=== PATIENT | male | born 1940 | race Caucasian/White ===

== ENCOUNTER → 2018-08-09 | Outpatient (CLI) | payer MEDICARE ==
[2018-08-09 10:36] LABS: Basophils % (A) 1 %; Eosinophils # (A) 0.3 k/uL (0-0.7); Eosinophils % (A) 5 %; HCT 43.1 % (39.0-53.0); HGB 13.7 gm/dL (13.0-17.5); Hypochromasia Slight; Lymphocytes # (A) 2.2 k/uL (1.0-4.8); Lymphocytes % (A) 36 %; MCH 32.2 pg (25.0-35.0); MCHC 31.8 g/dL (31.0-37.0); MCV 101.3 fL (80.0-100.0); Macrocytosis Slight; Mean Platelet Volume 8.5; Monocytes # (A) 0.2 k/uL (0-1.0); Monocytes % (A) 4 %; Neutrophils # (A) 3.2 k/uL (1.3-7.7); Neutrophils % (A) 53 %; Platelet Count 175 k/uL (150-450); RBC 4.26 m/uL (4.30-5.90); RDW 15.5 % (11.5-15.5); WBC 6.1 k/uL (3.8-10.6)
[2018-08-09 10:49] LABS: Potassium 4.4 mmol/L (3.5-5.1)
== END | disposition home or self-care (01) ==
LOC: LABWHC1 09:48
PROVIDERS: ATTEND Orthopaedic Surgery
DX: Z01.818 Encounter for other preprocedural examination (principal); Z01.812 Encounter for preprocedural laboratory examination; G56.01 Carpal tunnel syndrome, right upper limb; M65.311 Trigger thumb, right thumb
CPT/HCPCS: 36415; 80051; 85025; 93005

== ENCOUNTER 2018-08-29 13:24 | Day surgery (SDC) | payer MEDICARE ==
[2018-08-27 13:38] VITALS: BMI 29.1
--- NOTE | 2018-08-28 16:13 | HP ---
HISTORY AND PHYSICAL REASON FOR ADMISSION: Surgery scheduled for 08/29/2018. Alexander Marcelino is a 78-year-old patient seen with symptomatic right carpal tunnel syndrome along with symptomatic right trigger thumb. We discussed treatment options. He elected to proceed with surgical intervention. Consent was obtained. PAST MEDICAL HISTORY: Hypertension, hyperlipidemia. PAST SURGICAL HISTORY: Elbow surgery and toe surgery. MEDICATIONS: Albuterol. Hydrochlorothiazide and methotrexate. Simvastatin. ALLERGIES: None reported. SOCIAL HISTORY: Denies tobacco use. PHYSICAL EVALUATION: Evaluation of the right hand: He has a positive carpal compression, carpal Tinel's causing numbness and tingling in the median nerve distribution. There is thenar muscle atrophy. There is decreased sensation within the median nerve distribution, which is significant marked. There is tenderness along the A1 brannon area of the right thumb as well. He has a good radial pulse present. X-RAYS: Of the right hand reveals some osteoarthritic changes. IMPRESSION: 1. Right carpal tunnel syndrome. 2. Right trigger thumb. PLAN: Decompression right median nerve and Release A1 brannon, right thumb. Surgery scheduled for 08/29/2018. MMODL / IJN: [id number] /
[~2018-08-29 13:24] MED LIST: HYDROmorphone 0.5 MG/0.5 ML SYRINGE IVP PRN; LACTATED RINGERS 1,000 ML IV SCH; LIDOCAINE 1% 20 ML VIAL (10MG/ML) FOR IV START INTRADERMA PRN; ONDANSETRON 4 MG/2 ML VIAL IVP ONE
[2018-08-29 13:48] VITALS: RESP 16; TEMP 97.8
[2018-08-29] MEDS ORDERED: fentaNYL (PF) 50 MCG/ML 2 ML AMP ONE (14:56)
[2018-08-29] MEDS ORDERED: PROPOFOL 10 MG/ML 20 ML VIAL IV ONE (14:56)
[2018-08-29] MEDS ORDERED: BUPIVACAINE (PF) 0.25% 30 ML VIAL SQ ONE (14:56)
[2018-08-29] MEDS ORDERED: MIDAZOLAM 2 MG/2 ML VIAL ONE (14:56)
--- NOTE | 2018-08-29 15:31 | P.OP ---
Date of Procedure: 08/29/18 Preoperative Diagnosis: 1. Right carpal tunnel syndrome 2. Right trigger thumb Postoperative Diagnosis: same Procedure(s) Performed: 1. Decompression right median nerve 2. Release A1 brannon right thumb Anesthesia: MAC, local Surgeon: Stephane Emanuel Estimated Blood Loss (ml): 1 Pathology: none sent Condition: stable Disposition: PACU Indications for Procedure: 78-year-old patient seen was symptomatically carpal tunnel syndrome as well as a symptom medical right trigger thumb. After we had treatment options discussed he elected to proceed with surgical intervention to include decompression right median nerve and release A1 brannon right thumb. Operative Findings: See description of procedure Description of Procedure: The patient was taken to the operative suite. The patient underwent IV sedation by the department of anesthesia. The patient received preoperative IV antibiotics. A well-padded tourniquet was placed proximal right upper extremity. The right upper extremity was prepped and draped in the normal sterile orthopedic fashion. The extremity was elevated and tourniquet insufflated to 250. Both the carpal tunnel release site and a completely set of the thumb were infiltrated with local analgesic. Once good local analgesia was noted an incision was made beginning at the distal volar wrist crease extending distally approximately 3 cm in line with the fourth metacarpal sharply through skin. Dissection was taken down through the subcutaneous soft tissues then through the palmar fascia to the transverse carpal ligament. I now incised the transverse carpal ligament. I now completed the release of the transverse carpal ligament proximally and distally with blunt Metzenbaums. There was complete release of the ligament noted with good decompression of the nerve. I now turned my attention to the thumb. I made an incision along the A1 brannon air the right thumb measuring approximately 1 cm. I dissected down to the A1 brannon. I now identified the A1 brannon. I now released the A1 brannon with a blunt tenotomy. The tendon appeared freely mobile with no impingement and there was good complete release of the A1 brannon. We had good hemostasis at both incision sites. Both incisions were now approximated with nylon suture. Sterile dressings were applied followed by loose web roll and Rg bandage. The tourniquet was released with good immediate capillary refill of the digits noted. The patient was awakened, transferred to recovery stable condition.
[2018-08-29 15:38] VITALS: BP 121/55; PULSE 78
== END 2018-08-29 16:10 | disposition home or self-care (01) ==
LOC: OR 13:24
PROVIDERS: ATTEND Orthopaedic Surgery
DX: G56.01 Carpal tunnel syndrome, right upper limb (principal); M65.311 Trigger thumb, right thumb; I10 Essential (primary) hypertension; E78.5 Hyperlipidemia, unspecified; J44.9 Chronic obstructive pulmonary disease, unspecified; M06.9 Rheumatoid arthritis, unspecified; Z79.899 Other long term (current) drug therapy; Z79.890 Hormone replacement therapy; Z79.51 Long term (current) use of inhaled steroids; Z87.891 Personal history of nicotine dependence
CPT/HCPCS: 64721; 26055; J2250; J2405; J3010; J2704

== ENCOUNTER 2019-02-02 21:42 | Emergency (ER) | payer MEDICARE ==
[2019-02-02 22:12] LABS: Glucose,Whole Blood 102 mg/dL (75-99)
--- NOTE | 2019-02-02 22:40 | ED ---
General Adult HPI - General Chief complaint: Dizziness Stated complaint: Confusion Time Seen by Provider: 02/02/19 21:59 Source: patient Mode of arrival: ambulatory Limitations: no limitations - History of Present Illness Initial comments: Alexander is a pleasant 78-year-old woman who is brought to the emergency department today by his family for evaluation of altered mental status. Family reports over the past week Alexander seems to be acting differently, they state that he is just been somewhat confused. He's done odd things like put on his pants inside out or backwards had trouble getting dressed or doing his usual activities. Alexander is usually independent and able to drive so this is very atypical for him. In addition he noticed he occasionally has some spastic movements of the cervix extremities. Patient reports he's had a headache all week, he rates it a 7-8 out of 10 in intensity it does not improve with Motrin or Tylenol. He denies any history of significant headaches or migraines. He denies any recent head trauma injuries or falls. Bedside expressed concern that the patient has been noncompliant with his home oxygen, he does have COPD, he is oxygen dependent 2-3 L at all times however they report that he only wears his oxygen when he sitting in his chair. He refuses to carry his portable oxygen her wears auction when he is doing anything else around the house. They discussed his symptoms with a family friend who is a medical provider and expressed concern that he may have hypercapnia and advised to come to the ER for evaluation. - Related Data Home Medications Medication Instructions Recorded Confirmed Albuterol Nebulized [Ventolin 2.5 mg INHALATION RT-HS 08/27/18 02/02/19 Nebulized] Budesonide [Pulmicort] 0.5 mg INHALATION RT-DAILY 08/27/18 02/02/19 Folic Acid 1 mg PO DAILY 08/27/18 02/02/19 Hydrochlorothiazide 25 mg PO DAILY 08/27/18 02/02/19 Levothyroxine Sodium [Synthroid] 100 mcg PO DAILY 08/27/18 02/02/19 Methotrexate Sodium [Methotrexate] 20 mg PO CHOW 08/27/18 02/02/19 Simvastatin 40 mg PO DAILY 08/27/18 02/02/19 Ascorbic Acid [Vitamin C] 500 mg PO DAILY 02/02/19 02/02/19 Cholecalciferol [Vitamin D3 (25 1,000 unit PO DAILY 02/02/19 02/02/19 Mcg = 1000 Iu)] Ibuprofen [Advil] 400 mg PO QID 02/02/19 02/02/19 Allergies Allergy/AdvReac Type Severity Reaction Status Date / Time No Known Allergies Allergy Verified 02/02/19 22:36 Review of Systems ROS Statement: Those systems with pertinent positive or pertinent negative responses have been documented in the HPI. ROS Other: All systems not noted in ROS Statement are negative. Past Medical History Past Medical History: COPD, Hyperlipidemia, Rheumatoid Arthritis (RA), Thyroid Disorder Additional Past Medical History / Comment(s): peripheral edema, wears O2 prn at 2l History of Any Multi-Drug Resistant Organisms: None Reported Past Surgical History: Orthopedic Surgery Additional Past Surgical History / Comment(s): left carpal tunnel, elbow sx Past Anesthesia/Blood Transfusion Reactions: No Reported Reaction Past Psychological History: No Psychological Hx Reported Smoking Status: Former smoker General Exam - General Exam Comments Initial Comments: GENERAL: Patient is well-developed and well-nourished. Patient is nontoxic and well-hydrated and is in no distress. HENT: Normocephalic, Atraumatic. Neck is soft and supple. Oropharynx is clear. Moist mucous membranes. Neck has full range of motion without eliciting any pain. EYES: The sclera were anicteric and conjunctiva were pink and moist. Extraocular movements were intact and pupils were equal round and reactive to light. PULMONARY: Unlabored respirations. Good breath sounds bilaterally. No audible rales rhonchi or wheezing was noted. CARDIOVASCULAR: There is a regular rate and rhythm without any murmurs gallops or rubs. ABDOMEN: Soft and nontender with normal bowel sounds. SKIN: Skin is clear with no lesions or rashes and otherwise unremarkable. NEUROLOGIC: Patient is alert and oriented x3 but seems pleasantly confused and doesnt understand why he needs to be in the ER Cranial nerves II through XII are grossly intact. Motor and sensory are also intact. Normal speech, volume and content. Symmetrical smile. MUSCULOSKELETAL: Normal extremities with adequate strength and full range of motion. No lower extremity swelling or edema. No calf tenderness. PSYCHIATRIC: Normal psychiatric evaluation Limitations: no limitations Course Vital Signs 02/02/19 02/02/19 02/02/19 21:44 22:18 22:30 Temperature 98.5 F Pulse Rate 92 80 78 Respiratory 20 20 22 Rate Blood Pressure 137/85 115/72 109/66 O2 Sat by Pulse 92 L 95 94 L Oximetry 02/02/19 23:22 Temperature 98.1 F Pulse Rate 79 Respiratory 20 Rate Blood Pressure 114/62 O2 Sat by Pulse 95 Oximetry EKG Findings - EKG Comments: EKG Findings:: EKG was obtained at 2215, rate is 83 rhythm is sinus there is normal axis there are normal intervals, OK 144, QRS 106, QTC is 460 there are no acute ST elevations or depressions there is no evidence of acute ischemia infarction or arrhythmia. Medical Decision Making - Medical Decision Making The patient was seen and evaluated upon arrival to the emergency department. This is a pleasant 78-year-old gentleman with history of oxygen dependent COPD presenting with his family for evaluation of odd behavior and altered mental status for 1 week duration. In addition the patient is experiencing a headache but no fevers or infectious symptoms. Patient denies any trauma or head injuries. History is concerning due to his noncompliance with treatment regimen he could be hypercapnic therefore we will obtain a VBG with a basic labs, however given his advanced age and altered mental status we will also obtain a head CT Labs with chronic anemia, VBG is within normal limits as a CMP Head CT concerning for acute on chronic subdural hematoma with a 5 mm shift Results were discussed with the patient and family, they're agreeable to plan for transfer to [facility] for evaluation by neurosurgery. Again the patient denies any possibility of trauma injury or fall. Patient having some difficulty comprehending what is going on and requests to be discharged home so that he watched TV, family encouraging him to cooperate with plan for transfer for evaluation by neurosurgery. care was discussed with Dr. Pitts at [facility] who accepts the transfer to the ER for evaluation by neurosurgery. - Lab Data Result diagrams: 02/02/19 22:15 02/02/19 22:15 Lab Results 02/02/19 02/02/19 02/02/19 Range/Units 22:10 22:15 22:15 WBC 6.2 (3.8-10.6) k/uL RBC 3.83 L (4.30-5.90) m/uL Hgb 12.2 L (13.0-17.5) gm/dL Hct 38.0 L (39.0-53.0) % MCV 99.3 (80.0-100.0) fL MCH 31.9 (25.0-35.0) pg MCHC 32.1 (31.0-37.0) g/dL RDW 15.1 (11.5-15.5) % Plt Count 166 (150-450) k/uL Neutrophils % 42 % Lymphocytes % 48 % Monocytes % 4 % Eosinophils % 4 % Basophils % 0 % Neutrophils # 2.6 (1.3-7.7) k/uL Lymphocytes # 3.0 (1.0-4.8) k/uL Monocytes # 0.3 (0-1.0) k/uL Eosinophils # 0.2 (0-0.7) k/uL Basophils # 0.0 (0-0.2) k/uL Macrocytosis Slight VBG pH (7.31-7.41) VBG pCO2 (37-51) mmHg VBG HCO3 (24-28) mmol/L Sodium 135 L (137-145) mmol/L Potassium 4.1 (3.5-5.1) mmol/L Chloride 99 (98-107) mmol/L Carbon Dioxide 29 (22-30) mmol/L Anion Gap 7 mmol/L BUN 21 H (9-20) mg/dL Creatinine 0.90 (0.66-1.25) mg/dL Est GFR (CKD-EPI)AfAm >90 (>60 ml/min/1.73 sqM) Est GFR (CKD-EPI)NonAf 82 (>60 ml/min/1.73 sqM) Glucose 97 (74-99) mg/dL POC Glucose (mg/dL) 102 H (75-99) mg/dL POC Glu Assistant Art Director ID Leisa Waters Calcium 8.9 (8.4-10.2) mg/dL Total Bilirubin 0.4 (0.2-1.3) mg/dL AST 25 (17-59) U/L ALT 7 L (21-72) U/L Alkaline Phosphatase 76 (38-126) U/L Total Protein 8.3 H (6.3-8.2) g/dL Albumin 3.3 L (3.5-5.0) g/dL 02/02/19 Range/Units 22:15 WBC (3.8-10.6) k/uL RBC (4.30-5.90) m/uL Hgb (13.0-17.5) gm/dL Hct (39.0-53.0) % MCV (80.0-100.0) fL MCH (25.0-35.0) pg MCHC (31.0-37.0) g/dL RDW (11.5-15.5) % Plt Count (150-450) k/uL Neutrophils % % Lymphocytes % % Monocytes % % Eosinophils % % Basophils % % Neutrophils # (1.3-7.7) k/uL Lymphocytes # (1.0-4.8) k/uL Monocytes # (0-1.0) k/uL Eosinophils # (0-0.7) k/uL Basophils # (0-0.2) k/uL Macrocytosis VBG pH 7.48 H (7.31-7.41) VBG pCO2 38 (37-51) mmHg VBG HCO3 28 (24-28) mmol/L Sodium (137-145) mmol/L Potassium (3.5-5.1) mmol/L Chloride (98-107) mmol/L Carbon Dioxide (22-30) mmol/L Anion Gap mmol/L BUN (9-20) mg/dL Creatinine (0.66-1.25) mg/dL Est GFR (CKD-EPI)AfAm (>60 ml/min/1.73 sqM) Est GFR (CKD-EPI)NonAf (>60 ml/min/1.73 sqM) Glucose (74-99) mg/dL POC Glucose (mg/dL) (75-99) mg/dL POC Glu Assistant Art Director ID Calcium (8.4-10.2) mg/dL Total Bilirubin (0.2-1.3) mg/dL AST (17-59) U/L ALT (21-72) U/L Alkaline Phosphatase (38-126) U/L Total Protein (6.3-8.2) g/dL Albumin (3.5-5.0) g/dL Disposition Clinical Impression: Acute on chronic intracranial subdural hematoma Disposition: OTHER INSTITUTION NOT DEFINED Condition: Serious Referrals: Lexa Mccormack MD [Primary Care Provider] - 1-2 days - Out of Hospital Transfer - Req. Specs Out of Hospital Transfer - Requested Specifics: Other Emergency Center ([facility])
[2019-02-02 22:45] LABS: VBG PH 7.48 (7.31-7.41)
[2019-02-02 22:48] LABS: Basophils % (A) 0 %; Eosinophils # (A) 0.2 k/uL (0-0.7); Eosinophils % (A) 4 %; HGB 12.2 gm/dL (13.0-17.5); Lymphocytes % (A) 48 %; MCH 31.9 pg (25.0-35.0); MCHC 32.1 g/dL (31.0-37.0); MCV 99.3 fL (80.0-100.0); Macrocytosis Slight; Monocytes # (A) 0.3 k/uL (0-1.0); Monocytes % (A) 4 %; Neutrophils # (A) 2.6 k/uL (1.3-7.7); Neutrophils % (A) 42 %; Platelet Count 166 k/uL (150-450); RBC 3.83 m/uL (4.30-5.90); RDW 15.1 % (11.5-15.5); WBC 6.2 k/uL (3.8-10.6)
[2019-02-02 22:57] LABS: ALT 7 U/L (21-72); AST 25 U/L (17-59); African American GFR (CKD) >90 (>60 ml/min/1.73 sqM); Albumin 3.3 g/dL (3.5-5.0); Alkaline Phosphatase 76 U/L (38-126); Anion Gap 7 mmol/L; Blood Urea Nitrogen 21 mg/dL (9-20); Calcium 8.9 mg/dL (8.4-10.2); Carbon Dioxide 29 mmol/L (22-30); Chloride 99 mmol/L (98-107); Glucose 97 mg/dL (74-99); Potassium 4.1 mmol/L (3.5-5.1); Sodium 135 mmol/L (137-145); Total Bilirubin 0.4 mg/dL (0.2-1.3); Total Protein 8.3 g/dL (6.3-8.2)
--- NOTE | 2019-02-02 23:02 | XR ---
EXAM: XR Chest, 2 Views CLINICAL HISTORY: COPD TECHNIQUE: Frontal and lateral views of the chest. COMPARISON: No relevant prior studies available. FINDINGS: Lungs: Diffuse airspace opacities which may be inflammatory or infectious versus pulmonary vascular congestion. Pleural space: Unremarkable. No pneumothorax. Heart: Unremarkable. No cardiomegaly. Mediastinum: Unremarkable. Bones/joints: Unremarkable. IMPRESSION: Diffuse airspace opacities which may be inflammatory or infectious versus pulmonary vascular congestion.
--- NOTE | 2019-02-02 23:07 | CT ---
ADDENDUM - Added by Mor Caban MD on 02/02/2019 11:07 PM (-07:00) EXAM: CT Head Without Intravenous Contrast CLINICAL HISTORY: None. TECHNIQUE: Axial computed tomography images of the head/brain without intravenous contrast. CTDI is 0.085, 0.085, 49.1 mGy and DLP is 1082.4 mGy-cm. This CT exam was performed using one or more of the following dose reduction techniques: automated exposure control, adjustment of the mA and/or kV according to patient size, and/or use of iterative reconstruction technique. COMPARISON: No relevant prior studies available. FINDINGS: Brain: Moderate-sized acute on chronic subdural hematoma along the right cerebral convexity measuring up to 2 cm. This causes marked mass effect on the adjacent parenchyma with approximately 5 mm of leftward midline shift. Chronic small vessel ischemic disease and senescent changes. Calcifications within the basal ganglia and the cerebellum, which is nonspecific. Ventricles: Unremarkable. No ventriculomegaly. Bones/joints: Unremarkable. No acute fracture. Soft tissues: Unremarkable. Sinuses: Mild mucosal thickening in the paranasal sinuses. Mastoid air cells: Partial opacification left mastoid air cells. Post surgical changes within the right mastoid. IMPRESSION: Moderate-sized acute on chronic subdural hematoma along the right cerebral convexity measuring up to 2 cm. This causes marked mass effect on the adjacent parenchyma with approximately 5 mm of leftward midline shift. <MYCVCSECTION> Critical Value Communications 02/02/19 23:09 Call Doctor Regarding Above results, called Dr. Daniel on 02/02 23:09 (-04:00)
[2019-02-02 23:24] VITALS: BP 114/62; PULSE 79; TEMP 98.1
[2019-02-02 23:38] VITALS: RESP 20
== END 2019-02-02 23:39 | disposition other institution (70) ==
LOC: EC 21:42
DX: I62.03 Nontraumatic chronic subdural hemorrhage (principal); I62.01 Nontraumatic acute subdural hemorrhage; D64.9 Anemia, unspecified; J44.9 Chronic obstructive pulmonary disease, unspecified; E78.5 Hyperlipidemia, unspecified; M06.9 Rheumatoid arthritis, unspecified; E07.9 Disorder of thyroid, unspecified; Z87.891 Personal history of nicotine dependence; Z79.51 Long term (current) use of inhaled steroids; Z79.890 Hormone replacement therapy; Z79.1 Long term (current) use of non-steroidal anti-inflammatories (NSAID); Z79.899 Other long term (current) drug therapy; Z99.81 Dependence on supplemental oxygen
CPT/HCPCS: 36415; 70450; 71046; 80053; 82803; 85025; 93005; 99285

== ENCOUNTER → 2019-03-11 | Outpatient (CLI) | payer MEDICARE ==
--- NOTE | 2019-03-11 13:07 | CT ---
EXAMINATION TYPE: CT brain wo con DATE OF EXAM: 03/11/2019 COMPARISON: 02/02/2019 HISTORY: follow up to nontraumatic subdural hemorrhage CT DLP: 945.5 mGycm Automated exposure control for dose reduction was used. 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 The previously seen acute on chronic subdural hematoma has decreased in thickness in comparison to th e prior with a maximum thickness previously measuring approximately 2.2 cm near the skull vertex and currently measuring 1.5 cm, additionally the previously seen 5 mm of right to left midline shift has resolved in the interim with no current midline shift seen. There are similar appearing hyperattenuat ed densities with no new hyperattenuated densities indicating subacute on chronic right hemispheric h ematoma at this time. There is some effacement of the peripheral sulci of the right cerebral hemisphe re. No new compartments of intracranial hemorrhage are seen. Patchy areas of hypoattenuation are pres ent within the subcortical and periventricular white matter. Overall peripheral sulcal prominence is compatible with age-related volume loss. Calvarium appears intact. Paranasal sinuses and mastoid air cells are well aerated other than some debris within the postsurgical change of the right mastoid air cells and small amount of fluid in the left posterior inferior mastoid air cells. IMPRESSION: 1. IMPROVING SUBACUTE ON CHRONIC RIGHT HEMISPHERIC SUBDURAL HEMATOMA WITH RESOLVED MIDLINE SHIFT/SUBF ALCINE HERNIATION. 2. FINDINGS COMPATIBLE WITH FAHR'S DISEASE. 3. PARTIAL OPACIFICATION OF THE BILATERAL MASTOID AIR CELLS WITH POSTSURGICAL CHANGES ON THE RIGHT. 4. 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
== END | disposition home or self-care (01) ==
LOC: RADCTMAIN 12:32
DX: S06.5X9A Traumatic subdural hemorrhage with loss of consciousness of unspecified duration, initial encounter (principal)
CPT/HCPCS: 70450

== ENCOUNTER → 2019-05-02 | Outpatient (CLI) | payer MEDICARE ==
--- NOTE | 2019-05-02 10:41 | CT ---
EXAMINATION TYPE: CT chest w con DATE OF EXAM: 05/02/2019 COMPARISON: NONE HISTORY: COPD CT DLP: 418.9 mGycm. Automated Exposure Control for Dose Reduction was Utilized. TECHNIQUE: CT scan of the thorax is performed following with IV Contrast, patient injected with 100 mL of Isovue 300. FINDINGS: LUNGS: Fairly moderate to advanced emphysematous change in the bilateral upper lobes is present with [id number] right greater than left biapical pleural/parenchymal scarring. There is mild to bord rosas moderate peripheral reticulation and fibrosis throughout the lungs bilaterally with some invol vement of the middle and lower lungs. Some scattered small nodules are present. For reference 6 mm yang bpleural nodule left lower lobectomy 40. For reference 3 mm posterior superior right lower lobe nodul e likely from image 37. No suspicious masses. No suspicious consolidation. No pleural effusion or pne umothorax. MEDIASTINUM: There are no greater than 1 cm hilar or mediastinal lymph nodes. No pericardial effus ion is seen. Right pulmonary artery dilated at 3.0 cm image 29, CT findings suggesting underlying pul monary artery hypertension. Heart size upper limits of normal. No pericardial effusion. Moderate mixe d plaque in the aorta. Bovine type arch is seen which is normal variant. OTHER: Significant subareolar bilateral gynecomastia axial image 32. Stomach is poorly distended and thus suboptimally evaluated. Cannot exclude significant stenosis in the celiac artery at origin coron al image 55 and sagittal image 65. Correlate clinically. IMPRESSION: 1. Moderate to severe emphysematous change in the upper lobes. Mild to moderate borderline fibrotic c hanges bilaterally. No suspicious acute pulmonary process. Few scattered small nodules up to 6 mm in size. Appropriate CT follow up as per Fleischner Society recommendations. Underlying pulmonary hypert ension. 2. 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
== END ==
LOC: RADCTMAIN 08:02
PROVIDERS: ATTEND Internal Medicine Critical Care Medicine
DX: R91.8 Other nonspecific abnormal finding of lung field (principal); J44.9 Chronic obstructive pulmonary disease, unspecified
CPT/HCPCS: 82565; 84520; 71260; 36415; Q9967

== ENCOUNTER → 2019-05-13 | Outpatient (CLI) | payer MEDICARE ==
--- NOTE | 2019-05-14 05:08 | CT ---
EXAMINATION TYPE: CT brain wo con DATE OF EXAM: 05/13/2019 COMPARISON: 03/11/2019 HISTORY: 79-year-old male f/u subdural hemorrhage TECHNIQUE: Examination was done in axial plane without intravenous contrast. Coronal and sagittal r econstructions performed. CT DLP: 1219 mGycm Automated exposure control for dose reduction was used. FINDINGS: There is no evidence of acute intracranial hemorrhage, acute ischemic changes, mass, or mass effect. There is no effacement of cerebral sulci or basal subarachnoid cisterns. There is no hydrocephalus. There is no midline shift. Quintero-white matter distinction is preserved. Redemonstrated subdural hematoma along the right lateral convexity. This is smaller now measuring 7 m m thick versus 1.3 cm, previously. It is an isodense to hypodense collection compatible with subacute to chronic hemorrhage. Benign basal ganglionic calcifications. Additional calcifications within the bilateral cerebellar hem ispheres. Mild mucosal thickening floors of the maxillary sinuses. Suspect some resection changes into the righ t mastoid process. Small amount of trapped fluid in inferior left mastoid air cells is unchanged. Orb its and globes appear intact. IMPRESSION: 1. Residual small subdural hematoma along the right lateral convexity with density suggesting subacut e to chronic blood products. The hematoma measures 7 mm thick versus 1.3 cm on 03/11/2019. 2. No acute intracranial abnormality seen. 3. Basal ganglionic and bilateral cerebellar calcifications can be seen with Fahr's disease.
== END | disposition home or self-care (01) ==
LOC: RADCTMAIN 14:33
PROVIDERS: ATTEND Nurse Practitioner Critical Care Medicine
DX: I62.00 Nontraumatic subdural hemorrhage, unspecified (principal); G93.89 Other specified disorders of brain
CPT/HCPCS: 70450

== ENCOUNTER → 2019-05-16 | Outpatient (CLI) | payer MEDICARE ==
--- NOTE | 2019-05-17 16:01 | ECHOF ---
Referral Reason:copd J44.9 MEASUREMENTS -------- HEIGHT: 177.8 cm WEIGHT: 90.7 kg BP: RVIDd: 3.7 cm (< 3.3) IVSd: 1.1 cm (0.6 - 1.1) LVIDd: 5.0 cm (3.9 - 5.3) LVPWd: 1.1 cm (0.6 - 1.1) IVSs: 1.9 cm LVIDs: 3.4 cm LVPWs: 1.3 cm LAESV Index (A-L): 23.32 ml/m Ao Diam: 3.4 cm (2.0 - 3.7) AV Cusp: 2.3 cm (1.5 - 2.6) LA Diam: 3.8 cm (2.7 - 3.8) MV EXCURSION: 17.007 mm (> 18.000) MV EF SLOPE: 72 mm/s (70 - 150) EPSS: 1.1 cm MV E Kendrick: 0.42 m/s MV DecT: 319 ms MV A Kendrick: 0.87 m/s MV E/A Ratio: 0.48 AR PHT: 509 ms RAP: 5.00 mmHg RVSP: 39.61 mmHg FINDINGS -------- Sinus rhythm. This was a technically adequate study. The left ventricular size is normal. There is mild concentric left ventricular hypertrophy. Overa ll left ventricular systolic function is normal with, an EF between 55 - 60 %. The diastolic fillin g pattern is normal for the age of the patient 6.25. The right ventricle is mild to moderately enlarged. Normal LA size by volume 22+/-6 ml/m2. The right atrium is mildly enlarged. Interatrial and interventricular septum intact. Trace to mild aortic regurgitation. There is no evidence of aortic stenosis. The mitral valve is normal. There is trace to mild mitral regurgitation. Mild tricuspid regurgitation present. There is mild pulmonary hypertension. The right ventricular systolic pressure, as measured by Doppler, is 39.61mmHg. There is no pulmonic regurgitation present. The aortic root size is normal. Normal inferior vena cava with normal inspiratory collapse consistent with estimated right atrial pre ssure of 5 mmHg. There is no pericardial effusion. CONCLUSIONS -------- 1. Sinus rhythm. 2. This was a technically adequate study. 3. The left ventricular size is normal. 4. There is mild concentric left ventricular hypertrophy. 5. Overall left ventricular systolic function is normal with, an EF between 55 - 60 %. 6. The diastolic filling pattern is normal for the age of the patient 6.25 7. The right ventricle is mild to moderately enlarged. 8. Normal LA size by volume 22+/-6 ml/m2. 9. The right atrium is mildly enlarged. 10. Trace to mild aortic regurgitation. 11. There is no evidence of aortic stenosis. 12. There is trace to mild mitral regurgitation. 13. Mild tricuspid regurgitation present. 14. There is mild pulmonary hypertension. 15. There is no pulmonic regurgitation present. 16. The aortic root size is normal. 17. Normal inferior vena cava with normal inspiratory collapse consistent with estimated right atrial pressure of 5 mmHg. 18. There is no pericardial effusion. JTAC: Virginie Lott RDCS
== END | disposition home or self-care (01) ==
LOC: RADECHMAIN 11:16
PROVIDERS: ATTEND Internal Medicine Critical Care Medicine
DX: I08.3 Combined rheumatic disorders of mitral, aortic and tricuspid valves (principal); J44.9 Chronic obstructive pulmonary disease, unspecified; I27.20 Pulmonary hypertension, unspecified
CPT/HCPCS: 93306

== ENCOUNTER → 2019-06-30 | Outpatient (CLI) | payer MEDICARE | END | disposition home or self-care (01) | LOC: CPPFTMAIN 10:40 | PROVIDERS: ATTEND Internal Medicine Critical Care Medicine | DX: J44.9 Chronic obstructive pulmonary disease, unspecified (principal); J98.4 Other disorders of lung | CPT/HCPCS: 94060; 94726; 94729 ==

== ENCOUNTER 2020-01-15 13:33 | Inpatient (IN) | payer MEDICARE ==
[2020-01-15] MEDS ORDERED: ACETAMINOPHEN TAB 500 MG TAB PO STA (13:53)
--- NOTE | 2020-01-15 14:15 | ED ---
General Adult HPI - General Chief complaint: Weakness Stated complaint: confusion Time Seen by Provider: 01/15/20 13:40 Source: patient, RN notes reviewed, old records reviewed Mode of arrival: ambulatory Limitations: no limitations - History of Present Illness Initial comments: 79-year-old male who presents to the emergency department with altered mental status 2 days according to his daughter. Patient has had a hemorrhagic regularly with past unknown cause per the family. Patient had a low-grade fever the last 2 days and one time he had a fever of 101. Patient has a chronic cough it's no different today according to the patient. Patient denies any difficulty breathing or chest pain. Patient denies any abdominal pain patient patient was nauseated this morning vomited times one. Patient denies any diarrhea. Patient denies any dysuria hematuria urinary frequency. Patient denies any rashes lesions or areas of erythema. - Related Data Home Medications Medication Instructions Recorded Confirmed Albuterol Nebulized [Ventolin 2.5 mg INHALATION RT-HS 08/27/18 02/02/19 Nebulized] Budesonide [Pulmicort] 0.5 mg INHALATION RT-DAILY 08/27/18 02/02/19 Folic Acid 1 mg PO DAILY 08/27/18 02/02/19 Hydrochlorothiazide 25 mg PO DAILY 08/27/18 02/02/19 Levothyroxine Sodium [Synthroid] 100 mcg PO DAILY 08/27/18 02/02/19 Methotrexate Sodium [Methotrexate] 20 mg PO CHOW 08/27/18 02/02/19 Simvastatin 40 mg PO DAILY 08/27/18 02/02/19 Ascorbic Acid [Vitamin C] 500 mg PO DAILY 02/02/19 02/02/19 Cholecalciferol [Vitamin D3 (25 1,000 unit PO DAILY 02/02/19 02/02/19 Mcg = 1000 Iu)] Ibuprofen [Advil] 400 mg PO QID 02/02/19 02/02/19 Allergies Allergy/AdvReac Type Severity Reaction Status Date / Time No Known Allergies Allergy Verified 01/15/20 13:42 Review of Systems ROS Statement: Those systems with pertinent positive or pertinent negative responses have been documented in the HPI. ROS Other: All systems not noted in ROS Statement are negative. Past Medical History Past Medical History: COPD, Hyperlipidemia, Rheumatoid Arthritis (RA), Thyroid Disorder Additional Past Medical History / Comment(s): peripheral edema, wears O2 prn at 2l, brain bleed History of Any Multi-Drug Resistant Organisms: None Reported Past Surgical History: Orthopedic Surgery Additional Past Surgical History / Comment(s): left carpal tunnel, elbow sx, cataracts Past Anesthesia/Blood Transfusion Reactions: No Reported Reaction Past Psychological History: No Psychological Hx Reported Smoking Status: Former smoker Past Alcohol Use History: None Reported Past Drug Use History: None Reported General Exam - General Exam Comments Initial Comments: GENERAL: Patient is well-developed and well-nourished. Patient is nontoxic and well- hydrated and is in mild distress. I think the patient's temperature was 101.1 ENT: Neck is soft and supple. No significant lymphadenopathy is noted. Oropharynx is clear. Moist mucous membranes. Neck has full range of motion without eliciting any pain. EYES: The sclera were anicteric and conjunctiva were pink and moist. Extraocular movements were intact and pupils were equal round and reactive to light. Eyelids were unremarkable. PULMONARY: Unlabored respirations. Good breath sounds bilaterally. Crackles bilateral b ases CARDIOVASCULAR: There is a regular rate and rhythm without any murmurs gallops or rubs. ABDOMEN: Soft and nontender with normal bowel sounds. SKIN: Skin is clear with no lesions or rashes and otherwise unremarkable. NEUROLOGIC: Patient is alert and oriented x3. Cranial nerves II through XII are grossly intact. Motor and sensory are also intact. Normal speech, volume and content. Symmetrical smile. MUSCULOSKELETAL: Normal extremities with adequate strength and full range of motion. LYMPHATICS: No significant lymphadenopathy is noted PSYCHIATRIC: Normal psychiatric evaluation. Limitations: no limitations Course Vital Signs 01/15/20 01/15/20 01/15/20 13:38 13:54 14:17 Temperature 101.4 F H 101.1 F H Pulse Rate 109 H Respiratory 20 Rate Blood Pressure 90/48 101/58 O2 Sat by Pulse 93 L Oximetry 01/15/20 01/15/20 01/15/20 14:20 16:00 16:56 Temperature 97.9 F Pulse Rate 96 82 Respiratory 21 24 Rate Blood Pressure 101/58 100/58 O2 Sat by Pulse 98 97 Oximetry 01/15/20 17:00 Temperature Pulse Rate 74 Respiratory 20 Rate Blood Pressure 95/57 O2 Sat by Pulse 98 Oximetry Medical Decision Making - Medical Decision Making EKG shows sinus tachycardia with occasional PVC at 102 bpm CA interval 134 QRS 104 QT interval 350 QTC is 456. Degenerative ST segment elevation or depression. CT of the chest shows no PE but does show multifocal pneumonia. I started the patient on antibiotics. I spoke with Dr. Mccormack he agreed to admit the patient I admitted the patient wrote admitting orders. - Lab Data Result diagrams: 01/15/20 14:15 01/15/20 14:15 Lab Results 01/15/20 01/15/20 01/15/20 Range/Units 14:15 14:15 14:15 WBC 7.3 (3.8-10.6) k/uL RBC 3.27 L (4.30-5.90) m/uL Hgb 10.3 L (13.0-17.5) gm/dL Hct 32.7 L (39.0-53.0) % MCV 100.1 H (80.0-100.0) fL MCH 31.5 (25.0-35.0) pg MCHC 31.5 (31.0-37.0) g/dL RDW 15.9 H (11.5-15.5) % Plt Count 198 (150-450) k/uL Neutrophils % 89 % Lymphocytes % 7 % Monocytes % 3 % Eosinophils % 1 % Basophils % 0 % Neutrophils # 6.5 (1.3-7.7) k/uL Lymphocytes # 0.5 L (1.0-4.8) k/uL Monocytes # 0.2 (0-1.0) k/uL Eosinophils # 0.1 (0-0.7) k/uL Basophils # 0.0 (0-0.2) k/uL Hypochromasia Slight Macrocytosis Slight PT 11.5 (9.0-12.0) sec INR 1.1 (<1.2) APTT 32.9 H (22.0-30.0) sec D-Dimer 1.46 H (<0.60) mg/L FEU Sodium 131 L (137-145) mmol/L Potassium 3.7 (3.5-5.1) mmol/L Chloride 97 L (98-107) mmol/L Carbon Dioxide 27 (22-30) mmol/L Anion Gap 7 mmol/L BUN 36 H (9-20) mg/dL Creatinine 1.57 H (0.66-1.25) mg/dL Est GFR (CKD-EPI)AfAm 48 (>60 ml/min/1.73 sqM) Est GFR (CKD-EPI)NonAf 42 (>60 ml/min/1.73 sqM) Glucose 124 H (74-99) mg/dL Plasma Lactic Acid Clement (0.7-2.0) mmol/L Calcium 8.4 (8.4-10.2) mg/dL Magnesium 2.3 (1.6-2.3) mg/dL Total Bilirubin 0.6 (0.2-1.3) mg/dL AST 40 (17-59) U/L ALT 22 (4-49) U/L Alkaline Phosphatase 94 (38-126) U/L Lactate Dehydrogenase 577 (313-618) U/L C-Reactive Protein 163.2 H (<10.0) mg/L Total Protein 9.0 H (6.3-8.2) g/dL Albumin 3.0 L (3.5-5.0) g/dL Influenza Type A RNA (Not Detectd) Influenza Type B (PCR) (Not Detectd) 01/15/20 01/15/20 Range/Units 14:15 15:15 WBC (3.8-10.6) k/uL RBC (4.30-5.90) m/uL Hgb (13.0-17.5) gm/dL Hct (39.0-53.0) % MCV (80.0-100.0) fL MCH (25.0-35.0) pg MCHC (31.0-37.0) g/dL RDW (11.5-15.5) % Plt Count (150-450) k/uL Neutrophils % % Lymphocytes % % Monocytes % % Eosinophils % % Basophils % % Neutrophils # (1.3-7.7) k/uL Lymphocytes # (1.0-4.8) k/uL Monocytes # (0-1.0) k/uL Eosinophils # (0-0.7) k/uL Basophils # (0-0.2) k/uL Hypochromasia Macrocytosis PT (9.0-12.0) sec INR (<1.2) APTT (22.0-30.0) sec D-Dimer (<0.60) mg/L FEU Sodium (137-145) mmol/L Potassium (3.5-5.1) mmol/L Chloride (98-107) mmol/L Carbon Dioxide (22-30) mmol/L Anion Gap mmol/L BUN (9-20) mg/dL Creatinine (0.66-1.25) mg/dL Est GFR (CKD-EPI)AfAm (>60 ml/min/1.73 sqM) Est GFR (CKD-EPI)NonAf (>60 ml/min/1.73 sqM) Glucose (74-99) mg/dL Plasma Lactic Acid Clement 1.4 (0.7-2.0) mmol/L Calcium (8.4-10.2) mg/dL Magnesium (1.6-2.3) mg/dL Total Bilirubin (0.2-1.3) mg/dL AST (17-59) U/L ALT (4-49) U/L Alkaline Phosphatase (38-126) U/L Lactate Dehydrogenase (313-618) U/L C-Reactive Protein (<10.0) mg/L Total Protein (6.3-8.2) g/dL Albumin (3.5-5.0) g/dL Influenza Type A RNA Not Detected (Not Detectd) Influenza Type B (PCR) Not Detected (Not Detectd) Disposition Clinical Impression: Multifocal pneumonia, Altered mental status Disposition: ADMITTED IP TO THIS HOSP Referrals: Lexa Mccormack MD [Primary Care Provider] - 1-2 days Time of Disposition: 17:36
[2020-01-15 14:31] LABS: Basophils % (A) 0 %; Eosinophils # (A) 0.1 k/uL (0-0.7); Eosinophils % (A) 1 %; HCT 32.7 % (39.0-53.0); HGB 10.3 gm/dL (13.0-17.5); Hypochromasia Slight; Lymphocytes # (A) 0.5 k/uL (1.0-4.8); Lymphocytes % (A) 7 %; MCH 31.5 pg (25.0-35.0); MCHC 31.5 g/dL (31.0-37.0); MCV 100.1 fL (80.0-100.0); Macrocytosis Slight; Mean Platelet Volume 8.9; Monocytes # (A) 0.2 k/uL (0-1.0); Monocytes % (A) 3 %; Neutrophils # (A) 6.5 k/uL (1.3-7.7); Neutrophils % (A) 89 %; Platelet Count 198 k/uL (150-450); RBC 3.27 m/uL (4.30-5.90); RDW 15.9 % (11.5-15.5); WBC 7.3 k/uL (3.8-10.6)
[2020-01-15 14:44] LABS: INR 1.1 (<1.2); Partial Thromboplastin Time 32.9 sec (22.0-30.0); Prothrombin Time 11.5 sec (9.0-12.0)
[2020-01-15 14:50] LABS: Calcium 8.4 mg/dL (8.4-10.2); Magnesium 2.3 mg/dL (1.6-2.3); Potassium 3.7 mmol/L (3.5-5.1); Total Bilirubin 0.6 mg/dL (0.2-1.3)
--- NOTE | 2020-01-15 14:54 | XR ---
EXAMINATION TYPE: XR chest 1V portable DATE OF EXAM: 01/15/2020 COMPARISON: 04/17/2019 HISTORY: Suspected COVID-19 pneumonia TECHNIQUE: Single frontal view of the chest is obtained. FINDINGS: New multifocal right basilar opacities are seen. Left lung remains well aerated at this ti me. Cardia mediastinal silhouette is stable. No sizable pleural effusion or pneumothorax. Diffuse oss eous demineralization. IMPRESSION: Multifocal patchy right basilar opacities are most radiographically compatible with pneu monia at this time. Follow-up to resolution recommended.
[2020-01-15 15:01] LABS: C Reactive Protein 163.2 mg/L (<10.0)
[2020-01-15 15:28] LABS: D-Dimer 1.46 mg/L FEU (<0.60)
--- NOTE | 2020-01-15 15:59 | CT ---
EXAMINATION TYPE: CT brain wo con DATE OF EXAM: 01/15/2020 COMPARISON: 05/13/2019 HISTORY: Confusion, elevated d-dimer CT DLP: 1194 mGycm Automated exposure control for dose reduction was used. TECHNIQUE: CT scan of the head is performed without contrast. 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 There is no acute intracranial hemorrhage or midline shift identified. There is diffuse ventricular a nd sulcal prominence consistent with diffuse age-related cerebral atrophy. There is low-attenuation in the periventricular white matter consistent with chronic small vessel ischemic change. The globes are intact and the visualized sinuses are clear. IMPRESSION: No acute intracranial hemorrhage or midline shift. The previously seen right subdural h ematoma has resolved. There is diffuse age-related cerebral atrophy and chronic small vessel ischemic change noted.
--- NOTE | 2020-01-15 16:00 | CT ---
EXAMINATION TYPE: CT chest angio for PE DATE OF EXAM: 01/15/2020 COMPARISON: Radiograph same date HISTORY: 79-year-old male Confusion, elevated d-dimer TECHNIQUE: Contiguous axial scanning of the chest performed with IV Contrast, patient injected with 8 0 mL of Isovue 370. Coronal/sagittal MIP reconstructions performed. CT DLP: 537.2 mGycm Automated exposure control for dose reduction was used. FINDINGS: Heart normal size without pericardial effusion. No flattening of the interventricular septum reflux o f contrast into the hepatic veins. Ectatic aortic root at 3.7 cm. Mild to moderate metastatic arch calcifications with bovine configurat ion to the aortic arch. Moderate bilateral gynecomastia. Borderline sized right tracheobronchial angle lymph node at 9 mm. Enlarged right hilar lymph nodes me asuring up to 1.6 cm. Large caliber to the main right and left pulmonary arteries at 2.7 and 2.8 cm, respectively, suggesti ng underlying pulmonary arterial hypertension. No evidence for pulmonary embolus.. Moderate to advanced upper lung centrilobular emphysema. Patchy opacity peripheral right upper lobe, some tree-in-bud nodularity posterior right midlung, and patchy and confluent groundglass in the righ t lower lobe. Lesser degree of subpleural opacity posterior left lower lobe. No pleural effusion. Small hiatal hernia. Partially visualized small gallstone. Bones: No osseous destructive process. IMPRESSION: 1. NO EVIDENCE FOR PULMONARY EMBOLUS. 2. COPD WITH MODERATE EMPHYSEMA AND PULMONARY ARTERIAL HYPERTENSION. 3. PATCHY AND CONFLUENT GROUNDGLASS INVOLVING THE RIGHT LOWER LOBE AND SOME ADDITIONAL MILD INFILTRAT E RIGHT UPPER LOBE AND POSTERIOR LEFT LOWER LOBE. CORRELATE FOR MULTIFOCAL PNEUMONIA. 4. RIGHT HILAR LYMPHADENOPATHY MEASURING UP TO 1.6 CM MAY BE REACTIVE/POST INFLAMMATORY. 6-8 WEEK FOL LOW-UP RECOMMENDED AFTER TREATMENT TO ENSURE RESOLUTION. 5. SMALL HIATAL HERNIA. CHOLELITHIASIS.
[2020-01-15] MEDS ORDERED: PNEUMONIA PROTOCOL UTILIZED 1 EACH MISC PO PRN (17:36)
[2020-01-15] MEDS ORDERED: LEVOFLOXACIN 750MG-D5W PMX 750 MG in DEXTROSE/WATER 1 150ML.BAG IVPB SCH (21:00)
[2020-01-16] MEDS ORDERED: ALBUTEROL NEBULIZED 1.25 MG/3 ML INHALATION PRN (00:09)
--- NOTE | 2020-01-16 00:28 | P.HPIM ---
History of Present Illness H&P Date: 01/16/20 Chief Complaint: Altered mental status, COPD exacerbation, bilateral pneumonia, rheumatoid a 79-year-old male one of my office patient was known to have advanced history of COPD, rheumatic long, rheumatoid arthritis, atherosclerotic heart disease, nonsustained A. fib, hypertension and hyperlipidemia with recent history of hemorrhagic stroke was admitted to [facility] and done well. He presented to the emergency department at [facility] today after densest of his family because of altered mental status patient found to have fever of 101 chronic cough with worsening symptoms in the last 48 hours with productive phlegm severe dyspnea and severe hypoxia. At the time was seen no exposure to any patient or family member who had Covid 19. Patient has been compliant with his medication regularly has not seen any physician or care provider last few weeks. Patient was seen and evaluated a demurs department his d-dimer was elevated CTA of the chest was performed and showed no evidence of PE had moderate emphysema with pulmonary artery hypertension patch she and consult for 1 to groundglass involvement of the right lower lobe and some mild infiltrate in the right upper lobe as well. Had right hilar lymphadenopathy measure 1.6 cm. Slight hiatal hernia and cholelithiasis as well. Patient has been seen and evaluated by Dr. Bipin pretty and has been watching this nodule in the lung. Also CAT scan of the brain was performed and showed no acute intracranial hemorrhage or midline shift the previously seen as a right subdural hematoma has resolved with mild diffuse age atrophy mostly from small vessel disease. Laboratory value showed slightly worsening kidney function, significant elevated C-reactive protein his Covid 19 is still pending but influenza A and B were negative. Patient was started on Solu-Medrol, updraft, Pulmicort, started Rocephin and azithromycin and consult pulmonary. Review of Systems CONSTITUTIONAL: Well-developed no acute respiratory distress. Mild confusion EYES: No icterus sclerae, no conjunctivitis. EARS, NOSE, MOUTH, THROAT, and FACE: No sore throat, lymphadenopathy, carotid bruits or deformity. RESPIRATORY: Positive shortness of breath cough or wheezes. CARDIOVASCULAR: Positive PND orthopnea palpitation. GASTROINTESTINAL: No Abd pain, Nausea or vomiting, no Diarrhea or constipation, No GI Bleed, no distention or masses. GENITOURINARY: Negative for Hematuria or UTI, no kidney stones. INTEGUMENT/BREAST: Negative for any muscular injury with mild osteoarthritis.. HEMATOLOGIC/LYMPHATIC: Negative for bleed or purpura. MUSCULOSKELTAL: Negative for Myalgia or arthralgia. NEURLOGICAL: No LOC, Sz or syncope, blurred vision dizziness or abnormality.. Mild altered mental status. BEHAVIORAL/PSYCH: Negative. ENDOCRINE: Negative. Past Medical History Past Medical History: COPD, Hyperlipidemia, Rheumatoid Arthritis (RA), Thyroid Disorder Additional Past Medical History / Comment(s): peripheral edema, wears O2 prn at 2l, brain bleed History of Any Multi-Drug Resistant Organisms: None Reported Past Surgical History: Orthopedic Surgery Additional Past Surgical History / Comment(s): left carpal tunnel, elbow sx, cataracts Past Anesthesia/Blood Transfusion Reactions: No Reported Reaction Past Psychological History: No Psychological Hx Reported Smoking Status: Former smoker Past Alcohol Use History: None Reported Past Drug Use History: None Reported Medications and Allergies Home Medications Medication Instructions Recorded Confirmed Type Folic Acid 1 mg PO DAILY 08/27/18 01/15/20 History Hydrochlorothiazide 25 mg PO DAILY 08/27/18 01/15/20 History Levothyroxine Sodium [Synthroid] 100 mcg PO DAILY 08/27/18 01/15/20 History Methotrexate Sodium [Methotrexate] 20 mg PO CHOW 08/27/18 01/15/20 History Simvastatin 40 mg PO DAILY 08/27/18 01/15/20 History Ascorbic Acid [Vitamin C] 500 mg PO DAILY 02/02/19 01/15/20 History Cholecalciferol [Vitamin D3 (25 1,000 unit PO DAILY 02/02/19 01/15/20 History Mcg = 1000 Iu)] Ibuprofen [Advil] 400 mg PO QID 02/02/19 01/15/20 History Albuterol Nebulized [Ventolin 2.5 mg INHALATION RT-QID PRN 01/15/20 01/15/20 History Nebulized] Ketorolac 0.5% Ophth Soln [Acular 1 drop LEFT EYE BID 01/15/20 01/15/20 History 0.5%] Loteprednol Etabonate [Inveltys] 1 drop LEFT EYE BID 01/15/20 01/15/20 History Allergies Allergy/AdvReac Type Severity Reaction Status Date / Time No Known Allergies Allergy Verified 01/15/20 22:55 Physical Exam Vitals: Vital Signs Temp Pulse Resp BP Pulse Ox 01/15/20 22:03 97.3 F L 80 18 109/59 98 01/15/20 20:07 97.9 F 77 18 103/57 100 01/15/20 19:26 73 106/57 98 01/15/20 17:00 74 20 95/57 98 01/15/20 16:56 97.9 F 01/15/20 16:00 82 24 100/58 97 01/15/20 14:20 96 21 101/58 98 01/15/20 14:17 101/58 01/15/20 13:54 101.1 F H 01/15/20 13:38 101.4 F H 109 H 20 90/48 93 L Intake and Output 01/15/20 01/15/20 01/16/20 14:59 22:59 06:59 Other: Weight 90.718 kg General Appearance: Alert, slightly confused cooperative, no distress, appears stated age. Neck HEENT: Supple, no lymphadenopathy, no thyroid enlargement, no carotid bruits. Lungs: Decreased breath sound bilaterally without rhonchi positive crackles in the bases and right middle lobe positive expiratory wheezes with rhonchi. Chest Wall: Decrease expansion with deep inspiration no tenderness and no deformity was found on exam, no costochondral pain or discomfort. Heart: Regular rate and rhythm, S1, S2 normal, no murmur, rub or gallop. Back: Symmetric, no curvature, ROM normal, no CVA tenderness. Abdomen: Soft, non-tender, bowel sounds active all four quadrants, no masses, no organomegaly. Extremities: Trace edema multiple involvement with arthritis in the small and large joint with slight bruises in the lower extremity as well. Pulses: 2+ and symmetric. Skin: Skin color, texture, tugor normal, no rashes or lesions. Neurologic: Alert oriented with slight confusion, cranial nerves II through XII intact, no motor deficit, no abnormal balance or gait. Results CBC & Chem 7: 01/15/20 14:15 01/15/20 14:15 Labs: Abnormal Lab Results - Last 24 Hours (Table) 01/15/20 01/15/20 01/15/20 Range/Units 14:15 14:15 14:15 RBC 3.27 L (4.30-5.90) m/uL Hgb 10.3 L (13.0-17.5) gm/dL Hct 32.7 L (39.0-53.0) % MCV 100.1 H (80.0-100.0) fL RDW 15.9 H (11.5-15.5) % Lymphocytes # 0.5 L (1.0-4.8) k/uL APTT 32.9 H (22.0-30.0) sec D-Dimer 1.46 H (<0.60) mg/L FEU Sodium 131 L (137-145) mmol/L Chloride 97 L (98-107) mmol/L BUN 36 H (9-20) mg/dL Creatinine 1.57 H (0.66-1.25) mg/dL Glucose 124 H (74-99) mg/dL C-Reactive Protein 163.2 H (<10.0) mg/L Total Protein 9.0 H (6.3-8.2) g/dL Albumin 3.0 L (3.5-5.0) g/dL Thrombosis Risk Factor Assmnt - DVT/VTE Prophylaxis DVT/VTE Prophylaxis: Pharmacologic Prophylaxis ordered, Mechanical Prophylaxis ordered Assessment and Plan Assessment: 1 severe dyspnea and shortness of breath: Combination of bilateral pneumonia, rheumatic lung and worsening COPD. 2 bilateral pneumonia: Patient was started on Levaquin and Zosyn will consult pulmonary if worsening symptom might require bronchoscopy. 3 COPD excessive patient: With chronic COPD and dramatic lung with a groundglass it showed on x-ray patient will be started on Solu-Medrol, continue DuoNeb, continue Pulmicort. 4 pulmonary nodular: Patient has been seen pulmonary and eventually might require biopsy. 5 altered mental status: Most likely metabolic encephalopathy specially with infection temperature and the hypoxia from COPD continue to treat underlying disease and watch for any worsening symptoms CAT scan of the brain showed no bleed or brain insult. 6 recent history of hemorrhagic stroke and right subdural hematoma has been result so far. 7 rheumatoid arthritis: Patient has been on smaller dose of prednisone along with methotrexate methotrexate will be held for now. 8 hypothyroidism: Continue levothyroxine at 100 g daily. 9 nonsustained A. fib: With pulse rates under control patient is off anticoagulation due to the pulse been slightly bit slow no beta saul at this point unless he become tachycardic. 10 acute kidney injury with chronic kidney disease: Stage II GFR was down to 42 continue gentle hydration repeat CMP in 24 hours. 11 hyponatremia: Mild at this point most likely mild SIADH from COPD and lung nodular repeat CMP and sodium in the next 24 hours. 12 mild anemia: Continue iron supplement and multivitamins for now. 13 DVT prophylaxis: Patient will be on heparin 5000 units subcutaneous twice a day. 14 GI prophylaxis: Patient will be on pantoprazole. CODE STATUS: Full code. Admit patient to inpatient status for more than 2 night stay.
[2020-01-16] MEDS: PIPERACILLIN-TAZOBACTAM 3.375 GM in SODIUM CHLORIDE 0.9% 100 ML IVPB SCH ×3 (00:40→16:38)
[2020-01-16] MEDS: methylPREDNISolone SOD SUCCI 125 MG/2 ML VIAL IV SCH ×4 (02:27→16:55)
[2020-01-16] MEDS: LEVOTHYROXINE 100 MCG TAB PO SCH (06:27)
[2020-01-16 06:35] LABS: Anisocytosis Slight; Basophils % (A) 0 %; Eosinophils % (A) 0 %; HCT 31.2 % (39.0-53.0); HGB 9.8 gm/dL (13.0-17.5); Hypochromasia Moderate; Lymphocytes # (A) 1.2 k/uL (1.0-4.8); Lymphocytes % (A) 12 %; MCHC 31.4 g/dL (31.0-37.0); MCV 101.9 fL (80.0-100.0); Macrocytosis Slight; Mean Platelet Volume 8.1; Monocytes # (A) 0.2 k/uL (0-1.0); Monocytes % (A) 2 %; Neutrophils % (A) 86 %; Platelet Count 179 k/uL (150-450); RBC 3.06 m/uL (4.30-5.90); RDW 16.1 % (11.5-15.5); WBC 10.5 k/uL (3.8-10.6)
[2020-01-16 06:59] LABS: Albumin 2.7 g/dL (3.5-5.0); Calcium 7.9 mg/dL (8.4-10.2); Total Bilirubin 0.4 mg/dL (0.2-1.3); Total Protein 8.6 g/dL (6.3-8.2)
--- NOTE | 2020-01-16 08:00 | XR ---
EXAMINATION TYPE: XR chest 1V DATE OF EXAM: 01/16/2020 COMPARISON: 01/15/2020 HISTORY: Shortness of breath TECHNIQUE: Single frontal view of the chest is obtained. FINDINGS: Heart size is stable. Underlying COPD chronic interstitial lung disease suspected with right-sided in filtrate unchanged in appearance. Asymmetric right apical pleural thickening noted. Prominence of the right hilum likely related to the adenopathy noted by recent CT scan. Left lower lobe subsegmental c onsolidation noted. IMPRESSION: 1. COPD with stable bilateral infiltrates. 2. Somewhat nodular right apical pleural thickening stable.
[2020-01-16] MEDS: PANTOPRAZOLE 40 MG TABLET PO SCH (08:08)
[2020-01-16] MEDS: ATORVASTATIN 20 MG TAB PO SCH (09:02)
[2020-01-16] MEDS: CHOLECALCIFEROL 1,000 UNIT TAB PO SCH (09:02)
[2020-01-16] MEDS: ASCORBIC ACID 500 MG TAB PO SCH (09:02)
[2020-01-16] MEDS: FOLIC ACID 1 MG TAB PO SCH (09:02)
[2020-01-16] MEDS: HYDROCHLOROTHIAZIDE 25 MG TAB PO SCH (09:02)
[2020-01-16] MEDS: HEPARIN SODIUM,PORCINE 5,000 UNIT/ML 1 ML VIAL SQ SCH ×2 (09:03→21:03)
[2020-01-16] MEDS: KETOROLAC 0.5% OPHTH DROPS 5 ML BTL LEFT EYE SCH ×2 (09:05→21:04)
[2020-01-16] MEDS: prednisoLONE ACETATE 1% OPHTH DROPS 5 ML BTL LEFT EYE SCH ×2 (09:05→21:03)
[2020-01-16 11:56] LABS: Ferritin 500.1 ng/mL (22.0-322.0)
[2020-01-16] MEDS ORDERED: IPRATROPIUM-ALBUTEROL 3 ML NEB INHALATION PRN (14:30)
[2020-01-16] MEDS: IPRATROPIUM-ALBUTEROL 3 ML NEB INHALATION SCH ×2 (15:21→19:10)
--- NOTE | 2020-01-16 15:27 | P.PN ---
Subjective Progress Note Date: 01/16/20 79-year-old male one of my office patient was known to have advanced history of COPD, rheumatic long, rheumatoid arthritis, atherosclerotic heart disease, nonsustained A. fib, hypertension and hyperlipidemia with recent history of hemorrhagic stroke was admitted to [facility] and done well. He presented to the emergency department at [facility] today after densest of his family because of altered mental status patient found to have fever of 101 chronic cough with worsening symptoms in the last 48 hours with productive phlegm severe dyspnea and severe hypoxia. At the time was seen no exposure to any patient or family member who had Covid 19. Patient has been compliant with his medication regularly has not seen any physician or care provider last few weeks. Patient was seen and evaluated a demurs department his d-dimer was elevated CTA of the chest was performed and showed no evidence of PE had moderate emphysema with pulmonary artery hypertension patch she and consult for 1 to groundglass involvement of the right lower lobe and some mild infiltrate in the right upper lobe as well. Had right hilar lymphadenopathy measure 1.6 cm. Slight hiatal hernia and cholelithiasis as well. Patient has been seen and evaluated by Dr. Bipin pretty and has been watching this nodule in the lung. Also CAT scan of the brain was performed and showed no acute intracranial hemorrhage or midline shift the previously seen as a right subdural hematoma has resolved with mild diffuse age atrophy mostly from small vessel disease. Laboratory value showed slightly worsening kidney function, significant elevated C-reactive protein his Covid 19 is still pending but influenza A and B were n egative. Patient was started on Solu-Medrol, updraft, Pulmicort, started Rocephin and azithromycin and consult pulmonary. 01/15: Patient is seen today in the emergency center still waiting for bed on the MedSur floor. He is continued on IV Rocephin and azithromycin. Pulmonary consult is in place. Patient is currently in isolation andCOVID-19 testing is pending. Influenza testing has been negative. Patient has been afebrile, heart rate 72, blood pressure 104/65, pulse ox 93% on 3 L nasal cannula. Repeat CBC reveals hemoglobin of 9.8, Shannon BC 10.5. Sodium is 133, potassium 4.0, chloride 96, CO2 30, BUN 38 and creatinine 1.78. PT and OT in place. Objective - Vital Signs Vital signs: Vital Signs Temp 98.1 F 01/16/20 07:15 Pulse 72 01/16/20 07:15 Resp 18 01/16/20 07:15 BP 104/65 01/16/20 07:15 Pulse Ox 93 L 01/16/20 07:15 Intake & Output 01/15/20 01/16/20 01/16/20 18:59 06:59 18:59 Weight 90.718 kg - Exam Review of Systems CONSTITUTIONAL: Well-developed no acute respiratory distress. Mild confusion. No fevers. No chills. EYES: No icterus sclerae, no conjunctivitis. EARS, NOSE, MOUTH, THROAT, and FACE: No sore throat, lymphadenopathy, carotid bruits or deformity. RESPIRATORY: Positive shortness of breath cough or wheezes. CARDIOVASCULAR: Positive PND orthopnea palpitation. GASTROINTESTINAL: No Abd pain, Nausea or vomiting, no Diarrhea or constipation, No GI Bleed, no distention or masses. GENITOURINARY: Negative for Hematuria or UTI, no kidney stones. INTEGUMENT/BREAST: Negative for any muscular injury with mild osteoarthritis.. HEMATOLOGIC/LYMPHATIC: Negative for bleed or purpura. MUSCULOSKELTAL: Negative for Myalgia or arthralgia. NEURLOGICAL: No LOC, Sz or syncope, blurred vision dizziness or abnormality.. Mild altered mental status. BEHAVIORAL/PSYCH: Negative. ENDOCRINE: Negative. Physical Examination General Appearance: Alert, cooperative, no distress, appears stated age. Neck HEENT: Supple, no lymphadenopathy, no thyroid enlargement, no carotid bruit s. Lungs: Decreased breath sound bilaterally without rhonchi positive crackles in the bases and right middle lobe positive expiratory wheezes with rhonchi. Chest Wall: Decrease expansion with deep inspiration no tenderness and no deformity was found on exam, no costochondral pain or discomfort. Heart: Regular rate and rhythm, S1, S2 normal, no murmur, rub or gallop. Back: Symmetric, no curvature, ROM normal, no CVA tenderness. Abdomen: Soft, non-tender, bowel sounds active all four quadrants, no masses, no organomegaly. Extremities: Trace edema multiple involvement with arthritis in the small and large joint with slight bruises in the lower extremity as well. Pulses: 2+ and symmetric. Skin: Skin color, texture, tugor normal, no rashes or lesions. Neurologic: Alert oriented with slight confusion, cranial nerves II through XII intact, no motor deficit, no abnormal balance or gait. - Labs CBC & Chem 7: 01/16/20 06:08 01/16/20 06:08 Labs: Abnormal Lab Results - Last 24 Hours (Table) 01/15/20 01/15/20 01/15/20 Range/Units 14:15 14:15 14:15 RBC 3.27 L (4.30-5.90) m/uL Hgb 10.3 L (13.0-17.5) gm/dL Hct 32.7 L (39.0-53.0) % MCV 100.1 H (80.0-100.0) fL RDW 15.9 H (11.5-15.5) % Neutrophils # (1.3-7.7) k/uL Lymphocytes # 0.5 L (1.0-4.8) k/uL APTT 32.9 H (22.0-30.0) sec D-Dimer 1.46 H (<0.60) mg/L FEU Sodium 131 L (137-145) mmol/L Chloride 97 L (98-107) mmol/L BUN 36 H (9-20) mg/dL Creatinine 1.57 H (0.66-1.25) mg/dL Glucose 124 H (74-99) mg/dL Calcium (8.4-10.2) mg/dL C-Reactive Protein 163.2 H (<10.0) mg/L Total Protein 9.0 H (6.3-8.2) g/dL Albumin 3.0 L (3.5-5.0) g/dL 01/16/20 01/16/20 Range/Units 06:08 06:08 RBC 3.06 L (4.30-5.90) m/uL Hgb 9.8 L (13.0-17.5) gm/dL Hct 31.2 L (39.0-53.0) % MCV 101.9 H (80.0-100.0) fL RDW 16.1 H (11.5-15.5) % Neutrophils # 9.0 H (1.3-7.7) k/uL Lymphocytes # (1.0-4.8) k/uL APTT (22.0-30.0) sec D-Dimer (<0.60) mg/L FEU Sodium 133 L (137-145) mmol/L Chloride 96 L (98-107) mmol/L BUN 38 H (9-20) mg/dL Creatinine 1.78 H (0.66-1.25) mg/dL Glucose 111 H (74-99) mg/dL Calcium 7.9 L (8.4-10.2) mg/dL C-Reactive Protein (<10.0) mg/L Total Protein 8.6 H (6.3-8.2) g/dL Albumin 2.7 L (3.5-5.0) g/dL Assessment and Plan Plan: 1 severe dyspnea and shortness of breath: Combination of bilateral pneumonia, rheumatic lung and worsening COPD. 2 bilateral pneumonia: Patient was started on Levaquin and Zosyn will consult pulmonary if worsening symptom might require bronchoscopy. 3 COPD exacerbation: With chronic COPD and dramatic lung with a groundglass it showed on x-ray patient will be started on Solu-Medrol, continue DuoNeb, continue Pulmicort. 4 pulmonary nodular: Patient has been seen pulmonary and eventually might require biopsy. 5 altered mental status: Most likely metabolic encephalopathy specially with infection temperature and the hypoxia from COPD continue to treat underlying disease and watch for any worsening symptoms CAT scan of the brain showed no bl eed or brain insult. 6 recent history of hemorrhagic stroke and right subdural hematoma has been re sult so far. 7 rheumatoid arthritis: Patient has been on smaller dose of prednisone along with methotrexate methotrexate will be held for now. 8 hypothyroidism: Continue levothyroxine at 100 g daily. 9 nonsustained A. fib, paroxysmal atrial fibrillation: With pulse rates under control patient is off anticoagulation due to the pulse been slightly bit slow no beta saul at this point unless he become tachycardic. 10 acute kidney injury with chronic kidney disease: Stage II GFR was down to 42 continue gentle hydration repeat CMP in 24 hours. 11 hyponatremia: Mild at this point most likely mild SIADH from COPD and lung nodular repeat CMP and sodium in the next 24 hours. 12 mild anemia: Continue iron supplement and multivitamins for now. 13 DVT prophylaxis: Patient will be on heparin 5000 units subcutaneous twice a day. 14 GI prophylaxis: Patient will be on pantoprazole. CODE STATUS: Full code. Discharge plan: To be determined. PT and OT on consult. Impression and plan of care have been directed as dictated by the signing physician. Delia Tejada nurse practitioner acting as scribe for signing physician.
--- NOTE | 2020-01-16 17:22 | CONS ---
CONSULTATION PULMONARY/CRITICAL CARE CONSULTATION: DATE OF SERVICE: 01/16/2020 This is a 79-year-old gentleman who presents to the emergency department on 13:33 on January 14. He apparently comes in there with changes of mental status x2 days according to his daughter. The patient apparently also had a low-grade temperature, was having shortness of breath and was coughing and wheezing. He was also coughing up phlegm. He apparently was evaluated in the emergency department. Diagnosis with possible pneumonia. He did test negative for both influenza A and B. COVID-19 testing is pending. He denies any chest pain or pressure. Denies any nausea, vomiting, diarrhea, or abdominal pain. Denies any genitourinary complaints. When he was coughing, he would bring up some slightly yellow phlegm. Currently, he is doing much better. He is admitted to Dr. Mccormack's service. He was hoping to be able to be discharged home. He thinks that Dr. Mccormack will keep him at least one more day. CURRENT HOME MEDICATIONS: Include albuterol updrafts, Pulmicort updrafts, folic acid, hydrochlorothiazide, Synthroid, methotrexate, simvastatin, ascorbic acid, vitamin D3, and ibuprofen. ALLERGIES: Denied. MEDICAL HISTORY: Reviewed. He has a history of COPD, hyperlipidemia, rheumatoid arthritis, and hypothyroidism. He also complains of chronic shortness of breath and does wear oxygen particularly at nighttime at 2 L. In addition, he has had a cerebral hemorrhage in the past and also has a history of lower extremity edema. SURGICAL HISTORY: Includes previous cataract surgery, elbow surgery, left carpal tunnel surgery. SOCIAL HISTORY: Positive for previous heavy tobacco use. Does not smoke currently. Denies any alcohol use or illicit drug use. REVIEW OF SYSTEMS: CONSTITUTIONAL: Negative. NEUROLOGIC: Mental status changes. HEENT: Negative. CARDIOVASCULAR: Negative. PULMONARY: Shortness of breath, chest congestion, cough, wheezing, phlegm production. GI: Negative. : Negative. RHEUMATOLOGIC: Negative. IMMUNOLOGIC: Negative. ENDOCRINOLOGIC: Negative. DERMATOLOGIC: Negative. Current vital signs are reviewed. His temperature is 98.1, heart rate 82, respiratory rate 18, blood pressure 109/54 mean 72 and 3 L saturations 98%. He appears in no acute distress. HEENT: Examination is grossly unremarkable. Mucous membranes are moist. Nasal O2 is noted. He is wearing nasal O2 at 3 L. NECK: Supple, full range of motion. No adenopathy or thyromegaly. Neck veins are flat. CARDIOVASCULAR: Examination reveals regular rhythm and rate. Heart sounds are distant. Heart rate is 82 beats per minute. S1, S2 normal. There is no murmur. LUNGS: Reveal diffuse coarse rhonchi bilaterally. There are some high-pitched expiratory wheezes. No crackles. There is prolongation on forced maneuver. Adventitious lung sounds are more prominent on forced maneuver. ABDOMEN: Soft, bowel sounds are heard. EXTREMITIES: Intact. Minimal edema. No cyanosis or clubbing. SKIN: Without rash. NEUROLOGIC: Examination is brief but nonfocal. White count 10.5, hemoglobin 9.8, hematocrit 31.2, platelet count 179,000. PT, INR were 11.5 and 1.11, PTT is 32.9, D-dimer 1.46. Sodium is 133, potassium 4, chloride 96, CO2 is 30, anion gap is 7. BUN and creatinine were 38 and 1.78. The rest of the labs are reviewed. Ferritin 500.1. C-reactive protein 163.2. Albumin is 2.7. Influenza studies were negative. Microbiologic studies are pending or negative. His COVID-19 testing is currently pending. The patient had a chest x-ray initially on January 14. It showed some patchy right-sided basilar infiltrates consistent with pneumonia. A brain CT was done also on the same day, which showed no acute intracranial abnormalities. The patient previously had a right subdural hematoma, which is resolved. The patient also had a CT angiogram. It shows no evidence of pulmonary embolism. There were changes of COPD with emphysema and pulmonary arterial hypertension. There was a patchy ground-glass infiltrate in the right lower lobe. In addition, some minimal infiltrate in the right upper lobe and posterior left lower lobe. There is some right hilar adenopathy, likely reactive. A repeat chest x-ray today continues to show patchy infiltrate right lower lobe. Patient's medications are reviewed. He is on albuterol updrafts, ascorbic acid, Lipitor, vitamin D3, folic acid, heparin, hydrochlorothiazide, eye drops, Levaquin, levothyroxine, Solu-Medrol, Protonix, Zosyn, and additional prednisone eyedrops. ASSESSMENT: 1. Chronic obstructive pulmonary disease exacerbation complicated by right lower lobe pneumonia. 2. No evidence of pulmonary embolism on CT angiogram. 3. Previous history of heavy tobacco use with resultant chronic obstructive pulmonary disease. 4. Hypothyroidism. 5. Hypertension. 6. Hyperlipidemia. 7. History of rheumatoid arthritis. 8. History of chronic hypoxemic respiratory failure. 9. Pulmonary hypertension with cor pulmonale. 10.Previous history of cerebral hemorrhage. PLAN: Currently, the patient's medications are reviewed. For antibiotics he remains on Zosyn and Levaquin. He is going to get Solu-Medrol 60 mg every six hours. Will also add some Symbicort and some albuterol and Atrovent updrafts. Additional recommendations and suggestions are forthcoming. Prognosis is guarded. Will continue to follow. He will follow up with my partner in the office. MMLAURAL / MARC: [id number] /
[2020-01-16] MEDS: SYMBICORT 160-4.5 MCG INHALER INHALATION SCH (19:11)
[2020-01-17] MEDS: methylPREDNISolone SOD SUCCI 125 MG/2 ML VIAL IV SCH ×3 (00:16→11:43)
[2020-01-17] MEDS: PIPERACILLIN-TAZOBACTAM 3.375 GM in SODIUM CHLORIDE 0.9% 100 ML IVPB SCH ×2 (00:17→08:26)
[2020-01-17 03:40] VITALS: TEMP 97.5
[2020-01-17] MEDS: LEVOTHYROXINE 100 MCG TAB PO SCH (05:35)
[2020-01-17 07:14] VITALS: BP 106/58; RESP 17
[2020-01-17] MEDS: IPRATROPIUM-ALBUTEROL 3 ML NEB INHALATION SCH ×3 (07:27→15:30)
[2020-01-17] MEDS: SYMBICORT 160-4.5 MCG INHALER INHALATION SCH (07:28)
[2020-01-17] MEDS: HYDROCHLOROTHIAZIDE 25 MG TAB PO SCH (08:26)
[2020-01-17] MEDS: ATORVASTATIN 20 MG TAB PO SCH (08:26)
[2020-01-17] MEDS: ASCORBIC ACID 500 MG TAB PO SCH (08:26)
[2020-01-17] MEDS: FOLIC ACID 1 MG TAB PO SCH (08:26)
[2020-01-17] MEDS: HEPARIN SODIUM,PORCINE 5,000 UNIT/ML 1 ML VIAL SQ SCH (08:26)
[2020-01-17] MEDS: PANTOPRAZOLE 40 MG TABLET PO SCH (08:26)
[2020-01-17] MEDS: CHOLECALCIFEROL 1,000 UNIT TAB PO SCH (08:26)
[2020-01-17] MEDS: prednisoLONE ACETATE 1% OPHTH DROPS 5 ML BTL LEFT EYE SCH (08:27)
[2020-01-17] MEDS: KETOROLAC 0.5% OPHTH DROPS 5 ML BTL LEFT EYE SCH (08:27)
[2020-01-17 09:07] LABS: HCT 31.3 % (39.0-53.0); HGB 9.5 gm/dL (13.0-17.5); Hypochromasia Moderate; MCHC 30.2 g/dL (31.0-37.0); MCV 102.6 fL (80.0-100.0); Macrocytosis Slight; Mean Platelet Volume 8.6; Platelet Count 237 k/uL (150-450); RBC 3.05 m/uL (4.30-5.90); WBC 12.9 k/uL (3.8-10.6)
[2020-01-17 09:14] LABS: Calcium 8.4 mg/dL (8.4-10.2); Potassium 3.8 mmol/L (3.5-5.1)
[2020-01-17 11:31] VITALS: PULSE 84
--- NOTE | 2020-01-17 14:10 | P.DS ---
Providers Date of admission: 01/15/20 17:36 Attending physician: Lexa Mccormack Consults: 01/15/20 18:11 Consult Physician Urgent Consulting Provider: Earlene Voss Consult Reason/Comments: PNEUMONIA Do you want consulting provider notified?: Yes Primary care physician: Lexa Mccormack [facility] Course: 79-year-old male one of my office patient was known to have advanced history of COPD, rheumatic long, rheumatoid arthritis, atherosclerotic heart disease, nonsustained A. fib, hypertension and hyperlipidemia with recent history of hemorrhagic stroke was admitted to [facility] and done well. He presented to the emergency department at [facility] today after densest of his family because of altered mental status patient found to have fever of 101 chronic cough with worsening symptoms in the last 48 hours with productive phlegm severe dyspnea and severe hypoxia. At the time was seen no exposure to any patient or family member who had Covid 19. Patient has been compliant with his medication regularly has not seen any physician or care provider last few weeks. [facility] his d-dimer was elevated CTA of the chest was performed and showed no evidence of PE had moderate emphysema with pulmonary artery hypertension patch she and consult for 1 to groundglass involvement of the right lower lobe and some mild infiltrate in the right upper lobe as well. Had right hilar lymphadenopathy measure 1.6 cm. Slight hiatal hernia and cholelithiasis as well. Patient has been seen and evaluated by Dr. Bipin pretty and has been watching this nodule in the lung. Also CAT scan of the brain was performed and showed no acute intracranial hemorrhage or midline shift the previously seen as a right subdural hematoma has resolved with mild diffuse age atrophy mostly from small vessel disease. Laboratory value showed slightly worsening kidney function, significant elevated C-reactive protein his Covid 19 is still pending but influenza A and B were negative. Patient was started on Solu-Medrol, updraft, Pulmicort, started Rocephin and azithromycin and consult pulmonary. 01/15: Patient is seen today in the emergency center still waiting for bed on the MedSur floor. He is continued on IV Rocephin and azithromycin. Pulmonary consult is in place. Patient is currently in isolation andCOVID-19 testing is pending. Influenza testing has been negative. Patient has been afebrile, heart rate 72, blood pressure 104/65, pulse ox 93% on 3 L nasal cannula. Repeat CBC reveals hemoglobin of 9.8, Shannon BC 10.5. Sodium is 133, potassium 4.0, chlor yasmeen 96, CO2 30, BUN 38 and creatinine 1.78. PT and OT in place. 01/16, shortness of breath and breathing is much better, patient's oriented and wants to decide for his discharge today, has been cleared by pulmonary, patient denies any hemoptysis or dysphagia or aspiration, fever has resolved, patient denies any edema nausea vomiting and diarrhea. Patient will be transitioned to oral prednisone, nebulizer units for home, patient has home nebulizer nebulizer and home O2 at 2-3 L nasal cannula, oral antibiotic for discharge Levaquin, follow up with PCP, and pulmonary in 1 week, patient was insistent on discharge to home today. Assessment and Plan Plan: 1 severe dyspnea and shortness of breath hypoxemic respiratory failure chronic: Combination of bilateral pneumonia, rheumatic lung and worsening COPD. 2 bilateral pneumonia: Patient was started on Levaquin and Zosyn will consult pulmonary if worsening symptom might require bronchoscopy. d/c on oral levaquin 750 3 COPD exacerbation: With chronic COPD and dramatic lung with a groundglass it showed on x-ray patient will be started on Solu-Medrol, continue DuoNeb, continue Pulmicort. d/c home with oral prednisone, nebulized treatments, has O2 at 2 L at home 4 pulmonary nodular: Patient has been seen pulmonary and eventually might require biopsy. 5 altered mental status: Most likely metabolic encephalopathy specially with infection temperature and the hypoxia from COPD continue to treat underlying disease and watch for any worsening symptoms CAT scan of the brain showed no bleed or brain insult. 6 recent history of hemorrhagic stroke and right subdural hematoma has been result so far. 7 rheumatoid arthritis: Patient has been on smaller dose of prednisone along with methotrexate methotrexate will be held for now. 8 hypothyroidism: Continue levothyroxine at 100 g daily. 9 nonsustained A. fib, paroxysmal atrial fibrillation: With pulse rates under control patient is off anticoagulation due to the pulse been slightly bit slow no beta saul at this point unless he become tachycardic. 10 acute kidney injury with chronic kidney disease: Stage II GFR was down to 42 continue gentle hydration 11 hyponatremia: Mild at this point most likely mild SIADH from COPD and lung nodular r 12 mild anemia: Continue iron supplement and multivitamins for now. 13 DVT prophylaxis: Patient will be on heparin 5000 units subcutaneous twice a day. 14 GI prophylaxis: Patient will be on pantoprazole. CODE STATUS: Full code. Discharge plan: Home Patient Condition at Discharge: Good Plan - Discharge Summary New Discharge Prescriptions: New predniSONE [Deltasone] 40 mg PO DAILY #15 tab Ipratropium-Albuterol Nebulize [Duoneb 0.5 mg-3 mg/3 ml Soln] 3 ml INHALATION RT-QID #120 ml Levofloxacin [Levaquin] 750 mg PO DAILY 3 Days #3 tab Pantoprazole [Protonix] 40 mg PO AC-BRKFST #30 tablet. Budesonide-Formot 160-4.5 Mcg [Symbicort 160-4.5 Mcg Inhaler] 2 puff INHALATION RT-BID puff Continue Folic Acid 1 mg PO DAILY Methotrexate Sodium [Methotrexate] 20 mg PO CHOW Levothyroxine Sodium [Synthroid] 100 mcg PO DAILY Simvastatin 40 mg PO DAILY Hydrochlorothiazide 25 mg PO DAILY Cholecalciferol [Vitamin D3 (25 Mcg = 1000 Iu)] 1,000 unit PO DAILY Ascorbic Acid [Vitamin C] 500 mg PO DAILY Ketorolac 0.5% Ophth Soln [Acular 0.5%] 1 drop LEFT EYE BID Loteprednol Etabonate [Inveltys] 1 drop LEFT EYE BID Albuterol Nebulized [Ventolin Nebulized] 2.5 mg INHALATION RT-QID PRN PRN Reason: Shortness Of Breath Discontinued Ibuprofen [Advil] 400 mg PO QID Discharge Medication List Folic Acid 1 mg PO DAILY 08/27/18 [History] Hydrochlorothiazide 25 mg PO DAILY 08/27/18 [History] Levothyroxine Sodium [Synthroid] 100 mcg PO DAILY 08/27/18 [History] Methotrexate Sodium [Methotrexate] 20 mg PO CHOW 08/27/18 [History] Simvastatin 40 mg PO DAILY 08/27/18 [History] Ascorbic Acid [Vitamin C] 500 mg PO DAILY 02/02/19 [History] Cholecalciferol [Vitamin D3 (25 Mcg = 1000 Iu)] 1,000 unit PO DAILY 02/02/19 [History] Albuterol Nebulized [Ventolin Nebulized] 2.5 mg INHALATION RT-QID PRN 01/15/20 [History] Ketorolac 0.5% Ophth Soln [Acular 0.5%] 1 drop LEFT EYE BID 01/15/20 [History] Loteprednol Etabonate [Inveltys] 1 drop LEFT EYE BID 01/15/20 [History] Budesonide-Formot 160-4.5 Mcg [Symbicort 160-4.5 Mcg Inhaler] 2 puff INHALATION RT-BID puff 01/17/20 [Rx] Ipratropium-Albuterol Nebulize [Duoneb 0.5 mg-3 mg/3 ml Soln] 3 ml INHALATION RT-QID #120 ml 01/17/20 [Rx] Levofloxacin [Levaquin] 750 mg PO DAILY 3 Days #3 tab 01/17/20 [Rx] Pantoprazole [Protonix] 40 mg PO AC-BRKFST #30 tablet.dr 01/17/20 [Rx] predniSONE [Deltasone] 40 mg PO DAILY #15 tab 01/17/20 [Rx] Follow up Appointment(s)/Referral(s): Lexa Mccormack MD [Primary Care Provider] - 1-2 days Bubba Erazo DO [Doctor of Osteopathic Medicine] - 1 Week Discharge Disposition: HOME SELF-CARE
--- NOTE | 2020-01-17 14:51 | P.PN ---
Subjective Progress Note Date: 01/17/20 Principal diagnosis: Acute exacerbation of chronic obstructive pulmonary disease, complicated by right lower lobe pneumonia The patient is seen today 01/17/2020 in follow-up on the regular medical floor. He is currently sitting up in a chair at the bedside. Awake and alert in no acute distress. He denies any worsening shortness of breath, cough or congestion. No fever or chills. He is maintaining O2 saturations up to 100% on 2 L/m per nasal cannula. His been afebrile. Hemodynamically stable. Blood culture reveals no growth to date. White count 12.9. Hemoglobin 9.5. MCV 102.6. Sodium 135. Potassium 3.8. Creatinine 1.53. He's been maintained on Symbicort, DuoNeb inhalations, IV Solu-Medrol, antibiotics in the form of Zosyn and Levaquin. Objective - Vital Signs Vital signs: Vital Signs Temp 97.5 F L 01/17/20 06:43 Pulse 84 01/17/20 11:31 Resp 17 01/17/20 06:43 BP 106/58 01/17/20 06:43 Pulse Ox 100 01/17/20 06:43 Intake & Output 01/16/20 01/17/20 01/17/20 18:59 06:59 18:59 Intake Total 540 Balance 540 Intake: Oral 540 Other: Voiding Method Toilet # Voids 1 1 # Bowel Movements 0 - Exam GENERAL EXAM: Alert, pleasant 79-year-old gentleman, on 2 L nasal cannula comfortable in no apparent distress. HEAD: Normocephalic. EYES: Normal reaction of pupils, equal size. NOSE: Clear with pink turbinates. THROAT: No erythema or exudates. NECK: No masses, no JVD. CHEST: No chest wall deformity. LUNGS: Equal air entry with crackles in the right base, end expiratory wheeze, diminished CVS: S1 and S2 normal with no audible murmur, regular rhythm. ABDOMEN: No hepatosplenomegaly, normal bowel sounds, no guarding or rigidity. SPINE: No scoliosis or deformity SKIN: No rashes CENTRAL NERVOUS SYSTEM: No focal deficits, tone is normal in all 4 extremities. EXTREMITIES: There is no peripheral edema. No clubbing, no cyanosis. Peripheral pulses are intact. - Labs CBC & Chem 7: 01/17/20 07:55 01/17/20 07:55 Labs: Abnormal Lab Results - Last 24 Hours (Table) 01/17/20 01/17/20 Range/Units 07:55 07:55 WBC 12.9 H (3.8-10.6) k/uL RBC 3.05 L (4.30-5.90) m/uL Hgb 9.5 L (13.0-17.5) gm/dL Hct 31.3 L (39.0-53.0) % MCV 102.6 H (80.0-100.0) fL MCHC 30.2 L (31.0-37.0) g/dL RDW 16.0 H (11.5-15.5) % Sodium 135 L (137-145) mmol/L Chloride 97 L (98-107) mmol/L BUN 57 H (9-20) mg/dL Creatinine 1.53 H (0.66-1.25) mg/dL Glucose 156 H (74-99) mg/dL Microbiology - Last 24 Hours (Table) 01/15/20 14:15 Blood Culture - Preliminary Blood No Growth after 24 hours Assessment and Plan Assessment: 1 acute exacerbation of chronic obstructive pulmonary disease complicated by acute community acquired right lower lobe pneumonia 2 Previous history of heavy chronic tobacco dependence with subsequent COPD 3 Hypothyroidism 4 Hypertension 5 Hyperlipidemia 6 Rheumatoid arthritis 7 Pulmonary hypertension with cor pulmonale 8 Previous history of cerebral hemorrhage Plan: The patient was seen and evaluated by Dr. Erazo He is improved from the pulmonary standpoint He is quite anxious to go home Complete a course of antibiotics Complete a prednisone burst and taper Follow-up in the office in 1-2 weeks' time He is encouraged to call sooner with any recurrence of symptoms or other questions or concerns I, the cosigning physician, performed a history & physical examination of the patient. Lungs sounds with crackles in the right lung base, end expiratory wheeze, diminished. Maintaining good O2 saturations in the 90s on 2 L/m per nasal. I discussed the assessment and plan of care with my nurse practitioner, Josi Valdez. I attest to the above note as dictated by her.
[2020-01-17] MEDS ORDERED: LEVOFLOXACIN 750MG-D5W PMX 750 MG in DEXTROSE/WATER 1 150ML.BAG IVPB SCH (21:00)
== END 2020-01-17 15:30 | disposition home or self-care (01) | DRG 193 ==
LOC: EC 13:33 → 4SSUR 17:36
PROVIDERS: ADMIT Internal Medicine Geriatric Medicine; ATTEND Internal Medicine Geriatric Medicine
DX: J18.9 Pneumonia, unspecified organism (principal); G93.41 Metabolic encephalopathy; J44.1 Chronic obstructive pulmonary disease with (acute) exacerbation; E22.2 Syndrome of inappropriate secretion of antidiuretic hormone; J96.11 Chronic respiratory failure with hypoxia; N17.9 Acute kidney failure, unspecified; J44.0 Chronic obstructive pulmonary disease with (acute) lower respiratory infection; I27.29 Other secondary pulmonary hypertension; M05.10 Rheumatoid lung disease with rheumatoid arthritis of unspecified site; D64.9 Anemia, unspecified; E03.9 Hypothyroidism, unspecified; E78.5 Hyperlipidemia, unspecified; F32.9 Major depressive disorder, single episode, unspecified; I12.9 Hypertensive chronic kidney disease with stage 1 through stage 4 chronic kidney disease, or unspecified chronic kidney disease; I25.10 Atherosclerotic heart disease of native coronary artery without angina pectoris; I48.0 Paroxysmal atrial fibrillation; I49.3 Ventricular premature depolarization; I73.9 Peripheral vascular disease, unspecified; N18.2 Chronic kidney disease, stage 2 (mild); Z20.828 Contact with and (suspected) exposure to other viral communicable diseases; R59.0 Localized enlarged lymph nodes; R91.1 Solitary pulmonary nodule; K44.9 Diaphragmatic hernia without obstruction or gangrene; K80.20 Calculus of gallbladder without cholecystitis without obstruction; Z79.51 Long term (current) use of inhaled steroids; Z79.890 Hormone replacement therapy; Z79.899 Other long term (current) drug therapy; Z86.73 Personal history of transient ischemic attack (TIA), and cerebral infarction without residual deficits; Z87.891 Personal history of nicotine dependence; Z98.42 Cataract extraction status, left eye; Z98.41 Cataract extraction status, right eye; Z99.81 Dependence on supplemental oxygen
CPT/HCPCS: 36415; 70450; 71045; 71275; 80048; 80053; 82728; 83605; 83615; 83735; 84145; 85025; 85027; 85379; 85610; 85730; 86140; 87040; 87502; 93005; 94640; 96365; 96366; 96367; 96372; 96374; 96376; 99285

== ENCOUNTER → 2020-01-29 | Outpatient (CLI) | payer MEDICARE ==
[2020-01-29 17:06] LABS: African American GFR (CKD) 83.2 (60.0-200.0); Anion Gap 1.1 mmol/L (4.00-12.00); Calcium 8.8 mg/dL (8.7-10.3); Carbon Dioxide 36.9 mmol/L (21.6-31.8); Non-African American GFR(CKD) 71.8 (60.0-200.0); Potassium 4.1 mmol/L (3.5-5.5)
== END | disposition home or self-care (01) ==
LOC: LABWHC1 10:10
PROVIDERS: ATTEND Internal Medicine Critical Care Medicine
DX: N17.9 Acute kidney failure, unspecified (principal)
CPT/HCPCS: 36415; 80048

== ENCOUNTER → 2021-02-03 | Outpatient (CLI) | payer MEDICARE ==
--- NOTE | 2021-02-03 11:06 | US ---
EXAMINATION TYPE: US venous doppler duplex LE RT DATE OF EXAM: 02/03/2021 10:25 AM COMPARISON: NONE CLINICAL HISTORY: R60.9 Edema R leg. SIDE PERFORMED: Right TECHNIQUE: The lower extremity deep venous system is examined utilizing real time linear array sonog gilberto with graded compression, doppler sonography and color-flow sonography. VESSELS IMAGED: Common Femoral Vein Deep Femoral Vein Greater Saphenous Vein * Femoral Vein Popliteal Vein Proximal Calf Veins (* superficial vessels) Right Leg: Negative for DVT IMPRESSION: No sonographic evidence for right lower extremity DVT
== END | disposition home or self-care (01) ==
LOC: RADUSWWP 10:23
PROVIDERS: ATTEND Internal Medicine Geriatric Medicine
DX: R60.9 Edema, unspecified (principal)

== ENCOUNTER 2021-02-07 16:45 | Inpatient (IN) | payer MEDICARE ==
[2021-02-07 18:23] LABS: Anisocytosis Slight; Basophils % (A) 1 %; Eosinophils % (A) 1 %; HCT 35.5 % (39.0-53.0); Lymphocytes # (A) 1.5 k/uL (1.0-4.8); Lymphocytes % (A) 35 %; MCH 34.8 pg (25.0-35.0); MCHC 33.8 g/dL (31.0-37.0); MCV 103.1 fL (80.0-100.0); Macrocytosis Moderate; Mean Platelet Volume 7.9; Monocytes # (A) 0.1 k/uL (0-1.0); Monocytes % (A) 2 %; Neutrophils # (A) 2.6 k/uL (1.3-7.7); Neutrophils % (A) 61 %; Platelet Count 152 k/uL (150-450); RBC 3.44 m/uL (4.30-5.90); WBC 4.2 k/uL (3.8-10.6)
[2021-02-07 18:27] LABS: Albumin 3.4 g/dL (3.5-5.0); Calcium 8.6 mg/dL (8.4-10.2); Potassium 3.9 mmol/L (3.5-5.1); Total Bilirubin 0.4 mg/dL (0.2-1.3); Total Protein 8.9 g/dL (6.3-8.2)
--- NOTE | 2021-02-07 21:38 | ED ---
Wound/Laceration HPI - General Chief Complaint: Wound/Laceration Stated Complaint: Rt Leg Rash/Open Sores Time Seen by Provider: 02/07/21 16:51 Source: patient, RN notes reviewed Mode of arrival: ambulatory Limitations: no limitations - History of Present Illness Initial Comments: This is a 79-year-old male who was sent in from the primary care doctor's office with complaints of right lower extremity pain and swelling and infection. The patient does have some wounds he states that are not getting better if aching worse. Patient has been doing outpatient therapy and no improvement is demonstrated. - Related Data Home Medications Medication Instructions Recorded Confirmed Folic Acid 1 mg PO DAILY 08/27/18 01/15/20 Levothyroxine Sodium [Synthroid] 100 mcg PO DAILY 08/27/18 01/15/20 Simvastatin 40 mg PO DAILY 08/27/18 01/15/20 hydroCHLOROthiazide 25 mg PO DAILY 08/27/18 01/15/20 metHOTREXate sodium [Methotrexate] 20 mg PO CHOW 08/27/18 01/15/20 Ascorbic Acid [Vitamin C] 500 mg PO DAILY 02/02/19 01/15/20 Cholecalciferol [Vitamin D3 (25 1,000 unit PO DAILY 02/02/19 01/15/20 Mcg = 1000 Iu)] Albuterol Nebulized [Ventolin 2.5 mg INHALATION RT-QID PRN 01/15/20 01/15/20 Nebulized] Ketorolac 0.5% Ophth Soln [Acular 1 drop LEFT EYE BID 01/15/20 01/15/20 0.5%] Loteprednol Etabonate [Inveltys] 1 drop LEFT EYE BID 01/15/20 01/15/20 Previous Rx's Medication Instructions Recorded Budesonide-Formot 160-4.5 Mcg 2 puff INHALATION RT-BID puff 01/17/20 [Symbicort 160-4.5 Mcg Inhaler] Ipratropium-Albuterol Nebulize 3 ml INHALATION RT-QID #120 ml 01/17/20 [Duoneb 0.5 mg-3 mg/3 ml Soln] Levofloxacin [Levaquin] 750 mg PO DAILY 3 Days #3 tab 01/17/20 Pantoprazole [Protonix] 40 mg PO AC-BRKFST #30 tablet. 01/17/20 predniSONE [Deltasone] 40 mg PO DAILY #15 tab 01/17/20 Allergies Allergy/AdvReac Type Severity Reaction Status Date / Time No Known Allergies Allergy Verified 02/07/21 17:43 Review of Systems ROS Statement: Those systems with pertinent positive or pertinent negative responses have been documented in the HPI. ROS Other: All systems not noted in ROS Statement are negative. Past Medical History Past Medical History: COPD, Hyperlipidemia, Rheumatoid Arthritis (RA), Thyroid D isorder Additional Past Medical History / Comment(s): peripheral edema, wears O2 prn at 2l, brain bleed History of Any Multi-Drug Resistant Organisms: None Reported Past Surgical History: Orthopedic Surgery Additional Past Surgical History / Comment(s): left carpal tunnel, elbow sx, cataracts Past Anesthesia/Blood Transfusion Reactions: No Reported Reaction Past Psychological History: No Psychological Hx Reported Smoking Status: Former smoker Past Alcohol Use History: Occasional Past Drug Use History: None Reported - Past Family History Father History Unknown: Yes General Exam - General Exam Comments Initial Comments: This is a well-developed well-nourished awake alert oriented times female Limitations: no limitations General appearance: alert, in no apparent distress Head exam: Present: atraumatic, normocephalic, normal inspection Eye exam: Present: normal appearance, PERRL, EOMI. Absent: scleral icterus, conjunctival injection, periorbital swelling ENT exam: Present: normal exam, mucous membranes moist Neck exam: Present: normal inspection. Absent: tenderness, meningismus, lymphad enopathy Respiratory exam: Present: normal lung sounds bilaterally. Absent: respiratory distress, wheezes, rales, rhonchi, stridor Cardiovascular Exam: Present: regular rate, normal rhythm, normal heart sounds. Absent: systolic murmur, diastolic murmur, rubs, gallop, clicks GI/Abdominal exam: Present: soft, normal bowel sounds. Absent: distended, tenderness, guarding, rebound, rigid Extremities exam: Present: full ROM, normal capillary refill, other ([place] right lower extremity demonstrates erythema with some edema noted evidence is stage II ulceration. Distally however no sensory motor or vascular deficits at this time). Absent: tenderness, pedal edema, joint swelling, calf tenderness Back exam: Present: normal inspection Neurological exam: Present: alert, oriented X3, CN II-XII intact Psychiatric exam: Present: normal affect, normal mood Skin exam: Present: warm, dry, intact, normal color. Absent: rash Course Vital Signs 02/07/21 17:40 Temperature 98.1 F Pulse Rate 98 Respiratory 18 Rate Blood Pressure 121/64 O2 Sat by Pulse 93 L Oximetry Medical Decision Making - Medical Decision Making Patient will be admitted for inpatient evaluation and treatment vascular surgery and infectious disease consultation - Lab Data Result diagrams: 02/07/21 18:15 02/07/21 18:15 Lab Results 02/07/21 02/07/21 02/07/21 Range/Units 18:15 18:15 18:15 WBC 4.2 (3.8-10.6) k/uL RBC 3.44 L (4.30-5.90) m/uL Hgb 12.0 L (13.0-17.5) gm/dL Hct 35.5 L (39.0-53.0) % MCV 103.1 H (80.0-100.0) fL MCH 34.8 (25.0-35.0) pg MCHC 33.8 (31.0-37.0) g/dL RDW 17.0 H (11.5-15.5) % Plt Count 152 (150-450) k/uL MPV 7.9 Neutrophils % 61 % Lymphocytes % 35 % Monocytes % 2 % Eosinophils % 1 % Basophils % 1 % Neutrophils # 2.6 (1.3-7.7) k/uL Lymphocytes # 1.5 (1.0-4.8) k/uL Monocytes # 0.1 (0-1.0) k/uL Eosinophils # 0.0 (0-0.7) k/uL Basophils # 0.0 (0-0.2) k/uL Anisocytosis Slight Macrocytosis Moderate Sodium 136 L (137-145) mmol/L Potassium 3.9 (3.5-5.1) mmol/L Chloride 96 L (98-107) mmol/L Carbon Dioxide 37 H (22-30) mmol/L Anion Gap 3 mmol/L BUN 28 H (9-20) mg/dL Creatinine 1.34 H (0.66-1.25) mg/dL Est GFR (CKD-EPI)AfAm 58 (>60 ml/min/1.73 sqM) Est GFR (CKD-EPI)NonAf 50 (>60 ml/min/1.73 sqM) Glucose 93 (74-99) mg/dL Plasma Lactic Acid Clement 1.0 (0.7-2.0) mmol/L Calcium 8.6 (8.4-10.2) mg/dL Total Bilirubin 0.4 (0.2-1.3) mg/dL AST 44 (17-59) U/L ALT 29 (4-49) U/L Alkaline Phosphatase 74 (38-126) U/L Creatine Kinase 376 H (55-170) U/L Total Protein 8.9 H (6.3-8.2) g/dL Albumin 3.4 L (3.5-5.0) g/dL Disposition Clinical Impression: Cellulitis of right lower extremity, Failure of outpatient treatment Disposition: ADMITTED IP TO THIS [facility] Condition: Fair Referrals: Lexa Mccormack MD [Primary Care Provider] - 1-2 days
[2021-02-07] MEDS ORDERED: NALOXONE 0.4 MG/ML 1 ML VIAL IV PRN (21:40)
[2021-02-07] MEDS ORDERED: VANCOMYCIN IV PER PHARMACY 1 EACH MISC MISCELLANE PRN (21:44)
[2021-02-07] MEDS ORDERED: PIPERACILLIN-TAZOBACTAM 3.375 GM in SODIUM CHLORIDE 0.9% 100 ML IVPB ONE (22:00)
[2021-02-07] MEDS ORDERED: ALBUTEROL NEBULIZED 1.25 MG/3 ML INHALATION PRN (22:00)
[2021-02-07] MEDS: SODIUM CHLORIDE 0.9% 1,000 ML IV SCH (22:05)
[2021-02-07] MEDS ORDERED: VANCOMYCIN 1,750 MG in SODIUM CHLORIDE 0.9% 500 ML 500 ML IVPB ONE (23:00)
[2021-02-08] MEDS: LEVOTHYROXINE 100 MCG TAB PO SCH (06:04)
[2021-02-08] MEDS: PIPERACILLIN-TAZOBACTAM 3.375 GM in SODIUM CHLORIDE 0.9% 100 ML IVPB SCH ×2 (06:04→15:12)
[2021-02-08] MEDS: IPRATROPIUM-ALBUTEROL 3 ML NEB INHALATION SCH ×4 (08:27→19:58)
[2021-02-08] MEDS: SYMBICORT 160-4.5 MCG INHALER INHALATION SCH ×2 (08:27→19:58)
[2021-02-08] MEDS ORDERED: predniSONE 20 MG TAB PO SCH (09:00)
[2021-02-08] MEDS ORDERED: ATORVASTATIN 20 MG TAB PO SCH (09:00)
[2021-02-08] MEDS: ACETAMINOPHEN TAB 325 MG TAB PO PRN (09:23)
[2021-02-08] MEDS: FUROSEMIDE 10 MG/ML 4 ML VIAL IV SCH ×2 (09:23→22:05)
[2021-02-08] MEDS: predniSONE 10 MG TAB PO SCH (09:23)
[2021-02-08] MEDS: ASCORBIC ACID 500 MG TAB PO SCH (09:24)
[2021-02-08] MEDS: FOLIC ACID 1 MG TAB PO SCH (09:24)
[2021-02-08] MEDS: hydroCHLOROthiazide 25 MG TAB PO SCH (09:24)
[2021-02-08] MEDS: PANTOPRAZOLE 40 MG TABLET PO SCH (09:24)
[2021-02-08] MEDS: KETOROLAC 0.5% OPHTH DROPS 5 ML BTL LEFT EYE SCH ×2 (09:24→23:27)
[2021-02-08] MEDS: prednisoLONE ACETATE 1% OPHTH DROPS 5 ML BTL LEFT EYE SCH ×2 (09:24→23:27)
[2021-02-08] MEDS: CHOLECALCIFEROL 25 MCG (1000 IU) TABLET PO SCH (09:24)
[2021-02-08] MEDS: SODIUM CHLORIDE 0.9% 1,000 ML IV SCH ×3 (09:25→22:05)
--- NOTE | 2021-02-08 13:14 | P.HPIM ---
History of Present Illness H&P Date: 02/08/21 HISTORY OF PRESENT ILLNESS This is a 80-year-old male patient of Dr. Mccormack with past medical history of COPD, hypertension, hyperlipidemia, rheumatoid arthritis, hypothyroidism, paroxysmal atrial fibrillation, hemorrhagic stroke treated at [facility], chronic kidney disease stage II, remote history of tobacco use. Patient he has been on antibiotics for cellulitis of the right lower extremity as well as left arm. He states onset was about 3 weeks ago. He has had increasing edema and pain. He has not had significant improvement with antibiotics. No fever or chills. Patient came into [facility] emergency center for evaluation. He he was found to be afebrile, heart rate 98, blood pressure 121/64, pulse ox 93% on room air. WBC 4.2, hemoglobin 12, platelet count 152. Sodium 136, potassium 3.9, chloride 96, CO2 37, BUN 28 creatinine 1.34. Blood sugar 93. Liver function tests were normal. Lactic acid 1.0. CK 376 ultrasound of the l eft lower extremity was negative for DVT on February 03. Patient admitted to the [facility] floor and consult with vascular surgery, infectious disease. Arterial studies of been ordered for the lower extremities. REVIEW OF SYSTEMS Constitutional: No fever, no chills, no night sweats. No weight change. No weakness, fatigue or lethargy. No daytime sleepiness. EENT: No headache. No blurred vision or double vision, no loss of vision. No loss of Hearing, no ringing in the ears, no dizziness. No nasal drainage or congestion. No epistaxis. No sore throat. Lungs: No shortness of breath, cough, no sputum production. No wheezing. Cardiovascular: No chest pain, no lower extremity edema. No palpitations. No paroxysmal nocturnal dyspnea. No orthopnea. No lightheadedness or dizziness. No syncopal episodes. Abdominal: No abdominal pain. No nausea, vomiting. No diarrhea. No constipation. No bloody or tarry stools.. No loss of appetite. Genitourinary: No dysuria, increased frequency, urgency. No urinary retention. Musculoskeletal: No myalgias. No muscle weakness, no gait dysfunction, no frequent falls. No back pain. No neck pain. Integumentary: Reports wounds, no lesions. No rash or pruritus. No unusual bruising. No change in hair or nails. Neurologic: No aphasia. No facial droop. No change in mentation. No head injury. No headache. No paralysis. No paresthesia. Psychiatric: No depression. No anxiety. No mood swings. Endocrine: No abnormal blood sugars. No weight change. No excessive sweating or thirst. No cold intolerance. SOCIAL HISTORY Patient was a smoker and quit 20 years ago. He drinks alcohol occasionally. He lives at home with his .. FAMILY HISTORY Mother from old age. Father from a stenosis exposure. Patient has 4 sisters and one from cancer of unknown type. 3 other sisters have no major medical problems. He does not have any brothers. Patient has 3 children with no major medical problems. PHYSICAL EXAMINATION Gen: This is a 80-year-old male. He is resting in bed and appears to be comfortable and in no acute distress. HEENT: Head is atraumatic, normocephalic. Pupils equal, round. Sclerae is anicteric. NECK: Supple. No JVD. No lymphadenopathy. No thyromegaly. LUNGS: Clear to auscultation. No wheezes or rhonchi. No intercostal retractions. HEART: Regular rate and rhythm. No murmur. ABDOMEN: Soft. Bowel sounds are present. No masses. No tenderness. EXTREMITIES: Edema to the right lower extremity with blisters to the posterior calf, NEUROLOGICAL: Patient is awake, alert and oriented x3. Cranial nerves 2 through 12 are grossly intact. ASSESSMENT AND PLAN 1. Cellulitis of the right lower extremity and left forearm, failed outpatient treatment. Consult with [facility], infectious disease, vascular surgery. Continue patient on Zosyn and vancomycin, continues Lasix 40 mg IV twice daily. Blood culture is in process. 2. Elevated CK. Hold Lipitor and recheck CK in the morning. 3. Chronic kidney disease stage III. 4. COPD without exacerbation. Continue DuoNeb treatments 4 times daily, Symbicort twice daily. 5. Hypertension. Continue Lasix 40 mg IV twice daily, hydrochlorothiazide 25 mg daily. 6. Rheumatoid arthritis. Continue prednisone 10 mg daily. Hold methotrexate. 7. Hypothyroidism. Continue levothyroxine 100 g daily. 8. History of paroxysmal atrial fibrillation not on anticoagulation. 9. History of hemorrhagic stroke, stable. 10. GI prophylaxis. Protonix 40 mg daily. 11. DVT prophylaxis. Heparin subcu. 12. COVID-19 testing negative. Patient has been hospitalized during a pandemic. Patient will be admitted to the hospital for a minimum of 2 night stay. DISCHARGE PLAN Home. Impression and plan of care have been directed as dictated by the signing physician. Delia Tejada nurse practitioner acting as scribe for signing physician. Past Medical History Past Medical History: COPD, Hyperlipidemia, Rheumatoid Arthritis (RA), Thyroid Disorder Additional Past Medical History / Comment(s): peripheral edema, wears O2 prn at 2l, brain bleed History of Any Multi-Drug Resistant Organisms: None Reported Past Surgical History: Orthopedic Surgery Additional Past Surgical History / Comment(s): left carpal tunnel, elbow sx, cataracts Past Anesthesia/Blood Transfusion Reactions: No Reported Reaction Past Psychological History: No Psychological Hx Reported Smoking Status: Former smoker Past Alcohol Use History: Occasional Additional Past Alcohol Use History / Comment(s): quit smoking approx 1998, smoked 1/2ppd from teens Past Drug Use History: None Reported - Past Family History Father History Unknown: Yes Medications and Allergies Home Medications Medication Instructions Recorded Confirmed Type Folic Acid 1 mg PO DAILY 08/27/18 02/07/21 History Levothyroxine Sodium [Synthroid] 100 mcg PO DAILY 08/27/18 02/07/21 History Simvastatin 40 mg PO HS 08/27/18 02/07/21 History hydroCHLOROthiazide 25 mg PO DAILY 08/27/18 02/07/21 History metHOTREXate sodium [Methotrexate] 20 mg PO CHOW 08/27/18 02/07/21 History Ascorbic Acid [Vitamin C] 500 mg PO DAILY 02/02/19 02/07/21 History Cholecalciferol [Vitamin D3 (25 1,000 unit PO DAILY 02/02/19 02/07/21 History Mcg = 1000 Iu)] Ipratropium-Albuterol Nebulize 3 ml INHALATION RT-QID #120 ml 01/17/20 02/07/21 Rx [Duoneb 0.5 mg-3 mg/3 ml Soln] Fluticasone/Umeclidin/Vilanter 1 puff INHALATION RT-DAILY 02/07/21 02/07/21 His tory [Trelegy Ellipta 100-62.5-25] Ibuprofen [Advil] 200 mg PO BID 02/07/21 02/07/21 History predniSONE 10 mg PO DAILY 02/07/21 02/07/21 History Allergies Allergy/AdvReac Type Severity Reaction Status Date / Time No Known Allergies Allergy Verified 02/07/21 22:14 Physical Exam Vitals: Vital Signs Temp Pulse Pulse Resp BP BP Pulse Ox 02/08/21 08:40 90 02/08/21 08:29 94 02/08/21 07:00 97.9 F 85 20 119/64 98 02/08/21 02:00 98.8 F 85 16 121/57 97 02/07/21 22:50 98.0 F 93 20 130/84 93 L 02/07/21 17:40 98.1 F 98 18 121/64 93 L Intake and Output 02/07/21 02/08/21 02/08/21 22:59 06:59 14:59 Intake Total 1500 Balance 1500 Intake: Intake, IV Titration 1500 Amount Sodium Chloride 0.9% 1, 1000 000 ml @ 130 mls/hr IV . [id number] [facility] Rx#:[id number] Vancomycin 1,750 mg In 500 Sodium Chloride 0.9% 500 ml 500 ml @ 167 mls/hr IVPB ONCE ONE Rx#: [id number] Other: Weight 100.244 kg Results CBC & Chem 7: 02/07/21 18:15 02/07/21 18:15 Labs: Abnormal Lab Results - Last 24 Hours (Table) 02/07/21 02/07/21 Range/Units 18:15 18:15 RBC 3.44 L (4.30-5.90) m/uL Hgb 12.0 L (13.0-17.5) gm/dL Hct 35.5 L (39.0-53.0) % MCV 103.1 H (80.0-100.0) fL RDW 17.0 H (11.5-15.5) % Sodium 136 L (137-145) mmol/L Chloride 96 L (98-107) mmol/L Carbon Dioxide 37 H (22-30) mmol/L BUN 28 H (9-20) mg/dL Creatinine 1.34 H (0.66-1.25) mg/dL Creatine Kinase 376 H (55-170) U/L Total Protein 8.9 H (6.3-8.2) g/dL Albumin 3.4 L (3.5-5.0) g/dL
--- NOTE | 2021-02-08 15:46 | P.GSCN ---
History of Present Illness Consult date: 02/08/21 Reason for Consult: Cellulitis Requesting physician: Huang Marroquin History of present illness: This is a 80-year-old white male patient with a past medical history of COPD, hypertension, hyperlipidemia, rheumatoid arthritis, hypothyroidism, atrial fibrillation and hemorrhagic stroke, chronic kidney disease and previous smoker. The patient states he started having redness of the right lower extremity about 3 weeks ago with blisters that then turned into wounds with increased swelling and pain. He was seen by Dr. Mccormack in the office for treatment. He is unsure how or why this had started. He also states he is starting to see some blistering on his left upper extremity. He denies any fevers or chills. He was on outpatient antibiotics without any improvement. States he has no previous history of peripheral arterial disease. He is currently on vancomycin and Zosyn. He has been afebrile, denies any shortness of breath, chest pain, abdominal pain, nausea or vomiting. He underwent a venous Doppler which was negative for DVT of the right lower extremity. Review of Systems A 14 point review systems was completed all pertinent positives and negatives as stated in the HPI. Past Medical History Past Medical History: COPD, Hyperlipidemia, Rheumatoid Arthritis (RA), Thyroid Disorder Additional Past Medical History / Comment(s): peripheral edema, wears O2 prn at 2l, brain bleed History of Any Multi-Drug Resistant Organisms: None Reported Past Surgical History: Orthopedic Surgery Additional Past Surgical History / Comment(s): left carpal tunnel, elbow sx, cataracts Past Anesthesia/Blood Transfusion Reactions: No Reported Reaction Past Psychological History: No Psychological Hx Reported Smoking Status: Former smoker Past Alcohol Use History: Occasional Additional Past Alcohol Use History / Comment(s): quit smoking approx 1998, smoked 1/2ppd from teens Past Drug Use History: None Reported - Past Family History Father History Unknown: Yes Medications and Allergies Home Medications Medication Instructions Recorded Confirmed Type Folic Acid 1 mg PO DAILY 08/27/18 02/07/21 History Levothyroxine Sodium [Synthroid] 100 mcg PO DAILY 08/27/18 02/07/21 History Simvastatin 40 mg PO HS 08/27/18 02/07/21 History hydroCHLOROthiazide 25 mg PO DAILY 08/27/18 02/07/21 History metHOTREXate sodium [Methotrexate] 20 mg PO CHOW 08/27/18 02/07/21 History Ascorbic Acid [Vitamin C] 500 mg PO DAILY 02/02/19 02/07/21 History Cholecalciferol [Vitamin D3 (25 1,000 unit PO DAILY 02/02/19 02/07/21 History Mcg = 1000 Iu)] Ipratropium-Albuterol Nebulize 3 ml INHALATION RT-QID #120 ml 01/17/20 02/07/21 Rx [Duoneb 0.5 mg-3 mg/3 ml Soln] Fluticasone/Umeclidin/Vilanter 1 puff INHALATION RT-DAILY 02/07/21 02/07/21 History [Trelegy Ellipta 100-62.5-25] Ibuprofen [Advil] 200 mg PO BID 02/07/21 02/07/21 History predniSONE 10 mg PO DAILY 02/07/21 02/07/21 History Allergies Allergy/AdvReac Type Severity Reaction Status Date / Time No Known Allergies Allergy Verified 02/07/21 22:14 Surgical - Exam Vital Signs Temp Pulse Resp BP Pulse Ox 98.1 F 98 18 121/64 93 L 02/07/21 17:40 02/07/21 17:40 02/07/21 17:40 02/07/21 17:40 02/07/21 17:40 General appearance: The patient is alert, oriented, appears in no acute distress. HET: Head is normocephalic and atraumatic. Neck: Supple without lymphadenopathy. Trachea midline. Heart: S1 S2. Regular rate and rhythm. Lungs: Clear to auscultation. Abdomen: Soft, nontender, nondistended. Extremities: Right lower extremity with +2 edema, erythema up to his knee. Multiple blister like sores on right lower extremity. 2 ulcerations on the lateral side just below his knee and along his posterior aspect of the right lower extremity. Good capillary refill. Neurological: No focal deficits. Alert and oriented 3. Results - Labs 02/07/21 18:15 02/07/21 18:15 Abnormal Lab Results - Last 24 Hours (Table) 02/07/21 02/07/21 Range/Units 18:15 18:15 RBC 3.44 L (4.30-5.90) m/uL Hgb 12.0 L (13.0-17.5) gm/dL Hct 35.5 L (39.0-53.0) % MCV 103.1 H (80.0-100.0) fL RDW 17.0 H (11.5-15.5) % Sodium 136 L (137-145) mmol/L Chloride 96 L (98-107) mmol/L Carbon Dioxide 37 H (22-30) mmol/L BUN 28 H (9-20) mg/dL Creatinine 1.34 H (0.66-1.25) mg/dL Creatine Kinase 376 H (55-170) U/L Total Protein 8.9 H (6.3-8.2) g/dL Albumin 3.4 L (3.5-5.0) g/dL Diabetes panel 02/07/21 Range/Units 18:15 Sodium 136 L (137-145) mmol/L Potassium 3.9 (3.5-5.1) mmol/L Chloride 96 L (98-107) mmol/L Carbon Dioxide 37 H (22-30) mmol/L BUN 28 H (9-20) mg/dL Creatinine 1.34 H (0.66-1.25) mg/dL Glucose 93 (74-99) mg/dL Calcium 8.6 (8.4-10.2) mg/dL AST 44 (17-59) U/L ALT 29 (4-49) U/L Alkaline Phosphatase 74 (38-126) U/L Total Protein 8.9 H (6.3-8.2) g/dL Albumin 3.4 L (3.5-5.0) g/dL Calcium panel 02/07/21 Range/Units 18:15 Calcium 8.6 (8.4-10.2) mg/dL Albumin 3.4 L (3.5-5.0) g/dL Pituitary panel 02/07/21 Range/Units 18:15 Sodium 136 L (137-145) mmol/L Potassium 3.9 (3.5-5.1) mmol/L Chloride 96 L (98-107) mmol/L Carbon Dioxide 37 H (22-30) mmol/L BUN 28 H (9-20) mg/dL Creatinine 1.34 H (0.66-1.25) mg/dL Glucose 93 (74-99) mg/dL Calcium 8.6 (8.4-10.2) mg/dL Adrenal panel 02/07/21 Range/Units 18:15 Sodium 136 L (137-145) mmol/L Potassium 3.9 (3.5-5.1) mmol/L Chloride 96 L (98-107) mmol/L Carbon Dioxide 37 H (22-30) mmol/L BUN 28 H (9-20) mg/dL Creatinine 1.34 H (0.66-1.25) mg/dL Glucose 93 (74-99) mg/dL Calcium 8.6 (8.4-10.2) mg/dL Total Bilirubin 0.4 (0.2-1.3) mg/dL AST 44 (17-59) U/L ALT 29 (4-49) U/L Alkaline Phosphatase 74 (38-126) U/L Total Protein 8.9 H (6.3-8.2) g/dL Albumin 3.4 L (3.5-5.0) g/dL - Imaging Comments: Venous Doppler of right lower extremity negative for DVT Assessment and Plan Assessment: 1. Cellulitis of the right lower extremity 2. Multiple blisters on the right lower extremity 3. Ulcers right lower extremity 4. History of hyperlipidemia 5. History of atrial fibrillation 6. History of rheumatoid arthritis on methotrexate and prednisone 10 mg 7. Chronic kidney disease Plan: 1. Arterial ultrasound of bilateral lower extremities ordered, DAVID right 1.05, left 1.00 2. Continue IV antibiotics as ordered 3. Infectious diseases on consult 4. Wound care on consult 5. Further recommendations to follow Thank you for this consultation allowing us take part in the plan of care of your patient during his hospital stay The impression and plan of care has been dictated as directed. Dr. Gomez I performed a history and examination of this patient, discussed the same with the dictator. I agree with the dictator's note ,documented as a scribe. Any additional findings or plans will be noted.
[2021-02-08] MEDS: VANCOMYCIN 1,750 MG in SODIUM CHLORIDE 0.9% 500 ML 500 ML IVPB SCH (19:53)
[2021-02-08] MEDS ORDERED: VANCOMYCIN 1,500 MG in SODIUM CHLORIDE 0.9% 250 ML IVPB SCH (22:00)
[2021-02-08] MEDS: HEPARIN SODIUM,PORCINE/PF 5,000 UNIT/0.5 ML SYRINGE SQ SCH (22:05)
[2021-02-08] MEDS: HYDROcodone/APAP 5-325MG 1 EACH TAB PO PRN (22:08)
--- NOTE | 2021-02-09 05:06 | CONS ---
CONSULTATION DATE OF SERVICE: 02/08/2021 REASON FOR CONSULTATION: Right lower extremity cellulitis and wound. HISTORY OF PRESENT ILLNESS: The patient is a 80-year-old male with multiple comorbidities including rheumatoid arthritis, COPD, and hemorrhagic stroke, presented to the ER at [facility] yesterday afternoon for evaluation of right lower extremity swelling and redness. Apparently the patient's symptoms started about 3 weeks ago. The patient started having a small pimple that has gradually increased in size and becoming necrotic at points. He did have some drainage from them initially but the drainage has subsequently stopped and is now getting more dry and necrotic area. The patient is complaining of pain to the leg to be more of a dull aching to throbbing, intensity about 5 to 6/10, no radiation with associated swelling and redness. With these symptoms, the patient was evaluated by the ER physician. On arrival to the ER, the patient was afebrile and no fever has been recorded. Subsequently the patient did have a normal white count. Creatinine was 1.34. Liver enzymes are normal. Bates PCR was negative. The patient did have a lower extremity Doppler, official report is currently pending, as well as arterial Doppler. The patient was started on vancomycin and Zosyn and has been admitted to the hospital. Infectious Disease was consulted for further management of antibiotic therapy. REVIEW OF SYSTEMS: Positive points have been mentioned in HPI. Rest of systems are negative. PAST MEDICAL HISTORY: COPD, hypertension, rheumatoid arthritis, and hypothyroidism. PAST SURGICAL HISTORY: Left surgery and cataracts. SOCIAL HISTORY: Remote history of smoking. No drinking or drug use. FAMILY HISTORY: No pertinent findings noticed. ALLERGIES: No known drug allergies. MEDICATIONS: The patient is currently on Tylenol, [place], Ventolin, DuoNeb, vitamin C, Symbicort, folic acid, Lasix, heparin, hydrochlorothiazide, Synthroid, Narcan, Protonix, prednisone, vancomycin and Zosyn. PHYSICAL EXAMINATION: VITAL SIGNS: Blood pressure 118/60 with a pulse of 90, temperature 98.1, he is 94% on room air. GENERAL DESCRIPTION: An elderly male lying in in no distress. No tachypnea or accessory muscles of respiration use. HEENT: Examination shows no pallor or scleral icterus. Oral mucous membrane is dry. NECK: Trachea central, no thyromegaly. LUNGS: Unlabored breathing, clear to auscultation anteriorly. No wheeze or crackle. HEART: S1-S2, regular rate and rhythm. ABDOMEN: Soft, no tenderness. No guarding or rigidity. EXTREMITIES: Right lower extremity did have swelling and redness with necrotic areas. No fluctuation, induration or any drainage. NEUROLOGICAL: Patient is awake, alert, oriented times three. Mood and affect normal. LABS: Hemoglobin is 12 with white count 4.2, BUN of 20, creatinine 1.34. Blood culture obtained is currently pending. Dopplers are currently pending. DIAGNOSTIC IMPRESSION: Patient with multiple necrotic areas on his right leg that apparently started as pimples and has gradually increased in size with some drainage, failing outpatient oral antibiotic therapy. However, the patient is not very sure about the name of those antibiotics. Concern for possible cellulitis likely from a gram-positive skin maye and concern for possible staphylococcal infection. PLAN: 1. Will wait for the Doppler study to be finalized. 2. We will keep the patient on vancomycin Pharmacy to dose target of 15, however discontinue Zosyn to decrease risk of nephrotoxicity. 3. If the areas start to drain, cultures will be obtained and that will guide further antibiotic therapy. Thank you for this consultation. Will follow this patient along with you. MMODL / IJN: [id number] /
[2021-02-09] MEDS: HYDROcodone/APAP 5-325MG 1 EACH TAB PO PRN ×2 (06:03→20:12)
[2021-02-09] MEDS: SODIUM CHLORIDE 0.9% 1,000 ML IV SCH ×3 (06:04→20:14)
[2021-02-09] MEDS: LEVOTHYROXINE 100 MCG TAB PO SCH (06:04)
[2021-02-09] MEDS: hydroCHLOROthiazide 25 MG TAB PO SCH (08:26)
[2021-02-09] MEDS: CHOLECALCIFEROL 25 MCG (1000 IU) TABLET PO SCH (08:27)
[2021-02-09] MEDS: ASCORBIC ACID 500 MG TAB PO SCH (08:27)
[2021-02-09] MEDS: PANTOPRAZOLE 40 MG TABLET PO SCH (08:27)
[2021-02-09] MEDS: FOLIC ACID 1 MG TAB PO SCH (08:27)
[2021-02-09] MEDS: FUROSEMIDE 10 MG/ML 4 ML VIAL IV SCH ×2 (08:27→20:12)
[2021-02-09] MEDS: predniSONE 10 MG TAB PO SCH (08:27)
[2021-02-09] MEDS: KETOROLAC 0.5% OPHTH DROPS 5 ML BTL LEFT EYE SCH ×2 (08:28→20:15)
[2021-02-09] MEDS: HEPARIN SODIUM,PORCINE/PF 5,000 UNIT/0.5 ML SYRINGE SQ SCH ×2 (08:28→20:12)
[2021-02-09] MEDS: prednisoLONE ACETATE 1% OPHTH DROPS 5 ML BTL LEFT EYE SCH ×2 (08:29→20:15)
[2021-02-09] MEDS: SYMBICORT 160-4.5 MCG INHALER INHALATION SCH ×2 (08:38→20:49)
[2021-02-09] MEDS: IPRATROPIUM-ALBUTEROL 3 ML NEB INHALATION SCH ×4 (08:38→20:49)
--- NOTE | 2021-02-09 09:52 | P.ARTDOP ---
Arterial Doppler LOWER EXTREMITY ARTERIAL DOPPLER: DATE OF SERVICE: 02/08/2021 Reason for study: Right leg ulcer. Doppler waveforms: Multiphasic bilaterally throughout. Pulse volume recording: []. Pressure gradients: Minimal at toe level. Ankle-brachial indices: 1 or greater bilaterally Toe brachial indices: 0.61 on the right, 0.59 on the left Impression: Normal study. Toe pressures probably related to vasospastic phenomenon which is mild..
--- NOTE | 2021-02-09 10:43 | P.CONS ---
History of Present Illness - Reason for Consult Consult date: 02/09/21 wound care - History of Present Illness this is a 80-year-old patient being seen on for nonhealing ulcerations to the right lower extremity. Patient started with blistering and cellulitis to the right lower extremity where he was treated outpatient. Due to the increase in erythema and blistering pator further evaluation. Patient had an arterial Doppler which showed ABIs greater than 1 bilaterally. Patient has 2 ulcerations to the right lower extremity the lateral ulceration measures approximately 2.5 x 2.5 x 0.1 cm, no granulation seen within the wound bed, eschar In place. The posterior ulceration measures approximately 3.0 x 2.5 x 0.1 cm no granulation seen within the wound bed, eschar Noted. Erythema noted to the periwound with blistering to the anterior and medial aspect of the right lower extremity. Patient has edema 1+. With a palpable pedal pulse. Patient's past medical history significant for COPD, hyperlipidemia, hyperthyroidism, peripheral edema. He is a former smoker. Review Of Systems: Constitutional: No fever, no chills, no night sweats. No weight change. No weakness, fatigue or lethargy. No daytime sleepiness. Integumentary:reports wounds, no lesions. No rash or pruritus. No unusual bruising. No change in hair or nails. Physical exam: General Appearance: Alert, cooperative, no distress, appears stated age. Skin: See HPI all other Skin color, texture, tugor normal, no rashes or lesions. Neurologic: Alert oriented x3 Assessment: 1. Nonhealing ulceration with fat layer exposure right calf 2. Nonhealing ulceration with fatty layer exposure right lower extremity lateral aspect 3. Venous insufficiency Plan: 1. Apply Santyl edge to edge a nickel in depth, saline moistened gauze, dry gauze, apply zinc barrier cream to right lower extremity 2 areas not covered with Santyl, rolled gauze secure with paper tape. Apply Rg wrapto the lower extremity to help with edema. Patient to elevate legs 30 minutes a day 3 times a day. Discussed in length with the patient the need for further wound treatment and outpatient setting. Patient was agreeable to come to the wound care center will be happy to see him. Thank you for the consultation any questions please contact the wound care center DNP note has been reviewed and discussed with Dr. Matias and the impression and plan of care has been directed as dictated. Past Medical History Past Medical History: COPD, Hyperlipidemia, Rheumatoid Arthritis (RA), Thyroid Disorder Additional Past Medical History / Comment(s): peripheral edema, wears O2 prn at 2l, brain bleed History of Any Multi-Drug Resistant Organisms: None Reported Past Surgical History: Orthopedic Surgery Additional Past Surgical History / Comment(s): left carpal tunnel, elbow sx, cataracts Past Anesthesia/Blood Transfusion Reactions: No Reported Reaction Past Psychological History: No Psychological Hx Reported Smoking Status: Former smoker Past Alcohol Use History: Occasional Additional Past Alcohol Use History / Comment(s): quit smoking approx 1998, smoked 1/2ppd from teens Past Drug Use History: None Reported - Past Family History Father History Unknown: Yes Medications and Allergies Home Medications Medication Instructions Recorded Confirmed Type Folic Acid 1 mg PO DAILY 08/27/18 02/07/21 History Levothyroxine Sodium [Synthroid] 100 mcg PO DAILY 08/27/18 02/07/21 History Simvastatin 40 mg PO HS 08/27/18 02/07/21 History hydroCHLOROthiazide 25 mg PO DAILY 08/27/18 02/07/21 History metHOTREXate sodium [Methotrexate] 20 mg PO CHOW 08/27/18 02/07/21 History Ascorbic Acid [Vitamin C] 500 mg PO DAILY 02/02/19 02/07/21 History Cholecalciferol [Vitamin D3 (25 1,000 unit PO DAILY 02/02/19 02/07/21 History Mcg = 1000 Iu)] Ipratropium-Albuterol Nebulize 3 ml INHALATION RT-QID #120 ml 01/17/20 02/07/21 Rx [Duoneb 0.5 mg-3 mg/3 ml Soln] Fluticasone/Umeclidin/Vilanter 1 puff INHALATION RT-DAILY 02/07/21 02/07/21 History [Trelegy Ellipta 100-62.5-25] Ibuprofen [Advil] 200 mg PO BID 02/07/21 02/07/21 History predniSONE 10 mg PO DAILY 02/07/21 02/07/21 History Allergies Allergy/AdvReac Type Severity Reaction Status Date / Time No Known Allergies Allergy Verified 02/07/21 22:14 Physical Exam Vitals: Vital Signs Temp Pulse Pulse Resp BP Pulse Ox 02/09/21 08:52 77 16 02/09/21 08:41 98 02/09/21 08:38 72 16 02/09/21 07:00 97.6 F 81 16 127/70 96 02/09/21 02:09 98.1 F 69 18 104/48 91 L 02/08/21 23:35 18 02/08/21 20:10 93 02/08/21 20:00 93 02/08/21 19:03 98.1 F 93 18 118/60 94 L 02/08/21 16:28 92 02/08/21 16:19 90 02/08/21 14:55 98.0 F 84 20 136/64 93 L 02/08/21 12:13 91 02/08/21 12:04 93 Intake and Output 02/08/21 02/09/21 02/09/21 22:59 06:59 14:59 Intake Total 1340 780 240 Balance 1340 780 240 Intake: Intake, IV Titration 860 780 Amount Piperacillin-Tazobactam 3 100 .375 gm In Sodium Chloride 0.9% 100 ml @ 200 mls/hr IVPB Q8H [facility] Rx#:[id number] Sodium Chloride 0.9% 1, 260 780 000 ml @ 130 mls/hr IV . Q7H42M [facility] Rx#:[id number] Vancomycin 1,750 mg In 500 Sodium Chloride 0.9% 500 ml 500 ml @ 167 mls/hr IVPB Q24H [facility] Rx#: [id number] Oral 480 240 Other: Voiding Method Toilet Toilet Results CBC & Chem 7: 02/07/21 18:15 02/09/21 04:52 Labs: Abnormal Lab Results - Last 24 Hours (Table) 02/09/21 Range/Units 04:52 Creatinine 1.48 H (0.66-1.25) mg/dL Microbiology - Last 24 Hours (Table) 02/08/21 19:20 Gram Stain - Preliminary Leg - Right Wound Culture - Preliminary 02/08/21 19:20 Anaerobic Culture - Preliminary Leg - Right 02/07/21 18:15 Blood Culture - Preliminary Blood No Growth after 24 hours Assessment and Plan (1) Nonhealing ulcer of multiple sites of right lower extremity with fat layer exposed Current Visit: Yes Status: Acute Code(s): L97.912 - NON-PRS CHR ULC UNSP PRT OF R LOW LEG W FAT LAYER EXPOSED SNOMED Code(s): 71449554 (2) Venous insufficiency of right lower extremity Current Visit: Yes Status: Acute Code(s): I87.2 - VENOUS INSUFFICIENCY (CHRONIC) (PERIPHERAL) SNOMED Code(s): 304064143
[2021-02-09] MEDS: COLLAGENASE 250 UNIT/GM OINTMENT 30 GM TUBE TOPICAL SCH (11:43)
--- NOTE | 2021-02-09 12:53 | P.PN ---
Subjective Progress Note Date: 02/09/21 Principal diagnosis: Right lower extremity cellulitis Patient was seen and examined lying in bed. His right lower extremity is wrapped with dressing and Rg wrap. He is afebrile. No acute changes through the night. Continues on IV antibiotics per infectious disease. Wound care evaluated patient and gave orders for local wound care. Arterial study of lower extremities was completed yesterday with no evidence of peripheral arterial disease, DAVID on right was 1.05 and left 1.00. Toe waveforms decreased but likely related to microvascular disease. Objective - Vital Signs Vital signs: Vital Signs Temp 97.6 F 02/09/21 07:00 Pulse 77 02/09/21 08:52 Resp 16 02/09/21 08:52 BP 127/70 02/09/21 07:00 Pulse Ox 98 02/09/21 08:41 Intake & Output 02/08/21 02/09/21 02/09/21 18:59 06:59 18:59 Intake Total 720 1880 240 Balance 720 1880 240 Intake: Intake, IV Titration 1640 Amount Piperacillin-Tazobactam 3 100 .375 gm In Sodium Chloride 0.9% 100 ml @ 200 mls/hr IVPB Q8H [facility] Rx#:[id number] Sodium Chloride 0.9% 1, 1040 000 ml @ 130 mls/hr IV . Q7H42M [facility] Rx#:[id number] Vancomycin 1,750 mg In 500 Sodium Chloride 0.9% 500 ml 500 ml @ 167 mls/hr IVPB Q24H [facility] Rx#: [id number] Oral 720 240 240 Other: Voiding Method Toilet Toilet # Voids 3 - Exam General appearance: The patient is alert, oriented, in no acute distress. HET: Head is normocephalic and atraumatic. Extremities: Right lower extremity with dressing and Rg wrap intact, toes pink with good capillary refill. Left lower extremity with edema, palpable dorsalis pedis and posterior tibialis pulse. Neurological: No focal deficits. Strength and sensation are grossly intact. - Labs CBC & Chem 7: 02/07/21 18:15 02/09/21 04:52 Labs: Abnormal Lab Results - Last 24 Hours (Table) 02/09/21 Range/Units 04:52 Creatinine 1.48 H (0.66-1.25) mg/dL Microbiology - Last 24 Hours (Table) 02/08/21 19:20 Gram Stain - Preliminary Leg - Right Wound Culture - Preliminary 02/08/21 19:20 Anaerobic Culture - Preliminary Leg - Right 02/07/21 18:15 Blood Culture - Preliminary Blood No Growth after 24 hours Assessment and Plan Assessment: 1. Cellulitis of the right lower extremity 2. Multiple blisters on the right lower extremity 3. Ulcers right lower extremity 4. History of hyperlipidemia 5. History of atrial fibrillation 6. History of rheumatoid arthritis on methotrexate and prednisone 10 mg 7. Chronic kidney disease Plan: 1. Arterial ultrasound of bilateral lower extremities ordered, DAVID right 1.05, left 1.00 2. Continue IV antibiotics as ordered 3. Infectious diseases on consult 4. Continue local wound care as ordered per wound care clinic 5. No indication at this time for any vascular surgical intervention. 6. Continue with outpatient wound care follow-up in the wound clinic Chief for this consultation, vascular surgery will sign off at this time. The impression and plan of care has been dictated as directed. Dr. Gomez I performed a history and examination of this patient, discussed the same with the dictator. I agree with the dictator's note ,documented as a scribe. Any additional findings or plans will be noted.
--- NOTE | 2021-02-09 14:39 | P.PN ---
Subjective Progress Note Date: 02/09/21 HISTORY OF PRESENT ILLNESS This is a 80-year-old male patient of Dr. Mccormack with past medical history of COPD, hypertension, hyperlipidemia, rheumatoid arthritis, hypothyroidism, par oxysmal atrial fibrillation, hemorrhagic stroke treated at [facility], chronic kidney disease stage II, remote history of tobacco use. Patient he has been on antibiotics for cellulitis of the right lower extremity as well as left arm. He states onset was about 3 weeks ago. He has had increasing edema and pain. He has not had significant improvement with antibiotics. No fever or chills. Patient came into [facility] emergency center for evaluation. He he was found to be afebrile, heart rate 98, blood pressure 121/64, pulse ox 93% on room air. WBC 4.2, hemoglobin 12, platelet count 152. Sodium 136, potassium 3.9, chloride 96, CO2 37, BUN 28 creatinine 1.34. Blood sugar 93. Liver function tests were normal. Lactic acid 1.0. CK 376 ultrasound of the left lower extremity was negative for DVT on February 03. Patient admitted to the [facility] floor and consult with vascular surgery, infectious disease. Arterial studies of been ordered for the lower extremities. 02/09: Patient has been seen by Dr. Hillman and patient continued on vancomycin and discontinue Zosyn. Patient has been afebrile, heart rate 72, blood pressure 127/70, pulse ox 98% on 2 L nasal cannula. Creatinine 1.48. CK 301. She has been seen by Wound Center and plan for Santyl, elevation of the legs 30 minutes a day 3 times a day and plan for follow-up in the wound Center. HER-2/aminah study was normal. Toe pressures probably related to vasospastic phenomenon which is mild. Wound cultures are in progress. Blood culture no growth at 24 hours. Patient has been afebrile, heart rate 70, blood pressure 127/70, pulse ox 96% on room air. Patient states the wounds to his left forearm do not appear any better. Now extremity wound slightly improved. No drainage is noted. REVIEW OF SYSTEMS Constitutional: No fever, no chills, no night sweats. No weight change. No weakness, fatigue or lethargy. No daytime sleepiness. EENT: No headache. No blurred vision or double vision, no loss of vision. No loss of Hearing, no ringing in the ears, no dizziness. No nasal drainage or congestion. No epistaxis. No sore throat. Lungs: No shortness of breath, cough, no sputum production. No wheezing. Cardiovascular: No chest pain, no lower extremity edema. No palpitations. No paroxysmal nocturnal dyspnea. No orthopnea. No lightheadedness or dizziness. No syncopal episodes. Abdominal: No abdominal pain. No nausea, vomiting. No diarrhea. No constipation. No bloody or tarry stools.. No loss of appetite. Genitourinary: No dysuria, increased frequency, urgency. No urinary retention. Musculoskeletal: No myalgias. No muscle weakness, no gait dysfunction, no frequent falls. No back pain. No neck pain. Integumentary: Reports wounds. No rash or pruritus. No unusual bruising. No change in hair or nails. Neurologic: No aphasia. No facial droop. No change in mentation. No head injury. No headache. No paralysis. No paresthesia. Psychiatric: No depression. No anxiety. No mood swings. Endocrine: No abnormal blood sugars. No weight change. No excessive sweating or thirst. No cold intolerance. PHYSICAL EXAMINATION Gen: This is a 80-year-old male. He is resting in bed and appears to be comfortable and in no acute distress. HEENT: Head is atraumatic, normocephalic. Pupils equal, round. Sclerae is anicte ilsa. NECK: Supple. No JVD. No lymphadenopathy. No thyromegaly. LUNGS: Clear to auscultation. No wheezes or rhonchi. No intercostal retractions. HEART: Regular rate and rhythm. No murmur. ABDOMEN: Soft. Bowel sounds are present. No masses. No tenderness. EXTREMITIES: Edema to the right lower extremity with blisters to the posterior calf, NEUROLOGICAL: Patient is awake, alert and oriented x3. Cranial nerves 2 through 12 are grossly intact. ASSESSMENT AND PLAN 1. Cellulitis of the right lower extremity and left forearm, failed outpatient treatment. Consult with Wound Center, infectious disease, vascular surgery appreciated. Continue vancomycin only per infectious disease, continues Lasix 40 mg IV twice daily. Blood culture is in process. 2. Elevated CK. Hold Lipitor. 3. Chronic kidney disease stage III. 4. COPD without exacerbation. Continue DuoNeb treatments 4 times daily, Symbicort twice daily. 5. Hypertension. Continue Lasix 40 mg IV twice daily, hydrochlorothiazide 25 mg daily. 6. Rheumatoid arthritis. Continue prednisone 10 mg daily. Hold methotrexate. 7. Hypothyroidism. Continue levothyroxine 100 g daily. 8. History of paroxysmal atrial fibrillation not on anticoagulation. 9. History of hemorrhagic stroke, stable. 10. GI prophylaxis. Protonix 40 mg daily. 11. DVT prophylaxis. Heparin subcu. DISCHARGE PLAN Home. Impression and plan of care have been directed as dictated by the signing physician. Delia Tejada nurse practitioner acting as scribe for signing physician. Objective - Vital Signs Vital signs: Vital Signs Temp 97.6 F 02/09/21 07:00 Pulse 77 02/09/21 08:52 Resp 16 02/09/21 08:52 BP 127/70 02/09/21 07:00 Pulse Ox 98 02/09/21 08:41 Intake & Output 02/08/21 02/09/21 02/09/21 18:59 06:59 18:59 Intake Total 720 1880 Balance 720 1880 Intake: Intake, IV Titration 1640 Amount Piperacillin-Tazobactam 3 100 .375 gm In Sodium Chloride 0.9% 100 ml @ 200 mls/hr IVPB Q8H [facility] Rx#:[id number] Sodium Chloride 0.9% 1, 1040 000 ml @ 130 mls/hr IV . Q7H42M [facility] Rx#:[id number] Vancomycin 1,750 mg In 500 Sodium Chloride 0.9% 500 ml 500 ml @ 167 mls/hr IVPB Q24H [facility] Rx#: [id number] Oral 720 240 Other: Voiding Method Toilet # Voids 3 - Labs CBC & Chem 7: 02/07/21 18:15 02/09/21 04:52 Labs: Abnormal Lab Results - Last 24 Hours (Table) 02/09/21 Range/Units 04:52 Creatinine 1.48 H (0.66-1.25) mg/dL Microbiology - Last 24 Hours (Table) 02/08/21 19:20 Gram Stain - Preliminary Leg - Right Wound Culture - Preliminary 02/08/21 19:20 Anaerobic Culture - Preliminary Leg - Right 02/07/21 18:15 Blood Culture - Preliminary Blood No Growth after 24 hours
[2021-02-09] MEDS: VANCOMYCIN 1,750 MG in SODIUM CHLORIDE 0.9% 500 ML 500 ML IVPB SCH (17:06)
[2021-02-10] MEDS: SODIUM CHLORIDE 0.9% 1,000 ML IV SCH ×3 (05:36→19:46)
[2021-02-10] MEDS: LEVOTHYROXINE 100 MCG TAB PO SCH (05:44)
[2021-02-10] MEDS: IPRATROPIUM-ALBUTEROL 3 ML NEB INHALATION SCH ×4 (07:36→20:35)
[2021-02-10] MEDS: SYMBICORT 160-4.5 MCG INHALER INHALATION SCH ×2 (07:38→20:35)
[2021-02-10] MEDS: HEPARIN SODIUM,PORCINE/PF 5,000 UNIT/0.5 ML SYRINGE SQ SCH ×2 (08:27→19:45)
[2021-02-10] MEDS: FUROSEMIDE 10 MG/ML 4 ML VIAL IV SCH ×2 (08:27→19:45)
[2021-02-10] MEDS: PANTOPRAZOLE 40 MG TABLET PO SCH (08:28)
[2021-02-10] MEDS: ASCORBIC ACID 500 MG TAB PO SCH (08:28)
[2021-02-10] MEDS: FOLIC ACID 1 MG TAB PO SCH (08:28)
[2021-02-10] MEDS: CHOLECALCIFEROL 25 MCG (1000 IU) TABLET PO SCH (08:28)
[2021-02-10] MEDS: hydroCHLOROthiazide 25 MG TAB PO SCH (08:28)
[2021-02-10] MEDS: predniSONE 10 MG TAB PO SCH (08:28)
[2021-02-10] MEDS: KETOROLAC 0.5% OPHTH DROPS 5 ML BTL LEFT EYE SCH ×2 (08:35→19:46)
[2021-02-10] MEDS: prednisoLONE ACETATE 1% OPHTH DROPS 5 ML BTL LEFT EYE SCH ×2 (08:35→19:46)
[2021-02-10 09:10] LABS: HCT 31.1 % (39.6-50.0); HGB 9.9 g/dL (13.0-17.0); MCH 34.4 pg (27.0-32.0); MCHC 31.8 g/dL (32.0-37.0); Mean Platelet Volume 10.8 fL (9.5-12.2); Platelet Count 128 X 10*3/uL (140-440); RBC 2.88 X 10*6/uL (4.40-5.60); RDW 16.6 % (11.5-14.5); WBC 3.08 X 10*3/uL (4.50-10.00)
[2021-02-10 09:41] LABS: African American GFR (CKD) 60.1 (60.0-200.0); Anion Gap 6.7 mmol/L (4.00-12.00); BUN/Creat Ratio 21.54 Ratio (12.00-20.00); Calcium 8.1 mg/dL (8.7-10.3); Carbon Dioxide 35.3 mmol/L (21.6-31.8); Non-African American GFR(CKD) 51.9 (60.0-200.0); Potassium 3.6 mmol/L (3.5-5.5)
--- NOTE | 2021-02-10 09:53 | PN ---
PROGRESS NOTE DATE OF SERVICE: 02/09/2021 REASON FOR FOLLOW UP: Right lower extremity wound and cellulitis. INTERVAL HISTORY: Patient is afebrile. The patient is breathing comfortably. Pain and discomfort of the right leg has slightly decreased. No chest pain, shortness of breath. No abdominal pain or diarrhea. PHYSICAL EXAMINATION: Blood pressure 115/57, pulse 76, ( ). He is 97% on 2 L nasal cannula. General description is an elderly male up in the chair in no distress. Respiratory system: Unlabored breathing, clear to auscultation anteriorly. Heart: S1, S2. Regular rate and rhythm. Abdomen soft, no tenderness. Right leg swelling is slightly decreased. There was minimal purulent drainage, was cultured. DIAGNOSTIC IMPRESSION AND PLAN: Patient with right lower extremity wound with secondary cellulitis. Vascular surgery is on the case to rule out underlying ( ) disease. Patient is covered with vancomycin while waiting for the culture to finalize. Local care per Wound Care. Continue supportive care. MMODL / IJN: [id number] /
--- NOTE | 2021-02-10 11:26 | P.PN ---
Subjective Progress Note Date: 02/10/21 HISTORY OF PRESENT ILLNESS This is a 80-year-old male patient of Dr. Mccormack with past medical history of COPD, hypertension, hyperlipidemia, rheumatoid arthritis, hypothyroidism, par oxysmal atrial fibrillation, hemorrhagic stroke treated at [facility], chronic kidney disease stage II, remote history of tobacco use. Patient he has been on antibiotics for cellulitis of the right lower extremity as well as left arm. He states onset was about 3 weeks ago. He has had increasing edema and pain. He has not had significant improvement with antibiotics. No fever or chills. Patient came into [facility] emergency center for evaluation. He he was found to be afebrile, heart rate 98, blood pressure 121/64, pulse ox 93% on room air. WBC 4.2, hemoglobin 12, platelet count 152. Sodium 136, potassium 3.9, chloride 96, CO2 37, BUN 28 creatinine 1.34. Blood sugar 93. Liver function tests were normal. Lactic acid 1.0. CK 376 ultrasound of the left lower extremity was negative for DVT on February 03. Patient admitted to the [facility] floor and consult with vascular surgery, infectious disease. Arterial studies of been ordered for the lower extremities. 02/09: Patient has been seen by Dr. Hillman and patient continued on vancomycin and discontinue Zosyn. Patient has been afebrile, heart rate 72, blood pressure 127/70, pulse ox 98% on 2 L nasal cannula. Creatinine 1.48. CK 301. She has been seen by Wound Center and plan for Santyl, elevation of the legs 30 minutes a day 3 times a day and plan for follow-up in the wound Center. HER-2/aminah study was normal. Toe pressures probably related to vasospastic phenomenon which is mild. Wound cultures are in progress. Blood culture no growth at 24 hours. Patient has been afebrile, heart rate 70, blood pressure 127/70, pulse ox 96% on room air. Patient states the wounds to his left forearm do not appear any better. Now extremity wound slightly improved. No drainage is noted. 02/10: Patient has been seen and followed by wound care and by infectious disease. Wound cultures are currently in process. Patient is on vancomycin. Bones appear to be improving slowly. He is anxious to be discharged home. He states he did have some nausea earlier this morning does not eat his breakfast. No vomiting. No diarrhea. Patient has been afebrile, heart rate 99, blood pressure 130/63, pulse ox 100% on 2 L nasal cannula. Repeat blood work reveals WBC 3.08, hemoglobin 9.9, platelet count 128. Sodium 136, potassium 3.6, chloride 94, CO2 35, BUN [address] Hillman would like to wait for cultures to be finalized. Anticipate possible discharge tomorrow. REVIEW OF SYSTEMS Constitutional: No fever, no chills, no night sweats. No weight change. No weakness, fatigue or lethargy. No daytime sleepiness. EENT: No headache. No blurred vision or double vision, no loss of vision. No loss of Hearing, no ringing in the ears, no dizziness. No nasal drainage or congestion. No epistaxis. No sore throat. Lungs: No shortness of breath, cough, no sputum production. No wheezing. Cardiovascular: No chest pain, no lower extremity edema. No palpitations. No paroxysmal nocturnal dyspnea. No orthopnea. No lightheadedness or dizziness. No syncopal episodes. Abdominal: No abdominal pain. No nausea, vomiting. No diarrhea. No constipation. No bloody or tarry stools.. No loss of appetite. Genitourinary: No dysuria, increased frequency, urgency. No urinary retention. Musculoskeletal: No myalgias. No muscle weakness, no gait dysfunction, no frequent falls. No back pain. No neck pain. Integumentary: Reports wounds. No rash or pruritus. No unusual bruising. No change in hair or nails. Neurologic: No aphasia. No facial droop. No change in mentation. No head injury. No headache. No paralysis. No paresthesia. Psychiatric: No depression. No anxiety. No mood swings. Endocrine: No abnormal blood sugars. No weight change. No excessive sweating or thirst. No cold intolerance. PHYSICAL EXAMINATION Gen: This is a 80-year-old male. He is resting in bed and appears to be comfortable and in no acute distress. HEENT: Head is atraumatic, normocephalic. Pupils equal, round. Sclerae is anicteric. NECK: Supple. No JVD. No lymphadenopathy. No thyromegaly. LUNGS: Clear to auscultation. No wheezes or rhonchi. No intercostal retractions. HEART: Regular rate and rhythm. No murmur. ABDOMEN: Soft. Bowel sounds are present. No masses. No tenderness. EXTREMITIES: Edema to the right lower extremity with open ulcers with necrotic tissue, no surrounding erythema to the posterior calf, NEUROLOGICAL: Patient is awake, alert and oriented x3. Cranial nerves 2 through 12 are grossly intact. ASSESSMENT AND PLAN 1. Cellulitis of the right lower extremity and left forearm, failed outpatient treatment. Consult with Wound Center, infectious disease, vascular surgery appreciated. Continue vancomycin only per infectious disease, continues Lasix 40 mg IV twice daily. Blood culture is in process. Wound culture in progress 2. Elevated CK. Hold Lipitor. 3. Chronic kidney disease stage III. 4. COPD without exacerbation. Continue DuoNeb treatments 4 times daily, Symbicort twice daily. 5. Hypertension. Continue Lasix 40 mg IV twice daily, hydrochlorothiazide 25 mg daily. 6. Rheumatoid arthritis. Continue prednisone 10 mg daily. Hold methotrexate. 7. Hypothyroidism. Continue levothyroxine 100 g daily. 8. History of paroxysmal atrial fibrillation not on anticoagulation. 9. History of hemorrhagic stroke, stable. 10. GI prophylaxis. Protonix 40 mg daily. 11. DVT prophylaxis. Heparin subcu. DISCHARGE PLAN Home. Impression and plan of care have been directed as dictated by the signing physician. Delia Tejada nurse practitioner acting as scribe for signing physician. Objective - Vital Signs Vital signs: Vital Signs Temp 98.3 F 02/10/21 07:00 Pulse 99 02/10/21 07:50 Resp 18 02/10/21 07:50 BP 130/63 02/10/21 07:00 Pulse Ox 100 02/10/21 07:36 Intake & Output 02/09/21 02/10/21 02/10/21 18:59 06:59 18:59 Intake Total 240 0 Balance 240 0 Intake: Oral 240 0 Other: Voiding Method Toilet Toilet # Voids 5 2 # Bowel Movements 1 - Labs CBC & Chem 7: 02/10/21 04:41 02/10/21 04:41 Labs: Abnormal Lab Results - Last 24 Hours (Table) 02/09/21 Range/Units 04:52 Creatine Kinase 301 H (35-257) U/L Microbiology - Last 24 Hours (Table) 02/09/21 11:05 Gram Stain - Preliminary Leg - Right Wound Culture - Preliminary 02/07/21 18:15 Blood Culture - Preliminary Blood No Growth after 48 hours 02/08/21 19:20 Gram Stain - Preliminary Leg - Right Wound Culture - Preliminary
[2021-02-10] MEDS: COLLAGENASE 250 UNIT/GM OINTMENT 30 GM TUBE TOPICAL SCH (13:48)
[2021-02-10] MEDS: VANCOMYCIN 1,750 MG in SODIUM CHLORIDE 0.9% 500 ML 500 ML IVPB SCH (17:42)
[2021-02-10] MEDS: HYDROcodone/APAP 5-325MG 1 EACH TAB PO PRN (19:45)
--- NOTE | 2021-02-11 00:11 | PN ---
PROGRESS NOTE DATE OF SERVICE: 02/10/2021 REASON FOR FOLLOWUP: Right lower extremity wound and cellulitis. INTERVAL HISTORY: Patient is currently afebrile. The patient is breathing comfortably. Denies having any chest pain, shortness of breath. No cough. No abdominal pain. Overall pain and discomfort to the right leg has been decreased. PHYSICAL EXAMINATION: Blood pressure 123/56, pulse of 91, temperature 98.5. He is 96% on 2 L nasal cannula. General description is an elderly male up in the bed in no distress. Respiratory system: Unlabored breathing, decreased breath sounds in the bases. No wheeze. Heart S1, S2. Regular rate and rhythm. Abdomen: Soft, no tenderness. Right leg with multiple necrotic wounds. Swelling and redness has decreased. LABS: Hemoglobin 9.8, white count 3.08, creatinine 1.3. Wound cultures currently pending. DIAGNOSTIC IMPRESSION AND PLAN: Patient with right lower extremity wound and cellulitis. Cultures pending. Patient is covered with vancomycin to continue. Discharge antibiotic on the basis of culture report. Continue supportive care. MMODL / IJN: [id number] /
[2021-02-11] MEDS: SODIUM CHLORIDE 0.9% 1,000 ML IV SCH (03:26)
[2021-02-11] MEDS: LEVOTHYROXINE 100 MCG TAB PO SCH (05:23)
[2021-02-11 07:16] VITALS: BP 118/65; RESP 16; TEMP 98.5
[2021-02-11] MEDS: IPRATROPIUM-ALBUTEROL 3 ML NEB INHALATION SCH ×2 (08:11→11:56)
[2021-02-11] MEDS: SYMBICORT 160-4.5 MCG INHALER INHALATION SCH (08:11)
[2021-02-11] MEDS ORDERED: predniSONE 20 MG TAB PO SCH (09:00)
[2021-02-11] MEDS: PANTOPRAZOLE 40 MG TABLET PO SCH (09:49)
[2021-02-11] MEDS: CHOLECALCIFEROL 25 MCG (1000 IU) TABLET PO SCH (09:49)
[2021-02-11] MEDS: FOLIC ACID 1 MG TAB PO SCH (09:49)
[2021-02-11] MEDS: ASCORBIC ACID 500 MG TAB PO SCH (09:49)
[2021-02-11] MEDS: HEPARIN SODIUM,PORCINE/PF 5,000 UNIT/0.5 ML SYRINGE SQ SCH (09:49)
[2021-02-11] MEDS: hydroCHLOROthiazide 25 MG TAB PO SCH (09:49)
[2021-02-11] MEDS: prednisoLONE ACETATE 1% OPHTH DROPS 5 ML BTL LEFT EYE SCH (09:50)
[2021-02-11] MEDS: KETOROLAC 0.5% OPHTH DROPS 5 ML BTL LEFT EYE SCH (09:50)
[2021-02-11] MEDS: ACETAMINOPHEN TAB 325 MG TAB PO PRN (09:55)
[2021-02-11] MEDS: FUROSEMIDE 10 MG/ML 4 ML VIAL IV SCH (11:30)
[2021-02-11 12:08] VITALS: PULSE 95
--- NOTE | 2021-02-11 12:59 | P.DS ---
Providers Date of admission: 02/08/21 13:00 Expected date of discharge: 02/10/21 Attending physician: Huang Marroquin MD Consults: 02/07/21 21:41 Consult Physician Routine Consulting Provider: Huseyin Gutierrez Consult Reason/Comments: Right lower extremity cellulitis, peripheral vascular disease, ulceration Do you want consulting provider notified?: Yes Consult Physician Routine Consulting Provider: [facility] Consult Reason/Comments: Right lower sternal he cellulitis with ulceration Do you want consulting provider notified?: Yes Primary care physician: [facility] Course: HISTORY OF PRESENT ILLNESS This is a 80-year-old male patient of Dr. Mccormack with past medical history of COPD, hypertension, hyperlipidemia, rheumatoid arthritis, hypothyroidism, paroxysmal atrial fibrillation, hemorrhagic stroke treated at [facility], chronic kidney disease stage II, remote history of tobacco use. Patient he has been on antibiotics for cellulitis of the right lower extremity as well as left arm. He states onset was about 3 weeks ago. He has had increasing edema and pain. He has not had significant improvement with antibiotics. No fever or chills. Patient came into [facility] emergency center for evaluation. He he was found to be afebrile, heart rate 98, blood pressure 121/64, pulse ox 93% on room air. WBC 4.2, hemoglobin 12, platelet count 152. Sodium 136, potassium 3.9, chloride 96, CO2 37, BUN 28 creatinine 1.34. Blood sugar 93. Liver function tests were normal. Lactic acid 1.0. CK 376 ultrasound of the left lower extremity was negative for DVT on February 03. [facility] and consult with vascular surgery, infectious disease. Arterial studies of been ordered for the lower extremities. 02/09: Patient has been seen by Dr. Hillman and patient continued on vancomycin and discontinue Zosyn. Patient has been afebrile, heart rate 72, blood pressure 127/70, pulse ox 98% on 2 L nasal cannula. Creatinine 1.48. CK 301. She has been seen by Wound Center and plan for Santyl, elevation of the legs 30 minutes a day 3 times a day and plan for follow-up in the wound Center. HER-2/aminah study was normal. Toe pressures probably related to vasospastic phenomenon which is mild. Wound cultures are in progress. Blood culture no growth at 24 hours. Patient has been afebrile, heart rate 70, blood pressure 127/70, pulse ox 96% on room air. Patient states the wounds to his left forearm do not appear any better. Now extremity wound slightly improved. No drainage is noted. 02/10: Patient has been seen and followed by wound care and by infectious disease. Wound cultures are currently in process. Patient is on vancomycin. Bones appear to be improving slowly. He is anxious to be discharged home. He states he did have some nausea earlier this morning does not eat his breakfast. No vomiting. No diarrhea. Patient has been afebrile, heart rate 99, blood pressure 130/63, pulse ox 100% on 2 L nasal cannula. Repeat blood work reveals WBC 3.08, hemoglobin 9.9, platelet count 128. Sodium 136, potassium 3.6, chlo ride 94, CO2 35, BUN [address] Hillman would like to wait for cultures to be finalized. Anticipate possible discharge tomorrow. 02/11: Patient remains afebrile, heart rate 96, blood pressure 118/65, pulse ox 99% on 2 L nasal cannula. Patient denies having any shortness of breath. He does have some expiratory wheeze. Patient's home dose of prednisone increased to 40 mg and will be provided a taper until he resumes his normal dose of 10 mg daily. Wound culture has been finalized with Felisha albicans. Local wound care will be in the form of Santyl along with saline moistened gauze, dry gauze, apply zinc barrier cream to the right lower extremity and the 2 areas not covered with Santyl, rolled gauze and secure with paper tape. Rg wraps bilateral lower extremities for edema and elevate legs 30 minutes a day [address] Hillman is recommended Keflex 500 mg every 6 hours for 10 day course. Patient will be discharged home today in stable condition. ASSESSMENT AND PLAN 1. Cellulitis with nonhealing ulcers right lower extremity and cellulitis left forearm, failed outpatient treatment. 2. Elevated CK. 3. Chronic kidney disease stage III. 4. COPD with mild exacerbation. 5. Hypertension. 6. Rheumatoid arthritis. 7. Hypothyroidism. 8. History of paroxysmal atrial fibrillation not on anticoagulation. 9. History of hemorrhagic stroke, stable. DISCHARGE PLAN Home. Impression and plan of care have been directed as dictated by the signing physician. Delia Tejada nurse practitioner acting as scribe for signing physician. Patient Condition at Discharge: Good Plan - Discharge Summary Discharge Rx Participant: No New Discharge Prescriptions: New Ketorolac 0.5% Ophth Soln [Acular 0.5%] 1 drops LEFT EYE BID ml Furosemide [Lasix] 40 mg PO DAILY #7 tablet prednisoLONE ACETATE 1% OPHTH [Pred Forte 1%] 1 drops LEFT EYE BID ml Collagenase [Santyl] 1 applic TOPICAL DAILY #30 gm Cephalexin [Keflex] 500 mg PO Q6HR 10 Days #40 cap predniSONE 0 mg PO DIRECTED #30 tab Continue Folic Acid 1 mg PO DAILY metHOTREXate sodium [Methotrexate] 20 mg PO CHOW Levothyroxine Sodium [Synthroid] 100 mcg PO DAILY hydroCHLOROthiazide 25 mg PO DAILY Cholecalciferol [Vitamin D3 (25 Mcg = 1000 Iu)] 1,000 unit PO DAILY Ascorbic Acid [Vitamin C] 500 mg PO DAILY Ipratropium-Albuterol Nebulize [Duoneb 0.5 mg-3 mg/3 ml Soln] 3 ml INHALATION RT-QID #120 ml predniSONE 10 mg PO DAILY Ibuprofen [Advil] 200 mg PO BID Fluticasone/Umeclidin/Vilanter [Trelegy Ellipta 100-62.5-25] 1 puff INHALATION RT-DAILY Discontinued Simvastatin 40 mg PO HS Discharge Medication List Folic Acid 1 mg PO DAILY 08/27/18 [History] Levothyroxine Sodium [Synthroid] 100 mcg PO DAILY 08/27/18 [History] hydroCHLOROthiazide 25 mg PO DAILY 08/27/18 [History] metHOTREXate sodium [Methotrexate] 20 mg PO CHOW 08/27/18 [History] Ascorbic Acid [Vitamin C] 500 mg PO DAILY 02/02/19 [History] Cholecalciferol [Vitamin D3 (25 Mcg = 1000 Iu)] 1,000 unit PO DAILY 02/02/19 [History] Ipratropium-Albuterol Nebulize [Duoneb 0.5 mg-3 mg/3 ml Soln] 3 ml INHALATION RT-QID #120 ml 01/17/20 [Rx] Fluticasone/Umeclidin/Vilanter [Trelegy Ellipta 100-62.5-25] 1 puff INHALATION RT-DAILY 02/07/21 [History] Ibuprofen [Advil] 200 mg PO BID 02/07/21 [History] predniSONE 10 mg PO DAILY 02/07/21 [History] Collagenase [Santyl] 1 applic TOPICAL DAILY #30 gm 02/10/21 [Rx] Furosemide [Lasix] 40 mg PO DAILY #7 tablet 02/10/21 [Rx] Ketorolac 0.5% Ophth Soln [Acular 0.5%] 1 drops LEFT EYE BID ml 02/10/21 [Rx] prednisoLONE ACETATE 1% OPHTH [Pred Forte 1%] 1 drops LEFT EYE BID ml 02/10/21 [Rx] Cephalexin [Keflex] 500 mg PO Q6HR 10 Days #40 cap 02/11/21 [Rx] predniSONE 0 mg PO DIRECTED #30 tab 02/11/21 [Rx] Follow up Appointment(s)/Referral(s): [facility], [NON-STAFF] - Lexa Mccormack MD [Primary Care Provider] - 1 Week Activity/Diet/Wound Care/Special Instructions: Hold Prednisone 10mg home dose until completing the Prednisone 40 mg taper. Wound Center in 1 week Discharge Disposition: HOME WITH HOME HEALTH SERVICES
[2021-02-11] MEDS: COLLAGENASE 250 UNIT/GM OINTMENT 30 GM TUBE TOPICAL SCH (14:33)
[2021-02-11] MEDS ORDERED: VANCOMYCIN TROUGH DUE 1 EACH MISC MISCELLANE ONE (17:00)
--- NOTE | 2021-02-11 17:08 | PN ---
PROGRESS NOTE DATE OF SERVICE: 02/11/2021 REASON FOR FOLLOWUP: Right lower extremity wound and cellulitis. INTERVAL HISTORY: Patient is afebrile. The patient is breathing comfortably. Denies having any chest pain. No abdominal pain or any worsening pain to the right wound area. PHYSICAL EXAMINATION: Blood pressure 118/65, pulse of 90, temperature 98.5. He is 96% on 2 L nasal cannula. General description is an elderly male up in the in no distress. Respiratory system: Unlabored breathing, decreased breath sounds, no wheeze. Heart S1, S2. Regular rate and rhythm. Abdomen soft, no tenderness. Right leg wound is currently dressed, no drainage on the dressing. LABS: Hemoglobin 9.8, white count 3.8, creatinine 1.38. Local culture showing Felisha albicans. DIAGNOSTIC IMPRESSION AND PLAN: Patient with right lower extremity necrotic wound and secondary cellulitis. Culture with Felisha is more likely skin maye. Will give a short course of oral Keflex. Local care to continue per wound care team and close outpatient followup. MMODL / IJN: [id number] /
== END 2021-02-11 15:00 | disposition home health service (06) | DRG 603 ==
LOC: EC 16:45 → 6NMEDSUR 21:45 → OBSVTOIN 02-08 13:00
PROVIDERS: ADMIT Internal Medicine; ATTEND Internal Medicine
DX: L03.115 Cellulitis of right lower limb (principal); L03.114 Cellulitis of left upper limb; J44.1 Chronic obstructive pulmonary disease with (acute) exacerbation; L97.918 Non-pressure chronic ulcer of unspecified part of right lower leg with other specified severity; I70.261 Atherosclerosis of native arteries of extremities with gangrene, right leg; L98.492 Non-pressure chronic ulcer of skin of other sites with fat layer exposed; S80.821A Blister (nonthermal), right lower leg, initial encounter; N18.30 Chronic kidney disease, stage 3 unspecified; B37.2 Candidiasis of skin and nail; I12.9 Hypertensive chronic kidney disease with stage 1 through stage 4 chronic kidney disease, or unspecified chronic kidney disease; E78.5 Hyperlipidemia, unspecified; E03.9 Hypothyroidism, unspecified; Z20.822 Contact with and (suspected) exposure to COVID-19; M06.9 Rheumatoid arthritis, unspecified; I87.2 Venous insufficiency (chronic) (peripheral); J44.9 Chronic obstructive pulmonary disease, unspecified; I48.0 Paroxysmal atrial fibrillation; Z79.899 Other long term (current) drug therapy; Z87.891 Personal history of nicotine dependence; Z79.890 Hormone replacement therapy; Z79.51 Long term (current) use of inhaled steroids; Z86.73 Personal history of transient ischemic attack (TIA), and cerebral infarction without residual deficits
CPT/HCPCS: 36415; 80048; 80053; 82550; 82565; 83605; 85025; 85027; 87040; 87070; 87075; 87205; 87635; 93922; 94640; 94760; 96365; 99284

== ENCOUNTER 2021-03-16 10:34 | Day surgery (SDC) | payer MEDICARE ==
--- NOTE | 2021-03-16 10:17 | P.GSHP ---
History of Present Illness H&P Date: 03/16/21 Chief Complaint: Cellulitis and ulcerations right lower leg Patient has had for months ulcerations of his right lower leg and cellulitic changes. Recent cultures showed pseudomonas. - Constitutional Constitutional: Denies chills, Denies fever - EENT Eyes: denies blurred vision, denies pain Ears, nose, mouth and throat: Denies headache, Denies sore throat - Cardiovascular Cardiovascular: Denies chest pain, Denies shortness of breath - Respiratory Respiratory: Denies cough, Denies 7 - Gastrointestinal Gastrointestinal: Denies abdominal pain, Denies diarrhea, Denies nausea, Denies vomiting - Genitourinary (Female) Genitourinary: Denies dysuria, Denies hematuria - Genitourinary (Male) Genitourinary: Denies dysuria, Denies hematuria - Musculoskeletal Musculoskeletal: Denies myalgias - Integumentary Integumentary: Denies pruritus, Denies rash - Neurological Neurological: Denies numbness, Denies weakness - Psychiatric Psychiatric: Denies anxiety, Denies depression - Endocrine Endocrine: Denies fatigue, Denies weight change Past Medical History Past Medical History: COPD, Hyperlipidemia, Rheumatoid Arthritis (RA), Thyroid Disorder Additional Past Medical History / Comment(s): IP 02/08/21 CELLULITIS OF RIGHT LOWER LEG. Peripheral edema, USE. O2 prn at 2l. Brain bleed History of Any Multi-Drug Resistant Organisms: None Reported Past Surgical History: Orthopedic Surgery Additional Past Surgical History / Comment(s): left carpal tunnel, elbow sx. Cataracts Past Anesthesia/Blood Transfusion Reactions: No Reported Reaction Past Psychological History: No Psychological Hx Reported Smoking Status: Former smoker Past Alcohol Use History: Occasional Additional Past Alcohol Use History / Comment(s): quit smoking approx 1998, smoked 1/2ppd from teens Past Drug Use History: None Reported - Past Family History Father History Unknown: Yes Medications and Allergies Home Medications Medication Instructions Recorded Confirmed Type Folic Acid 1 mg PO DAILY 08/27/18 03/14/21 History Levothyroxine Sodium [Synthroid] 100 mcg PO QAM 08/27/18 03/14/21 History hydroCHLOROthiazide 25 mg PO QAM 08/27/18 03/14/21 History metHOTREXate sodium [Methotrexate] 2 mg PO CHOW 08/27/18 03/14/21 History Ascorbic Acid [Vitamin C] 500 mg PO DAILY 02/02/19 03/14/21 History Cholecalciferol [Vitamin D3 (25 1,000 unit PO DAILY 02/02/19 03/14/21 History Mcg = 1000 Iu)] Ipratropium-Albuterol Nebulize 3 ml INHALATION RT-QID #120 ml 01/17/20 03/14/21 Rx [Duoneb 0.5 mg-3 mg/3 ml Soln] predniSONE 10 mg PO QAM 02/07/21 03/14/21 History Collagenase [Santyl] 1 applic TOPICAL DAILY #30 gm 02/10/21 03/14/21 Rx Cephalexin [Keflex] 500 mg PO Q8H 03/14/21 03/14/21 History Fluticasone/Umeclidin/Vilanter 1 puff INHALATION QAM 03/14/21 03/14/21 History [Trelegy Ellipta 100-62.5-25] Furosemide [Lasix] 20 mg PO QAM 03/14/21 03/14/21 History HYDROcodone/APAP 5-325MG [[place] 1 tab PO Q4H PRN 03/14/21 03/14/21 History 5-325] Ibuprofen [Advil] 200 - 400 mg PO Q6HR PRN 03/14/21 03/14/21 History Simvastatin 40 mg PO HS 03/14/21 03/14/21 History Allergies Allergy/AdvReac Type Severity Reaction Status Date / Time No Known Allergies Allergy Verified 03/14/21 13:38 Surgical - Exam Osteopathic Statement: *. No significant issues noted on an osteopathic structural exam other than those noted in the History and Physical/Consult. - General well developed, well nourished, no distress - Eyes normal ocular movement, no icteric - ENT no hearing loss, no congestion - Neck no masses, trachea midline - Respiratory normal respiratory effort, clear to auscultation - Abdomen Abdomen: soft, non tender, no guarding, no rigid, no rebound - Integumentary no rash, no abnormal pigmentation - Neurologic no disoriented, no combative - Psychiatric oriented to time, oriented to person, oriented to place, speech is normal, memory intact Multiple large ulcerations with thick exudate in patchy distribution through right lower leg. 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 There is too much discomfort to do it without sedation. He verbalizes an understanding of the pathology and are plan, as well as his agreement with it.
[~2021-03-16 10:34] MED LIST changes: +DEXAMETHASONE SOD PHOSPHATE 4 MG/ML 1 ML VIAL IV ONE; -HYDROmorphone 0.5 MG/0.5 ML SYRINGE IVP PRN; +LIDOCAINE 1% (10MG/ML) FOR IV START INTRADERMA PRN; -LIDOCAINE 1% 20 ML VIAL (10MG/ML) FOR IV START INTRADERMA PRN; +ONDANSETRON 4 MG/2 ML VIAL IVP PRN; +Pre Op ABX Message 1 EACH MISC MISCELLANE ONE
[2021-03-16 11:30] LABS: Glucose,Whole Blood 141 mg/dL (75-99)
[2021-03-16] MEDS ORDERED: MIDAZOLAM 2 MG/2 ML VIAL ONE (12:10)
[2021-03-16] MEDS ORDERED: KETAMINE 10 MG/ML 20 ML VIAL ONE (12:10)
[2021-03-16] MEDS ORDERED: fentaNYL (PF) 50 MCG/ML 2 ML AMP ONE (12:10)
[2021-03-16] MEDS ORDERED: PROPOFOL 10 MG/ML 20 ML VIAL IV ONE (12:10)
[2021-03-16] MEDS: HYDROmorphone 0.5 MG/0.5 ML SYRINGE IVP PRN ×4 (12:51→13:18)
[2021-03-16 12:58] VITALS: TEMP 97
--- NOTE | 2021-03-16 13:06 | P.OP ---
Date of Procedure: 03/16/21 Preoperative Diagnosis: Cellulitis right leg with ulcerations Postoperative Diagnosis: Same Procedure(s) Performed: Debridement right leg Anesthesia: MAC Surgeon: J Luis Matias Estimated Blood Loss (ml): 50 Pathology: none sent Condition: stable Disposition: PACU Indications for Procedure: The patient has extensive ulcerations of the right lower leg after a severe cellulitis of the right leg. These ulcerations are full-thickness and they were quite messy with loose tissue. He was too tender to debridement in [facility] without some sedation. Operative Findings: Had multiple very nearly adjacent ulcerations for an area of about 50 cm by abou t an area 15 cm the depths were very but largely in the rounds of 4 mm in depth. With debridement we increased the depths up to 5 mm. There was a fair amount of slough and fibrinous exudate Description of Procedure: With the patient spine position or benefit of IV sedation we prepped and draped in standard fashion. We used sharp curettes to remove all slough and fibrinous exudate down to and including some bleeding subcutaneous bed and bleeding edges. Removed all loose debris. We then placed a dressing of silver alginate gauze Kerlix and Rg wrap. The patient tolerated the procedure well and was taken recovery area in stable condition
[2021-03-16 13:48] VITALS: BP 144/70; RESP 20
[2021-03-16 14:01] VITALS: PULSE 71
== END 2021-03-16 14:43 | disposition home or self-care (01) ==
LOC: OR 10:34
PROVIDERS: ATTEND Thoracic Surgery (Cardiothoracic Vascular Surgery)
DX: L03.115 Cellulitis of right lower limb (principal); L98.499 Non-pressure chronic ulcer of skin of other sites with unspecified severity; J44.9 Chronic obstructive pulmonary disease, unspecified; M06.9 Rheumatoid arthritis, unspecified; I10 Essential (primary) hypertension; E78.5 Hyperlipidemia, unspecified; E07.9 Disorder of thyroid, unspecified; Z99.81 Dependence on supplemental oxygen; Z98.890 Other specified postprocedural states; Z98.49 Cataract extraction status, unspecified eye; Z87.891 Personal history of nicotine dependence; Z79.890 Hormone replacement therapy; Z79.51 Long term (current) use of inhaled steroids; Z79.52 Long term (current) use of systemic steroids; Z79.899 Other long term (current) drug therapy
CPT/HCPCS: 11043; J2250; J1100; J2405; J3010; J2704; J1170

== ENCOUNTER 2021-05-06 22:22 | Inpatient (IN) | payer MEDICARE ==
[2021-05-06] MEDS ORDERED: ALBUTEROL NEBULIZED 2.5 MG/3 ML INHALATION STA (23:11)
[2021-05-06] MEDS ORDERED: IPRATROPIUM 0.5 MG/2.5 ML NEBU INHALATION STA (23:11)
[2021-05-06] MEDS ORDERED: SODIUM CHLORIDE 0.9% 1,000 ML IV STA (23:11)
[2021-05-06] MEDS ORDERED: AZITHROMYCIN 500 MG in SODIUM CHLORIDE 0.9% 250 ML IVPB ONE (23:30)
[2021-05-06 23:55] LABS: Anisocytosis Slight; Basophils % (A) 0 %; Eosinophils # (A) 0.1 k/uL (0-0.7); Eosinophils % (A) 1 %; HCT 29.1 % (39.0-53.0); HGB 9.5 gm/dL (13.0-17.5); Lymphocytes # (A) 0.7 k/uL (1.0-4.8); Lymphocytes % (A) 9 %; MCHC 32.6 g/dL (31.0-37.0); Macrocytosis Moderate; Mean Platelet Volume 7.9; Monocytes # (A) 0.1 k/uL (0-1.0); Monocytes % (A) 1 %; Neutrophils # (A) 6.3 k/uL (1.3-7.7); Neutrophils % (A) 87 %; Platelet Count 193 k/uL (150-450); Poikilocytosis Slight; RDW 18.8 % (11.5-15.5); WBC 7.2 k/uL (3.8-10.6)
--- NOTE | 2021-05-07 00:01 | ED ---
SOB HPI - General Chief Complaint: Shortness of Breath Stated Complaint: SOB Time Seen by Provider: 05/06/21 23:11 Source: patient, family Mode of arrival: wheelchair - Related Data Home Medications Medication Instructions Recorded Confirmed Folic Acid 1 mg PO DAILY 08/27/18 03/16/21 Levothyroxine Sodium [Synthroid] 100 mcg PO QAM 08/27/18 03/16/21 hydroCHLOROthiazide 25 mg PO QAM 08/27/18 03/16/21 metHOTREXate sodium [Methotrexate] 2 mg PO CHOW 08/27/18 03/16/21 Ascorbic Acid [Vitamin C] 500 mg PO DAILY 02/02/19 03/16/21 Cholecalciferol [Vitamin D3 (25 1,000 unit PO DAILY 02/02/19 03/16/21 Mcg = 1000 Iu)] predniSONE 10 mg PO QAM 02/07/21 03/16/21 Cephalexin [Keflex] 500 mg PO Q8H 03/14/21 03/16/21 Fluticasone/Umeclidin/Vilanter 1 puff INHALATION QAM 03/14/21 03/16/21 [Trelegy Ellipta 100-62.5-25] Furosemide [Lasix] 20 mg PO QAM 03/14/21 03/16/21 HYDROcodone/APAP 5-325MG [[place] 1 tab PO Q4H PRN 03/14/21 03/16/21 5-325] Ibuprofen [Advil] 200 - 400 mg PO Q6HR PRN 03/14/21 03/16/21 Simvastatin 40 mg PO HS 03/14/21 03/16/21 Previous Rx's Medication Instructions Recorded Ipratropium-Albuterol Nebulize 3 ml INHALATION RT-QID #120 ml 01/17/20 [Duoneb 0.5 mg-3 mg/3 ml Soln] Collagenase [Santyl] 1 applic TOPICAL DAILY #30 gm 02/10/21 Allergies Allergy/AdvReac Type Severity Reaction Status Date / Time No Known Allergies Allergy Verified 05/06/21 22:47 Review of Systems ROS Statement: Those systems with pertinent positive or pertinent negative responses have been documented in the HPI. ROS Other: All systems not noted in ROS Statement are negative. Past Medical History Past Medical History: COPD Additional Past Medical History / Comment(s): IP 02/08/21 CELLULITIS OF RIGHT LOWER LEG. Peripheral edema, USE. O2 prn at 2l. Brain bleed History of Any Multi-Drug Resistant Organisms: None Reported Past Surgical History: Orthopedic Surgery Additional Past Surgical History / Comment(s): left carpal tunnel, elbow sx. Cataracts Past Anesthesia/Blood Transfusion Reactions: No Reported Reaction Past Psychological History: No Psychological Hx Reported Smoking Status: Former smoker Past Alcohol Use History: Occasional Past Drug Use History: None Reported - Past Family History Father History Unknown: Yes Course Vital Signs 05/06/21 05/06/21 05/06/21 22:43 23:32 23:48 Temperature 100.7 F H Pulse Rate 117 H 113 H 121 H Respiratory 24 Rate Blood Pressure 153/60 O2 Sat by Pulse 84 L Oximetry Medical Decision Making - Lab Data Result diagrams: 05/06/21 23:34 Lab Results 05/06/21 05/06/21 05/06/21 Range/Units 23:34 23:34 23:34 WBC 7.2 (3.8-10.6) k/uL RBC 2.80 L (4.30-5.90) m/uL Hgb 9.5 L (13.0-17.5) gm/dL Hct 29.1 L (39.0-53.0) % MCV 104.0 H (80.0-100.0) fL MCH 34.0 (25.0-35.0) pg MCHC 32.6 (31.0-37.0) g/dL RDW 18.8 H (11.5-15.5) % Plt Count 193 (150-450) k/uL MPV 7.9 Neutrophils % 87 % Lymphocytes % 9 % Monocytes % 1 % Eosinophils % 1 % Basophils % 0 % Neutrophils # 6.3 (1.3-7.7) k/uL Lymphocytes # 0.7 L (1.0-4.8) k/uL Monocytes # 0.1 (0-1.0) k/uL Eosinophils # 0.1 (0-0.7) k/uL Basophils # 0.0 (0-0.2) k/uL Poikilocytosis Slight Anisocytosis Slight Macrocytosis Moderate PT 11.6 (9.0-12.0) sec INR 1.1 (<1.2) APTT 29.1 (22.0-30.0) sec Plasma Lactic Acid Clement 1.1 (0.7-2.0) mmol/L Coronavirus (PCR) (Not Detectd) 05/06/21 Range/Units 23:34 WBC (3.8-10.6) k/uL RBC (4.30-5.90) m/uL Hgb (13.0-17.5) gm/dL Hct (39.0-53.0) % MCV (80.0-100.0) fL MCH (25.0-35.0) pg MCHC (31.0-37.0) g/dL RDW (11.5-15.5) % Plt Count (150-450) k/uL MPV Neutrophils % % Lymphocytes % % Monocytes % % Eosinophils % % Basophils % % Neutrophils # (1.3-7.7) k/uL Lymphocytes # (1.0-4.8) k/uL Monocytes # (0-1.0) k/uL Eosinophils # (0-0.7) k/uL Basophils # (0-0.2) k/uL Poikilocytosis Anisocytosis Macrocytosis PT (9.0-12.0) sec INR (<1.2) APTT (22.0-30.0) sec Plasma Lactic Acid Clement (0.7-2.0) mmol/L Coronavirus (PCR) Not Detected (Not Detectd) - EKG Data -: EKG Interpreted by Me (EKG is sinus tachycardia 117 IN 138 QRS 90 QTC 465) Disposition Clinical Impression: Multifocal pneumonia, Acute pulmonary edema, Community acquired pneumonia, Acute exacerbation of chronic obstructive pulmonary disease Disposition: ADMITTED IP TO THIS [facility] Condition: Fair Referrals: Lexa Mccormack MD [Primary Care Provider] - 1-2 days
[2021-05-07 00:03] LABS: INR 1.1 (<1.2); Partial Thromboplastin Time 29.1 sec (22.0-30.0); Prothrombin Time 11.6 sec (9.0-12.0)
--- NOTE | 2021-05-07 00:21 | XR ---
EXAMINATION TYPE: XR chest 2V DATE OF EXAM: 05/07/2021 COMPARISON: 01/29/2020 HISTORY: Short of breath TECHNIQUE: FINDINGS: There is pulmonary interstitial edema. Heart is top normal in size. There are chest leads. There is no definite pleural fluid. IMPRESSION: There is pulmonary edema which is new compared to old exam. This could be acute heart brittnee lure or acute pneumonia.
[2021-05-07 00:29] LABS: Albumin 3.2 g/dL (3.5-5.0); Calcium 8.5 mg/dL (8.4-10.2); Magnesium 1.9 mg/dL (1.6-2.3); Potassium 3.7 mmol/L (3.5-5.1); Total Bilirubin 0.7 mg/dL (0.2-1.3); Total Protein 8.7 g/dL (6.3-8.2)
[2021-05-07] MEDS ORDERED: NALOXONE 0.4 MG/ML 1 ML VIAL IV PRN (00:38)
[2021-05-07] MEDS ORDERED: PNEUMONIA PROTOCOL UTILIZED 1 EACH MISC PO PRN (00:38)
[2021-05-07] MEDS ORDERED: ONDANSETRON 4 MG/2 ML VIAL IVP PRN (00:38)
[2021-05-07] MEDS ORDERED: MORPHINE SULFATE 4 MG/ML SYRINGE IV PRN (00:38)
[2021-05-07 01:09] LABS: C Reactive Protein 17.7 mg/dL (<1.0)
[2021-05-07] MEDS: FUROSEMIDE 10 MG/ML 4 ML VIAL IV SCH ×3 (03:14→23:43)
[2021-05-07] MEDS ORDERED: ACETAMINOPHEN TAB 325 MG TAB PO PRN (03:34)
[2021-05-07] MEDS ORDERED: IBUPROFEN 800 MG TAB PO STA (03:34)
[2021-05-07] MEDS ORDERED: ACETAMINOPHEN TAB 500 MG TAB PO STA (03:34)
[2021-05-07] MEDS: ALBUTEROL NEBULIZED 2.5 MG/3 ML INHALATION SCH ×2 (07:42→11:34)
[2021-05-07] MEDS ORDERED: VANCOMYCIN 1,000 MG in SODIUM CHLORIDE 0.9% 250 ML IVPB STA (09:51)
[2021-05-07] MEDS ORDERED: HYDROcodone/APAP 5-325MG 1 EACH TAB PO PRN (09:53)
[2021-05-07] MEDS ORDERED: VANCOMYCIN IV PER PHARMACY 1 EACH MISC MISCELLANE PRN (10:43)
--- NOTE | 2021-05-07 10:51 | P.HPIM ---
History of Present Illness H&P Date: 05/07/21 Chief Complaint: acute respiratory failure, shortness of breath and dyspnea, fluid overload, HISTORY OF PRESENT ILLNESS This is a 80-year-old male one of my patient for the last 20 years with past medical history of COPD, hypertension, hyperlipidemia, rheumatoid arthritis, hypothyroidism, paroxysmal atrial fibrillation, hemorrhagic stroke treated at [facility], chronic kidney disease stage II, remote history of tobacco use. patient is still been treated for right leg cellulitis and ulcerated area has not healed for several weeks has been seen at the wound clinic on regular basis has not been on any IV or oral antibiotics. Patient presented to the office this past week complaining of worsening dyspnea and shortness of breath was started on higher dose of steroid along with oral antibiotics he become much worse over the last 48 hours his brought him to [facility]urs department this morning with severe dyspnea and shortness of breath with cough wheezes found to be in extreme respiratory distress with extremely low pulse oximetry despite having to be on nasal cannula oxygen at home. Patient was started on BiPAP but higher flow to his pulse ox corrected to the low 90, chest x-ray showed bilateral infiltrate with early pulmonary edema patient was having inspiratory expiratory wheezes was diagnosed with COPD exacerbation along with respiratory failure possible congestive heart failure exacerbation with mildly elevated trop onin could be non-ST MA in the last 48 hours, patient chest x-ray showed picture of infiltrate in the right lower lobe along with venous congestion similar to heart failure his BNP is mildly elevated and troponin was mildly elevated as well. REVIEW OF SYSTEMS Constitutional: No fever, no chills, no night sweats. No weight change. No weakness, fatigue or lethargy. No daytime sleepiness. EENT: No headache. No blurred vision or double vision, no loss of vision. No l oss of Hearing, no ringing in the ears, no dizziness. No nasal drainage or congestion. No epistaxis. No sore throat. Lungs: positive shortness of breath cough wheezes with worsening dyspnea with mi nimum exertion. Cardiovascular: No chest pain, positive lower extremity edema. positive palpitations. positive paroxysmal nocturnal dyspnea. positive orthopnea. No lightheadedness or dizziness. No syncopal episodes. Abdominal: No abdominal pain. No nausea, vomiting. No diarrhea. No constipat ion. No bloody or tarry stools.. No loss of appetite. Genitourinary: No dysuria, increased frequency, urgency. No urinary retention. Musculoskeletal: No myalgias. No muscle weakness, no gait dysfunction, no frequent falls. No back pain. No neck pain. Integumentary: right lower extremity had 5 ulcerated area 3 on the back of his leg and one large one on the lateral side of the leg has been treated for ulcerated cellulitis has not healed for over 6 months. Neurologic: No aphasia. No facial droop. No change in mentation. No head injury. No headache. No paralysis. No paresthesia. Psychiatric: No depression. No anxiety. No mood swings. Endocrine: No abnormal blood sugars. No weight change. No excessive sweating or thirst. No cold intolerance. SOCIAL HISTORY Patient was a smoker and quit 20 years ago. He drinks alcohol occasionally. He lives at home with his .. FAMILY HISTORY Mother from old age. Father from a stenosis exposure. Patient has 4 sisters and one from cancer of unknown type. 3 other sisters have no major medical problems. He does not have any brothers. Patient has 3 children with no major medical problems. PHYSICAL EXAMINATION Gen: This is a 81-year-old male. he is in mild respiratory distress has a BiPAP in bed not complaining of any chest pain at the time HEENT: Head is atraumatic, normocephalic. Pupils equal, round. Sclerae is anicteric. NECK: Supple. No JVD. No lymphadenopathy. No thyromegaly. LUNGS: decreased breaths on bilaterally especially the right side positive fine to coarse crackles worse in the right base positive expiratory wheezes. HEART: Irregular rate and rhythm.S1-S2, positive S3, positive JVD. ABDOMEN: Soft. Bowel sounds are present. No masses. No tenderness. EXTREMITIES:edema of both lower extremity worsening of the right than the left side, the right side still cover with dressing had small ulcerated area on the lateral side of the leg with stage II, 3 ulcerated area with infection on the back of the leg as well for more superficial. Entire leg had more swelling had more irritation discomfort around all the ulcerated site. NEUROLOGICAL: Patient is awake, alert and oriented x3. Cranial nerves 2 through 12 are grossly intact. ASSESSMENT AND PLAN 1. acute respiratory failure: Combination of venous congestion most likely from heart failure could be secondary to non-ST MA happen last few days patient will be on IV diuretics continue to watch for any more fluid overload, echocardiogram was ordered and patient to be seen cardiology as well. Continue BiPAP continue to titrate O2 to keep his pulse ox in the mid 90. Also patient been treated aggressively enough for COPD excessive patient with aspiration pneumonia. 2. COPD without exacerbation. Continue DuoNeb treatments 4 times daily, Symbicort twice daily, was start patient on Solu-Medrol 60 mg every 6 hours for now and will be seen pulmonary. 3. Elevated troponin: Patient be seen cardiology echocardiogram will be done we will treat this as non-ST MA till proven otherwise. 4. Cellulitis of the right lower extremity and left forearm, failed outpatient treatment. Consult with [facility], infectious disease, vascular surgery. Continue patient on Zosyn and vancomycin, continues Lasix 40 mg IV twice daily. Blood culture is in process. 5. aspiration pneumonia: With patient's current condition patient will remain on azithromycin and Rocephin 1 dose of vancomycin be done. 6. Rheumatoid arthritis. Continue prednisone 10 mg daily. Hold methotrexate. 7. Hypothyroidism. Continue levothyroxine 100 g daily. 8. History of paroxysmal atrial fibrillation not on anticoagulation. 9. History of hemorrhagic stroke, stable. 10. GI prophylaxis. Protonix 40 mg daily. 11. DVT prophylaxis. Heparin subcu. 12. COVID-19 testing negative. Patient has been hospitalized during a pandemic. Patient will be admitted to the hospital for a minimum of 2 night stay. Past Medical History Past Medical History: COPD Additional Past Medical History / Comment(s): IP 02/08/21 CELLULITIS OF RIGHT LOWER LEG. Peripheral edema, USE. O2 prn at 2l. Brain bleed History of Any Multi-Drug Resistant Organisms: None Reported Past Surgical History: Orthopedic Surgery Additional Past Surgical History / Comment(s): left carpal tunnel, elbow sx. Cataracts Past Anesthesia/Blood Transfusion Reactions: No Reported Reaction Past Psychological History: No Psychological Hx Reported Smoking Status: Former smoker Past Alcohol Use History: Occasional Past Drug Use History: None Reported - Past Family History Father History Unknown: Yes Medications and Allergies Home Medications Medication Instructions Recorded Confirmed Type Levothyroxine Sodium [Synthroid] 100 mcg PO DAILY 08/27/18 05/07/21 History hydroCHLOROthiazide 25 mg PO DAILY 08/27/18 05/07/21 History metHOTREXate sodium [Methotrexate] 20 mg PO CHOW 08/27/18 05/07/21 History Ascorbic Acid [Vitamin C] 500 mg PO DAILY 02/02/19 05/07/21 History Cholecalciferol [Vitamin D3 (25 1,000 unit PO DAILY 02/02/19 05/07/21 History Mcg = 1000 Iu)] Ipratropium-Albuterol Nebulize 3 ml INHALATION RT-QID #120 ml 01/17/20 05/07/21 Rx [Duoneb 0.5 mg-3 mg/3 ml Soln] predniSONE 10 mg PO DAILY 02/07/21 05/07/21 History Collagenase [Santyl] 1 applic TOPICAL DAILY #30 gm 02/10/21 05/07/21 Rx Fluticasone/Umeclidin/Vilanter 1 puff INHALATION RT-DAILY 03/14/21 05/07/21 History [Trelegy Ellipta 100-62.5-25] Furosemide [Lasix] 20 mg PO DAILY 03/14/21 05/07/21 History HYDROcodone/APAP 5-325MG [[place] 1 tab PO Q6H PRN 03/14/21 05/07/21 History 5-325] Folic Acid 0.8 mg PO DAILY 05/07/21 05/07/21 History Ibuprofen [Advil] 200 mg PO BID PRN 05/07/21 05/07/21 History Rosuvastatin [Crestor] 10 mg PO DAILY 05/07/21 05/07/21 History Allergies Allergy/AdvReac Type Severity Reaction Status Date / Time No Known Allergies Allergy Verified 05/07/21 08:53 Physical Exam Vitals: Vital Signs Temp Pulse Pulse Resp BP Pulse Ox 05/07/21 07:42 71 05/07/21 06:57 98.7 F 82 22 111/62 96 05/07/21 04:46 99.9 F H 97 22 105/56 100 05/07/21 02:26 113 H 20 127/88 95 05/07/21 01:04 113 H 25 H 130/42 94 L 05/06/21 23:48 121 H 05/06/21 23:32 113 H 05/06/21 23:20 123 H 25 H 05/06/21 22:43 100.7 F H 117 H 24 153/60 84 L Intake and Output 05/06/21 05/07/21 05/07/21 22:59 06:59 14:59 Other: Weight 92.986 kg Results CBC & Chem 7: 05/06/21 23:34 05/06/21 23:34 Labs: Abnormal Lab Results - Last 24 Hours (Table) 05/06/21 05/06/21 05/06/21 Range/Units 23:34 23:34 23:34 RBC 2.80 L (4.30-5.90) m/uL Hgb 9.5 L (13.0-17.5) gm/dL Hct 29.1 L (39.0-53.0) % MCV 104.0 H (80.0-100.0) fL RDW 18.8 H (11.5-15.5) % Lymphocytes # 0.7 L (1.0-4.8) k/uL Sodium 132 L (137-145) mmol/L Chloride 96 L (98-107) mmol/L BUN 38 H (9-20) mg/dL Glucose 138 H (74-99) mg/dL Lactate Dehydrogenase 636 H (313-618) U/L Troponin I 0.705 H* (0.000-0.034) ng/mL C-Reactive Protein 17.7 H (<1.0) mg/dL Total Protein 8.7 H (6.3-8.2) g/dL Albumin 3.2 L (3.5-5.0) g/dL 05/07/21 05/07/21 Range/Units 03:29 06:23 RBC (4.30-5.90) m/uL Hgb (13.0-17.5) gm/dL Hct (39.0-53.0) % MCV (80.0-100.0) fL RDW (11.5-15.5) % Lymphocytes # (1.0-4.8) k/uL Sodium (137-145) mmol/L Chloride (98-107) mmol/L BUN (9-20) mg/dL Glucose (74-99) mg/dL Lactate Dehydrogenase (313-618) U/L Troponin I 0.682 H* 0.637 H* (0.000-0.034) ng/mL C-Reactive Protein (<1.0) mg/dL Total Protein (6.3-8.2) g/dL Albumin (3.5-5.0) g/dL
[2021-05-07] MEDS ORDERED: VANCOMYCIN 1,750 MG in SODIUM CHLORIDE 0.9% 500 ML 500 ML IVPB ONE (11:30)
[2021-05-07] MEDS: IPRATROPIUM-ALBUTEROL 3 ML NEB INHALATION SCH ×3 (11:41→19:17)
[2021-05-07] MEDS: PANTOPRAZOLE 40 MG/10 ML VIAL IV SCH (12:20)
[2021-05-07] MEDS: methylPREDNISolone SOD SUCCI 125 MG/2 ML VIAL IV SCH ×3 (12:22→23:41)
--- NOTE | 2021-05-07 12:40 | ECHOF ---
Referral Reason:lvfunction MEASUREMENTS -------- HEIGHT: 177.8 cm WEIGHT: 93.0 kg BP: 111/62 RVIDd: 3.3 cm (< 3.3) IVSd: 1.4 cm (0.6 - 1.1) LVIDd: 4.4 cm (3.9 - 5.3) LVPWd: 1.1 cm (0.6 - 1.1) IVSs: 1.8 cm LVIDs: 3.2 cm LVPWs: 1.7 cm LA Diam: 3.3 cm (2.7 - 3.8) Ao Diam: 3.9 cm (2.0 - 3.7) AV Cusp: 2.5 cm (1.5 - 2.6) MV EXCURSION: 23.948 mm (> 18.000) MV EF SLOPE: 99 mm/s (70 - 150) EPSS: 0.6 cm MV E Kendrick: 0.83 m/s MV DecT: 296 ms MV A Kendrick: 0.80 m/s MV E/A Ratio: 1.04 RAP: 15.00 mmHg RVSP: 45.64 mmHg FINDINGS -------- Sinus rhythm. This was a technically adequate study. The left ventricular size is normal. There is moderate concentric left ventricular hypertrophy. O verall left ventricular systolic function is normal with, an EF between 60 - 65 %. The right ventricle is mildly enlarged. The left atrium was not well visualized. The right atrium is normal in size. Interatrial and interventricular septum intact. Trace to mild aortic regurgitation. There is trace mitral regurgitation. Mild tricuspid regurgitation present. There is mild to moderate pulmonary hypertension. The right ventricular systolic pressure, as measured by Doppler, is 45.64mmHg. Trace/mild (physiologic) pulmonic regurgitation. The aortic root is dilated measuring 3.9cm. Normal inferior vena cava with less than 50% inspiratory collapse consistent with estimated right atr ial pressure of 15 mmHg. There is no pericardial effusion. CONCLUSIONS -------- 1. The left ventricular size is normal. 2. There is moderate concentric left ventricular hypertrophy. 3. Overall left ventricular systolic function is normal with, an EF between 60 - 65 %. 4. The right ventricle is mildly enlarged. 5. Trace to mild aortic regurgitation. 6. There is trace mitral regurgitation. 7. Mild tricuspid regurgitation present. 8. There is mild to moderate pulmonary hypertension. 9. The right ventricular systolic pressure, as measured by Doppler, is 45.64mmHg. 10. Trace/mild (physiologic) pulmonic regurgitation. 11. The aortic root is dilated measuring 3.9cm. 12. Normal inferior vena cava with less than 50% inspiratory collapse consistent with estimated right atrial pressure of 15 mmHg. 13. There is no pericardial effusion. TAKER AWAY: Matilda Coley RDCS
--- NOTE | 2021-05-07 13:10 | P.CNPUL ---
History of Present Illness Consult date: 05/07/21 Requesting physician: Lexa Mccormack Reason for consult: dyspnea Chief complaint: Shortness of breath History of present illness: 81-year-old white male patient with past history of COPD, home oxygen, paroxysmal atrial fibrillation, hypertension, hyperlipidemia, rheumatoid arthritis, hypothyroidism, chronic kidney disease stage II, previous history of hemorrhagic stroke treated at [facility]. Patient has been getting treatments for his nonhealing ulcer on his right leg and right leg cellulitis at the wound care clinic for the past several weeks. Patient was seen at the PCPs office with complaints of worsening dyspnea and shortness of breath, he was placed on antibiotics and steroids however his breathing continued to get worse over the past 48 hours and the brought him to the emergency department with severe dyspnea, coughing, wheezing, and patient was in significant respiratory distress and hypoxic and he was placed on BiPAP support on which he currently remains with pressures of 12 and 6 and FiO2 of 50%. His chest x-ray showed pulmonary interstitial edema, with a possibility of acute CHF or acute pneumonia. EKG showed sinus tachycardia. His labs showed white blood cell, 7.2, hemoglobin was 9.5, sodium was 132, potassium is 3.7, chloride was 96, CO2 is 27, B1 is 38, creatinine is 1.1, LFTs were within normal limits, lactic acid was 1.1, patient had troponin elevation with troponins of 0.705, 0.682, 0.637, his CRP was 17.7, and LDH was 636, proBNP was 4890, COVID-19 PCR was negative. Patient was started on Lasix 40 mg every 12 hours, and placed on azithromycin and Rocephin for possibility of community acquired pneumonia. Patient is currently still on BiPAP support with pressures of 12 and 6 and FiO2 of 50%, breathing a bit more comfortably, blood cultures have been sent, pro- calcitonin level is pending, follow-up chest x-ray is pending, Review of Systems All systems: negative Constitutional: Denies chills, Denies fever Eyes: denies blurred vision, denies pain Ears, nose, mouth and throat: Denies headache, Denies sore throat Cardiovascular: Denies chest pain, Denies shortness of breath Respiratory: Reports dyspnea, Denies cough Gastrointestinal: Denies abdominal pain, Denies diarrhea, Denies nausea, Denies vomiting Musculoskeletal: Denies myalgias Integumentary: Denies pruritus, Denies rash Neurological: Denies numbness, Denies weakness Psychiatric: Denies anxiety, Denies depression Endocrine: Denies fatigue, Denies weight change Past Medical History Past Medical History: COPD Additional Past Medical History / Comment(s): IP 02/08/21 CELLULITIS OF RIGHT LOWER LEG. Peripheral edema, USE. O2 prn at 2l. Brain bleed History of Any Multi-Drug Resistant Organisms: None Reported Past Surgical History: Orthopedic Surgery Additional Past Surgical History / Comment(s): left carpal tunnel, elbow sx. Cataracts Past Anesthesia/Blood Transfusion Reactions: No Reported Reaction Past Psychological History: No Psychological Hx Reported Smoking Status: Former smoker Past Alcohol Use History: Occasional Past Drug Use History: None Reported - Past Family History Father History Unknown: Yes Medications and Allergies Home Medications Medication Instructions Recorded Confirmed Type Levothyroxine Sodium [Synthroid] 100 mcg PO DAILY 08/27/18 05/07/21 History hydroCHLOROthiazide 25 mg PO DAILY 08/27/18 05/07/21 History metHOTREXate sodium [Methotrexate] 20 mg PO CHOW 08/27/18 05/07/21 History Ascorbic Acid [Vitamin C] 500 mg PO DAILY 02/02/19 05/07/21 History Cholecalciferol [Vitamin D3 (25 1,000 unit PO DAILY 02/02/19 05/07/21 History Mcg = 1000 Iu)] Ipratropium-Albuterol Nebulize 3 ml INHALATION RT-QID #120 ml 01/17/20 05/07/21 Rx [Duoneb 0.5 mg-3 mg/3 ml Soln] predniSONE 10 mg PO DAILY 02/07/21 05/07/21 History Collagenase [Santyl] 1 applic TOPICAL DAILY #30 gm 02/10/21 05/07/21 Rx Fluticasone/Umeclidin/Vilanter 1 puff INHALATION RT-DAILY 03/14/21 05/07/21 History [Trelegy Ellipta 100-62.5-25] Furosemide [Lasix] 20 mg PO DAILY 03/14/21 05/07/21 History HYDROcodone/APAP 5-325MG [[place] 1 tab PO Q6H PRN 03/14/21 05/07/21 History 5-325] Folic Acid 0.8 mg PO DAILY 05/07/21 05/07/21 History Ibuprofen [Advil] 200 mg PO BID PRN 05/07/21 05/07/21 History Rosuvastatin [Crestor] 10 mg PO DAILY 05/07/21 05/07/21 History Allergies Allergy/AdvReac Type Severity Reaction Status Date / Time No Known Allergies Allergy Verified 05/07/21 08:53 Physical Exam Vitals: Vital Signs Temp Pulse Pulse Resp BP Pulse Ox 05/07/21 12:27 68 13 111/62 97 05/07/21 11:46 70 05/07/21 11:34 70 05/07/21 07:56 66 05/07/21 07:42 71 05/07/21 06:57 98.7 F 82 22 111/62 96 05/07/21 04:46 99.9 F H 97 22 105/56 100 05/07/21 02:26 113 H 20 127/88 95 05/07/21 01:04 113 H 25 H 130/42 94 L 05/06/21 23:48 121 H 05/06/21 23:32 113 H 05/06/21 23:20 123 H 25 H 05/06/21 22:43 100.7 F H 117 H 24 153/60 84 L Intake and Output 05/06/21 05/07/21 05/07/21 22:59 06:59 14:59 Other: Weight 92.986 kg GENERAL EXAM: Alert, pleasant, 81-year-old white male, resting on the gurney in the emergency department on the BiPAP support blood pressures of 12 and 6 and FiO2 of 50% comfortable in no apparent distress. HEAD: Normocephalic/atraumatic. EYES: Normal reaction of pupils, equal size. Conjunctiva pink, sclera white. NOSE: Clear with pink turbinates. THROAT: No erythema or exudates. NECK: No masses, no JVD, no thyroid enlargement, no adenopathy. CHEST: No chest wall deformity. Symmetrical expansion. LUNGS: Equal air entry with diffuse crackles, and diminished breath sounds at the bases CVS: Regular rate and rhythm, normal S1 and S2, no gallops, no murmurs, no rubs ABDOMEN: Soft, nontender. No hepatosplenomegaly, normal bowel sounds, no guarding or rigidity. EXTREMITIES: No clubbing, mild nonpitting edema, no cyanosis, 2+ pulses and upper and lower extremities. MUSCULOSKELETAL: Muscle strength and tone normal. SPINE: No scoliosis or deformity SKIN: No rashes. She has right lower extremity cellulitis, and right leg wound CENTRAL NERVOUS SYSTEM: Alert and oriented -3. No focal deficits, tone is normal in all 4 extremities. PSYCHIATRIC: Alert and oriented -3. Appropriate affect. Intact judgment and insight. Results - Laboratory Findings CBC and BMP: 05/06/21 23:34 05/06/21 23:34 PT/INR, D-dimer PT 11.6 sec (9.0-12.0) 05/06/21 23:34 INR 1.1 (<1.2) 05/06/21 23:34 Abnormal lab findings: Abnormal Labs 05/06/21 05/06/21 05/06/21 23:34 23:34 23:34 RBC 2.80 L Hgb 9.5 L Hct 29.1 L MCV 104.0 H RDW 18.8 H Lymphocytes # 0.7 L Sodium 132 L Chloride 96 L BUN 38 H Glucose 138 H Lactate Dehydrogenase 636 H Troponin I 0.705 H* C-Reactive Protein 17.7 H Total Protein 8.7 H Albumin 3.2 L 05/07/21 05/07/21 03:29 06:23 RBC Hgb Hct MCV RDW Lymphocytes # Sodium Chloride BUN Glucose Lactate Dehydrogenase Troponin I 0.682 H* 0.637 H* C-Reactive Protein Total Protein Albumin - Diagnostic Findings Chest x-ray: report reviewed, image reviewed Additional studies: EKG has been reviewed Assessment and Plan Plan: Assessment: #1. Acute on chronic hypoxic respiratory failure related to what appears to be acute exacerbation of CHF with diastolic dysfunction, echocardiogram showed EF of 60-65%, moderate concentric LVH, mild TR, trace MR, mild to moderate pulmonary hypertension with right-sided pressure of 45.6 mmHg. Possibility of underlying healthcare acquired pneumonia is not completely excluded, patient has been treated at the wound care center for nonhealing right extremity wounds and right extremity cellulitis. COVID-19 PCR was negative #2. Rule out non-ST elevated myocardial infarction #3. Advanced COPD on home oxygen #4. Hypertension #5. Hyperlipidemia #6. Rheumatoid arthritis #7. Hypothyroidism #8. Paroxysmal atrial fibrillation #9. Previous history of hemorrhagic stroke #10. Chronic kidney disease stage II #11. History of tobacco use #12. Nonhealing right leg ulcer and right leg cellulitis, being treated at the wound care center for the past several months Plan: Continue current antibiotics Continue diuretics Chest x-ray has been reviewed, please feel the findings are more consistent with acute exacerbation of CHF although pneumonia cannot be completely excluded Continue BiPAP support as needed Continue nebulized bronchodilators and steroids I performed a history & physical examination of the patient and discussed their management with my nurse practitioner, Destiny Christiansen. I reviewed the nurse practitioner's note and agree with the documented findings and plan of care. Lung sounds are positive for dim throughout the lung mi. The findings and the impression was discussed with the patient. I attest to the documentation by the nurse practitioner. Time with Patient: Greater than 30
[2021-05-07] MEDS: COLLAGENASE 250 UNIT/GM TOPICAL SCH ×2 (14:55→16:00)
[2021-05-07] MEDS ORDERED: HEPARIN SODIUM 1,000 UN/ML (10ML VL) IV PRN (17:33)
[2021-05-07] MEDS ORDERED: HEPARIN SODIUM 1,000 UN/ML (10ML VL) IV ONE (17:33)
--- NOTE | 2021-05-07 17:35 | P.CRDCN ---
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 Patient states he has been feeling fatigued and mildly short of breath or last 3 days. He states he was overdoing it working outside and then has felt fairly fatigued since that time. He denies any fevers, chills or cough. He denies any orthopnea or lower extremity edema however does have significant dyspnea. He initially denied any chest pain however on further questioning he had some left- sided chest pain which she says felt like rib pain worse with deep inspiration. He believes he had a stress test approximately 10 years ago, no history of heart catheterization, no history of paroxysmal A. fib however other consults documented this. He does have anemia however no hematochezia or melena. His CRP is very elevated however may be related to rheumatoid arthritis. His rheumatoid arthritis appears in control. He did have prior lower extremity ultrasound for his nonhealing ulcer however showed normal DAVID and waveforms bilaterally. He follows with Dr. Matias for the nonhealing wound which is improving. EKG shows sinus tachycardia with minimal ST depressions laterally. Echo shows normal EF 60-65%, moderate LVH, RVSP 45. Chest x-ray consistent with vascular congestion. REVIEW OF SYSTEMS At the time of my exam: CONSTITUTIONAL: Denies fever or chills. CARDIOVASCULAR: Denies chest pain, +shortness of breath, no orthopnea, PND or palpitations. RESPIRATORY: Denies cough. GASTROINTESTINAL: Denies abdominal pain, diarrhea, constipation, nausea or vomiting. MUSCULOSKELETAL: Denies myalgias. NEUROLOGIC: Denies numbness, tingling or weakness. ENDOCRINE: Denies fatigue, weight change, polydipsia or polyurina. GENITOURINARY: Denies burning, hematuria or urgency with micturation. HEMATOLOGIC: Denies history of anemia or bleeding. PHYSICAL EXAMINATION Vital signs reviewed. CONSTITUTIONAL: No apparent distress. HEENT: Head is normocephalic. Pupils are equal, round. Sclerae anicteric. Mucous membranes of the mouth are moist. No JVD. No carotid bruit. CHEST EXAMINATION: + Bilateral crackles at bases as well as expiratory wheeze HEART EXAMINATION: Regular rate and rhythm. S1, S2 heard. No murmurs, gallops or rub. ABDOMEN: Soft, nontender. Positive bowel sounds. EXTREMITIES: 2+ peripheral pulses, no lower extremity edema and no calf tenderness. NEUROLOGIC EXAMINATION: Patient is awake, alert and oriented x3. ASSESSMENT 1. Non-STEMI, rule out type I versus type II 2. Acute on chronic diastolic heart failure 3. Moderate LVH 4. Pulmonary hypertension 5. Hypertension 6. COPD on home oxygen 7. Anemia, denies any hematochezia or melena 8. Mild CKD PLAN Patient with vague symptoms and atypical chest pain. He is not describing classic heart failure with more feeling fatigued and denies orthopnea however does have crackles on exam, elevated proBNP and chest x-ray consistent with vascular congestion. We will continue with IV diuretics and check repeat blood work tomorrow morning. Heparin drip for non-STEMI. Add aspirin 81 mg daily. Discussed possible heart catheterization on Sunday if continues to improve from a heart failure standpoint. Further recommendations to follow. Past Medical History Past Medical History: COPD, Pneumonia, Rheumatoid Arthritis (RA) Additional Past Medical History / Comment(s): IP 02/08/21 CELLULITIS OF RIGHT LOWER LEG. Peripheral edema, USE. O2 prn at 2l. Brain bleed History of Any Multi-Drug Resistant Organisms: None Reported Past Surgical History: Orthopedic Surgery Additional Past Surgical History / Comment(s): left carpal tunnel, elbow sx. Cataracts Past Anesthesia/Blood Transfusion Reactions: No Reported Reaction Past Psychological History: No Psychological Hx Reported Smoking Status: Former smoker Past Alcohol Use History: Occasional Additional Past Alcohol Use History / Comment(s): quit smoking approx 1998, smoked 1/2ppd from teens Past Drug Use History: None Reported - Past Family History Father History Unknown: Yes Medications and Allergies Home Medications Medication Instructions Recorded Confirmed Type Levothyroxine Sodium [Synthroid] 100 mcg PO DAILY 08/27/18 05/07/21 History hydroCHLOROthiazide 25 mg PO DAILY 08/27/18 05/07/21 History metHOTREXate sodium [Methotrexate] 20 mg PO CHOW 08/27/18 05/07/21 History Ascorbic Acid [Vitamin C] 500 mg PO DAILY 02/02/19 05/07/21 History Cholecalciferol [Vitamin D3 (25 1,000 unit PO DAILY 02/02/19 05/07/21 History Mcg = 1000 Iu)] Ipratropium-Albuterol Nebulize 3 ml INHALATION RT-QID #120 ml 01/17/20 05/07/21 Rx [Duoneb 0.5 mg-3 mg/3 ml Soln] predniSONE 10 mg PO DAILY 02/07/21 05/07/21 History Collagenase [Santyl] 1 applic TOPICAL DAILY #30 gm 02/10/21 05/07/21 Rx Fluticasone/Umeclidin/Vilanter 1 puff INHALATION RT-DAILY 03/14/21 05/07/21 History [Trelegy Ellipta 100-62.5-25] Furosemide [Lasix] 20 mg PO DAILY 03/14/21 05/07/21 History HYDROcodone/APAP 5-325MG [[place] 1 tab PO Q6H PRN 03/14/21 05/07/21 History 5-325] Folic Acid 0.8 mg PO DAILY 05/07/21 05/07/21 History Ibuprofen [Advil] 200 mg PO BID PRN 05/07/21 05/07/21 History Rosuvastatin [Crestor] 10 mg PO DAILY 05/07/21 05/07/21 History Allergies Allergy/AdvReac Type Severity Reaction Status Date / Time No Known Allergies Allergy Verified 05/07/21 08:53 Physical Exam Vitals: Vital Signs Temp Pulse Pulse Resp BP Pulse Ox 05/07/21 16:45 80 05/07/21 16:36 80 05/07/21 12:27 68 13 111/62 97 05/07/21 11:46 70 05/07/21 11:34 70 05/07/21 07:56 66 05/07/21 07:42 71 05/07/21 06:57 98.7 F 82 22 111/62 96 05/07/21 04:46 99.9 F H 97 22 105/56 100 05/07/21 02:26 113 H 20 127/88 95 05/07/21 01:04 113 H 25 H 130/42 94 L 05/06/21 23:48 121 H 05/06/21 23:32 113 H 05/06/21 23:20 123 H 25 H 05/06/21 22:43 100.7 F H 117 H 24 153/60 84 L Intake and Output 05/07/21 05/07/21 05/07/21 06:59 14:59 22:59 Intake Total 540 Balance 540 Intake: Oral 540 Other: Voiding Method Toilet # Voids 1 Weight 92.351 kg Results 05/06/21 23:34 05/06/21 23:34 Cardiac Enzymes 05/06/21 05/06/21 05/07/21 Range/Units 23:34 23:34 03:29 AST 38 (17-59) U/L Lactate Dehydrogenase 636 H (313-618) U/L Troponin I 0.705 H* 0.682 H* (0.000-0.034) ng/mL 05/07/21 Range/Units 06:23 AST (17-59) U/L Lactate Dehydrogenase (313-618) U/L Troponin I 0.637 H* (0.000-0.034) ng/mL Coagulation 05/06/21 Range/Units 23:34 PT 11.6 (9.0-12.0) sec APTT 29.1 (22.0-30.0) sec CBC 05/06/21 Range/Units 23:34 WBC 7.2 (3.8-10.6) k/uL RBC 2.80 L (4.30-5.90) m/uL Hgb 9.5 L (13.0-17.5) gm/dL Hct 29.1 L (39.0-53.0) % Plt Count 193 (150-450) k/uL Comprehensive Metabolic Panel 05/06/21 Range/Units 23:34 Sodium 132 L (137-145) mmol/L Potassium 3.7 (3.5-5.1) mmol/L Chloride 96 L (98-107) mmol/L Carbon Dioxide 27 (22-30) mmol/L BUN 38 H (9-20) mg/dL Creatinine 1.10 (0.66-1.25) mg/dL Glucose 138 H (74-99) mg/dL Calcium 8.5 (8.4-10.2) mg/dL AST 38 (17-59) U/L ALT 21 (4-49) U/L Alkaline Phosphatase 61 (38-126) U/L Total Protein 8.7 H (6.3-8.2) g/dL Albumin 3.2 L (3.5-5.0) g/dL Current Medications Generic Name Dose Route Start Last Admin Trade Name Freq PRN Reason Stop Dose Admin Acetaminophen 650 mg 05/07/21 03:34 Acetaminophen Tab 325 Mg Tab PO Q4HR PRN Fever and/ or Pain Hydrocodone Bitart/Acetaminophen 1 each 05/07/21 09:53 Hydrocodone/Apap 5-325mg 1 Each Tab PO Q6H PRN Moderate Pain Albuterol/Ipratropium 3 ml 05/07/21 12:00 05/07/21 16:32 Ipratropium-Albuterol 3 Ml Neb INHALATION 3 ml RT-QID VAISHNAVI Administration Ascorbic Acid 500 mg 05/08/21 09:00 Ascorbic Acid 500 Mg Tab PO DAILY VAISHNAVI Budesonide/Formoterol Fumarate 2 puff 05/07/21 11:00 Symbicort 80-4.5 Mcg Inhaler INHALATION RT-BID VAISHNAVI Cholecalciferol 25 mcg 05/08/21 09:00 Cholecalciferol 25 Mcg (1000 Iu) Tablet PO DAILY VAISHNAVI Folic Acid 1 mg 05/08/21 09:00 Folic Acid 1 Mg Tab PO DAILY VAISHNAVI Furosemide 40 mg 05/07/21 00:45 05/07/21 12:22 Furosemide 10 Mg/Ml 4 Ml Vial IV 40 mg Q12H VAISHNAVI Administration Ceftriaxone Sodium 2 gm/ 50 mls @ 100 mls/hr 05/07/21 23:00 Sodium Chloride IVPB 05/10/21 23:29 Q24H VAISHNAVI Azithromycin 500 mg/ Sodium 250 mls @ 250 mls/hr 05/07/21 21:00 Chloride IVPB DAILY@2100 VAISHNAVI Vancomycin HCl 1,750 mg/ 500 mls @ 167 mls/hr 05/08/21 02:00 Sodium Chloride IVPB Q16H VAISHNAVI Levothyroxine Sodium 100 mcg 05/08/21 06:30 Levothyroxine 100 [place] [address]30 VAISHNAVI Methylprednisolone Sodium Succinate 60 mg 05/07/21 12:00 05/07/21 12:22 Methylprednisolone Sod Succi 125 Mg/2 Ml Vial IV 60 mg Q6HR VAISHNAVI Administration Miscellaneous Information 1 each 05/07/21 00:38 Pneumonia Protocol Utilized 1 Each Misc PO ONCE PRN Per Protocol Morphine Sulfate 4 mg 05/07/21 00:38 05/07/21 03:22 Morphine Sulfate 4 Mg/Ml Syringe IV 4 mg Q4HR PRN Administration Severe Pain Naloxone HCl 0.2 mg 05/07/21 00:38 Naloxone 0.4 Mg/Ml 1 Ml Vial IV Q2M PRN Opioid Reversal Collagenase 250 Unit 1 each 05/07/21 12:00 05/07/21 14:55 /Gm Ointment 30 Gm TOPICAL Not Given Tube *Pom* DAILY [facility] Protocol Ondansetron HCl 4 mg 05/07/21 00:38 05/07/21 03:19 Ondansetron 4 Mg/2 Ml Vial IVP 4 mg Q8HR PRN Administration Nausea And Vomiting Pantoprazole Sodium 40 mg 05/07/21 09:00 05/07/21 12:20 Pantoprazole 40 Mg/10 Ml Vial IV 40 mg DAILY VAISHNAVI Administration Intake and Output 05/07/21 05/07/21 05/07/21 06:59 14:59 22:59 Intake Total 540 Balance 540 Intake: Oral 540 Other: Voiding Method Toilet # Voids 1 Weight 92.351 kg Patient Weight 05/08/21 06:59 Weight 92.351 kg 05/06/21 23:34 05/06/21 23:34
[2021-05-07] MEDS: ASPIRIN 81 MG PO SCH (18:01)
[2021-05-07] MEDS: HEPARIN SOD,PORK IN 0.45% NACL 25,000 UNIT in 0.45% NACL 1 250ML.BAG IV SCH (18:02)
[2021-05-07] MEDS: SYMBICORT 80-4.5 MCG INHALER INHALATION SCH ×3 (19:02→19:18)
[2021-05-07 20:05] LABS: Glucose,Whole Blood 278 mg/dL (75-99)
[2021-05-07] MEDS: INSULIN ASPART (NovoLOG) 100 UNIT/ML VIAL SQ SCH (20:47)
[2021-05-07] MEDS: AZITHROMYCIN 500 MG in SODIUM CHLORIDE 0.9% 250 ML IVPB SCH (21:38)
[2021-05-08] MEDS ORDERED: VANCOMYCIN 1,750 MG in SODIUM CHLORIDE 0.9% 500 ML 500 ML IVPB SCH (02:00)
[2021-05-08 05:42] LABS: Glucose,Whole Blood 178 mg/dL (75-99)
[2021-05-08] MEDS: LEVOTHYROXINE 100 MCG TAB PO SCH (06:23)
[2021-05-08] MEDS: INSULIN ASPART (NovoLOG) 100 UNIT/ML VIAL SQ SCH ×4 (06:23→20:34)
[2021-05-08] MEDS: methylPREDNISolone SOD SUCCI 125 MG/2 ML VIAL IV SCH ×4 (06:23→23:21)
--- NOTE | 2021-05-08 07:37 | XR ---
EXAMINATION TYPE: XR chest 1V DATE OF EXAM: 05/08/2021 COMPARISON: 05/07/2021 HISTORY: 81-year-old male CHF TECHNIQUE: Single frontal view of the chest is obtained. FINDINGS: The heart is upper limits of normal in size. Medium reticular opacities persist throughout. No pleura l effusion. IMPRESSION: Unchanged bilateral interstitial lung disease superimposed on COPD.
[2021-05-08 07:45] LABS: INR 1.1 (<1.2); Partial Thromboplastin Time 45.3 sec (22.0-30.0); Prothrombin Time 11.4 sec (9.0-12.0)
[2021-05-08 08:02] LABS: Anisocytosis Slight; Basophils % (A) 1 %; Eosinophils % (A) 0 %; HCT 23.8 % (39.0-53.0); HGB 7.9 gm/dL (13.0-17.5); Hypochromasia Slight; Lymphocytes # (A) 0.7 k/uL (1.0-4.8); Lymphocytes % (A) 17 %; MCH 34.9 pg (25.0-35.0); MCHC 33.2 g/dL (31.0-37.0); MCV 105.2 fL (80.0-100.0); Macrocytosis Marked; Monocytes # (A) 0.1 k/uL (0-1.0); Monocytes % (A) 1 %; Neutrophils % (A) 77 %; Platelet Count 125 k/uL (150-450); Poikilocytosis Slight; RBC 2.26 m/uL (4.30-5.90); RDW 18.5 % (11.5-15.5)
[2021-05-08 08:07] LABS: Albumin 2.5 g/dL (3.5-5.0); Calcium 7.8 mg/dL (8.4-10.2); Potassium 4.1 mmol/L (3.5-5.1); Total Bilirubin 0.2 mg/dL (0.2-1.3); Total Protein 7.1 g/dL (6.3-8.2)
[2021-05-08] MEDS: SYMBICORT 80-4.5 MCG INHALER INHALATION SCH ×2 (08:39→19:55)
[2021-05-08] MEDS: IPRATROPIUM-ALBUTEROL 3 ML NEB INHALATION SCH ×4 (08:39→19:55)
[2021-05-08] MEDS: ASCORBIC ACID 500 MG TAB PO SCH (08:56)
[2021-05-08] MEDS: ASPIRIN 81 MG PO SCH (08:56)
[2021-05-08] MEDS: PANTOPRAZOLE 40 MG/10 ML VIAL IV SCH (08:56)
[2021-05-08] MEDS: FOLIC ACID 1 MG TAB PO SCH (08:57)
[2021-05-08] MEDS: CHOLECALCIFEROL 25 MCG (1000 IU) TABLET PO SCH (08:57)
[2021-05-08] MEDS: COLLAGENASE 250 UNIT/GM TOPICAL SCH (09:11)
[2021-05-08 09:51] LABS: Rouleaux Present
[2021-05-08 11:34] LABS: Glucose,Whole Blood 246 mg/dL (75-99)
--- NOTE | 2021-05-08 11:45 | P.PN ---
Subjective Progress Note Date: 05/08/21 Principal diagnosis: acute respiratory failure, shortness of breath and dyspnea, fluid overload, elevated troponin with possible non-ST OR, A. fib and anemia. HISTORY OF PRESENT ILLNESS This is a 80-year-old male one of my patient for the last 20 years with past medical history of COPD, hypertension, hyperlipidemia, rheumatoid arthritis, hypothyroidism, paroxysmal atrial fibrillation, hemorrhagic stroke treated at [facility], chronic kidney disease stage II, remote history of tobacco use. patient is still been treated for right leg cellulitis and ulcerated area has not healed for several weeks has been seen at the wound clinic on regular basis has not been on any IV or oral antibiotics. Patient presented to the office this past week complaining of worsening dyspnea and shortness of breath was started on higher dose of steroid along with oral antibiotics he become much worse over the last 48 hours his brought him to demurs department this morning with severe dyspnea and shortness of breath with cough wheezes found to be in extreme respiratory distress with extremely low pulse oximetry despite having to be on nasal cannula oxygen at home. Patient was started on BiPAP but higher flow to his pulse ox corrected to the low 90, chest x-ray showed bilateral infiltrate with early pulmonary edema patient was having inspiratory expiratory wheezes was diagnosed with COPD exacerbation along with respiratory failure possible congestive heart failure exacerbation with mildly elevated troponin could be non-ST OR in the last 48 hours, patient chest x-ray showed picture of infiltrate in the right lower lobe along with venous congestion similar to heart failure his BNP is mildly elevated and troponin was mildly elevated as well. 05/08: Patient was seen cardiology yesterday with a current presentation and elevated troponin was diagnosed with non-ST OR, patient was started on heparin drip. His shortness of breath and severe congestion has improved significantly overnight patient is doing slightly but better surprisingly had significant drop in his hemoglobin this morning compared to his baseline patient is a high risk f or bleed as well especially with his intercurrent hemorrhage should be very careful making decision on anticoagulation not. Patient be taking off heparin drip at this point after contacting cardiology and if intervention or any other testing will be done on Sunday to be determined. Review his echocardiogram still showed ejection fraction of 60-65%. REVIEW OF SYSTEMS Constitutional: No fever, no chills, no night sweats. No weight change. No weakness, fatigue or lethargy. No daytime sleepiness. EENT: No headache. No blurred vision or double vision, no loss of vision. No loss of Hearing, no ringing in the ears, no dizziness. No nasal drainage or congestion. No epistaxis. No sore throat. Lungs: positive shortness of breath cough wheezes with worsening dyspnea with minimum exertion. Cardiovascular: No chest pain, positive lower extremity edema. positive palpitations. positive paroxysmal nocturnal dyspnea. positive orthopnea. No lightheadedness or dizziness. No syncopal episodes. Abdominal: No abdominal pain. No nausea, vomiting. No diarrhea. No constipation. No bloody or tarry stools.. No loss of appetite. Genitourinary: No dysuria, increased frequency, urgency. No urinary retention. Musculoskeletal: No myalgias. No muscle weakness, no gait dysfunction, no frequent falls. No back pain. No neck pain. Integumentary: right lower extremity had 5 ulcerated area 3 on the back of his leg and one large one on the lateral side of the leg has been treated for ulcerated cellulitis has not healed for over 6 months. Neurologic: No aphasia. No facial droop. No change in mentation. No head injury. No headache. No paralysis. No paresthesia. Psychiatric: No depression. No anxiety. No mood swings. Endocrine: No abnormal blood sugars. No weight change. No excessive sweating or thirst. No cold intolerance. PHYSICAL EXAMINATION Gen: This is a 81-year-old male. he is in mild respiratory distress has a BiPAP in bed not complaining of any chest pain at the time HEENT: Head is atraumatic, normocephalic. Pupils equal, round. Sclerae is anicteric. NECK: Supple. No JVD. No lymphadenopathy. No thyromegaly. LUNGS: decreased breaths on bilaterally especially the right side positive fine to coarse crackles worse in the right base positive expiratory wheezes. HEART: Irregular rate and rhythm.S1-S2, positive S3, positive JVD. ABDOMEN: Soft. Bowel sounds are present. No masses. No tenderness. EXTREMITIES:edema of both lower extremity worsening of the right than the left side, the right side still cover with dressing had small ulcerated area on the lateral side of the leg with stage II, 3 ulcerated area with infection on the back of the leg as well for more superficial. Entire leg had more swelling had more irritation discomfort around all the ulcerated site. NEUROLOGICAL: Patient is awake, alert and oriented x3. Cranial nerves 2 through 12 are grossly intact. ASSESSMENT AND PLAN 1. acute respiratory failure: Combination of venous congestion most likely from heart failure could be secondary to non-ST OR happen last few days patient will be on IV diuretics continue to watch for any more fluid overload, patient was treated overnight and felt much better specially with improvement of COPD excessive patient. 2. COPD without exacerbation. Continue DuoNeb treatments 4 times daily, Symbicort twice daily, was start patient on Solu-Medrol 60 mg every 6 hours for now and will be seen pulmonary. 3. Elevated troponin: Was diagnosed as non-ST OR, ejection fraction is well preserved at this point patient be taking off heparin drip so far there is no intervention planned at this point. 4. Cellulitis of the right lower extremity and left forearm, failed outpatient treatment. Consult with [facility], infectious disease, vascular surgery. Continue patient on Zosyn and vancomycin, continues Lasix 40 mg IV twice daily. Blood culture is in process. 5. aspiration pneumonia: With patient's current condition patient will remain on azithromycin and Rocephin 1 dose of vancomycin be done. 6. Rheumatoid arthritis. Continue prednisone 10 mg daily. Hold methotrexate. 7. Hypothyroidism. Continue levothyroxine 100 g daily. 8. History of paroxysmal atrial fibrillation not on anticoagulation. 9. History of hemorrhagic stroke, stable. CODE STATUS: Full code. Objective - Vital Signs Vital signs: Vital Signs Temp 98.1 F 05/08/21 08:52 Pulse 74 05/08/21 08:53 Resp 16 05/08/21 08:52 BP 117/54 05/08/21 08:52 Pulse Ox 99 05/08/21 08:52 Intake & Output 05/07/21 05/08/21 05/08/21 18:59 06:59 18:59 Intake Total 720 62 240 Output Total 300 Balance 720 -238 240 Weight 92.351 kg 91.9 kg Intake: Intake, IV Titration 62 Amount Heparin Sod,Pork in 0.45% 62 NaCl 25,000 unit In 0.45 % NaCl 1 250ml.bag @ 10. 828 UNITS/KG/HR 10 mls/hr IV .Q[facility]H [facility] Rx#: [id number] Oral 720 240 Output: Urine 300 Other: Voiding Method Toilet Toilet Toilet Urinal Urinal # Voids 1 2 - Labs CBC & Chem 7: 05/08/21 06:33 05/08/21 06:27 Labs: Abnormal Lab Results - Last 24 Hours (Table) 05/07/21 05/07/21 05/07/21 Range/Units 08:23 20:04 23:33 RBC (4.30-5.90) m/uL Hgb (13.0-17.5) gm/dL Hct (39.0-53.0) % MCV (80.0-100.0) fL RDW (11.5-15.5) % Plt Count (150-450) k/uL Lymphocytes # (1.0-4.8) k/uL Macrocytosis APTT 38.7 H (22.0-30.0) sec Sodium (137-145) mmol/L BUN (9-20) mg/dL Creatinine (0.66-1.25) mg/dL Glucose (74-99) mg/dL POC Glucose (mg/dL) 278 H (75-99) mg/dL Calcium (8.4-10.2) mg/dL Albumin (3.5-5.0) g/dL Procalcitonin 1.29 H (0.02-0.09) ng/mL 05/08/21 05/08/21 05/08/21 Range/Units 05:41 06:27 06:27 RBC (4.30-5.90) m/uL Hgb (13.0-17.5) gm/dL Hct (39.0-53.0) % MCV (80.0-100.0) fL RDW (11.5-15.5) % Plt Count (150-450) k/uL Lymphocytes # (1.0-4.8) k/uL Macrocytosis APTT 45.3 H (22.0-30.0) sec Sodium 134 L (137-145) mmol/L BUN 51 H (9-20) mg/dL Creatinine 1.61 H (0.66-1.25) mg/dL Glucose 163 H (74-99) mg/dL POC Glucose (mg/dL) 178 H (75-99) mg/dL Calcium 7.8 L (8.4-10.2) mg/dL Albumin 2.5 L (3.5-5.0) g/dL Procalcitonin (0.02-0.09) ng/mL 05/08/21 05/08/21 Range/Units 06:33 11:32 RBC 2.26 L (4.30-5.90) m/uL Hgb 7.9 L D (13.0-17.5) gm/dL Hct 23.8 L (39.0-53.0) % MCV 105.2 H (80.0-100.0) fL RDW 18.5 H (11.5-15.5) % Plt Count 125 L (150-450) k/uL Lymphocytes # 0.7 L (1.0-4.8) k/uL Macrocytosis Marked A APTT (22.0-30.0) sec Sodium (137-145) mmol/L BUN (9-20) mg/dL Creatinine (0.66-1.25) mg/dL Glucose (74-99) mg/dL POC Glucose (mg/dL) 246 H (75-99) mg/dL Calcium (8.4-10.2) mg/dL Albumin (3.5-5.0) g/dL Procalcitonin (0.02-0.09) ng/mL Microbiology - Last 24 Hours (Table) 05/07/21 01:04 Blood Culture - Preliminary Blood No Growth after 24 hours 05/07/21 01:21 Blood Culture - Preliminary Blood No Growth after 24 hours
[2021-05-08] MEDS: FUROSEMIDE 10 MG/ML 4 ML VIAL IV SCH (12:18)
[2021-05-08 13:17] LABS: Anisocytosis Slight; Basophils % (A) 1 %; Eosinophils % (A) 0 %; HCT 25.5 % (39.0-53.0); Hypochromasia Moderate; Lymphocytes % (A) 17 %; MCH 34.3 pg (25.0-35.0); MCHC 31.5 g/dL (31.0-37.0); Macrocytosis Marked; Mean Platelet Volume 8.5; Monocytes # (A) 0.1 k/uL (0-1.0); Monocytes % (A) 2 %; Neutrophils # (A) 4.6 k/uL (1.3-7.7); Neutrophils % (A) 76 %; Platelet Count 122 k/uL (150-450); Poikilocytosis Slight; RBC 2.34 m/uL (4.30-5.90); RDW 17.8 % (11.5-15.5)
--- NOTE | 2021-05-08 14:05 | P.PN ---
Subjective Progress Note Date: 05/08/21 81-year-old white male patient with past history of COPD, home oxygen, paroxysmal atrial fibrillation, hypertension, hyperlipidemia, rheumatoid arthritis, hypothyroidism, chronic kidney disease stage II, previous history of hemorrhagic stroke treated at [facility]. Patient has been getting treatments for his nonhealing ulcer on his right leg and right leg cellulitis at the wound care clinic for the past several weeks. Patient was seen at the PCPs office with complaints of worsening dyspnea and shortness of breath, he was placed on antibiotics and steroids however his breathing continued to get worse over the past 48 hours and the brought him to the emergency department with severe dyspnea, coughing, wheezing, and patient was in significant respiratory distress and hypoxic and he was placed on BiPAP support on which he currently remains with pressures of 12 and 6 and FiO2 of 50%. His chest x-ray showed pulmonary interstitial edema, with a possibility of acute CHF or acute pneumonia. EKG showed sinus tachycardia. His labs showed white blood cell, 7.2, hemoglobin was 9.5, sodium was 132, potassium is 3.7, chloride was 96, CO2 is 27, B1 is 38, creatinine is 1.1, LFTs were within normal limits, lactic acid was 1.1, patient had troponin elevation with troponins of 0.705, 0.682, 0.637, his CRP was 17.7, and LDH was 636, proBNP was 4890, COVID-19 PCR was negative. Patient was started on Lasix 40 mg every 12 hours, and placed on azithromycin and Rocephin for possibility of community acquired pneumonia. Patient is currently still on BiPAP support with pressures of 12 and 6 and FiO2 of 50%, breathing a bit more comfortably, blood cultures have been sent, pro- calcitonin level is pending, follow-up chest x-ray is pending, The patient is seen today 05/08/2021 in follow-up on the selective care unit. He did require BiPAP at 12/6 and 35% FiO2 last night. He is currently maintaining O2 saturations in the 90s on 5 L/m per nasal cannula. His x-ray continues to show bilateral interstitial lung disease superimposed on COPD. Blood cultures reveal no growth. White count 6.0. Hemoglobin 8.0. Platelet count 122. Glucose 246. Sodium 134. Potassium 4.1. Creatinine 1.63. AST 58. ALT 22. He is continued on DuoNeb inhalations, Symbicort, IV Solu-Medrol. Remains on a heparin drip. Antibiotics in the form of vancomycin, ceftriaxone and azithromycin. Objective - Vital Signs Vital signs: Vital Signs Temp 98.6 F 05/08/21 12:10 Pulse 96 05/08/21 12:10 Resp 16 05/08/21 12:10 BP 120/58 05/08/21 12:10 Pulse Ox 95 05/08/21 12:10 Intake & Output 05/07/21 05/08/21 05/08/21 18:59 06:59 18:59 Intake Total 720 62 360 Output Total 300 Balance 720 -238 360 Weight 92.351 kg 91.9 kg Intake: Intake, IV Titration 62 Amount Heparin Sod,Pork in 0.45% 62 NaCl 25,000 unit In 0.45 % NaCl 1 250ml.bag @ 10. 828 UNITS/KG/HR 10 mls/hr IV .Q24H [facility] Rx#: [id number] Oral 720 360 Output: Urine 300 Other: Voiding Method Toilet Toilet Toilet Urinal Urinal # Voids 1 2 - Exam GENERAL EXAM: Alert, pleasant, 81-year-old male patient, alternating BiPAP 12/ 6 and FiO2 of 35% with O2 at 5 L nasal cannula, comfortable in no apparent distress. HEAD: Normocephalic/atraumatic. EYES: Normal reaction of pupils, equal size. Conjunctiva pink, sclera white. NOSE: Clear with pink turbinates. THROAT: No erythema or exudates. NECK: No masses, no JVD, no thyroid enlargement, no adenopathy. CHEST: No chest wall deformity. Symmetrical expansion. LUNGS: Equal air entry with diffuse crackles, and diminished breath sounds at the bases CVS: Regular rate and rhythm, normal S1 and S2, no gallops, no murmurs, no rubs ABDOMEN: Soft, nontender. No hepatosplenomegaly, normal bowel sounds, no guarding or rigidity. EXTREMITIES: No clubbing, mild nonpitting edema, no cyanosis, 2+ pulses and upper and lower extremities. MUSCULOSKELETAL: Muscle strength and tone normal. SPINE: No scoliosis or deformity SKIN: No rashes. She has right lower extremity cellulitis, and right leg wound CENTRAL NERVOUS SYSTEM: Alert and oriented -3. No focal deficits, tone is normal in all 4 extremities. PSYCHIATRIC: Alert and oriented -3. Appropriate affect. Intact judgment and insight. - Labs CBC & Chem 7: 05/08/21 12:30 05/08/21 06:27 Labs: Abnormal Lab Results - Last 24 Hours (Table) 05/07/21 05/07/21 05/07/21 Range/Units 08:23 20:04 23:33 RBC (4.30-5.90) m/uL Hgb (13.0-17.5) gm/dL Hct (39.0-53.0) % MCV (80.0-100.0) fL RDW (11.5-15.5) % Plt Count (150-450) k/uL Lymphocytes # (1.0-4.8) k/uL Macrocytosis APTT 38.7 H (22.0-30.0) sec Sodium (137-145) mmol/L BUN (9-20) mg/dL Creatinine (0.66-1.25) mg/dL Glucose (74-99) mg/dL POC Glucose (mg/dL) 278 H (75-99) mg/dL Calcium (8.4-10.2) mg/dL Albumin (3.5-5.0) g/dL Procalcitonin 1.29 H (0.02-0.09) ng/mL 05/08/21 05/08/21 05/08/21 Range/Units 05:41 06:27 06:27 RBC (4.30-5.90) m/uL Hgb (13.0-17.5) gm/dL Hct (39.0-53.0) % MCV (80.0-100.0) fL RDW (11.5-15.5) % Plt Count (150-450) k/uL Lymphocytes # (1.0-4.8) k/uL Macrocytosis APTT 45.3 H (22.0-30.0) sec Sodium 134 L (137-145) mmol/L BUN 51 H (9-20) mg/dL Creatinine 1.61 H (0.66-1.25) mg/dL Glucose 163 H (74-99) mg/dL POC Glucose (mg/dL) 178 H (75-99) mg/dL Calcium 7.8 L (8.4-10.2) mg/dL Albumin 2.5 L (3.5-5.0) g/dL Procalcitonin (0.02-0.09) ng/mL 05/08/21 05/08/21 05/08/21 Range/Units 06:33 11:32 12:30 RBC 2.26 L 2.34 L (4.30-5.90) m/uL Hgb 7.9 L D 8.0 L (13.0-17.5) gm/dL Hct 23.8 L 25.5 L (39.0-53.0) % MCV 105.2 H 109.0 H (80.0-100.0) fL RDW 18.5 H 17.8 H (11.5-15.5) % Plt Count 125 L 122 L (150-450) k/uL Lymphocytes # 0.7 L (1.0-4.8) k/uL Macrocytosis Marked A Marked A APTT (22.0-30.0) sec Sodium (137-145) mmol/L BUN (9-20) mg/dL Creatinine (0.66-1.25) mg/dL Glucose (74-99) mg/dL POC Glucose (mg/dL) 246 H (75-99) mg/dL Calcium (8.4-10.2) mg/dL Albumin (3.5-5.0) g/dL Procalcitonin (0.02-0.09) ng/mL Microbiology - Last 24 Hours (Table) 05/07/21 01:04 Blood Culture - Preliminary Blood No Growth after 24 hours 05/07/21 01:21 Blood Culture - Preliminary Blood No Growth after 24 hours Assessment and Plan Assessment: 1 Acute on chronic hypoxic respiratory failure related to what appears to be acute exacerbation of CHF with diastolic dysfunction, echocardiogram showed EF of 60-65%, moderate concentric LVH, mild TR, trace MR, mild to moderate pulmonary hypertension with right-sided pressure of 45.6 mmHg. Possibility of underlying healthcare acquired pneumonia is not completely excluded, patient has been treated at the wound care center for nonhealing right extremity wounds and right extremity cellulitis. COVID-19 PCR was negative 2 Rule out non-ST elevated myocardial infarction, currently on a heparin drip 3 Advanced COPD on home oxygen 4 Hypertension 5 Hyperlipidemia 6 Rheumatoid arthritis 7 Hypothyroidism 8 Paroxysmal atrial fibrillation 9 Previous history of hemorrhagic stroke 10 Chronic kidney disease stage II 11 History of tobacco use 12 Nonhealing right leg ulcer and right leg cellulitis, being treated at the wound care center for the past several months Plan: The patient was seen and evaluated by Dr. Gupta Chest x-ray and labs reviewed Continue the current treatment plan for now May be able to de-escalate the antibiotics Continue bronchodilators and IV Solu-Medrol Remains on a heparin drip We will continue to follow I, the cosigning physician, performed a history & physical examination of the patient. Lungs sounds with crackles in the bilateral bases Maintaining good O2 saturations in the 90s on 5 liters per minute per nasal cannula. I discussed the assessment and plan of care with my nurse practitioner, Josi Valdez. I attest to the above note as dictated by her.
[2021-05-08] MEDS: HEPARIN SOD,PORK IN 0.45% NACL 25,000 UNIT in 0.45% NACL 1 250ML.BAG IV SCH (16:35)
[2021-05-08 16:39] LABS: Glucose,Whole Blood 232 mg/dL (75-99)
--- NOTE | 2021-05-08 19:39 | P.PN ---
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 Patient states he has been feeling fatigued and mildly short of breath or last 3 days. He states he was overdoing it working outside and then has felt fairly fatigued since that time. He denies any fevers, chills or cough. He denies any orthopnea or lower extremity edema however does have significant dyspnea. He initially denied any chest pain however on further questioning he had some left- sided chest pain which she says felt like rib pain worse with deep inspiration. He believes he had a stress test approximately 10 years ago, no history of heart catheterization, no history of paroxysmal A. fib however other consults documented this. He does have anemia however no hematochezia or melena. His CRP is very elevated however may be related to rheumatoid arthritis. His rheumatoid arthritis appears in control. He did have prior lower extremity ultrasound for his nonhealing ulcer however showed normal DAVID and waveforms bilaterally. He follows with Dr. Matias for the nonhealing wound which is improving. EKG shows sinus tachycardia with minimal ST depressions laterally. Echo shows normal EF 60-65%, moderate LVH, RVSP 45. Chest x-ray consistent with vascular congestion. 05/08 Patient seen and examined. He admits he feels better in terms of his shortness breath is breathing. He denies any further chest pain. He has been on a heparin drip with initial drop of hemoglobin down to 7.9 however repeat at noon showed 8.0. He denies any hematochezia or melena. He has been receiving Lasix 40 mg IV twice a day however creatinine increasing from initially 1.1 up to 1.6. PHYSICAL EXAMINATION Vital signs reviewed. CONSTITUTIONAL: No apparent distress. HEENT: Head is normocephalic. Pupils are equal, round. Sclerae anicteric. Mucous membranes of the mouth are moist. No JVD. No carotid bruit. CHEST EXAMINATION: + Bilateral crackles at bases as well as expiratory wheeze HEART EXAMINATION: Regular rate and rhythm. S1, S2 heard. No murmurs, gallops or rub. ABDOMEN: Soft, nontender. Positive bowel sounds. EXTREMITIES: 2+ peripheral pulses, no lower extremity edema and no calf tenderness. NEUROLOGIC EXAMINATION: Patient is awake, alert and oriented x3. ASSESSMENT 1. Non-STEMI, rule out type I versus type II 2. Acute on chronic diastolic heart failure 3. Moderate LVH 4. Pulmonary hypertension 5. Hypertension 6. COPD on home oxygen 7. Anemia, denies any hematochezia or melena 8. Mild CKD PLAN Patient was somewhat atypical chest pain however additional dyspnea on exertion and attempted to diurese with worsened kidney function. We will stop diuresis and monitor creatinine. We had initially discussed possible heart catheterization however with HAYDEN we instead discussed stress testing to further evaluate. We always may consider treating medically if anemia and CKD continue to be a problem however some of his symptoms may be anginal in nature. Further recommendations to follow. Objective - Vital Signs Vital signs: Vital Signs Temp 98.1 F 05/08/21 15:44 Pulse 73 05/08/21 15:48 Resp 17 05/08/21 15:44 BP 112/56 05/08/21 15:44 Pulse Ox 95 05/08/21 15:44 Intake & Output 05/08/21 05/08/21 05/09/21 06:59 18:59 06:59 Intake Total 62 1268 Output Total 300 Balance -238 1268 Weight 91.9 kg 93.2 kg Intake: Intake, IV Titration 62 188 Amount Heparin Sod,Pork in 0.45% 62 188 NaCl 25,000 unit In 0.45 % NaCl 1 250ml.bag @ 10. 828 UNITS/KG/HR 10 mls/hr IV .Q24H [facility] Rx#: [id number] Oral 1080 Output: Urine 300 Other: Voiding Method Toilet Toilet Urinal Urinal # Voids 2 - Labs CBC & Chem 7: 05/08/21 12:30 05/08/21 06:27 Labs: Abnormal Lab Results - Last 24 Hours (Table) 05/07/21 05/07/21 05/07/21 Range/Units 08:23 20:04 23:33 RBC (4.30-5.90) m/uL Hgb (13.0-17.5) gm/dL Hct (39.0-53.0) % MCV (80.0-100.0) fL RDW (11.5-15.5) % Plt Count (150-450) k/uL Lymphocytes # (1.0-4.8) k/uL Macrocytosis APTT 38.7 H (22.0-30.0) sec Sodium (137-145) mmol/L BUN (9-20) mg/dL Creatinine (0.66-1.25) mg/dL Glucose (74-99) mg/dL POC Glucose (mg/dL) 278 H (75-99) mg/dL Calcium (8.4-10.2) mg/dL Albumin (3.5-5.0) g/dL Procalcitonin 1.29 H (0.02-0.09) ng/mL 05/08/21 05/08/21 05/08/21 Range/Units 05:41 06:27 06:27 RBC (4.30-5.90) m/uL Hgb (13.0-17.5) gm/dL Hct (39.0-53.0) % MCV (80.0-100.0) fL RDW (11.5-15.5) % Plt Count (150-450) k/uL Lymphocytes # (1.0-4.8) k/uL Macrocytosis APTT 45.3 H (22.0-30.0) sec Sodium 134 L (137-145) mmol/L BUN 51 H (9-20) mg/dL Creatinine 1.61 H (0.66-1.25) mg/dL Glucose 163 H (74-99) mg/dL POC Glucose (mg/dL) 178 H (75-99) mg/dL Calcium 7.8 L (8.4-10.2) mg/dL Albumin 2.5 L (3.5-5.0) g/dL Procalcitonin (0.02-0.09) ng/mL 05/08/21 05/08/21 05/08/21 Range/Units 06:33 11:32 12:30 RBC 2.26 L 2.34 L (4.30-5.90) m/uL Hgb 7.9 L D 8.0 L (13.0-17.5) gm/dL Hct 23.8 L 25.5 L (39.0-53.0) % MCV 105.2 H 109.0 H (80.0-100.0) fL RDW 18.5 H 17.8 H (11.5-15.5) % Plt Count 125 L 122 L (150-450) k/uL Lymphocytes # 0.7 L (1.0-4.8) k/uL Macrocytosis Marked A Marked A APTT (22.0-30.0) sec Sodium (137-145) mmol/L BUN (9-20) mg/dL Creatinine (0.66-1.25) mg/dL Glucose (74-99) mg/dL POC Glucose (mg/dL) 246 H (75-99) mg/dL Calcium (8.4-10.2) mg/dL Albumin (3.5-5.0) g/dL Procalcitonin (0.02-0.09) ng/mL 05/08/21 Range/Units 16:37 RBC (4.30-5.90) m/uL Hgb (13.0-17.5) gm/dL Hct (39.0-53.0) % MCV (80.0-100.0) fL RDW (11.5-15.5) % Plt Count (150-450) k/uL Lymphocytes # (1.0-4.8) k/uL Macrocytosis APTT (22.0-30.0) sec Sodium (137-145) mmol/L BUN (9-20) mg/dL Creatinine (0.66-1.25) mg/dL Glucose (74-99) mg/dL POC Glucose (mg/dL) 232 H (75-99) mg/dL Calcium (8.4-10.2) mg/dL Albumin (3.5-5.0) g/dL Procalcitonin (0.02-0.09) ng/mL Microbiology - Last 24 Hours (Table) 05/07/21 01:04 Blood Culture - Preliminary Blood No Growth after 24 hours 05/07/21 01:21 Blood Culture - Preliminary Blood No Growth after 24 hours
[2021-05-08] MEDS: AZITHROMYCIN 500 MG in SODIUM CHLORIDE 0.9% 250 ML IVPB SCH (20:33)
[2021-05-08 20:38] LABS: Glucose,Whole Blood 231 mg/dL (75-99)
[2021-05-09] MEDS: methylPREDNISolone SOD SUCCI 125 MG/2 ML VIAL IV SCH ×4 (05:07→23:37)
[2021-05-09] MEDS: LEVOTHYROXINE 100 MCG TAB PO SCH (05:08)
[2021-05-09] MEDS ORDERED: CAFFEINE CITRATE 60 MG/3 ML VIAL IV PRN (06:00)
[2021-05-09] MEDS ORDERED: AMINOPHYLLINE 500 MG/20 ML VIAL IV PRN (06:00)
[2021-05-09] MEDS: INSULIN ASPART (NovoLOG) 100 UNIT/ML VIAL SQ SCH ×4 (06:07→21:27)
[2021-05-09] MEDS: VANCOMYCIN 1,750 MG in SODIUM CHLORIDE 0.9% 500 ML 500 ML IVPB SCH (06:07)
[2021-05-09 06:36] LABS: Glucose,Whole Blood 184 mg/dL (75-99)
[2021-05-09] MEDS ORDERED: REGADENOSON 0.4 MG/5 ML SYRINGE IV PRN (07:00)
[2021-05-09] MEDS: IPRATROPIUM-ALBUTEROL 3 ML NEB INHALATION SCH ×4 (07:14→20:11)
[2021-05-09] MEDS: SYMBICORT 80-4.5 MCG INHALER INHALATION SCH ×2 (07:14→20:10)
[2021-05-09] MEDS: CHOLECALCIFEROL 25 MCG (1000 IU) TABLET PO SCH (08:33)
[2021-05-09] MEDS: PANTOPRAZOLE 40 MG TABLET PO SCH (08:33)
[2021-05-09] MEDS: FOLIC ACID 1 MG TAB PO SCH (08:33)
[2021-05-09] MEDS: ASCORBIC ACID 500 MG TAB PO SCH (08:33)
[2021-05-09] MEDS: ASPIRIN 81 MG PO SCH (08:33)
[2021-05-09 09:06] LABS: Albumin 2.7 g/dL (3.5-5.0); Calcium 8.4 mg/dL (8.4-10.2); Potassium 3.9 mmol/L (3.5-5.1); Total Bilirubin 0.2 mg/dL (0.2-1.3); Total Protein 7.6 g/dL (6.3-8.2)
[2021-05-09 11:17] LABS: Anisocytosis Slight; HCT 23.7 % (39.0-53.0); HGB 7.6 gm/dL (13.0-17.5); Hypochromasia Slight; MCH 34.1 pg (25.0-35.0); MCHC 32.2 g/dL (31.0-37.0); MCV 105.9 fL (80.0-100.0); Macrocytosis Marked; Mean Platelet Volume 9.1; Platelet Count 132 k/uL (150-450); Poikilocytosis Slight; RBC 2.24 m/uL (4.30-5.90); RDW 18.3 % (11.5-15.5); WBC 5.4 k/uL (3.8-10.6)
[2021-05-09 11:37] LABS: Glucose,Whole Blood 172 mg/dL (75-99)
--- NOTE | 2021-05-09 11:47 | NM ---
EXAMINATION TYPE: NM stress lexiscan cardiolite DATE OF EXAM: 05/09/2021 COMPARISON: NONE HISTORY: 81-year-old male with chest pain, NSTEMI TECHNIQUE: After the intravenous administration of 10.2 mCi Tc 99m Sestamibi - Cardiolite resting SP ECT images acquired 100 minutes post injection. The patient received 0.4mg Lexiscan, 25 mCi Tc 99m Sestamibi - Stress images obtained 45 minutes post injection FINDINGS: Review of stress and rest SPECT images demonstrates small area of fixed perfusion defect along the mi d to basal anterolateral wall. There is also a large inferior wall defect which appears larger on res t images suggesting a prominent component of diaphragmatic attenuation artifact. No definite reversibility is otherwise seen. Gated analysis shows some global hypokinesis with an estimated left ventricular ejection fraction of 43 %. TID is calculated at 0.93, within normal limits. IMPRESSION: 1. No definite suspicious reversibility though there is a large fixed inferior wall defect and a smal ler fixed defect along the mid to basal anterolateral wall. 2. Given diminished LVEF of 43%, consider areas of old infarcts, though, there is likely a superimpos ed component of prominent diaphragmatic attenuation artifact.
--- NOTE | 2021-05-09 12:23 | P.PN ---
Subjective Progress Note Date: 05/09/21 Principal diagnosis: acute respiratory failure, shortness of breath and dyspnea, fluid overload, elevated troponin with possible non-ST PR, A. fib and anemia. HISTORY OF PRESENT ILLNESS This is a 80-year-old male one of my patient for the last 20 years with past medical history of COPD, hypertension, hyperlipidemia, rheumatoid arthritis, hypothyroidism, paroxysmal atrial fibrillation, hemorrhagic stroke treated at [facility], chronic kidney disease stage II, remote history of tobacco use. patient is still been treated for right leg cellulitis and ulcerated area has not healed for several weeks has been seen at the wound clinic on regular basis has not been on any IV or oral antibiotics. Patient presented to the office this past week complaining of worsening dyspnea and shortness of breath was started on higher dose of steroid along with oral antibiotics he become much worse over the last 48 hours his brought him to demurs department this morning with severe dyspnea and shortness of breath with cough wheezes found to be in extreme respiratory distress with extremely low pulse oximetry despite having to be on nasal cannula oxygen at home. Patient was started on BiPAP but higher flow to his pulse ox corrected to the low 90, chest x-ray showed bilateral infiltrate with early pulmonary edema patient was having inspiratory expiratory wheezes was diagnosed with COPD exacerbation along with respiratory failure possible congestive heart failure exacerbation with mildly elevated troponin could be non-ST PR in the last 48 hours, patient chest x-ray showed picture of infiltrate in the right lower lobe along with venous congestion similar to heart failure his BNP is mildly elevated and troponin was mildly elevated as well. 05/08: Patient was seen cardiology yesterday with a current presentation and elevated troponin was diagnosed with non-ST PR, patient was started on heparin drip. His shortness of breath and severe congestion has improved significantly overnight patient is doing slightly but better surprisingly had significant drop in his hemoglobin this morning compared to his baseline patient is a high risk f or bleed as well especially with his intercurrent hemorrhage should be very careful making decision on anticoagulation not. Patient be taking off heparin drip at this point after contacting cardiology and if intervention or any other testing will be done on Sunday to be determined. Review his echocardiogram still showed ejection fraction of 60-65%. 05/09: Patient is doing slightly better today significant decreased shortness of breath compared to yesterday. Ended up going for stress test with Lexiscan result came back negative except his ejection fraction on it significantly decreased compared to his echo, something to be reviewed by cardiology, also his anemia had settled down hemoglobin is at 7.6. Kidney function is doing slightly better last 24 hours also patient still seen wound care for his right leg. REVIEW OF SYSTEMS Constitutional: No fever, no chills, no night sweats. No weight change. No weakness, fatigue or lethargy. No daytime sleepiness. EENT: No headache. No blurred vision or double vision, no loss of vision. No loss of Hearing, no ringing in the ears, no dizziness. No nasal drainage or congestion. No epistaxis. No sore throat. Lungs: positive shortness of breath cough wheezes with worsening dyspnea with minimum exertion. Cardiovascular: No chest pain, positive lower extremity edema. positive palpitations. positive paroxysmal nocturnal dyspnea. positive orthopnea. No lightheadedness or dizziness. No syncopal episodes. Abdominal: No abdominal pain. No nausea, vomiting. No diarrhea. No constipation. No bloody or tarry stools.. No loss of appetite. Genitourinary: No dysuria, increased frequency, urgency. No urinary retention. Musculoskeletal: No myalgias. No muscle weakness, no gait dysfunction, no frequent falls. No back pain. No neck pain. Integumentary: right lower extremity had 5 ulcerated area 3 on the back of his leg and one large one on the lateral side of the leg has been treated for ulcerated cellulitis has not healed for over 6 months. Neurologic: No aphasia. No facial droop. No change in mentation. No head injury. No headache. No paralysis. No paresthesia. Psychiatric: No depression. No anxiety. No mood swings. Endocrine: No abnormal blood sugars. No weight change. No excessive sweating or thirst. No cold intolerance. PHYSICAL EXAMINATION Gen: This is a 81-year-old male. he is in mild respiratory distress has a BiPAP in bed not complaining of any chest pain at the time HEENT: Head is atraumatic, normocephalic. Pupils equal, round. Sclerae is anicteric. NECK: Supple. No JVD. No lymphadenopathy. No thyromegaly. LUNGS: decreased breaths on bilaterally especially the right side positive fine to coarse crackles worse in the right base positive expiratory wheezes. HEART: Irregular rate and rhythm.S1-S2, positive S3, positive JVD. ABDOMEN: Soft. Bowel sounds are present. No masses. No tenderness. EXTREMITIES:edema of both lower extremity worsening of the right than the left side, the right side still cover with dressing had small ulcerated area on the lateral side of the leg with stage II, 3 ulcerated area with infection on the back of the leg as well for more superficial. Entire leg had more swelling had more irritation discomfort around all the ulcerated site. NEUROLOGICAL: Patient is awake, alert and oriented x3. Cranial nerves 2 through 12 are grossly intact. ASSESSMENT AND PLAN 1. acute respiratory failure: Secondary to congestive heart failure, COPD exacerbation and pneumonia symptom are slightly better this point. 2. COPD without exacerbation. Continue DuoNeb treatments 4 times daily, Symbicort twice daily, sodium Medrol will be decreased to 40 mg every 6 hours. 3. Elevated troponin: Was diagnosed as non-ST PR, ejection fraction is well preserved at this point patient be taking off heparin drip, stress test was done and was negative at this point. 4. Cellulitis of the right lower extremity and left forearm, failed outpatient treatment. Consult with Wound Center, infectious disease, vascular surgery. Continue patient on Zosyn and vancomycin, continues Lasix 40 mg IV twice daily. Blood culture is in process. 5. aspiration pneumonia: With patient's current condition patient will remain on azithromycin and Rocephin 1 dose of vancomycin be done. 6. Rheumatoid arthritis. Continue prednisone 10 mg daily. Hold methotrexate. 7. Hypothyroidism. Continue levothyroxine 100 g daily. 8. History of paroxysmal atrial fibrillation not on anticoagulation. 9. History of hemorrhagic stroke, stable. CODE STATUS: Full code. Objective - Vital Signs Vital signs: Vital Signs Temp 97.6 F 05/09/21 08:00 Pulse 80 05/09/21 11:58 Resp 20 05/09/21 11:43 BP 116/56 05/09/21 11:43 Pulse Ox 95 05/09/21 11:43 Intake & Output 05/08/21 05/09/21 05/09/21 18:59 06:59 18:59 Intake Total 1268 Balance 1268 Weight 93.2 kg 93 kg 92.986 kg Intake: Intake, IV Titration 188 Amount Heparin Sod,Pork in 0.45% 188 NaCl 25,000 unit In 0.45 % NaCl 1 250ml.bag @ 10. 828 UNITS/KG/HR 10 mls/hr IV .Q24H [facility] Rx#: [id number] Oral 1080 Other: Voiding Method Toilet Toilet Toilet Urinal Urinal Urinal # Voids 1 - Labs CBC & Chem 7: 05/09/21 08:04 05/09/21 08:04 Labs: Abnormal Lab Results - Last 24 Hours (Table) 05/08/21 05/08/21 05/08/21 Range/Units 12:30 16:37 20:24 RBC 2.34 L (4.30-5.90) m/uL Hgb 8.0 L (13.0-17.5) gm/dL Hct 25.5 L (39.0-53.0) % MCV 109.0 H (80.0-100.0) fL RDW 17.8 H (11.5-15.5) % Plt Count 122 L (150-450) k/uL Macrocytosis Marked A BUN (9-20) mg/dL Creatinine (0.66-1.25) mg/dL Glucose (74-99) mg/dL POC Glucose (mg/dL) 232 H 231 H (75-99) mg/dL Albumin (3.5-5.0) g/dL 05/09/21 05/09/21 05/09/21 Range/Units 06:04 08:04 08:04 RBC 2.24 L (4.30-5.90) m/uL Hgb 7.6 L (13.0-17.5) gm/dL Hct 23.7 L (39.0-53.0) % MCV 105.9 H (80.0-100.0) fL RDW 18.3 H (11.5-15.5) % Plt Count 132 L (150-450) k/uL Macrocytosis Marked A BUN 60 H (9-20) mg/dL Creatinine 1.32 H (0.66-1.25) mg/dL Glucose 144 H (74-99) mg/dL POC Glucose (mg/dL) 184 H (75-99) mg/dL Albumin 2.7 L (3.5-5.0) g/dL 05/09/21 Range/Units 11:36 RBC (4.30-5.90) m/uL Hgb (13.0-17.5) gm/dL Hct (39.0-53.0) % MCV (80.0-100.0) fL RDW (11.5-15.5) % Plt Count (150-450) k/uL Macrocytosis BUN (9-20) mg/dL Creatinine (0.66-1.25) mg/dL Glucose (74-99) mg/dL POC Glucose (mg/dL) 172 H (75-99) mg/dL Albumin (3.5-5.0) g/dL Microbiology - Last 24 Hours (Table) 05/07/21 01:04 Blood Culture - Preliminary Blood No Growth after 48 hours 05/07/21 01:21 Blood Culture - Preliminary Blood No Growth after 48 hours
[2021-05-09] MEDS: COLLAGENASE 250 UNIT/GM TOPICAL SCH (12:40)
--- NOTE | 2021-05-09 14:13 | P.PN ---
Subjective Progress Note Date: 05/09/21 Principal diagnosis: Acute exacerbation of COPD, and CHF 81-year-old white male patient with past history of COPD, home oxygen, paroxysmal atrial fibrillation, hypertension, hyperlipidemia, rheumatoid arthritis, hypothyroidism, chronic kidney disease stage II, previous history of hemorrhagic stroke treated at [facility]. Patient has been getting treatments for his nonhealing ulcer on his right leg and right leg cellulitis at the wound care clinic for the past several weeks. Patient was seen at the PCPs office with complaints of worsening dyspnea and shortness of breath, he was placed on antibiotics and steroids however his breathing continued to get worse over the past 48 hours and the brought him to the emergency department with severe dyspnea, coughing, wheezing, and patient was in significant respiratory distress and hypoxic and he was placed on BiPAP support on which he currently remains with pressures of 12 and 6 and FiO2 of 50%. His chest x-ray showed pulmonary interstitial edema, with a possibility of acute CHF or acute pneumonia. EKG showed sinus tachycardia. His labs showed white blood cell, 7.2, hemoglobin was 9.5, sodium was 132, potassium is 3.7, chloride was 96, CO2 is 27, B1 is 38, creatinine is 1.1, LFTs were within normal limits, lactic acid was 1.1, patient had troponin elevation with troponins of 0.705, 0.682, 0.637, his CRP was 17.7, and LDH was 636, proBNP was 4890, COVID-19 PCR was negative. Patient was started on Lasix 40 mg every 12 hours, and placed on azithromycin and Rocephin for possibility of community acquired pneumonia. Patient is currently still on BiPAP support with pressures of 12 and 6 and FiO2 of 50%, breathing a bit more comfortably, blood cultures have been sent, pro- calcitonin level is pending, follow-up chest x-ray is pending, The patient is seen today 05/08/2021 in follow-up on the selective care unit. He did require BiPAP at 12/6 and 35% FiO2 last night. He is currently maintaining O2 saturations in the 90s on 5 L/m per nasal cannula. His x-ray continues to show bilateral interstitial lung disease superimposed on COPD. Blood cultures reveal no growth. White count 6.0. Hemoglobin 8.0. Platelet count 122. Glucose 246. Sodium 134. Potassium 4.1. Creatinine 1.63. AST 58. ALT 22. He is continued on DuoNeb inhalations, Symbicort, IV Solu-Medrol. Remains on a heparin drip. Antibiotics in the form of vancomycin, ceftriaxone and azithromycin. On 05/09/2021 patient seen in follow-up on selective care unit. He sitting up in the chair, currently on 5 L, breathing comfortably, complaints of chest pain. Patient had a Lexiscan stress test which was negative. Patient continues on IV Solu-Medrol 60 mg every 6 hours, DuoNeb, Symbicort, and antibiotics including azithromycin, Rocephin, and vancomycin has been added today. Clinically seems to have improved since admission. Has not required BiPAP in the last 2 days. Today's labs have been reviewed, his white blood cell count is 5.4, hemoglobin is 7.6, electrolytes are within normal limits, BUN is 60, creatinine is 1.32, improved renal function. Objective - Vital Signs Vital signs: Vital Signs Temp 97.6 F 05/09/21 08:00 Pulse 80 05/09/21 11:58 Resp 20 05/09/21 11:43 BP 116/56 05/09/21 11:43 Pulse Ox 95 05/09/21 11:43 Intake & Output 05/08/21 05/09/21 05/09/21 18:59 06:59 18:59 Intake Total 1268 240 Output Total 0 Balance 1268 240 Weight 93.2 kg 93 kg 92.986 kg Intake: Intake, IV Titration 188 Amount Heparin Sod,Pork in 0.45% 188 NaCl 25,000 unit In 0.45 % NaCl 1 250ml.bag @ 10. 828 UNITS/KG/HR 10 mls/hr IV .Q24H [facility] Rx#: [id number] Oral 1080 240 Output: Urine 0 Stool 0 Other: Voiding Method Toilet Toilet Toilet Urinal Urinal Urinal # Voids 1 0 # Bowel Movements 0 - Exam GENERAL EXAM: Alert, very pleasant, 81-year-old white male, on 5 L of oxygen, sitting up in the recliner comfortable in no apparent distress. HEAD: Normocephalic/atraumatic. EYES: Normal reaction of pupils, equal size. Conjunctiva pink, sclera white. NOSE: Clear with pink turbinates. THROAT: No erythema or exudates. NECK: No masses, no JVD, no thyroid enlargement, no adenopathy. CHEST: No chest wall deformity. Symmetrical expansion. LUNGS: Equal air entry with minimal crackles at the bases CVS: Regular rate and rhythm, normal S1 and S2, no gallops, no murmurs, no rubs ABDOMEN: Soft, nontender. No hepatosplenomegaly, normal bowel sounds, no guarding or rigidity. EXTREMITIES: No clubbing, no edema, no cyanosis, 2+ pulses and upper and lower extremities. MUSCULOSKELETAL: Muscle strength and tone normal. SPINE: No scoliosis or deformity SKIN: No rashes CENTRAL NERVOUS SYSTEM: Alert and oriented -3. No focal deficits, tone is normal in all 4 extremities. PSYCHIATRIC: Alert and oriented -3. Appropriate affect. Intact judgment and insight. - Labs CBC & Chem 7: 05/09/21 08:04 05/09/21 08:04 Labs: Abnormal Lab Results - Last 24 Hours (Table) 05/08/21 05/08/21 05/09/21 Range/Units 16:37 20:24 06:04 RBC (4.30-5.90) m/uL Hgb (13.0-17.5) gm/dL Hct (39.0-53.0) % MCV (80.0-100.0) fL RDW (11.5-15.5) % Plt Count (150-450) k/uL Macrocytosis BUN (9-20) mg/dL Creatinine (0.66-1.25) mg/dL Glucose (74-99) mg/dL POC Glucose (mg/dL) 232 H 231 H 184 H (75-99) mg/dL Albumin (3.5-5.0) g/dL 05/09/21 05/09/21 05/09/21 Range/Units 08:04 08:04 11:36 RBC 2.24 L (4.30-5.90) m/uL Hgb 7.6 L (13.0-17.5) gm/dL Hct 23.7 L (39.0-53.0) % MCV 105.9 H (80.0-100.0) fL RDW 18.3 H (11.5-15.5) % Plt Count 132 L (150-450) k/uL Macrocytosis Marked A BUN 60 H (9-20) mg/dL Creatinine 1.32 H (0.66-1.25) mg/dL Glucose 144 H (74-99) mg/dL POC Glucose (mg/dL) 172 H (75-99) mg/dL Albumin 2.7 L (3.5-5.0) g/dL Microbiology - Last 24 Hours (Table) 05/07/21 01:04 Blood Culture - Preliminary Blood No Growth after 48 hours 05/07/21 01:21 Blood Culture - Preliminary Blood No Growth after 48 hours Assessment and Plan Plan: Assessment: #1. Acute on chronic hypoxic respiratory failure related to what appears to be acute exacerbation of CHF with diastolic dysfunction, echocardiogram showed EF of 60-65%, moderate concentric LVH, mild TR, trace MR, mild to moderate pulmonary hypertension with right-sided pressure of 45.6 mmHg. Possibility of underlying healthcare acquired pneumonia is not completely excluded, patient has been treated at the wound care center for nonhealing right extremity wounds and right extremity cellulitis. COVID-19 PCR was negative #2. Rule out non-ST elevated myocardial infarction, patient had a negative Lexiscan stress test today on 05/09/2021 #3. Advanced COPD on home oxygen #4. Hypertension #5. Hyperlipidemia #6. Rheumatoid arthritis #7. Hypothyroidism #8. Paroxysmal atrial fibrillation #9. Previous history of hemorrhagic stroke #10. Chronic kidney disease stage II #11. History of tobacco use #12. Nonhealing right leg ulcer and right leg cellulitis, being treated at the wound care center for the past several months Plan: Continue current medical management Today's Lexiscan stress test results have been noted, negative Breathing is improving Continue current antibiotics, steroids and breathing treatments Wean FiO2 Increase activity as tolerated Follow-up chest x-ray in the morning I performed a history & physical examination of the patient and discussed their management with my nurse practitioner, Destiny Christiansen. I reviewed the nurse practitioner's note and agree with the documented findings and plan of care. Lung sounds are positive for dim throughout the lung mi. The findings and the impression was discussed with the patient. I attest to the documentation by the nurse practitioner. Time with Patient: Less than 30
--- NOTE | 2021-05-09 14:25 | EST ---
EXERCISE STRESS DATE OF SERVICE: 05/09/21 AGE: 81 SEX: M HT: 5'10" WT: 205 lbs. PROTOCOL: Lexiscan STAGE: NA DURATION OF EXERCISE: NA HEART RATE REST: 68 BLOOD PRESSURE REST: 136/54 MAXIMUM HEART RATE ACHIEVED: 100 MAXIMUM BLOOD PRESSURE: 136/54 85% MPHR: 119 100% MPHR: 140 METS: NA CLINICAL INFORMATION: Shortness of breath RESULTS: Baseline rhythm is sinus mechanism. Rate of 68, normal axis and intervals. Occasional PACs. Baseline blood pressure 136/54 mmHg. Patient received injection of Lexiscan. Electrocardiograph monitoring revealed occasional PVCs. There was no evidence of diagnostic ischemic ST deviation. Cardiolite was injected per protocol. CONCLUSION: 1. Nondiagnostic electrocardiograph stress testing. 2. Nuclear images will be reported separately. MMODL / IJN: [id number] /
[2021-05-09 15:40] VITALS: BMI 29.4
[2021-05-09 16:36] LABS: Glucose,Whole Blood 206 mg/dL (75-99)
[2021-05-09 19:35] LABS: Glucose,Whole Blood 248 mg/dL (75-99)
[2021-05-09] MEDS: AZITHROMYCIN 500 MG in SODIUM CHLORIDE 0.9% 250 ML IVPB SCH (21:26)
[2021-05-10 03:43] VITALS: RESP 18
[2021-05-10] MEDS ORDERED: VANCOMYCIN TROUGH DUE 1 EACH MISC MISCELLANE ONE (05:00)
[2021-05-10 05:34] LABS: Glucose,Whole Blood 173 mg/dL (75-99)
[2021-05-10] MEDS: VANCOMYCIN 1,750 MG in SODIUM CHLORIDE 0.9% 500 ML 500 ML IVPB SCH (06:32)
[2021-05-10] MEDS: LEVOTHYROXINE 100 MCG TAB PO SCH (06:33)
[2021-05-10] MEDS: INSULIN ASPART (NovoLOG) 100 UNIT/ML VIAL SQ SCH ×2 (06:33→12:18)
[2021-05-10] MEDS: methylPREDNISolone SOD SUCCI 125 MG/2 ML VIAL IV SCH ×2 (06:33→12:18)
[2021-05-10] MEDS: SYMBICORT 80-4.5 MCG INHALER INHALATION SCH (07:35)
[2021-05-10] MEDS: IPRATROPIUM-ALBUTEROL 3 ML NEB INHALATION SCH ×2 (07:35→11:09)
--- NOTE | 2021-05-10 07:50 | XR ---
EXAMINATION TYPE: XR chest 1V portable DATE OF EXAM: 05/10/2021 CLINICAL HISTORY: Difficulty breathing progress study. Pneumonia and CHF. TECHNIQUE: Single AP portable upright view of the chest is obtained. COMPARISON: Chest x-ray from 2 days earlier and older studies. FINDINGS: Reticular increased markings bilaterally remain present. Lateral right apical pleural thic kening again seen. Cardiac silhouette size is stable and upper limits of normal. Osseous structures a re intact. IMPRESSION: Persistent bilateral interstitial edema and/or infiltrates on background chronic emphysem atous change. No significant change from most recent study.
[2021-05-10 08:09] VITALS: TEMP 98.1
[2021-05-10] MEDS: ASPIRIN 81 MG PO SCH (08:11)
[2021-05-10] MEDS: FOLIC ACID 1 MG TAB PO SCH (08:11)
[2021-05-10] MEDS: COLLAGENASE 250 UNIT/GM TOPICAL SCH (08:11)
[2021-05-10] MEDS: PANTOPRAZOLE 40 MG TABLET PO SCH (08:11)
[2021-05-10] MEDS: CHOLECALCIFEROL 25 MCG (1000 IU) TABLET PO SCH (08:11)
[2021-05-10] MEDS: ASCORBIC ACID 500 MG TAB PO SCH (08:11)
[2021-05-10] MEDS ORDERED: ATORVASTATIN 40 MG TAB PO SCH (10:15)
--- NOTE | 2021-05-10 11:08 | P.CONS ---
History of Present Illness - Reason for Consult Consult date: 05/10/21 wound care - History of Present Illness This is an 81-year-old gentleman known to the wound care center who follows with Dr. Matias. He has been utilizing collagen silver to his ulcerations. Original cause of wound was Blister. The wound is currently classified as a Full Thickness Without Exposed Support Structures wound with etiology of Auto-immune and is located on the Right,Lateral Lower Leg. The wound measures 9.1cm length x 3.8cm width x 0.1cm depth; 27.159cm^2 area and 2.716cm^3 volume. There is no tunneling or undermining noted. There is a medium amount of serosanguineous drainage noted. The wound margin is well defined and not attached to the wound base. There is large (67-100%) red, pink granulation within the wound bed. There is a small (1-33%) amount of necrotic tissue within the wound bed including Adherent Slough. The periwound skin appearance exhibited: Scarring, Hemosiderin Staining. The periwound skin appearance did not exhibit: Callus, Crepitus, Excoriation, Induration, Rash, Dry/Scaly, Maceration, Atrophie Chrissy, Cyanosis, Ecchymosis, Mottled, Pallor, Rubor, Erythema. Periwound temperature was noted as No Abnormality. The periwound has tenderness on palpation. Original cause of wound was Blister. The wound is currently classified as a Full Thickness Without Exposed Support Structures wound with etiology of Auto-immune and is located on the Right,Posterior Lower Leg. The wound measures 4.5cm length x 3.9cm width x 0.1cm depth; 13.784cm^2 area and 1.378cm^3 volume. There is no tunneling or undermining noted. There is a large amount of serous drainage noted. The wound margin is well defined and not attached to the wound base. There is large (67-100%) pink granulation within the wound bed. There is a small (1-33%) amount of necrotic tissue within the wound bed including Adherent Slough. The periwound skin appearance exhibited: Excoriation, Scarring, Hemosiderin Staining. The periwound skin appearance did not exhibit: Callus, Crepitus, Induration, Rash, Dry/Scaly, Maceration, Atrophie Chrissy, Cyanosis, Ecchymosis, Mottled, Pallor, Rubor, Erythema. Review Of Systems: Constitutional: No fever, no chills, no night sweats. No weight change. No weakness, fatigue or lethargy. No daytime sleepiness. Integumentary:reports wounds, no lesions. No rash or pruritus. No unusual bruising. No change in hair or nails. Physical exam: General Appearance: Alert, cooperative, no distress, appears stated age. Skin: See HPI all other Skin color, texture, tugor normal, no rashes or lesions. Neurologic: Alert oriented x3 Assessment: 1. 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 Apply collagen silver, saline moistened gauze, dry cough, rolled gauze secured paper tape. Utilize Tubigrip. Patient returned to the wound care center on 05/18 at 945. Thank you for the consultation any questions please contact the wound care center DNP note has been reviewed and discussed with Dr. Matias and the impression an d plan of care has been directed as dictated. Past Medical History Past Medical History: COPD, Pneumonia, Rheumatoid Arthritis (RA) Additional Past Medical History / Comment(s): IP 02/08/21 CELLULITIS OF RIGHT LOWER LEG. Peripheral edema, USE. O2 prn at 2l. Brain bleed History of Any Multi-Drug Resistant Organisms: None Reported Past Surgical History: Orthopedic Surgery Additional Past Surgical History / Comment(s): left carpal tunnel, elbow sx. Cataracts Past Anesthesia/Blood Transfusion Reactions: No Reported Reaction Past Psychological History: No Psychological Hx Reported Smoking Status: Former smoker Past Alcohol Use History: Occasional Additional Past Alcohol Use History / Comment(s): quit smoking approx 1998, smok ed 1/2ppd from teens Past Drug Use History: None Reported - Past Family History Father History Unknown: Yes Medications and Allergies Home Medications Medication Instructions Recorded Confirmed Type Levothyroxine Sodium [Synthroid] 100 mcg PO DAILY 08/27/18 05/07/21 History metHOTREXate sodium [Methotrexate] 20 mg PO CHOW 08/27/18 05/07/21 History Ascorbic Acid [Vitamin C] 500 mg PO DAILY 02/02/19 05/07/21 History Cholecalciferol [Vitamin D3 (25 1,000 unit PO DAILY 02/02/19 05/07/21 History Mcg = 1000 Iu)] Ipratropium-Albuterol Nebulize 3 ml INHALATION RT-QID #120 ml 01/17/20 05/07/21 Rx [Duoneb 0.5 mg-3 mg/3 ml Soln] Collagenase [Santyl] 1 applic TOPICAL DAILY #30 gm 02/10/21 05/07/21 Rx Fluticasone/Umeclidin/Vilanter 1 puff INHALATION RT-DAILY 03/14/21 05/07/21 History [Trelegy Ellipta 100-62.5-25] Furosemide [Lasix] 20 mg PO DAILY 03/14/21 05/07/21 History HYDROcodone/APAP 5-325MG [[place] 1 tab PO Q6H PRN 03/14/21 05/07/21 History 5-325] Folic Acid 0.8 mg PO DAILY 05/07/21 05/07/21 History Ibuprofen [Advil] 200 mg PO BID PRN 05/07/21 05/07/21 History Rosuvastatin [Crestor] 10 mg PO DAILY 05/07/21 05/07/21 History Aspirin 81 mg PO DAILY tab 05/10/21 Rx Doxycycline Hyclate 100 mg PO BID #20 tab 05/10/21 Rx predniSONE 0 mg PO DIRECTED #30 tab 05/10/21 Rx Allergies Allergy/AdvReac Type Severity Reaction Status Date / Time No Known Allergies Allergy Verified 05/07/21 08:53 Physical Exam Vitals: Vital Signs Temp Pulse Pulse Resp BP BP Pulse Ox 05/10/21 08:00 98.1 F 76 18 145/62 95 05/10/21 07:47 70 05/10/21 07:35 69 98 05/10/21 05:56 96 05/10/21 03:20 97.9 F 75 18 119/56 96 05/09/21 23:35 97.9 F 80 20 114/68 97 05/09/21 20:22 72 05/09/21 20:12 70 05/09/21 19:43 97.6 F 70 20 117/65 94 L 05/09/21 16:00 97.4 F L 79 20 115/62 97 05/09/21 15:20 80 05/09/21 15:11 78 05/09/21 14:00 80 20 05/09/21 11:58 80 05/09/21 11:48 76 05/09/21 11:43 80 20 116/56 95 Intake and Output 05/09/21 05/10/21 05/10/21 22:59 06:59 14:59 Intake Total 240 350 240 Balance 240 350 240 Intake: Intake, IV Titration 350 Amount Azithromycin 500 mg In 250 Sodium Chloride 0.9% 250 ml @ 250 mls/hr IVPB DAILY@2100 [facility] Rx#: [id number] cefTRIAXone 2 gm In 100 Sodium Chloride 0.9% 50 ml @ 100 mls/hr IVPB Q24H [facility] Rx#:[id number] Oral 240 240 Other: Voiding Method Toilet Urinal # Voids 2 Weight 92.986 kg 93.7 kg Results CBC & Chem 7: 05/09/21 08:04 05/09/21 08:04 Labs: Abnormal Lab Results - Last 24 Hours (Table) 05/09/21 05/09/21 05/09/21 Range/Units 08:04 11:36 16:35 RBC 2.24 L (4.30-5.90) m/uL Hgb 7.6 L (13.0-17.5) gm/dL Hct 23.7 L (39.0-53.0) % MCV 105.9 H (80.0-100.0) fL RDW 18.3 H (11.5-15.5) % Plt Count 132 L (150-450) k/uL Macrocytosis Marked A POC Glucose (mg/dL) 172 H 206 H (75-99) mg/dL 05/09/21 05/10/21 Range/Units 19:34 05:33 RBC (4.30-5.90) m/uL Hgb (13.0-17.5) gm/dL Hct (39.0-53.0) % MCV (80.0-100.0) fL RDW (11.5-15.5) % Plt Count (150-450) k/uL Macrocytosis POC Glucose (mg/dL) 248 H 173 H (75-99) mg/dL Microbiology - Last 24 Hours (Table) 05/07/21 01:04 Blood Culture - Preliminary Blood No Growth after 72 hours 05/07/21 01:21 Blood Culture - Preliminary Blood No Growth after 72 hours Assessment and Plan (1) Nonhealing ulcer of multiple sites of right lower extremity with fat layer exposed Current Visit: No Status: Acute Code(s): L97.912 - NON-PRS CHR ULC UNSP PRT OF R LOW LEG W FAT LAYER EXPOSED SNOMED Code(s): 03114547
--- NOTE | 2021-05-10 11:20 | P.PN ---
Subjective Progress Note Date: 05/10/21 81-year-old white male patient with past history of COPD, home oxygen, paroxysmal atrial fibrillation, hypertension, hyperlipidemia, rheumatoid arthritis, hypothyroidism, chronic kidney disease stage II, previous history of hemorrhagic stroke treated at [facility]. Patient has been getting treatments for his nonhealing ulcer on his right leg and right leg cellulitis at the wound care clinic for the past several weeks. Patient was seen at the PCPs office with complaints of worsening dyspnea and shortness of breath, he was placed on antibiotics and steroids however his breathing continued to get worse over the past 48 hours and the brought him to the emergency department with severe dyspnea, coughing, wheezing, and patient was in significant respiratory distress and hypoxic and he was placed on BiPAP support on which he currently remains with pressures of 12 and 6 and FiO2 of 50%. His chest x-ray showed pulmonary interstitial edema, with a possibility of acute CHF or acute pneumonia. EKG showed sinus tachycardia. His labs showed white blood cell, 7.2, hemoglobin was 9.5, sodium was 132, potassium is 3.7, chloride was 96, CO2 is 27, B1 is 38, creatinine is 1.1, LFTs were within normal limits, lactic acid was 1.1, patient had troponin elevation with troponins of 0.705, 0.682, 0.637, his CRP was 17.7, and LDH was 636, proBNP was 4890, COVID-19 PCR was negative. Patient was started on Lasix 40 mg every 12 hours, and placed on azithromycin and Rocephin for possibility of community acquired pneumonia. Patient is currently still on BiPAP support with pressures of 12 and 6 and FiO2 of 50%, breathing a bit more comfortably, blood cultures have been sent, pro- calcitonin level is pending, follow-up chest x-ray is pending, The patient is seen today 05/08/2021 in follow-up on the selective care unit. He did require BiPAP at 12/6 and 35% FiO2 last night. He is currently maintaining O2 saturations in the 90s on 5 L/m per nasal cannula. His x-ray continues to show bilateral interstitial lung disease superimposed on COPD. Blood cultures reveal no growth. White count 6.0. Hemoglobin 8.0. Platelet count 122. Glucose 246. Sodium 134. Potassium 4.1. Creatinine 1.63. AST 58. ALT 22. He is continued on DuoNeb inhalations, Symbicort, IV Solu-Medrol. Remains on a heparin drip. Antibiotics in the form of vancomycin, ceftriaxone and azithromycin. On 05/09/2021 patient seen in follow-up on selective care unit. He sitting up in the chair, currently on 5 L, breathing comfortably, complaints of chest pain. Patient had a Lexiscan stress test which was negative. Patient continues on IV Solu-Medrol 60 mg every 6 hours, DuoNeb, Symbicort, and antibiotics including azithromycin, Rocephin, and vancomycin has been added today. Clinically seems to have improved since admission. Has not required BiPAP in the last 2 days. Today's labs have been reviewed, his white blood cell count is 5.4, hemoglobin is 7.6, electrolytes are within normal limits, BUN is 60, creatinine is 1.32, improved renal function. The patient is seen today 05/10/2021 in follow-up on the selective care unit. He is currently sitting up in a chair at the bedside. Awake and alert in no acute distress. He needs to maintain O2 saturations in the mid 90s on 5 L/m per nasal cannula. He is afebrile. Hemodynamically stable. Blood cultures reveal no growth. Blood glucose 173. Vanco trough 15.1. He remains on vancomycin, ceftriaxone, azithromycin. Do not albuterol, Symbicort, IV Solu-Medrol. This x-ray continues to show persistent bilateral infiltrates. Chronic emphysema. Objective - Vital Signs Vital signs: Vital Signs Temp 98.1 F 05/10/21 08:00 Pulse 79 05/10/21 11:09 Resp 18 05/10/21 08:00 BP 145/62 05/10/21 08:00 Pulse Ox 95 05/10/21 08:00 Intake & Output 05/09/21 05/10/21 05/10/21 18:59 06:59 18:59 Intake Total 480 350 240 Output Total 0 Balance 480 350 240 Weight 92.986 kg 93.7 kg Intake: Intake, IV Titration 350 Amount Azithromycin 500 mg In 250 Sodium Chloride 0.9% 250 ml @ 250 mls/hr IVPB DAILY@2100 [facility] Rx#: [id number] cefTRIAXone 2 gm In 100 Sodium Chloride 0.9% 50 ml @ 100 mls/hr IVPB Q24H [facility] Rx#:[id number] Oral 480 240 Output: Urine 0 Stool 0 Other: Voiding Method Toilet Toilet Urinal Urinal # Voids 0 2 # Bowel Movements 0 - Exam GENERAL EXAM: Alert, pleasant, 81-year-old male patient, alternating BiPAP 12/ 6 and FiO2 of 35% with O2 at 5 L nasal cannula, comfortable in no apparent distress. HEAD: Normocephalic/atraumatic. EYES: Normal reaction of pupils, equal size. Conjunctiva pink, sclera white. NOSE: Clear with pink turbinates. THROAT: No erythema or exudates. NECK: No masses, no JVD, no thyroid enlargement, no adenopathy. CHEST: No chest wall deformity. Symmetrical expansion. LUNGS: Equal air entry with diffuse crackles, and diminished breath sounds at the bases CVS: Regular rate and rhythm, normal S1 and S2, no gallops, no murmurs, no rubs ABDOMEN: Soft, nontender. No hepatosplenomegaly, normal bowel sounds, no guarding or rigidity. EXTREMITIES: No clubbing, mild nonpitting edema, no cyanosis, 2+ pulses and upper and lower extremities. MUSCULOSKELETAL: Muscle strength and tone normal. SPINE: No scoliosis or deformity SKIN: No rashes. She has right lower extremity cellulitis, and right leg wound CENTRAL NERVOUS SYSTEM: No focal deficits, tone is normal in all 4 extremities. PSYCHIATRIC: Alert and oriented -3. Appropriate affect. Intact judgment and insight. - Labs CBC & Chem 7: 05/09/21 08:04 05/09/21 08:04 Labs: Abnormal Lab Results - Last 24 Hours (Table) 05/09/21 05/09/21 05/09/21 Range/Units 08:04 11:36 16:35 RBC 2.24 L (4.30-5.90) m/uL Hgb 7.6 L (13.0-17.5) gm/dL Hct 23.7 L (39.0-53.0) % MCV 105.9 H (80.0-100.0) fL RDW 18.3 H (11.5-15.5) % Plt Count 132 L (150-450) k/uL Macrocytosis Marked A POC Glucose (mg/dL) 172 H 206 H (75-99) mg/dL 05/09/21 05/10/21 Range/Units 19:34 05:33 RBC (4.30-5.90) m/uL Hgb (13.0-17.5) gm/dL Hct (39.0-53.0) % MCV (80.0-100.0) fL RDW (11.5-15.5) % Plt Count (150-450) k/uL Macrocytosis POC Glucose (mg/dL) 248 H 173 H (75-99) mg/dL Microbiology - Last 24 Hours (Table) 05/07/21 01:04 Blood Culture - Preliminary Blood No Growth after 72 hours 05/07/21 01:21 Blood Culture - Preliminary Blood No Growth after 72 hours Assessment and Plan Assessment: 1 Acute on chronic hypoxic respiratory failure related to what appears to be acute exacerbation of CHF with diastolic dysfunction, echocardiogram showed EF of 60-65%, moderate concentric LVH, mild TR, trace MR, mild to moderate pulmonary hypertension with right-sided pressure of 45.6 mmHg. Possibility of underlying healthcare acquired pneumonia is not completely excluded, patient has been treated at the wound care center for nonhealing right extremity wounds and right extremity cellulitis. COVID-19 PCR was negative 2 Rule out non-ST elevated myocardial infarction, stress test revealed mode and the suspicious reversibility but a large fixed defect in the inferior wall and smaller fixed defect in the basal anterolateral wall. Ejection fraction 43%. 3 Advanced COPD on home oxygen at 4 L/m per nasal cannula 4 Hypertension 5 Hyperlipidemia 6 Rheumatoid arthritis 7 Hypothyroidism 8 Paroxysmal atrial fibrillation 9 Previous history of hemorrhagic stroke 10 Chronic kidney disease stage II 11 History of tobacco use 12 Nonhealing right leg ulcer and right leg cellulitis, being treated at the wound care center for the past several months Plan: The patient was seen and evaluated by Dr. Erazo Chest x-ray and labs reviewed Discontinue vancomycin Continue ceftriaxone and azithromycin for now Continue bronchodilators and IV Solu-Medrol Probable home in the a.m. We will continue to follow I, the cosigning physician, performed a history & physical examination of the patient. Lungs sounds with crackles in the bilateral bases Maintaining good O2 saturations in the 90s on 5 liters per minute per nasal cannula. I discussed the assessment and plan of care with my nurse practitioner, Jsoi Valdez. I attest to the above note as dictated by her.
[2021-05-10 11:39] LABS: Glucose,Whole Blood 188 mg/dL (75-99)
--- NOTE | 2021-05-10 12:19 | P.PN ---
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 Patient states he has been feeling fatigued and mildly short of breath or last 3 days. He states he was overdoing it working outside and then has felt fairly fatigued since that time. He denies any fevers, chills or cough. He denies any orthopnea or lower extremity edema however does have significant dyspnea. He initially denied any chest pain however on further questioning he had some left- sided chest pain which she says felt like rib pain worse with deep inspiration. He believes he had a stress test approximately 10 years ago, no history of heart catheterization, no history of paroxysmal A. fib however other consults documented this. He does have anemia however no hematochezia or melena. His CRP is very elevated however may be related to rheumatoid arthritis. His rheumatoid arthritis appears in control. He did have prior lower extremity ultrasound for his nonhealing ulcer however showed normal DAVID and waveforms bilaterally. He follows with Dr. Matias for the nonhealing wound which is improving. EKG shows sinus tachycardia with minimal ST depressions laterally. Echo shows normal EF 60-65%, moderate LVH, RVSP 45. Chest x-ray consistent with vascular congestion. 05/10/2021 Patient seen and examined sitting up her recliner chair with his at the bedside. He has no symptoms of chest discomfort or shortness of breath. He denies palpitations or dizziness. Lexiscan stress test revealed no suspicious reversibility with a large fixed defect of the inferior wall and smaller fixed defect around the mid to basal anterolateral wall with LV EF of 43%. Blood pressure 145/62 heart rate 76 afebrile maintaining oxygen saturation on nasal cannula. PHYSICAL EXAMINATION Vital signs reviewed. CONSTITUTIONAL: No apparent distress. HEENT: Head is normocephalic. Pupils are equal, round. Sclerae anicteric. Mucous membranes of the mouth are moist. No JVD. No carotid bruit. CHEST EXAMINATION: + Bilateral crackles at bases as well as expiratory wheeze HEART EXAMINATION: Regular rate and rhythm. S1, S2 heard. No murmurs, gallops or rub. ABDOMEN: Soft, nontender. Positive bowel sounds. EXTREMITIES: 2+ peripheral pulses, no lower extremity edema and no calf tenderness. NEUROLOGIC EXAMINATION: Patient is awake, alert and oriented x3. ASSESSMENT Non-STEMI, Type II due to oxygen supply demand mismatch. Acute on chronic diastolic heart failure Moderate LVH Pulmonary hypertension Hypertension COPD on home oxygen Anemia, denies any hematochezia or melena CKD Right lower extremity cellulitis Aspiration pneumonia PLAN Ongoing antibiotic therapy per the primary care and pulmonary team. Add atorvastatin to his daily regimen. Continue aspirin. No plans for further cardiac testing at this time. Follow-up with Dr. Guardado upon discharge. We will follow along as needed. Nurse Practitioner note has been reviewed, I agree with a documented findings and plan of care. Patient was seen and examined. Objective - Vital Signs Vital signs: Vital Signs Temp 98.1 F 05/10/21 08:00 Pulse 76 05/10/21 08:00 Resp 18 05/10/21 08:00 BP 145/62 05/10/21 08:00 Pulse Ox 95 05/10/21 08:00 Intake & Output 05/09/21 05/10/21 05/10/21 18:59 06:59 18:59 Intake Total 480 350 240 Output Total 0 Balance 480 350 240 Weight 92.986 kg 93.7 kg Intake: Intake, IV Titration 350 Amount Azithromycin 500 mg In 250 Sodium Chloride 0.9% 250 ml @ 250 mls/hr IVPB DAILY@2100 [facility] Rx#: [id number] cefTRIAXone 2 gm In 100 Sodium Chloride 0.9% 50 ml @ 100 mls/hr IVPB Q24H [facility] Rx#:[id number] Oral 480 240 Output: Urine 0 Stool 0 Other: Voiding Method Toilet Toilet Urinal Urinal # Voids 0 2 # Bowel Movements 0 - Labs CBC & Chem 7: 05/09/21 08:04 05/09/21 08:04 Labs: Abnormal Lab Results - Last 24 Hours (Table) 05/09/21 05/09/21 05/09/21 Range/Units 08:04 11:36 16:35 RBC 2.24 L (4.30-5.90) m/uL Hgb 7.6 L (13.0-17.5) gm/dL Hct 23.7 L (39.0-53.0) % MCV 105.9 H (80.0-100.0) fL RDW 18.3 H (11.5-15.5) % Plt Count 132 L (150-450) k/uL Macrocytosis Marked A POC Glucose (mg/dL) 172 H 206 H (75-99) mg/dL 05/09/21 05/10/21 Range/Units 19:34 05:33 RBC (4.30-5.90) m/uL Hgb (13.0-17.5) gm/dL Hct (39.0-53.0) % MCV (80.0-100.0) fL RDW (11.5-15.5) % Plt Count (150-450) k/uL Macrocytosis POC Glucose (mg/dL) 248 H 173 H (75-99) mg/dL Microbiology - Last 24 Hours (Table) 05/07/21 01:04 Blood Culture - Preliminary Blood No Growth after 72 hours 05/07/21 01:21 Blood Culture - Preliminary Blood No Growth after 72 hours
[2021-05-10 12:36] VITALS: BP 114/57; PULSE 78
--- NOTE | 2021-05-10 14:17 | P.DS ---
Providers Date of admission: 05/07/21 00:39 Expected date of discharge: 05/10/21 Attending physician: Lexa Mccormack Consults: 05/07/21 00:38 Consult Physician Routine Consulting Provider: Earlene Voss Consult Reason/Comments: known Do you want consulting provider notified?: Yes Consult Physician Routine Consulting Provider: Shaun Billings Consult Reason/Comments: chf Do you want consulting provider notified?: Yes 05/07/21 09:55 Consult Physician Routine Consulting Provider: J Luis Matias Consult Reason/Comments: R leg Wound Do you want consulting provider notified?: Yes Primary care physician: [facility] Course: HISTORY OF PRESENT ILLNESS This is a 80-year-old male one of my patient for the last 20 years with past medical history of COPD, hypertension, hyperlipidemia, rheumatoid arthritis, hypothyroidism, paroxysmal atrial fibrillation, hemorrhagic stroke treated at [facility], chronic kidney disease stage II, remote history of tobacco use. patient is still been treated for right leg cellulitis and ulcerated area has not healed for several weeks has been seen at the wound clinic on regular basis has not been on any IV or oral antibiotics. Patient presented to the office this past week complaining of worsening dyspnea and shortness of breath was started on higher dose of steroid along with oral antibiotics he become much worse over the last 48 hours his brought him to demurs department this morning with severe dyspnea and shortness of breath with cough wheezes found to be in extreme respiratory distress with extremely low pulse oximetry despite having to be on nasal cannula oxygen at home. Patient was started on BiPAP but higher flow to his pulse ox corrected to the low 90, chest x-ray showed bilateral infiltrate with early pulmonary edema patient was having inspiratory expiratory wheezes was diagnosed with COPD exacerbation along with respiratory failure possible congestive heart failure exacerbation with mildly elevated troponin could be non-ST RI in the last 48 hours, patient chest x-ray showed picture of infiltrate in the right lower lobe along with venous congestion similar to heart failure his BNP is mildly elevated and troponin was mildly elevated as well. 05/08: Patient was seen cardiology yesterday with a current presentation and elevated troponin was diagnosed with non-ST RI, patient was started on heparin drip. His shortness of breath and severe congestion has improved significantly overnight patient is doing slightly but better surprisingly had significant drop in his hemoglobin this morning compared to his baseline patient is a high risk for bleed as well especially with his intercurrent hemorrhage should be very careful making decision on anticoagulation not. Patient be taking off heparin drip at this point after contacting cardiology and if intervention or any other testing will be done on Sunday to be determined. Review his echocardiogram still showed ejection fraction of 60-65%. 05/09: Patient is doing slightly better today significant decreased shortness of breath compared to yesterday. Ended up going for stress test with Lexiscan result came back negative except his ejection fraction on it significantly decreased compared to his echo, something to be reviewed by cardiology, also his anemia had settled down hemoglobin is at 7.6. Kidney function is doing slightly better last 24 hours also patient still seen wound care for his right leg. 05/10: Patient is sitting up in the recliner. He denies any shortness of breath. He thinks his breathing is back to baseline. Patient has been followed by pulmonary medicine and cardiology. Patient has been seen by the wound healing Center regarding chronic ulcer to the right lower extremity with plan for collagen silver, saline moistened gauze roll gauze and to return to the wound care center on 05/18. Patient is also been seen by cardiology and added atorvastatin and plan for Dr. Guardado at discharge. Patient is anxious to be discharge home today. He has been afebrile, heart rate 79, blood pressure 114/57, pulse ox 95% on 5 L nasal cannula. Blood sugars are running between 173 and 248. Patient will be discharged home in stable condition. DISCHARGE DIAGNOSES 1. acute on chronic respiratory failure Secondary to acute diastolic heart failure, COPD, possible pneumonia not completely ruled out. 2. COPD without exacerbation. 3. Elevated troponin: Was diagnosed as non-ST RI. 4. Cellulitis of the right lower extremity and left forearm, failed outpatient treatment. 5. aspiration pneumonia 6. Rheumatoid arthritis. 7. Hypothyroidism. 8. History of paroxysmal atrial fibrillation not on anticoagulation. 9. History of hemorrhagic stroke, stable. DISCHARGE PLAN Home with [facility] Impression and plan of care have been directed as dictated by the signing physician. Delia Tejada nurse practitioner acting as scribe for signing physician. Patient Condition at Discharge: Good Plan - Discharge Summary Discharge Rx Participant: No New Discharge Prescriptions: New predniSONE 0 mg PO DIRECTED #30 tab Aspirin 81 mg PO DAILY tab Doxycycline Hyclate 100 mg PO BID #20 tab Continue metHOTREXate sodium [Methotrexate] 20 mg PO CHOW Levothyroxine Sodium [Synthroid] 100 mcg PO DAILY Cholecalciferol [Vitamin D3 (25 Mcg = 1000 Iu)] 1,000 unit PO DAILY Ascorbic Acid [Vitamin C] 500 mg PO DAILY Ipratropium-Albuterol Nebulize [Duoneb 0.5 mg-3 mg/3 ml Soln] 3 ml INHALATION RT-QID #120 ml Fluticasone/Umeclidin/Vilanter [Trelegy Ellipta 100-62.5-25] 1 puff INHALA TION RT-DAILY Furosemide [Lasix] 20 mg PO DAILY HYDROcodone/APAP 5-325MG [[place] 5-325] 1 tab PO Q6H PRN PRN Reason: Pain Ibuprofen [Advil] 200 mg PO BID PRN PRN Reason: Pain Folic Acid 0.8 mg PO DAILY Collagenase [Santyl] 1 applic TOPICAL DAILY #30 gm Rosuvastatin [Crestor] 10 mg PO DAILY Discontinued hydroCHLOROthiazide 25 mg PO DAILY predniSONE 10 mg PO DAILY Discharge Medication List Levothyroxine Sodium [Synthroid] 100 mcg PO DAILY 08/27/18 [History] metHOTREXate sodium [Methotrexate] 20 mg PO CHOW 08/27/18 [History] Ascorbic Acid [Vitamin C] 500 mg PO DAILY 02/02/19 [History] Cholecalciferol [Vitamin D3 (25 Mcg = 1000 Iu)] 1,000 unit PO DAILY 02/02/19 [History] Ipratropium-Albuterol Nebulize [Duoneb 0.5 mg-3 mg/3 ml Soln] 3 ml INHALATION RT-QID #120 ml 01/17/20 [Rx] Collagenase [Santyl] 1 applic TOPICAL DAILY #30 gm 02/10/21 [Rx] Fluticasone/Umeclidin/Vilanter [Trelegy Ellipta 100-62.5-25] 1 puff INHALATION RT-DAILY 03/14/21 [History] Furosemide [Lasix] 20 mg PO DAILY 03/14/21 [History] HYDROcodone/APAP 5-325MG [[place] 5-325] 1 tab PO Q6H PRN 03/14/21 [History] Folic Acid 0.8 mg PO DAILY 05/07/21 [History] Ibuprofen [Advil] 200 mg PO BID PRN 05/07/21 [History] Rosuvastatin [Crestor] 10 mg PO DAILY 05/07/21 [History] Aspirin 81 mg PO DAILY tab 05/10/21 [Rx] Doxycycline Hyclate 100 mg PO BID #20 tab 05/10/21 [Rx] predniSONE 0 mg PO DIRECTED #30 tab 05/10/21 [Rx] Follow up Appointment(s)/Referral(s): [facility], [NON-STAFF] - Mani Guardado DO [STAFF PHYSICIAN] - 2 Weeks (Office will call will date and time for appointment ) Lexa Mccormack MD [Primary Care Provider] - 1 Week Earlene Voss MD [STAFF PHYSICIAN] - 05/25/21 10:00 am Patient Instructions/Handouts: COPD (Chronic Obstructive Pulmonary Disease) (DC), Pneumonia (DC) Discharge Disposition: HOME WITH HOME HEALTH SERVICES
== END 2021-05-10 15:09 | disposition home health service (06) | DRG 280 ==
LOC: EC 22:22 → 3SCARD 05-07 00:39
PROVIDERS: ADMIT Internal Medicine Geriatric Medicine; ATTEND Internal Medicine Geriatric Medicine
PROC: 5A09457 Assistance with Respiratory Ventilation, 24-96 Consecutive Hours, Continuous Positive Airway Pressure (ICD-10-PCS; principal; 2021-05-07)
DX: I13.0 Hypertensive heart and chronic kidney disease with heart failure and stage 1 through stage 4 chronic kidney disease, or unspecified chronic kidney disease (principal); I50.33 Acute on chronic diastolic (congestive) heart failure; I21.A1 Myocardial infarction type 2; J69.0 Pneumonitis due to inhalation of food and vomit; J96.21 Acute and chronic respiratory failure with hypoxia; L03.115 Cellulitis of right lower limb; J84.9 Interstitial pulmonary disease, unspecified; L97.928 Non-pressure chronic ulcer of unspecified part of left lower leg with other specified severity; L97.918 Non-pressure chronic ulcer of unspecified part of right lower leg with other specified severity; Z20.822 Contact with and (suspected) exposure to COVID-19; R07.89 Other chest pain; I08.1 Rheumatic disorders of both mitral and tricuspid valves; R79.89 Other specified abnormal findings of blood chemistry; R00.0 Tachycardia, unspecified; I27.20 Pulmonary hypertension, unspecified; I48.0 Paroxysmal atrial fibrillation; J43.9 Emphysema, unspecified; N18.2 Chronic kidney disease, stage 2 (mild); D64.9 Anemia, unspecified; E03.9 Hypothyroidism, unspecified; E78.5 Hyperlipidemia, unspecified; M06.9 Rheumatoid arthritis, unspecified; Z79.82 Long term (current) use of aspirin; Z79.890 Hormone replacement therapy; Z79.899 Other long term (current) drug therapy; Z87.891 Personal history of nicotine dependence; Z99.81 Dependence on supplemental oxygen; Z86.73 Personal history of transient ischemic attack (TIA), and cerebral infarction without residual deficits; Z87.01 Personal history of pneumonia (recurrent)
CPT/HCPCS: 36415; 71045; 71046; 78452; 80053; 80202; 82550; 83605; 83615; 83735; 83880; 84145; 84484; 85025; 85027; 85610; 85730; 86140; 87040; 87635; 93005; 93017; 93306; 94640; 94660; 94760; 96365; 96366; 96367; 96375; 99285

== ENCOUNTER → 2021-07-01 | Outpatient (CLI) | payer MEDICARE ==
--- NOTE | 2021-07-03 22:18 | XR ---
EXAMINATION TYPE: XR lumbar spine 2 or 3V DATE OF EXAM: 07/01/2021 Comparison: None Clinical History: 81-year-old male M54.9 Back Pain Findings: 5 lumbar type vertebral bodies. Hypertrophic facet arthropathy mid to lower lumbar spine. Mild multil evel degenerative disc disease with variable disc space narrowing and endplate spondylosis. Degenerative grade 1 retrolisthesis L2-L3 and L3-L4. Vertebral body heights are preserved. Dense athe rosclerotic calcifications throughout the abdominal aorta and iliac arteries. There may be mild aneur ysmal to 3.1 cm of the abdominal aorta. Impression: Mild multilevel degenerative disc disease. Hypertrophic facet arthropathy mid to lower lumbar spine. Degenerative grade 1 retrolisthesis L2-L3 and L3-L4. No vertebral compression collapse.
== END | disposition home or self-care (01) ==
LOC: RADXRMAIN 14:22
PROVIDERS: ATTEND Nurse Practitioner Family
DX: M51.36 Other intervertebral disc degeneration, lumbar region (principal); M46.96 Unspecified inflammatory spondylopathy, lumbar region; M43.16 Spondylolisthesis, lumbar region
CPT/HCPCS: 72100

== ENCOUNTER → 2021-07-06 | Outpatient (CLI) | payer MEDICARE ==
[2021-07-06 22:29] LABS: HCT 18.1 % (39.6-50.0); HGB 4.9 g/dL (13.0-17.0); MCH 33.3 pg (27.0-32.0); MCHC 27.1 g/dL (32.0-37.0); MCV 123.1 fL (80.0-97.0); Mean Platelet Volume 11.3 fL (9.5-12.2); Platelet Count 175 X 10*3/uL (140-440); RBC 1.47 X 10*6/uL (4.40-5.60); RDW 20.3 % (11.5-14.5); Reticulocyte % 6.35 % (0.10-1.80); WBC 3.57 X 10*3/uL (4.50-10.00)
[2021-07-07 00:46] LABS: Ferritin 66.9 ng/mL (22.0-322.0)
[2021-07-07 02:44] LABS: Iron 59 ug/dL (65-175)
[2021-07-07 06:07] LABS: Folate, Serum >20.00 ng/mL (4.40-31.00)
== END | disposition home or self-care (01) ==
LOC: LABWHC1 11:00
PROVIDERS: ATTEND Internal Medicine Critical Care Medicine
DX: Z53.9 Procedure and treatment not carried out, unspecified reason (principal)
CPT/HCPCS: 36415; 82607; 82728; 82746; 83540; 83550; 85027; 85045

== ENCOUNTER 2021-07-07 09:19 | Inpatient (IN) | payer MEDICARE ==
[2021-07-07 10:23] LABS: INR 1.1 (<1.2); Partial Thromboplastin Time 25.6 sec (22.0-30.0); Prothrombin Time 11.8 sec (9.0-12.0)
[2021-07-07 10:25] LABS: Albumin 3.1 g/dL (3.5-5.0); Calcium 8.5 mg/dL (8.4-10.2); Potassium 4.3 mmol/L (3.5-5.1); Total Bilirubin 0.4 mg/dL (0.2-1.3); Total Protein 8.3 g/dL (6.3-8.2)
[2021-07-07 10:26] LABS: Anisocytosis Moderate; Hypochromasia Moderate; MCH 35.2 pg (25.0-35.0); MCV 110.2 fL (80.0-100.0); Macrocytosis Marked; Mean Platelet Volume 8.3; Poikilocytosis Moderate; RBC 1.81 m/uL (4.30-5.90); RDW 20.7 % (11.5-15.5); WBC 4.6 k/uL (3.8-10.6)
[2021-07-07 10:30] LABS: HCT 19.9 % (39.0-53.0); HGB 6.4 gm/dL (13.0-17.5)
[2021-07-07 10:31] LABS: Platelet Count 265 k/uL (150-450)
[2021-07-07] MEDS ORDERED: MORPHINE SULFATE 4 MG/ML SYRINGE IVP STA (10:38)
[2021-07-07] MEDS ORDERED: ONDANSETRON 4 MG/2 ML VIAL IVP STA (10:38)
--- NOTE | 2021-07-07 11:00 | ED ---
General Adult HPI - General Chief complaint: Recheck/Abnormal Lab/Rx Stated complaint: abn labs Time Seen by Provider: 07/07/21 09:27 Source: patient, family, RN notes reviewed Mode of arrival: wheelchair Limitations: no limitations - History of Present Illness Initial comments: This an 81-year-old male presents emergency Department with chief complaint of abnormal labs, anemia. Patient states he received a phone call stating that his hemoglobin was 4.9. Patient states he had lab work ordered by Dr. Voss yesterday secondary to shortness of breath but he was told that his lungs were fine. They are concerned about possible anemia. He denies any active source of bleeding including melanotic stools, bright red blood stools, hematemesis or cof fee-ground emesis. Patient states that he's been going to his primary last several weeks to months for back pain which is been increasing. He states he is scheduled for CT of his abdomen pelvis. Patient denies any chest pain states history of breath it is worse with exertion denies any fever or chills cough congestion. - Related Data Home Medications Medication Instructions Recorded Confirmed Levothyroxine Sodium [Synthroid] 100 mcg PO DAILY 08/27/18 07/07/21 metHOTREXate sodium [Methotrexate] 20 mg PO CHOW 08/27/18 07/07/21 Ascorbic Acid [Vitamin C] 500 mg PO DAILY 02/02/19 07/07/21 Fluticasone/Umeclidin/Vilanter 1 puff INHALATION RT-DAILY 03/14/21 07/07/21 [Trelegy Ellipta 100-62.5-25] Furosemide [Lasix] 20 mg PO DAILY 03/14/21 07/07/21 Folic Acid 0.8 mg PO DAILY 05/07/21 07/07/21 Ibuprofen [Advil] 200 mg PO QID PRN 05/07/21 07/07/21 Rosuvastatin [Crestor] 10 mg PO DAILY 05/07/21 07/07/21 Acetaminophen-Codeine 300-30mg 1 tab PO Q6H PRN 07/07/21 07/07/21 [Tylenol w/codeine #3] Baclofen [Lioresal] 5 - 10 mg PO BID PRN 07/07/21 07/07/21 Cholecalciferol (Vitamin D3) 75 mcg PO DAILY 07/07/21 07/07/21 [Vitamin D3 (3000 Iu)] predniSONE 10 mg PO DAILY 07/07/21 07/07/21 Previous Rx's Medication Instructions Recorded Ipratropium-Albuterol Nebulize 3 ml INHALATION RT-QID #120 ml 01/17/20 [Duoneb 0.5 mg-3 mg/3 ml Soln] Aspirin 81 mg PO DAILY tab 05/10/21 Allergies Allergy/AdvReac Type Severity Reaction Status Date / Time No Known Allergies Allergy Verified 07/07/21 10:46 Review of Systems ROS Statement: Those systems with pertinent positive or pertinent negative responses have been documented in the HPI. ROS Other: All systems not noted in ROS Statement are negative. Past Medical History Past Medical History: COPD, Pneumonia, Rheumatoid Arthritis (RA) Additional Past Medical History / Comment(s): IP 02/08/21 CELLULITIS OF RIGHT LOWER LEG. Peripheral edema, USE. O2 prn at 2l. Brain bleed History of Any Multi-Drug Resistant Organisms: None Reported Past Surgical History: Orthopedic Surgery Additional Past Surgical History / Comment(s): left carpal tunnel, elbow sx. Cataracts Past Anesthesia/Blood Transfusion Reactions: No Reported Reaction Past Psychological History: No Psychological Hx Reported Smoking Status: Former smoker Past Alcohol Use History: Occasional Past Drug Use History: None Reported - Past Family History Father History Unknown: Yes General Exam Limitations: no limitations General appearance: alert, in no apparent distress Head exam: Present: atraumatic, normocephalic, normal inspection Eye exam: Present: normal appearance, PERRL, EOMI. Absent: scleral icterus, conjunctival injection, periorbital swelling ENT exam: Present: normal exam, normal oropharynx, mucous membranes moist Neck exam: Present: normal inspection. Absent: tenderness, meningismus, lymphadenopathy Respiratory exam: Present: normal lung sounds bilaterally, respiratory distress. Absent: wheezes, rales, rhonchi, stridor Cardiovascular Exam: Present: regular rate, normal rhythm, normal heart sounds. Absent: systolic murmur, diastolic murmur, rubs, gallop, clicks GI/Abdominal exam: Present: soft, normal bowel sounds. Absent: distended, tenderness, guarding, rebound, rigid Extremities exam: Present: full ROM, normal capillary refill. Absent: normal inspection (Healing sores on the right leg), tenderness, pedal edema, joint swelling, calf tenderness Neurological exam: Present: alert, oriented X3 Skin exam: Present: warm, dry, intact, normal color. Absent: rash Course Vital Signs 07/07/21 09:20 Temperature 97.0 F L Pulse Rate 83 Respiratory 18 Rate Blood Pressure 146/61 O2 Sat by Pulse 95 Oximetry EKG Findings - EKG Comments: EKG Findings:: EKG performed at 9:40 normal sinus rhythm rate of 75 PA 144 QRS 92 QT status QTC of 384/428 Medical Decision Making - Medical Decision Making Patient unable hemoglobin is 7.4. Patient we ordered type and screen, transfusion. Patient be admitted for further evaluation from anemia including GI consult. Patient will have repeat H&H. - Lab Data Result diagrams: 07/07/21 09:53 07/07/21 09:53 Lab Results 07/07/21 07/07/21 07/07/21 Range/Units 09:53 09:53 09:53 WBC 4.6 (3.8-10.6) k/uL RBC 1.81 L (4.30-5.90) m/uL Hgb 6.4 L* (13.0-17.5) gm/dL Hct 19.9 L* (39.0-53.0) % MCV 110.2 H (80.0-100.0) fL MCH 35.2 H (25.0-35.0) pg MCHC 32.0 (31.0-37.0) g/dL RDW 20.7 H (11.5-15.5) % Plt Count 265 D (150-450) k/uL MPV 8.3 Hypochromasia Moderate Poikilocytosis Moderate Anisocytosis Moderate Macrocytosis Marked A PT 11.8 (9.0-12.0) sec INR 1.1 (<1.2) APTT 25.6 (22.0-30.0) sec Sodium (137-145) mmol/L Potassium (3.5-5.1) mmol/L Chloride (98-107) mmol/L Carbon Dioxide (22-30) mmol/L Anion Gap mmol/L BUN (9-20) mg/dL Creatinine (0.66-1.25) mg/dL Est GFR (CKD-EPI)AfAm (>60 ml/min/1.73 sqM) Est GFR (CKD-EPI)NonAf (>60 ml/min/1.73 sqM) Glucose (74-99) mg/dL Plasma Lactic Acid Clement (0.7-2.0) mmol/L Calcium (8.4-10.2) mg/dL Magnesium (1.6-2.3) mg/dL Total Bilirubin (0.2-1.3) mg/dL AST (17-59) U/L ALT (4-49) U/L Alkaline Phosphatase (38-126) U/L Troponin I (0.000-0.034) ng/mL Total Protein (6.3-8.2) g/dL Albumin (3.5-5.0) g/dL Stool Occult Blood Negative (Negative) Blood Type Recheck Bld Type Recheck Status Spec Expiration Date 07/07/21 07/07/21 07/07/21 Range/Units 09:53 09:53 09:53 WBC (3.8-10.6) k/uL RBC (4.30-5.90) m/uL Hgb (13.0-17.5) gm/dL Hct (39.0-53.0) % MCV (80.0-100.0) fL MCH (25.0-35.0) pg MCHC (31.0-37.0) g/dL RDW (11.5-15.5) % Plt Count (150-450) k/uL MPV Hypochromasia Poikilocytosis Anisocytosis Macrocytosis PT (9.0-12.0) sec INR (<1.2) APTT (22.0-30.0) sec Sodium 136 L (137-145) mmol/L Potassium 4.3 (3.5-5.1) mmol/L Chloride 100 (98-107) mmol/L Carbon Dioxide 31 H (22-30) mmol/L Anion Gap 5 mmol/L BUN 29 H (9-20) mg/dL Creatinine 1.10 (0.66-1.25) mg/dL Est GFR (CKD-EPI)AfAm 73 (>60 ml/min/1.73 sqM) Est GFR (CKD-EPI)NonAf 63 (>60 ml/min/1.73 sqM) Glucose 127 H (74-99) mg/dL Plasma Lactic Acid Clement 2.2 H* (0.7-2.0) mmol/L Calcium 8.5 (8.4-10.2) mg/dL Magnesium 2.0 (1.6-2.3) mg/dL Total Bilirubin 0.4 (0.2-1.3) mg/dL AST 27 (17-59) U/L ALT 26 (4-49) U/L Alkaline Phosphatase 61 (38-126) U/L Troponin I <0.012 (0.000-0.034) ng/mL Total Protein 8.3 H (6.3-8.2) g/dL Albumin 3.1 L (3.5-5.0) g/dL Stool Occult Blood (Negative) Blood Type Recheck Bld Type Recheck Status Spec Expiration Date 07/07/21 Range/Units 09:55 WBC (3.8-10.6) k/uL RBC (4.30-5.90) m/uL Hgb (13.0-17.5) gm/dL Hct (39.0-53.0) % MCV (80.0-100.0) fL MCH (25.0-35.0) pg MCHC (31.0-37.0) g/dL RDW (11.5-15.5) % Plt Count (150-450) k/uL MPV Hypochromasia Poikilocytosis Anisocytosis Macrocytosis PT (9.0-12.0) sec INR (<1.2) APTT (22.0-30.0) sec Sodium (137-145) mmol/L Potassium (3.5-5.1) mmol/L Chloride (98-107) mmol/L Carbon Dioxide (22-30) mmol/L Anion Gap mmol/L BUN (9-20) mg/dL Creatinine (0.66-1.25) mg/dL Est GFR (CKD-EPI)AfAm (>60 ml/min/1.73 sqM) Est GFR (CKD-EPI)NonAf (>60 ml/min/1.73 sqM) Glucose (74-99) mg/dL Plasma Lactic Acid Clement (0.7-2.0) mmol/L Calcium (8.4-10.2) mg/dL Magnesium (1.6-2.3) mg/dL Total Bilirubin (0.2-1.3) mg/dL AST (17-59) U/L ALT (4-49) U/L Alkaline Phosphatase (38-126) U/L Troponin I (0.000-0.034) ng/mL Total Protein (6.3-8.2) g/dL Albumin (3.5-5.0) g/dL Stool Occult Blood (Negative) Blood Type Recheck No Previous Record Bld Type Recheck Status CABO Indicated Spec Expiration Date 07/10/20212354 Disposition Clinical Impression: Anemia Disposition: ADMITTED IP TO THIS [facility] Condition: Serious Referrals: Lexa Mccormack MD [Primary Care Provider] - 1-2 days
[2021-07-07] MEDS ORDERED: BACLOFEN 10 MG TAB PO PRN (11:09)
[2021-07-07] MEDS ORDERED: NALOXONE 0.4 MG/ML 1 ML VIAL IV PRN (11:12)
[2021-07-07] MEDS ORDERED: ACETAMINOPHEN TAB 325 MG TAB PO PRN (11:12)
[2021-07-07] MEDS ORDERED: ONDANSETRON 4 MG/2 ML VIAL IVP PRN (11:12)
[2021-07-07 11:30] LABS: Band Neutrophils % 1 %; Lymphocytes # (M) 0.78 k/uL (1.0-4.8); Monocytes # (M) 0.05 k/uL (0-1.0); Neutrophils % (M) 83 %; Nucleated Red Blood Cells 1 /100 WBC (0-0); Polychromasia Present; Tear Drop Cells Present; Total Cells Counted 200
--- NOTE | 2021-07-07 11:53 | CT ---
EXAMINATION TYPE: CT abdomen pelvis w con DATE OF EXAM: 07/07/2021 COMPARISON: None INDICATION: low back pain, abnormal labs DLP: 1339.4 mGycm, Automated exposure control for dose reduction was used. CONTRAST: 100 mL of Isovue 300. Study performed without Oral Contrast TECHNIQUE: Axial images were obtained from above the diaphragm to the pubic rami in the axial plane a t 5 mm thick sections. Reconstructed images are reviewed on the computer in the coronal plane. FINDINGS: Limited CT sections are obtained the lung bases. The lung bases are clear. CT ABDOMEN: Liver: Normal Spleen: Normal Pancreas: Normal Adrenal glands: The adrenal glands are normal. Gallbladder: Normal Kidneys: No masses are evident. No hydronephrosis is present. No cysts are present. Delayed images were obtained through the kidneys, which remain unremarkable. Aorta: Vascular calcification is within the aorta. Inferior vena cava: Normal. CT PELVIS: Loops of bowel within the abdomen and pelvis are normal. Note is made of diverticular changes within the sigmoid colon. Study is lateral contrast limiting bowel evaluation. Appendix: Not visualized. No dilated tubular structure or inflammatory changes are evident. Urinary bladder: Normal. Genitourinary structures: Prostate is prominent Osseous structures: No suspicious lytic or sclerotic lesions are evident. Lumbar Vertebral body heigh ts are preserved. Minimal superior endplate compression deformity at T12 may be present of indetermin ate age. No obvious large disc herniations are evident. IMPRESSIONS: 1. Diverticulosis without acute diverticulitis. 2. Mild superior endplate compression deformity at T12 is present and of indeterminant age. 3. No suspicious changes to account for low back pain otherwise evident.
--- NOTE | 2021-07-07 12:47 | XR ---
EXAMINATION TYPE: XR thoracic spine 2V DATE OF EXAM: 07/07/2021 COMPARISON: None HISTORY: Chronic pain worsening TECHNIQUE: 3 view thoracic spine FINDINGS: There are 12 thoracic type vertebral bodies. Pedicles are intact. There may be some vertebr al body height loss in the region of T7 and T8. Mild superior endplate change at T12 is evident. Disc heights appear preserved. Alignment appears normal. IMPRESSION: 1. Compression deformity in the region of T7 and T8. 2. Mild superior endplate compression deformity T12.
--- NOTE | 2021-07-07 12:49 | P.HPIM ---
History of Present Illness H&P Date: 07/07/21 Chief Complaint: Severe anemia with hemoglobin 6 g, severe lower back pain HISTORY OF PRESENT ILLNESS 81-year-old male one of my office patient of known for over 20 years with history of COPD, hypertension, hyperlipidemia, rheumatoid arthritis, hyp othyroidism and paroxysmal atrophy fibrillation who had also history of hemorrhagic stroke this last year. Patient was hospitalized last May 07 for acute respiratory failure worsening dyspnea and shortness of breath. Patient was treated done well he was seen in the office few time last few weeks with worsening lower back pain has been using ibuprofen along with Advil muscle relaxer and steroid. Arrangement for CT of the lumbar spine was made patient was post An outpatient. Patient was seen Dr. Voss pulmonary recently was giving slip for blood drawn per patient had it in the evening yesterday his hemoglobin came back at 4.6. My office Told patient this morning told him to come to demurs department because of severe anemia with hemoglobin of 4.6. Patient ended up coming to the emergency department at [facility] his hemoglobin was 6.4 with significant sign of iron deficiency anemia, stool sample for Hemoccult was negative. Patient was started on blood transfusion, will consult gastroenterology. The patient to the hospital. Review medication with the patient has not been on any anticoagulation was tried for short period of time on Eliquis because of the intracranial hemorrhage he had this last year anticoagulation were held completely, patient take baby aspirin and only other medication make bleed was Advil. Patient also taking prednisone 10 mg daily for his lower back pain was switched to dexamethasone 4 mg a day which was done 2 days ago. Patient did not notice any black stools or tarry stools no bright red blood per rectum. Patient continued to complain of lower and mid back pain on and off radiating to the front affect his ability to get in and out of bed and to move freely with no pain. Has been using Tylenol No. 3 along with dexamethasone and baclofen lately. X-ray of the lumbar and thoracic spine will be done patient might require to go for an MRI to find if there is any new compression or bulging disc. Also entrapment syndrome of the T-spine will be checked. With his last hospitalization patient had slightly elevated troponin as he was diagnosed with non-ST MS his enzymes did not change patient did not require any intervention at the time had an echocardiogram showed good contractility with no major wall motion abnormality. REVIEW OF SYSTEMS Constitutional: No fever, no chills, no night sweats. No weight change. No weakness, fatigue or lethargy. No daytime sleepiness. EENT: No headache. No blurred vision or double vision, no loss of vision. No loss of Hearing, no ringing in the ears, no dizziness. No nasal drainage or congestion. No epistaxis. No sore throat. Lungs: positive shortness of breath cough wheezes with worsening dyspnea with minimum exertion. Cardiovascular: No chest pain, positive lower extremity edema. positive palpitations. positive paroxysmal nocturnal dyspnea. positive orthopnea. No lightheadedness or dizziness. No syncopal episodes. Abdominal: No abdominal pain. No nausea, vomiting. No diarrhea. No constipation. No bloody or tarry stools.. No loss of appetite. Genitourinary: No dysuria, increased frequency, urgency. No urinary retention. Musculoskeletal: No myalgias. No muscle weakness, no gait dysfunction, no frequent falls. No back pain. No neck pain. Integumentary: right lower extremity had 5 ulcerated area 3 on the back of his leg and one large one on the lateral side of the leg has been treated for ulcerated cellulitis has not healed for over 6 months. Neurologic: No aphasia. No facial droop. No change in mentation. No head injury. No headache. No paralysis. No paresthesia. Psychiatric: No depression. No anxiety. No mood swings. Endocrine: No abnormal blood sugars. No weight change. No excessive sweating or thirst. No cold intolerance. SOCIAL HISTORY Patient was a smoker and quit 20 years ago. He drinks alcohol occasionally. He lives at home with his .. FAMILY HISTORY Mother from old age. Father from a stenosis exposure. Patient has 4 sisters and one from cancer of unknown type. 3 other sisters have no major medical problems. He does not have any brothers. Patient has 3 children with no major medical problems. PHYSICAL EXAMINATION Gen: This is a 81-year-old male. he is in mild respiratory distress has a BiPAP in bed not complaining of any chest pain at the time HEENT: Head is atraumatic, normocephalic. Pupils equal, round. Sclerae is anicteric. NECK: Supple. No JVD. No lymphadenopathy. No thyromegaly. LUNGS: decreased breaths on bilaterally especially the right side positive fine to coarse crackles worse in the right base positive expiratory wheezes. HEART: Irregular rate and rhythm.S1-S2, positive S3, positive JVD. ABDOMEN: Soft. Bowel sounds are present. No masses. No tenderness. EXTREMITIES:edema of both lower extremity worsening of the right than the left side, the right side still cover with dressing had small ulcerated area on the lateral side of the leg with stage II, 3 ulcerated area with infection on the back of the leg as well for more superficial. Entire leg had more swelling had more irritation discomfort around all the ulcerated site. NEUROLOGICAL: Patient is awake, alert and oriented x3. Cranial nerves 2 through 12 are grossly intact. ASSESSMENT AND PLAN 1. Acute severe anemia: Mostly iron deficiency, hemoglobin is 6.4, was start patient on blood transfusion for 2 units of RBC repeat CBC in 12 hours, continue to watch for any gastrointestinal bleed Hemoccult 3 will be done as well. Patient might need to go for an EGD the meanwhile we'll hold all anti- inflammatory along with anticoagulation continue to use PPI on twice a day basis this point. 2. Severe back pain: Combination of compression possible bulging disc try to exclude any nerve entrapment syndrome, patient will be going for plain x-ray of the lumbar spine and thoracic spine based on the result with the side on MRI of the thoracic spine and referral to see a back specialist. Conservative management including Tylenol with codeine, muscle relaxer dexamethasone can be done also echo brace can be done as well. 3. COPD without exacerbation. Continue DuoNeb treatments 4 times daily, Symbicort twice daily, was start patient on Solu-Medrol 60 mg every 6 hours for now and will be seen pulmonary. 4. Diastolic congestive heart failure with mild excess patient with worsening fluid retention, continue patient on furosemide 20 mg Be up to twice a day after the anemia is treated. 5. Hypothyroidism: Continue patient on levothyroxine 100 g daily. 6. Rheumatoid arthritis. Continue prednisone 10 mg daily. Hold methotrexate. For now 7. Hyperlipidemia: Continue Crestor 10 mg a day. 8. History of paroxysmal atrial fibrillation not on anticoagulation. 9. History of hemorrhagic stroke, stable. With no further prolapse. 10. GI prophylaxis. Protonix 40 mg daily. 11. DVT prophylaxis. No anticoagulation knee-high WILDER hose and early mobilization. 12. COVID-19 testing negative. Patient has been hospitalized during a pandemic. Patient will be admitted to the hospital for a minimum of 2 night stay. Past Medical History Past Medical History: COPD, Pneumonia, Rheumatoid Arthritis (RA) Additional Past Medical History / Comment(s): IP 02/08/21 CELLULITIS OF RIGHT LOWER LEG. Peripheral edema, USE. O2 prn at 2l. Brain bleed History of Any Multi-Drug Resistant Organisms: None Reported Past Surgical History: Orthopedic Surgery Additional Past Surgical History / Comment(s): left carpal tunnel, elbow sx. Cataracts Past Anesthesia/Blood Transfusion Reactions: No Reported Reaction Past Psychological History: No Psychological Hx Reported Smoking Status: Former smoker Past Alcohol Use History: Occasional Past Drug Use History: None Reported - Past Family History Father History Unknown: Yes Medications and Allergies Home Medications Medication Instructions Recorded Confirmed Type Levothyroxine Sodium [Synthroid] 100 mcg PO DAILY 08/27/18 07/07/21 History metHOTREXate sodium [Methotrexate] 20 mg PO CHOW 08/27/18 07/07/21 History Ascorbic Acid [Vitamin C] 500 mg PO DAILY 02/02/19 07/07/21 History Ipratropium-Albuterol Nebulize 3 ml INHALATION RT-QID #120 ml 01/17/20 07/07/21 Rx [Duoneb 0.5 mg-3 mg/3 ml Soln] Fluticasone/Umeclidin/Vilanter 1 puff INHALATION RT-DAILY 03/14/21 07/07/21 History [Trelegy Ellipta 100-62.5-25] Furosemide [Lasix] 20 mg PO DAILY 03/14/21 07/07/21 History Folic Acid 0.8 mg PO DAILY 05/07/21 07/07/21 History Ibuprofen [Advil] 200 mg PO QID PRN 05/07/21 07/07/21 History Rosuvastatin [Crestor] 10 mg PO DAILY 05/07/21 07/07/21 History Aspirin 81 mg PO DAILY tab 05/10/21 07/07/21 Rx Acetaminophen-Codeine 300-30mg 1 tab PO Q6H PRN 07/07/21 07/07/21 History [Tylenol w/codeine #3] Baclofen [Lioresal] 5 - 10 mg PO BID PRN 07/07/21 07/07/21 History Cholecalciferol (Vitamin D3) 75 mcg PO DAILY 07/07/21 07/07/21 History [Vitamin D3 (3000 Iu)] predniSONE 10 mg PO DAILY 07/07/21 07/07/21 History Allergies Allergy/AdvReac Type Severity Reaction Status Date / Time No Known Allergies Allergy Verified 07/07/21 10:46 Physical Exam Vitals: Vital Signs Temp Pulse Resp BP Pulse Ox 07/07/21 09:20 97.0 F L 83 18 146/61 95 Intake and Output 07/06/21 07/07/21 07/07/21 22:59 06:59 14:59 Other: Weight 90.718 kg Results CBC & Chem 7: 07/07/21 09:53 07/07/21 09:53 Labs: Abnormal Lab Results - Last 24 Hours (Table) 07/07/21 07/07/21 07/07/21 Range/Units 09:53 09:53 09:53 RBC 1.81 L (4.30-5.90) m/uL Hgb 6.4 L* (13.0-17.5) gm/dL Hct 19.9 L* (39.0-53.0) % MCV 110.2 H (80.0-100.0) fL MCH 35.2 H (25.0-35.0) pg RDW 20.7 H (11.5-15.5) % Lymphocytes # (Manual) 0.78 L (1.0-4.8) k/uL Nucleated RBCs 1 H (0-0) /100 WBC Macrocytosis Marked A Sodium 136 L (137-145) mmol/L Carbon Dioxide 31 H (22-30) mmol/L BUN 29 H (9-20) mg/dL Glucose 127 H (74-99) mg/dL Plasma Lactic Acid Clement 2.2 H* (0.7-2.0) mmol/L Total Protein 8.3 H (6.3-8.2) g/dL Albumin 3.1 L (3.5-5.0) g/dL Crossmatch 07/07/21 Range/Units 09:55 RBC (4.30-5.90) m/uL Hgb (13.0-17.5) gm/dL Hct (39.0-53.0) % MCV (80.0-100.0) fL MCH (25.0-35.0) pg RDW (11.5-15.5) % Lymphocytes # (Manual) (1.0-4.8) k/uL Nucleated RBCs (0-0) /100 WBC Macrocytosis Sodium (137-145) mmol/L Carbon Dioxide (22-30) mmol/L BUN (9-20) mg/dL Glucose (74-99) mg/dL Plasma Lactic Acid Clement (0.7-2.0) mmol/L Total Protein (6.3-8.2) g/dL Albumin (3.5-5.0) g/dL Crossmatch See Detail
--- NOTE | 2021-07-07 12:50 | XR ---
EXAMINATION TYPE: XR lumbar spine 2 or 3V DATE OF EXAM: 07/07/2021 COMPARISON: 07/01/2021 HISTORY: Chronic pain which is worsening TECHNIQUE: 3 view lumbar spine FINDINGS: There are 5 lumbar-type vertebral bodies. The pedicles are intact. Vertebral body heights are preserved. Mild diffuse disc space narrowing is present. Findings are stab le from comparison. Vascular calcifications within the aorta. Previously identified superior endplate compression of T12 is again evident. IMPRESSION: 1. Mild diffuse degenerative disc changes, stable from comparison.
[2021-07-07] MEDS: PANTOPRAZOLE 40 MG/10 ML VIAL IV SCH ×2 (13:44→19:37)
[2021-07-07] MEDS: IPRATROPIUM-ALBUTEROL 3 ML NEB INHALATION SCH ×3 (14:47→21:14)
--- NOTE | 2021-07-07 16:57 | CONS ---
CONSULTATION DATE OF DICTATION: July 07, 2021. REQUESTING PHYSICIAN: Dr. Mccormack. REASON FOR CONSULTATION: Severe symptomatic anemia with a hemoglobin of 6 g/dL. HISTORY OF PRESENT ILLNESS: The patient is an 81-year-old pleasant white male with a history of hypertension, hyperlipidemia, COPD, rheumatoid arthritis, on methotrexate, history of atrial fibrillation and prior history of CVA in the past, admitted to hospital with symptomatic anemia and hemoglobin of 6 g/dL. Apparently the patient went to see Dr. Voss for shortness of breath and had routine labs done on an outpatient basis and was called with a hemoglobin of 4.6, and advised to go to the emergency room. In the ER, repeat hemoglobin was 6.2 g/dL. The patient, however, denies any abdominal pain. He reports no nausea, vomiting. Denies any rectal bleeding or melena. He has been taking Advil for rheumatoid arthritis on and off for the last few years. No prior history of peptic ulcer disease. He has been on anticoagulation in the past, but Eliquis has been held since last after he had an intracranial bleed/CVA. In the ER, he did have stool for Hemoccult was reported as negative. The patient has no prior history of peptic ulcer disease. He denies ever having any EGD or colonoscopy in the past. PAST MEDICAL HISTORY: Significant for hypertension, hyperlipidemia, hypercholesteremia, history of CVA in the past, rheumatoid arthritis, cellulitis of the right lower extremity, recent pneumonia in April of 2021 requiring hospitalization. PAST SURGICAL HISTORY: Left carpal tunnel surgery, elbow surgery, bilateral cataract surgery. MEDICATIONS: At home, Synthroid, methotrexate, vitamin C, albuterol, Breo Ellipta, Lasix, folic acid, Advil, Crestor, aspirin, Tylenol, vitamin D3, Lioresal, and prednisone. ALLERGIES: None. SOCIAL HISTORY: No smoking or alcohol use. FAMILY HISTORY: Unremarkable. REVIEW OF SYSTEMS: CARDIOPULMONARY: He denies any chest pain, but he does complain of shortness of breath. : No dysuria, hematuria. MUSCULOSKELETAL: History of RA with some arthritis. NEUROLOGY unremarkable. PSYCHIATRIC unremarkable. ENT/VISION: Unremarkable. CONSTITUTIONAL: No recent weight loss. No fever, chills, night sweats. HEMATOLOGY: Severe anemia. SKIN: He had cellulitis of the right lower extremity. Presently undergoing wound therapy. EXAMINATION: He appears comfortable, no apparent distress. VITAL SIGNS: Stable. Blood pressure is 129/69, pulse rate 71, temperature 98.2. HEENT: Examination unremarkable. Conjunctivae pink. Sclerae anicteric. Oral cavity no lesions. NECK: No JVD or lymph node enlargement. CHEST was clear to auscultation. HEART: Regular rate and rhythm. ABDOMEN: Soft, bowel sounds are positive. No organomegaly. EXTREMITIES: No pedal edema. SKIN: No rashes except for there was some bandage on the right lower extremity. NEURO: He is alert and oriented x3. No focal deficits. LABS: WBC 4.6, hemoglobin 6.4, platelets are normal. Basic metabolic panel is within normal limits. MCV is 110, PTT/INR is within normal limits. BUN is 29, creatinine 1.10. Lactic acid is 2.2. AST, ALT, T-bilirubin and alkaline phosphatase are normal and stool Hemoccult is negative. He did have CT of the abdomen and pelvis done this morning that showed evidence of diverticulosis. Otherwise it was unremarkable. IMPRESSION: 1. Severe symptomatic microcytic anemia with a hemoglobin of 6.4 g/dL. Clinically no evidence of active bleeding. He is currently receiving 2 units of PRBC transfusion. The patient has been taking Advil for rheumatoid arthritis, but clinically does not have any evidence of active bleeding and occult blood was also negative. At this time, possibility of occult gastrointestinal blood loss cannot be excluded, though it appears unlikely given the patient's history. 2. Exacerbation of chronic obstructive pulmonary disease. 3. History of congestive heart failure. 4. Chronic back pain. 5. History of hypertension, hyperlipidemia. 6. History of rheumatoid arthritis, currently maintained on prednisone 20 mg daily as well as methotrexate. RECOMMENDATIONS: 1. Agree with obtaining stool Hemoccult x3. 2. Iron studies to evaluate for iron deficiency anemia. 3. I discussed with the patient as well as his regarding EGD and colonoscopy during this hospitalization, but at this time, he does not seem to be interested. 4. Agree with PRBC transfusion. Monitor CBC on a daily basis. 5. Will follow with you closely. Thank you for this consultation. MMODL / IJN: [id number] /
[2021-07-07 18:02] LABS: Anisocytosis Marked; HCT 21.8 % (39.0-53.0); Hypochromasia Moderate; MCH 33.4 pg (25.0-35.0); MCHC 31.9 g/dL (31.0-37.0); Macrocytosis Marked; Mean Platelet Volume 8.5; Platelet Count 236 k/uL (150-450); Poikilocytosis Moderate; RBC 2.09 m/uL (4.30-5.90); RDW 24.4 % (11.5-15.5)
[2021-07-07 18:03] LABS: MCV 104.6 fL (80.0-100.0)
[2021-07-08 00:43] LABS: Anisocytosis Moderate; HCT 24.1 % (39.0-53.0); HGB 7.7 gm/dL (13.0-17.5); Hypochromasia Moderate; MCH 32.6 pg (25.0-35.0); MCHC 32.1 g/dL (31.0-37.0); MCV 101.5 fL (80.0-100.0); Macrocytosis Marked; Mean Platelet Volume 7.8; Platelet Count 203 k/uL (150-450); Poikilocytosis Moderate; RBC 2.37 m/uL (4.30-5.90); RDW 23.8 % (11.5-15.5); WBC 4.5 k/uL (3.8-10.6)
[2021-07-08 01:37] LABS: % Iron Saturation 19.23 (15.00-50.00); Ferritin 67.1 ng/mL (22.0-322.0)
[2021-07-08] MEDS ORDERED: LEVOTHYROXINE 100 MCG TAB PO SCH (06:30)
[2021-07-08] MEDS: IPRATROPIUM-ALBUTEROL 3 ML NEB INHALATION SCH ×2 (07:46→11:10)
[2021-07-08 07:56] LABS: Anisocytosis Marked; HCT 26.8 % (39.0-53.0); HGB 8.7 gm/dL (13.0-17.5); Hypochromasia Slight; MCH 32.7 pg (25.0-35.0); MCHC 32.6 g/dL (31.0-37.0); MCV 100.3 fL (80.0-100.0); Macrocytosis Marked; Mean Platelet Volume 7.8; Platelet Count 221 k/uL (150-450); Poikilocytosis Marked; RBC 2.67 m/uL (4.30-5.90); RDW 24.6 % (11.5-15.5); WBC 3.7 k/uL (3.8-10.6)
[2021-07-08] MEDS ORDERED: SYMBICORT 80-4.5 MCG INHALER INHALATION SCH (08:00)
[2021-07-08] MEDS: PANTOPRAZOLE 40 MG/10 ML VIAL IV SCH (08:24)
[2021-07-08] MEDS: Acetaminophen-Codeine 300-30mg TAB PO PRN ×2 (08:31→17:24)
[2021-07-08] MEDS ORDERED: FUROSEMIDE 20 MG TAB PO SCH (09:00)
[2021-07-08] MEDS ORDERED: predniSONE 10 MG TAB PO SCH (09:00)
[2021-07-08] MEDS ORDERED: ASCORBIC ACID 500 MG TAB PO SCH (09:00)
[2021-07-08] MEDS ORDERED: CHOLECALCIFEROL 25 MCG (1000 IU) TABLET PO SCH (09:00)
[2021-07-08] MEDS ORDERED: FOLIC ACID 1 MG TAB PO SCH (09:00)
[2021-07-08] MEDS ORDERED: ATORVASTATIN 20 MG TAB PO SCH (09:00)
[2021-07-08 11:41] LABS: African American GFR (CKD) 65.8 (60.0-200.0); Albumin 2.8 g/dL (3.8-4.9); Albumin/Globulin Ratio 0.56 (1.60-3.17); Anion Gap 7.2 mmol/L (4.00-12.00); BUN/Creat Ratio 20.25 Ratio (12.00-20.00); Blood Urea Nitrogen 24.3 mg/dL (9.0-27.0); Calcium 8.5 mg/dL (8.7-10.3); Carbon Dioxide 30.8 mmol/L (21.6-31.8); Non-African American GFR(CKD) 56.8 (60.0-200.0); Potassium 4.6 mmol/L (3.5-5.5); Total Bilirubin 0.4 mg/dL (0.30-1.20); Total Protein 7.8 g/dL (6.2-8.2)
[2021-07-08 11:47] VITALS: BP 110/55; PULSE 80; RESP 20; TEMP 97.7
--- NOTE | 2021-07-08 13:17 | P.DS ---
Providers Date of admission: 07/07/21 11:13 Expected date of discharge: 07/08/21 Attending physician: Lexa Mccormack Consults: 07/07/21 11:12 Consult Physician Urgent Consulting Provider: Sayra Saba Consult Reason/Comments: Anemia possible GI bleeding Do you want consulting provider notified?: Yes Primary care physician: Lexa Mccormack [facility] Course: HISTORY OF PRESENT ILLNESS 81-year-old male one of my office patient of known for over 20 years with history of COPD, hypertension, hyperlipidemia, rheumatoid arthritis, hypothyroidism and paroxysmal atrophy fibrillation who had also history of hemorrhagic stroke this last year. Patient was hospitalized last May 07 for acute respiratory failure worsening dyspnea and shortness of breath. Batool ent was treated done well he was seen in the office few time last few weeks with worsening lower back pain has been using ibuprofen along with Advil muscle relaxer and steroid. Arrangement for CT of the lumbar spine was made patient was post An outpatient. Patient was seen Dr. Voss pulmonary recently was giving slip for blood drawn per patient had it in the evening yesterday his hemoglobin came back at 4.6. My office Told patient this morning told him to come to demurs department because of severe anemia with hemoglobin of 4.6. Patient ended up coming to the emergency department at [facility] his hemoglobin was 6.4 with significant sign of iron deficiency anemia, stool sample for Hemoccult was negative. Patient was started on blood transfusion, will consult gastroenterology. The patient to the hospital. Review medication with the patient has not been on any anticoagulation was tried for short period of time on Eliquis because of the intracranial hemorrhage he had this last year anticoagulation were held completely, patient take baby aspirin and only other medication make bleed was Advil. Patient also taking prednisone 10 mg daily for his lower back pain was switched to dexamethasone 4 mg a day which was done 2 days ago. Patient did not notice any black stools or tarry stools no bright red blood per rectum. Patient continued to complain of lower and mid back pain on and off radiating to the front affect his ability to get in and out of bed and to move freely with no pain. Has been using Tylenol No. 3 along with dexamethasone and baclofen lately. X-ray of the lumbar and thoracic spine will be done patient might require to go for an MRI to find if there is any new compression or bulging disc. Also entrapment syndrome of the T-spine will be checked. With his last hospitalization patient had slightly elevated troponin as he was diagnosed with non-ST MT his enzymes did not change patient did not require any intervention at the time had an echocardiogram showed good contractility with no major wall motion abnormality. 07/08: X-rays of the thoracic and lumbar spine revealed T7, T8 and T12 compression fracture. Patient has been seen by orthopedic spine and TLSO brace has been ordered with recommendations to follow-up outpatient. He has also been seen by GI with no plan for endoscopy. Patient is status post 2 units packed RBCs and hemoglobin is 8.7. WBC 3.7, platelet count 221. Sodium 133, potassium 4.6, chloride 95, CO2 30. BUN 24 creatinine 1.2. Liver function tests were normal. Iron 72, TIBC 374, iron saturation 19.2, transferrin 367, ferritin 67. Patient has been afebrile, heart rate 80, blood pressure 110/55, pulse ox 100% on room air. Patient will be discharged home today in stable condition. DISCHARGE DIAGNOSES 1. Acute severe anemia no sign of active bleeding 2. Severe back pain secondary to compression fractures T7, T8, T12. 3. COPD without exacerbation. 4. Mild exacerbation of chronic diastolic heart failure. 5. Hypothyroidism 6. Rheumatoid arthritis. 7. Hyperlipidemia 8. History of paroxysmal atrial fibrillation not on anticoagulation. 9. History of hemorrhagic stroke, stable. 10. COVID-19 testing negative. Patient has been hospitalized during a pandemic. DISCHARGE PLAN home Greater than 35 minutes was utilized and coordinating patient's discharge. Impression and plan of care have been directed as dictated by the signing physician. Delia Tejada nurse practitioner acting as scribe for signing physician. Patient Condition at Discharge: Good Plan - Discharge Summary Discharge Rx Participant: Yes New Discharge Prescriptions: No Action metHOTREXate sodium [Methotrexate] 20 mg PO CHOW Levothyroxine Sodium [Synthroid] 100 mcg PO DAILY Ascorbic Acid [Vitamin C] 500 mg PO DAILY Ipratropium-Albuterol Nebulize [Duoneb 0.5 mg-3 mg/3 ml Soln] 3 ml INHALATION RT-QID #120 ml Fluticasone/Umeclidin/Vilanter [Trelegy Ellipta 100-62.5-25] 1 puff INHALATION RT-DAILY Furosemide [Lasix] 20 mg PO DAILY Ibuprofen [Advil] 200 mg PO QID PRN PRN Reason: Pain Folic Acid 0.8 mg PO DAILY predniSONE 10 mg PO DAILY Baclofen [Lioresal] 5 - 10 mg PO BID PRN PRN Reason: Muscle Spasm Acetaminophen-Codeine 300-30mg [Tylenol w/codeine #3] 1 tab PO Q6H PRN PRN Reason: Pain Rosuvastatin [Crestor] 10 mg PO DAILY Aspirin 81 mg PO DAILY tab Cholecalciferol (Vitamin D3) [Vitamin D3 (3000 Iu)] 75 mcg PO DAILY Discharge Medication List Levothyroxine Sodium [Synthroid] 100 mcg PO DAILY 08/27/18 [History] metHOTREXate sodium [Methotrexate] 20 mg PO CHOW 08/27/18 [History] Ascorbic Acid [Vitamin C] 500 mg PO DAILY 02/02/19 [History] Ipratropium-Albuterol Nebulize [Duoneb 0.5 mg-3 mg/3 ml Soln] 3 ml INHALATION RT-QID #120 ml 01/17/20 [Rx] Fluticasone/Umeclidin/Vilanter [Trelegy Ellipta 100-62.5-25] 1 puff INHALATION RT-DAILY 03/14/21 [History] Furosemide [Lasix] 20 mg PO DAILY 03/14/21 [History] Folic Acid 0.8 mg PO DAILY 05/07/21 [History] Ibuprofen [Advil] 200 mg PO QID PRN 05/07/21 [History] Rosuvastatin [Crestor] 10 mg PO DAILY 05/07/21 [History] Aspirin 81 mg PO DAILY tab 05/10/21 [Rx] Acetaminophen-Codeine 300-30mg [Tylenol w/codeine #3] 1 tab PO Q6H PRN 07/07/21 [History] Baclofen [Lioresal] 5 - 10 mg PO BID PRN 07/07/21 [History] Cholecalciferol (Vitamin D3) [Vitamin D3 (3000 Iu)] 75 mcg PO DAILY 07/07/21 [History] predniSONE 10 mg PO DAILY 07/07/21 [History] Follow up Appointment(s)/Referral(s): Lexa Mccormack MD [Primary Care Provider] - 1-2 days
--- NOTE | 2021-07-08 15:47 | P.CNOR ---
History of Present Illness - [facility] Consult date: 07/08/21 Requesting physician: Delia Tejada Consult reason: other (T7,8,12 complression fx) History of present illness: Patient is an 81-year-old male presenting to the emergency department yesterday signs of anemia. Patient does have a history of COPD, hypertension, hyperlipidemia, hypothyroidism, A. fib and history of hemorrhagic stroke. Ortho has been consulted as result of T7, T8 compression fracture and T12 endplate deformity noted on thoracic spine x-ray. Patient is present in the room sitting up in chair with at bedside throughout the encounter. Patient states he began having back pain/increasing back pain about 2 months ago. Patient does not recall any specific event/trauma/falls that led to his back pain. Patient states the pain is mostly in the midline and denies radiation of pain. Patient denies lower extremity radiculopathy. Patient denies any weakness in the lower extremities. Patient denies any previous orthopedic surgical history. Patient denies previous spine surgery. Patient describes most of the back pain as being in the mid back and described as aching in nature. Patient rates the pain as 4/10 currently. Patient says some of the pain medication has helped with the easing of the back pain. Patient says he has not had physical therapy/inj ections for his back in the past. Patient denies any saddle anesthesia/loss of bowel/bladder control. Patient denies chest pain, fever, shortness of breath, nausea, vomiting, change in vision. Past Medical History Past Medical History: COPD, Pneumonia, Rheumatoid Arthritis (RA) Additional Past Medical History / Comment(s): Current patient in the wound center by Dr. Matias-dressing intact. Home Oxygen use at 2-3 Liters via [place] History of Any Multi-Drug Resistant Organisms: None Reported Past Surgical History: Appendectomy, Orthopedic Surgery, Tonsillectomy Additional Past Surgical History / Comment(s): left carpal tunnel, elbow sx. Cataracts Past Anesthesia/Blood Transfusion Reactions: No Reported Reaction Past Psychological History: No Psychological Hx Reported Smoking Status: Former smoker Past Alcohol Use History: Occasional Additional Past Alcohol Use History / Comment(s): Former smoker. Started smoking at age of 14 and continued pack daily until 1997. Past Drug Use History: None Reported - Past Family History Father History Unknown: Yes Family Medical History: COPD Additional Family Medical History / Comment(s): Smoker. Asbestos Exposure Medications and Allergies Home Medications Medication Instructions Recorded Confirmed Type Levothyroxine Sodium [Synthroid] 100 mcg PO DAILY 08/27/18 07/07/21 History metHOTREXate sodium [Methotrexate] 20 mg PO CHOW 08/27/18 07/07/21 History Ascorbic Acid [Vitamin C] 500 mg PO DAILY 02/02/19 07/07/21 History Ipratropium-Albuterol Nebulize 3 ml INHALATION RT-QID #120 ml 01/17/20 07/07/21 Rx [Duoneb 0.5 mg-3 mg/3 ml Soln] Fluticasone/Umeclidin/Vilanter 1 puff INHALATION RT-DAILY 03/14/21 07/07/21 History [Trelegy Ellipta 100-62.5-25] Furosemide [Lasix] 20 mg PO DAILY 03/14/21 07/07/21 History Folic Acid 0.8 mg PO DAILY 05/07/21 07/07/21 History Rosuvastatin [Crestor] 10 mg PO DAILY 05/07/21 07/07/21 History Aspirin 81 mg PO DAILY tab 05/10/21 07/07/21 Rx Acetaminophen-Codeine 300-30mg 1 tab PO Q6H PRN 07/07/21 07/07/21 History [Tylenol w/codeine #3] Baclofen [Lioresal] 5 - 10 mg PO BID PRN 07/07/21 07/07/21 History Cholecalciferol (Vitamin D3) 75 mcg PO DAILY 07/07/21 07/07/21 History [Vitamin D3 (3000 Iu)] predniSONE 10 mg PO DAILY 07/07/21 07/07/21 History Pantoprazole [Protonix] 40 mg PO BID@0625,6572 #60 tab 07/08/21 Rx Allergies Allergy/AdvReac Type Severity Reaction Status Date / Time No Known Allergies Allergy Verified 07/07/21 10:46 Physical Examination Inspection: Negative for any open fractures, erythema, ecchymosis, nodules, step-off deformities, scoliosis Palpation: Tenderness to palpation along the midline thoracic spine. Nontender to patient throughout the rest exam throughout the spine and bilateral upper and lower extremities. Sensation: Sensation is equal, symmetric, bilaterally intact throughout upper and lower extremities Range of motion: Full range of motion bilateral upper and lower extremities and hip flexion/extension, knee flexion/extension, plantar flexion/dorsiflexion; wrist flexion/extension, elbow flexion/extension, shoulder abduction/internal/external rotation/forward elevation. Motor: 4+/5 in all major motor groups bilaterally in upper and lower extremities Neurovascular status: Patient is neurovascularly intact throughout. Cap refill below 3 seconds bilaterally in digits of upper extremities. Radial pulses intact, 2+ present bilaterally Special tests: Negative Raquel's bilaterally; negative clonus bilaterally; negative Homans bilaterally Results - Labs Labs: Abnormal Lab Results - Last 24 Hours (Table) 07/07/21 07/07/21 07/08/21 Range/Units 09:55 16:50 00:20 WBC (3.8-10.6) k/uL RBC 2.09 L 2.37 L (4.30-5.90) m/uL Hgb 7.0 L 7.7 L (13.0-17.5) gm/dL Hct 21.8 L 24.1 L (39.0-53.0) % MCV 104.6 H D 101.5 H (80.0-100.0) fL RDW 24.4 H 23.8 H (11.5-15.5) % Macrocytosis Marked A Marked A Sodium (135-145) mmol/L Chloride (96-109) mmol/L Est GFR (CKD-EPI)NonAf (60.0-200.0) BUN/Creatinine Ratio (12.00-20.00) Ratio Calcium (8.7-10.3) mg/dL Albumin (3.8-4.9) g/dL Globulin (1.6-3.3) g/dL Albumin/Globulin Ratio (1.60-3.17) g/dL Crossmatch See Detail 07/08/21 07/08/21 Range/Units 06:48 06:48 WBC 3.7 L (3.8-10.6) k/uL RBC 2.67 L (4.30-5.90) m/uL Hgb 8.7 L (13.0-17.5) gm/dL Hct 26.8 L (39.0-53.0) % MCV 100.3 H (80.0-100.0) fL RDW 24.6 H (11.5-15.5) % Macrocytosis Marked A Sodium 133 L (135-145) mmol/L Chloride 95 L (96-109) mmol/L Est GFR (CKD-EPI)NonAf 56.8 L (60.0-200.0) BUN/Creatinine Ratio 20.25 H (12.00-20.00) Ratio Calcium 8.5 L (8.7-10.3) mg/dL Albumin 2.8 L (3.8-4.9) g/dL Globulin 5.0 H (1.6-3.3) g/dL Albumin/Globulin Ratio 0.56 L (1.60-3.17) g/dL Crossmatch H & H 07/07/21 07/07/21 07/08/21 Range/Units 09:53 16:50 00:20 Hgb 6.4 L* 7.0 L 7.7 L (13.0-17.5) gm/dL Hct 19.9 L* 21.8 L 24.1 L (39.0-53.0) % 07/08/21 Range/Units 06:48 Hgb 8.7 L (13.0-17.5) gm/dL Hct 26.8 L (39.0-53.0) % Coagulation 07/07/21 Range/Units 09:53 INR 1.1 (<1.2) Result Diagrams: 07/08/21 06:48 07/08/21 06:48 Assessment and Plan Assessment: 1. Mid back pain; T7, T8 vertebral compression fracture; T12 endplate deformity 2. A. fib; multiple medical comorbidities 3 anemia Plan: 1. Mid back pain; T7, T8 vertebral compression fractures; T12 endplate deformity - images have been reviewed and I have discussed results with my attending, Dr. Olsen this time. At this time we do not recommend any emergent/urgent orthopedic surgical intervention. We do recommend stabilization of the compression fractures with the use of a TLSO brace. TLSO brace has been ordered. Medicine has ordered an MRI for further evaluation based on the findings x-ray. We do recommend patient to follow-up in the outpatient setting for spine. Patient is orthopedically stable for discharge home 2. Appreciate medical management 3. Pain Management - Baclofen; Tylenol #3 4. GI prophylaxis - Protonix 5. PT/OT - weightbearing as tolerated with walker and TLSO brace Time with Patient: Less than 30
--- NOTE | 2021-07-08 16:55 | PN ---
PROGRESS NOTE DATE OF SERVICE: 07/08/2021. HISTORY: The patient is an 81-year-old pleasant white male admitted to the hospital with severe symptomatic anemia and hemoglobin of 6.4 requiring 2 units of PRBC transfusion. Last hemoglobin today is 8.7 g/dL. He denies any abdominal pain. No nausea, no vomiting. No rectal bleeding or melena. PHYSICAL EXAMINATION: He appears comfortable. Vital signs stable. Blood pressure is 110/55, pulse rate 80, temperature 97.9. HEENT examination unremarkable. Conjunctivae pink. Sclerae anicteric. Oral cavity no lesions. Neck no JVD. Chest was clear to auscultation. Heart regular rate and rhythm. Abdomen soft, bowel sounds are positive. No organomegaly. Extremities no edema. Neuro he is alert and oriented x3. No focal deficits. LABS: From today, WBC 3.7, hemoglobin 8.7, platelets are 221. Serum iron 72, TIBC 371, iron saturation 19% and ferritin is 67. Stool occult blood was negative. IMPRESSION: 1. Severe symptomatic anemia and iron indices not consistent with iron deficiency anemia. Stool Hemoccult is negative, status post 2 units of PRBC transfusion. Last hemoglobin is 8.7 g/dL. 2. History of hypertension. 3. History of hypercholesteremia. 4. Gastroesophageal reflux disease. 5. Rheumatoid arthritis on methotrexate. RECOMMENDATIONS: Monitor CBC frequently. I did mention about EGD and colonoscopy with the family and at this time not interested in proceeding with it. Since the hemoglobin is stable he can be discharged from GI standpoint. Follow up in the office as needed. Thank you for this consultation. MMODL / IJN: [id number] /
--- NOTE | 2021-07-08 17:24 | MR ---
EXAMINATION TYPE: MR thoracic spine wo/w con DATE OF EXAM: 07/08/2021 COMPARISON: CT chest January 15, 2020. Recent thoracic and lumbar spine x-rays from yesterday. HISTORY: Mid back pain, Compression fxs TECHNIQUE: Multiplanar, multisequence imaging of thoracic spine is performed without contrast FINDINGS: A Vitamin E marker is placed posteriorly for counting purposes and is at level of T8 verteb ra. Spinal cord shows normal course, caliber, and signal as it courses the thoracic spine. Mild heig ht loss involving the superior T6 vertebra and T7 vertebra along with focal mild to moderate height l oss involving the anterior superior T12 vertebra are now present. Findings new from chest CT January 15, 2020. Mild posterior retropulsion of the superior T12 vertebra into anterior spinal canal seen sagit gume image 7. Some heterogeneous postcontrast enhancement involving the superior T7 vertebra is presen t. No definitive abnormal enhancement involving the T6 of the T12 vertebra. Small posterior disc sandor iation mildly effacing the anterior thecal sac T5-T6 through the T7-T8 level sagittal image 7 and at the T9-T10 level sagittal image 9. Seen. Multilevel spondylolisthesis with disc herniations C4-C5 thr ough C6-C7 levels in the cervical spine on localizer. Review of the axial images shows no additional large disc herniation or suspicious enhancement. There is wedge-shaped opacity in the posterior right upper lung axial image 11 with additional central hil ar opacities or nodularity. Advise chest x-ray follow-up to better evaluate. Consider multifocal inf iltrates. IMPRESSION: Suspect mild chronic type compression fractures at T12 and T6 levels. The mild compressio n type fracture at T7 level is thought acute or subacute in age. Alignment satisfactory. No significa nt posterior retropulsion at T7 level.
[2021-07-08] MEDS ORDERED: PANTOPRAZOLE 40 MG TABLET PO SCH (17:30)
[2021-07-10] MEDS ORDERED: metHOTREXate sodium 2.5 MG TAB PO SCH (09:00)
== END 2021-07-08 19:03 | disposition home or self-care (01) | DRG 811 ==
LOC: EC 09:19 → 5NMEDONC 11:13
PROVIDERS: ADMIT Internal Medicine Geriatric Medicine; ATTEND Internal Medicine Geriatric Medicine
PROC: 30233N1 Transfusion of Nonautologous Red Blood Cells into Peripheral Vein, Percutaneous Approach (ICD-10-PCS; principal; 2021-07-07)
DX: D50.9 Iron deficiency anemia, unspecified (principal); I50.33 Acute on chronic diastolic (congestive) heart failure; M48.54XA Collapsed vertebra, not elsewhere classified, thoracic region, initial encounter for fracture; J44.1 Chronic obstructive pulmonary disease with (acute) exacerbation; K92.2 Gastrointestinal hemorrhage, unspecified; E03.9 Hypothyroidism, unspecified; E78.00 Pure hypercholesterolemia, unspecified; E78.5 Hyperlipidemia, unspecified; G89.29 Other chronic pain; I11.0 Hypertensive heart disease with heart failure; I25.2 Old myocardial infarction; I48.0 Paroxysmal atrial fibrillation; K21.9 Gastro-esophageal reflux disease without esophagitis; M06.9 Rheumatoid arthritis, unspecified; Z20.822 Contact with and (suspected) exposure to COVID-19; Z79.52 Long term (current) use of systemic steroids; Z79.82 Long term (current) use of aspirin; Z79.890 Hormone replacement therapy; Z79.899 Other long term (current) drug therapy; Z82.5 Family history of asthma and other chronic lower respiratory diseases; Z86.73 Personal history of transient ischemic attack (TIA), and cerebral infarction without residual deficits; Z87.01 Personal history of pneumonia (recurrent); Z87.891 Personal history of nicotine dependence
CPT/HCPCS: 36415; 72070; 72100; 72157; 74177; 80053; 82272; 82607; 82728; 82746; 83540; 83550; 83605; 83735; 84484; 85025; 85027; 85045; 85610; 85730; 86850; 86900; 86901; 86920; 87635; 93005; 94640; 96374; 96375; 99285

== ENCOUNTER 2021-07-18 08:45 | Inpatient (IN) | payer MEDICARE ==
[2021-07-18] MEDS ORDERED: ACETAMINOPHEN TAB 500 MG TAB PO PRN (09:03)
[2021-07-18] MEDS ORDERED: ACETAMINOPHEN TAB 500 MG TAB PO STA (09:03)
[2021-07-18] MEDS ORDERED: ALBUTEROL HFA INHALER INHALATION PRN (09:03)
[2021-07-18] MEDS ORDERED: ALBUTEROL HFA INHALER INHALATION STA (09:03)
[2021-07-18] MEDS ORDERED: methylPREDNISolone SOD SUCCI 125 MG/2 ML VIAL IV STA (09:05)
--- NOTE | 2021-07-18 09:09 | ED ---
General Adult HPI - General Chief complaint: Shortness of Breath Stated complaint: SOB Time Seen by Provider: 07/18/21 08:50 Source: patient, EMS, RN notes reviewed, old records reviewed Mode of arrival: EMS Limitations: no limitations, physical limitation - History of Present Illness Initial comments: Patient is a pleasant 81-year-old male presenting to the emergency department claiming of difficulty breathing. Patient is somewhat a poor historian. Onset appears to be several days ago. Patient amiss to having cough with occasional green sputum. Patient does have history of COPD. Patient denies having fevers. EMS reported patient being hypoxic. Patient believes she was here recently for anemia. - Related Data Home Medications Medication Instructions Recorded Confirmed Levothyroxine Sodium [Synthroid] 100 mcg PO DAILY 08/27/18 07/18/21 metHOTREXate sodium [Methotrexate] 20 mg PO CHOW 08/27/18 07/18/21 Ascorbic Acid [Vitamin C] 500 mg PO DAILY 02/02/19 07/18/21 Fluticasone/Umeclidin/Vilanter 1 puff INHALATION RT-DAILY PRN 03/14/21 07/18/21 [Trelegy Ellipta 100-62.5-25] Furosemide [Lasix] 20 mg PO DAILY 03/14/21 07/18/21 Folic Acid 0.8 mg PO DAILY 05/07/21 07/18/21 Rosuvastatin [Crestor] 10 mg PO DAILY 05/07/21 07/18/21 Acetaminophen-Codeine 300-30mg 1 tab PO Q6H PRN 07/07/21 07/18/21 [Tylenol w/codeine #3] Baclofen [Lioresal] 5 mg PO BID PRN 07/07/21 07/18/21 Cholecalciferol (Vitamin D3) 75 mcg PO DAILY 07/07/21 07/18/21 [Vitamin D3 (3000 Iu)] predniSONE 10 mg PO DAILY 07/07/21 07/18/21 Ibuprofen [Advil] 400 mg PO Q12H PRN 07/18/21 07/18/21 Previous Rx's Medication Instructions Recorded Ipratropium-Albuterol Nebulize 3 ml INHALATION RT-QID #120 ml 01/17/20 [Duoneb 0.5 mg-3 mg/3 ml Soln] Aspirin 81 mg PO DAILY tab 05/10/21 Allergies Allergy/AdvReac Type Severity Reaction Status Date / Time No Known Allergies Allergy Verified 07/18/21 10:07 Review of Systems ROS Statement: Those systems with pertinent positive or pertinent negative responses have been documented in the HPI. ROS Other: All systems not noted in ROS Statement are negative. Constitutional: Denies: fever, chills Eyes: Denies: eye pain ENT: Denies: ear pain Respiratory: Reports: cough, dyspnea Cardiovascular: Denies: chest pain Endocrine: Reports: fatigue Gastrointestinal: Denies: abdominal pain Genitourinary: Denies: dysuria Musculoskeletal: Denies: back pain Skin: Denies: rash Neurological: Denies: weakness Past Medical History Past Medical History: COPD, Pneumonia, Rheumatoid Arthritis (RA) Additional Past Medical History / Comment(s): Current patient in the wound center by Dr. Matias-dressing intact. Home Oxygen use at 2-3 Liters via [place] History of Any Multi-Drug Resistant Organisms: None Reported Past Surgical History: Appendectomy, Orthopedic Surgery, Tonsillectomy Additional Past Surgical History / Comment(s): left carpal tunnel, elbow sx. Cataracts Past Anesthesia/Blood Transfusion Reactions: No Reported Reaction Past Psychological History: No Psychological Hx Reported Smoking Status: Former smoker Past Alcohol Use History: Occasional Past Drug Use History: None Reported - Past Family History Father History Unknown: Yes Family Medical History: COPD Additional Family Medical History / Comment(s): Smoker. Asbestos Exposure General Exam Limitations: no limitations, physical limitation General appearance: alert Head exam: Present: normocephalic Eye exam: Present: normal appearance Neck exam: Present: normal inspection Respiratory exam: Present: respiratory distress, wheezes, decreased breath sounds Cardiovascular Exam: Present: tachycardia GI/Abdominal exam: Present: soft. Absent: tenderness Extremities exam: Present: normal inspection. Absent: pedal edema, calf tenderness Neurological exam: Present: alert Psychiatric exam: Present: normal affect, normal mood Skin exam: Present: normal color Course Vital Signs 07/18/21 07/18/21 07/18/21 08:53 09:00 10:00 Temperature 101.2 F H Pulse Rate 124 H 124 H 122 H Respiratory 26 H 33 H 28 H Rate Blood Pressure 119/60 119/60 134/57 O2 Sat by Pulse 92 L 91 L 90 L Oximetry 07/18/21 07/18/21 11:00 11:16 Temperature 98.9 F Pulse Rate 112 H Respiratory 47 H Rate Blood Pressure 103/54 O2 Sat by Pulse 90 L Oximetry EKG Findings - EKG Comments: EKG Findings:: Sinus tachycardia with a rate of 123. SC 144. QRS 92. QT 320. QTc 450. Normal axis. Normal QRS. No acute ST change. Medical Decision Making - Medical Decision Making Patient reevaluated. Patient updated. Patient states he wants to be DO NOT RESUSCITATE. Patient wants no intubation or CPR. Nursing staff did confirm this with family. Case was discussed with Dr. Fleming, who will admit covering Dr. Mccormack and she did come evaluate the patient. Dr. Voss has been paged for consult. - Lab Data Result diagrams: 07/18/21 10:14 07/18/21 10:14 Lab Results 07/18/21 07/18/21 07/18/21 Range/Units 09:06 10:14 10:14 WBC (3.8-10.6) k/uL RBC (4.30-5.90) m/uL Hgb (13.0-17.5) gm/dL Hct (39.0-53.0) % MCV (80.0-100.0) fL MCH (25.0-35.0) pg MCHC (31.0-37.0) g/dL RDW (11.5-15.5) % Plt Count (150-450) k/uL MPV Neutrophils % % Lymphocytes % % Monocytes % % Eosinophils % % Basophils % % Neutrophils # (1.3-7.7) k/uL Lymphocytes # (1.0-4.8) k/uL Monocytes # (0-1.0) k/uL Eosinophils # (0-0.7) k/uL Basophils # (0-0.2) k/uL Hypochromasia Poikilocytosis Anisocytosis Macrocytosis PT 12.2 H (9.0-12.0) sec INR 1.2 H (<1.2) APTT 31.1 H (22.0-30.0) sec Sodium 135 L (137-145) mmol/L Potassium 3.8 (3.5-5.1) mmol/L Chloride 99 (98-107) mmol/L Carbon Dioxide 28 (22-30) mmol/L Anion Gap 8 mmol/L BUN 58 H (9-20) mg/dL Creatinine 1.45 H (0.66-1.25) mg/dL Est GFR (CKD-EPI)AfAm 52 (>60 ml/min/1.73 sqM) Est GFR (CKD-EPI)NonAf 45 (>60 ml/min/1.73 sqM) Glucose 113 H (74-99) mg/dL Plasma Lactic Acid Clement (0.7-2.0) mmol/L Calcium 7.8 L (8.4-10.2) mg/dL Magnesium 1.9 (1.6-2.3) mg/dL Total Bilirubin 0.5 (0.2-1.3) mg/dL AST 110 H (17-59) U/L ALT 57 H (4-49) U/L Alkaline Phosphatase 62 (38-126) U/L Lactate Dehydrogenase 1145 H (313-618) U/L C-Reactive Protein 25.8 H (<1.0) mg/dL NT-Pro-B Natriuret Pep pg/mL Total Protein 7.7 (6.3-8.2) g/dL Albumin 2.5 L (3.5-5.0) g/dL Coronavirus (PCR) Detected A (Not Detectd) 07/18/21 07/18/21 07/18/21 Range/Units 10:14 10:14 10:14 WBC 4.1 (3.8-10.6) k/uL RBC 2.15 L (4.30-5.90) m/uL Hgb 6.9 L* D (13.0-17.5) gm/dL Hct 21.0 L (39.0-53.0) % MCV 97.6 (80.0-100.0) fL MCH 32.2 (25.0-35.0) pg MCHC 33.0 (31.0-37.0) g/dL RDW 22.3 H (11.5-15.5) % Plt Count 132 L (150-450) k/uL MPV 8.6 Neutrophils % 88 % Lymphocytes % 8 % Monocytes % 4 % Eosinophils % 0 % Basophils % 0 % Neutrophils # 3.6 (1.3-7.7) k/uL Lymphocytes # 0.3 L (1.0-4.8) k/uL Monocytes # 0.2 (0-1.0) k/uL Eosinophils # 0.0 (0-0.7) k/uL Basophils # 0.0 (0-0.2) k/uL Hypochromasia Slight Poikilocytosis Moderate Anisocytosis Moderate Macrocytosis Moderate PT (9.0-12.0) sec INR (<1.2) APTT (22.0-30.0) sec Sodium (137-145) mmol/L Potassium (3.5-5.1) mmol/L Chloride (98-107) mmol/L Carbon Dioxide (22-30) mmol/L Anion Gap mmol/L BUN (9-20) mg/dL Creatinine (0.66-1.25) mg/dL Est GFR (CKD-EPI)AfAm (>60 ml/min/1.73 sqM) Est GFR (CKD-EPI)NonAf (>60 ml/min/1.73 sqM) Glucose (74-99) mg/dL Plasma Lactic Acid Clement 1.4 (0.7-2.0) mmol/L Calcium (8.4-10.2) mg/dL Magnesium (1.6-2.3) mg/dL Total Bilirubin (0.2-1.3) mg/dL AST (17-59) U/L ALT (4-49) U/L Alkaline Phosphatase (38-126) U/L Lactate Dehydrogenase (313-618) U/L C-Reactive Protein (<1.0) mg/dL NT-Pro-B Natriuret Pep 1370 pg/mL Total Protein (6.3-8.2) g/dL Albumin (3.5-5.0) g/dL Coronavirus (PCR) (Not Detectd) - Radiology Data Radiology results: image reviewed (Chest x-ray shows diffuse fluffy infiltrates) Critical Care Time Critical Care Time: Yes Total Critical Care Time: 33 Disposition Clinical Impression: Acute respiratory failure, COVID-19, Anemia Disposition: ADMITTED IP TO THIS HOSP Condition: Serious Is patient prescribed a controlled substance at d/c from ED?: No Referrals: Lexa Mccormack MD [Primary Care Provider] - 1-2 days Decision Time: 11:54
--- NOTE | 2021-07-18 09:48 | XR ---
EXAMINATION TYPE: XR chest 1V portable DATE OF EXAM: 07/18/2021 COMPARISON: 05/10/2021 INDICATION: Covid, infection TECHNIQUE: Single frontal view of the chest is obtained. FINDINGS: The heart size is normal. The pulmonary vasculature is normal. Diffuse patchy infiltrates to the upper right lung field. Left perihilar and right lower lobe and lef t lower lobe infiltrates are evident. Findings can be compatible with atypical pneumonia. IMPRESSION: 1. Diffuse patchy infiltrates can be compatible with atypical pneumonia. Findings are worsened over t he interval. Follow-up is recommended.
[2021-07-18 10:34] LABS: Anisocytosis Moderate; Basophils % (A) 0 %; Eosinophils % (A) 0 %; Hypochromasia Slight; Lymphocytes # (A) 0.3 k/uL (1.0-4.8); Lymphocytes % (A) 8 %; MCH 32.2 pg (25.0-35.0); MCV 97.6 fL (80.0-100.0); Macrocytosis Moderate; Mean Platelet Volume 8.6; Monocytes # (A) 0.2 k/uL (0-1.0); Monocytes % (A) 4 %; Neutrophils # (A) 3.6 k/uL (1.3-7.7); Neutrophils % (A) 88 %; Platelet Count 132 k/uL (150-450); Poikilocytosis Moderate; RBC 2.15 m/uL (4.30-5.90); RDW 22.3 % (11.5-15.5); WBC 4.1 k/uL (3.8-10.6)
[2021-07-18 10:40] LABS: HGB 6.9 gm/dL (13.0-17.5)
[2021-07-18 11:03] LABS: Albumin 2.5 g/dL (3.5-5.0); Calcium 7.8 mg/dL (8.4-10.2); Magnesium 1.9 mg/dL (1.6-2.3); Potassium 3.8 mmol/L (3.5-5.1); Total Bilirubin 0.5 mg/dL (0.2-1.3); Total Protein 7.7 g/dL (6.3-8.2)
[2021-07-18 11:27] LABS: C Reactive Protein 25.8 mg/dL (<1.0)
[2021-07-18 11:36] LABS: INR 1.2 (<1.2); Partial Thromboplastin Time 31.1 sec (22.0-30.0); Prothrombin Time 12.2 sec (9.0-12.0)
[2021-07-18] MEDS ORDERED: IBUPROFEN 400 MG TAB PO PRN (11:44)
[2021-07-18] MEDS ORDERED: BACLOFEN 10 MG TAB PO PRN (11:44)
[2021-07-18] MEDS ORDERED: Acetaminophen-Codeine 300-30mg TAB PO PRN (11:44)
[2021-07-18] MEDS ORDERED: NALOXONE 0.4 MG/ML 1 ML VIAL IV PRN (11:59)
[2021-07-18] MEDS ORDERED: DEXAMETHASONE SOD PHOSPHATE 10 MG/ML 1 ML VIAL IVP SCH (12:00)
[2021-07-18] MEDS ORDERED: SODIUM CHLORIDE 0.9% 1,000 ML IV SCH (12:00)
[2021-07-18] MEDS ORDERED: CHOLECALCIFEROL 25 MCG (1000 IU) TABLET PO SCH (12:00)
[2021-07-18] MEDS ORDERED: ENOXAPARIN 80 MG/0.8 ML SYRINGE SQ SCH (12:00)
[2021-07-18] MEDS: PANTOPRAZOLE 40 MG/10 ML VIAL IVP SCH (12:40)
[2021-07-18] MEDS: CHOLECALCIFEROL 25 MCG (1000 IU) TABLET PO SCH (12:41)
[2021-07-18] MEDS: ZINC SULFATE 220 MG CAP PO SCH (12:41)
[2021-07-18] MEDS ORDERED: REMDESIVIR 200 MG in SODIUM CHLORIDE 0.9% 250 ML IVPB ONE (13:00)
--- NOTE | 2021-07-18 13:17 | P.HPIM ---
History of Present Illness H&P Date: 07/18/21 HISTORY OF PRESENT ILLNESS 81-year-old male one of my office patient of known for over 20 years with history of COPD, hypertension, hyperlipidemia, rheumatoid arthritis on me thotrexate and steroids, hypothyroidism and paroxysmal atrial fibrillation who had also history of hemorrhagic stroke this last year. Patient was hospitalized last May 07 for acute respiratory failure worsening dyspnea and shortness of breath. He should have recent hospitalization 06/1811/ for acute severe anemia presenting with hemoglobin of 4.6 but no signs of bleeding. Patient also was found to have compression fractures T7, T8, T12 and TLSO brace was ordered by orthopedics with plan for follow-up outpatient. Patient was discharged home after 2 units of packed RBCs with hemoglobin of 8.7. Patient was seen by GI with no plan for endoscopy. Patient now presents with complaints of shortness of breath that started 1 week ago today. Patient is vaccinated with maternal but he does not recall the month that was completed. Patient is a poor historian. He does have cough with green sputum production. He was hypoxic when EMS arrived and presented to the emergency center with temperature 101.2, heart rate 124, respiratory rate 26, blood pressure 119/60, pulse ox 92% on patient is currently on nonrebreather and nasal cannula. EKG sinus tachycardia. WBC 4.1, hemoglobin 6.9, platelet count 132. INR 1.2. Sodium 135. BUN 58 and creatinine 1.45. Glucose 113. Lactic acid 1.4. Magnesium 1.9. AST 110, ALT 57, alkaline phosphatase 62, LDH 1145. C-reactive protein 25.8. ProBNP 1370. Albumin 2.5. Coronavirus PCR detected. Chest x-ray revealed diffuse patchy infiltrates can be compatible with atypical pneumonia. Findings are worsened over the interval. Patient has been seen in the emergency center, we are adding consult for pulmonary medicine, starting first dose of Remdesivir, dexamethasone, Lovenox at therapeutic dose, d-dimer ordered and ultrasound of the right lower extremity to rule out DVT, vitamin supplements started. REVIEW OF SYSTEMS Constitutional: Noted fever, no chills, no night sweats. No weight change. Re ported weakness, Reported fatigue Reported lethargy. No daytime sleepiness. EENT: No headache. No blurred vision or double vision, no loss of vision. No loss of Hearing, no ringing in the ears, no dizziness. No nasal drainage or congestion. No epistaxis. No sore throat. Lungs: positive shortness of breath Reported cough Reported wheezes with worsening dyspnea with minimum exertion. Cardiovascular: No chest pain, positive lower extremity edema. positive palpitations. positive paroxysmal nocturnal dyspnea. positive orthopnea. No lightheadedness or dizziness. No syncopal episodes. Abdominal: No abdominal pain. No nausea, vomiting. No diarrhea. No constipation. No bloody or tarry stools.. No loss of appetite. Genitourinary: No dysuria, increased frequency, urgency. No urinary retention. Musculoskeletal: No myalgias. No muscle weakness, no gait dysfunction, no frequent falls. No back pain. No neck pain. Integumentary: right lower extremity ulcerations. Neurologic: No aphasia. No facial droop. No change in mentation. No head injury. No headache. No paralysis. No paresthesia. Psychiatric: No depression. No anxiety. No mood swings. Endocrine: No abnormal blood sugars. No weight change. No excessive sweating or thirst. No cold intolerance. SOCIAL HISTORY Patient was a smoker and quit 20 years ago. He drinks alcohol occasionally. He lives at home with his .. FAMILY HISTORY Mother from old age. Father from a stenosis exposure. Patient has 4 sisters and one from cancer of unknown type. 3 other sisters have no major medical problems. He does not have any brothers. Patient has 3 children with no major medical problems. PHYSICAL EXAMINATION Gen: This is a 81-year-old male resting on the ER stretcher, in moderate respiratory distress with nonrebreather and nasal cannula oxygen therapy intact. HEENT: Head is atraumatic, normocephalic. Pupils equal, round. Sclerae is anicteric. NECK: Supple. No JVD. No lymphadenopathy. No thyromegaly. LUNGS: decreased breaths on bilaterally coarse crackles positive expiratory wheezes. positive accessory muscle usage, positive intercostal retractions. HEART: Irregular rate and rhythm.S1-S2, positive S3, positive JVD. ABDOMEN: Soft. Bowel sounds are present. No masses. No tenderness. EXTREMITIES:edema of both lower extremity worsening of the right than the left side, the right side still cover with dressing had small ulcerated area on the lateral side of the leg with stage II, 3 ulcerated area with infection on the back of the leg as well for more superficial. Entire leg had more swelling had more irritation discomfort around all the ulcerated site. NEUROLOGICAL: Patient is awake, alert and oriented x3. Cranial nerves 2 through 12 are grossly intact. ASSESSMENT AND PLAN 1. Acute hypoxic respiratory failure secondary to COVID-19 pneumonia. Continue oxygen therapy, first dose of Remdesivir ordered, start dexamethasone 6 mg IV twice daily, Lovenox at therapeutic dose, d-dimer ordered and ultrasound of the right lower extremity to rule out DVT, vitamin supplements started. Continue Ventolin inhaler 2 puffs every 6 hours and as needed, Symbicort 2 puffs twice daily. 2. Sepsis secondary to Covid 19 pneumonia. Continue as in #1. 3. Severe anemia with recent hospitalization, presented with hemoglobin of 6.9. Transfuse 1 unit of packed RBCs and recheck CBC tomorrow. Patient has been seen by GI on last visit with no plan at that time for endoscopy and no sign of bleeding. Patient started on Protonix 40 mg IV push daily. 4. Acute kidney injury. Decrease IV fluids to 75 mL per hour due to history of heart failure. Recheck renal function and electrolytes. 5. Thrombocytopenia most likely secondary to sepsis. Continue to monitor. 6. Severe back pain secondary to compression fractures T7, T8, T12. Patient has TLSO brace which may be brought from home. Continue baclofen 5 mg twice daily as needed. 7. COPD without exacerbation. 8. Chronic diastolic heart failure. Hold Lasix. 9. Hypothyroidism. Continue levothyroxine 100 g daily. 10. Hyperlipidemia. Continue Lipitor 10 mg daily. 11. Rheumatoid arthritis. Hold methotrexate and prednisone. 12. Paroxysmal atrial fibrillation not on anticoagulation. 13. History of hemorrhagic stroke, stable. 14. DVT prophylaxis. Lovenox subcu. CODE STATUS: No code Patient will be admitted to the hospital for a minimum of 2 night stay. Impression and plan of care have been directed as dictated by the signing physician. Delia Tejada nurse practitioner acting as scribe for signing physician. Past Medical History Past Medical History: COPD, Pneumonia, Rheumatoid Arthritis (RA) Additional Past Medical History / Comment(s): Current patient in the wound center by Dr. Matias-dressing intact. Home Oxygen use at 2-3 Liters via [place] History of Any Multi-Drug Resistant Organisms: None Reported Past Surgical History: Appendectomy, Orthopedic Surgery, Tonsillectomy Additional Past Surgical History / Comment(s): left carpal tunnel, elbow sx. Cataracts Past Anesthesia/Blood Transfusion Reactions: No Reported Reaction Past Psychological History: No Psychological Hx Reported Smoking Status: Former smoker Past Alcohol Use History: Occasional Past Drug Use History: None Reported - Past Family History Father History Unknown: Yes Family Medical History: COPD Additional Family Medical History / Comment(s): Smoker. Asbestos Exposure Medications and Allergies Home Medications Medication Instructions Recorded Confirmed Type Levothyroxine Sodium [Synthroid] 100 mcg PO DAILY 08/27/18 07/18/21 History metHOTREXate sodium [Methotrexate] 20 mg PO CHOW 08/27/18 07/18/21 History Ascorbic Acid [Vitamin C] 500 mg PO DAILY 02/02/19 07/18/21 History Ipratropium-Albuterol Nebulize 3 ml INHALATION RT-QID #120 ml 01/17/20 07/18/21 Rx [Duoneb 0.5 mg-3 mg/3 ml Soln] Fluticasone/Umeclidin/Vilanter 1 puff INHALATION RT-DAILY PRN 03/14/21 07/18/21 History [Trelegy Ellipta 100-62.5-25] Furosemide [Lasix] 20 mg PO DAILY 03/14/21 07/18/21 History Folic Acid 0.8 mg PO DAILY 05/07/21 07/18/21 History Rosuvastatin [Crestor] 10 mg PO DAILY 05/07/21 07/18/21 History Aspirin 81 mg PO DAILY tab 05/10/21 07/18/21 Rx Acetaminophen-Codeine 300-30mg 1 tab PO Q6H PRN 07/07/21 07/18/21 History [Tylenol w/codeine #3] Baclofen [Lioresal] 5 mg PO BID PRN 07/07/21 07/18/21 History Cholecalciferol (Vitamin D3) 75 mcg PO DAILY 07/07/21 07/18/21 History [Vitamin D3 (3000 Iu)] predniSONE 10 mg PO DAILY 07/07/21 07/18/21 History Ibuprofen [Advil] 400 mg PO Q12H PRN 07/18/21 07/18/21 History Allergies Allergy/AdvReac Type Severity Reaction Status Date / Time No Known Allergies Allergy Verified 07/18/21 10:07 Physical Exam Vitals: Vital Signs Temp Pulse Resp BP Pulse Ox 07/18/21 11:16 98.9 F 07/18/21 11:00 112 H 47 H 103/54 90 L 07/18/21 10:00 122 H 28 H 134/57 90 L 07/18/21 09:00 124 H 33 H 119/60 91 L 07/18/21 08:53 101.2 F H 124 H 26 H 119/60 92 L Intake and Output 07/17/21 07/18/21 07/18/21 22:59 06:59 14:59 Other: Weight 90.718 kg Results CBC & Chem 7: 07/18/21 10:14 07/18/21 10:14 Labs: Abnormal Lab Results - Last 24 Hours (Table) 07/18/21 07/18/21 07/18/21 Range/Units 09:06 10:14 10:14 RBC (4.30-5.90) m/uL Hgb (13.0-17.5) gm/dL Hct (39.0-53.0) % RDW (11.5-15.5) % Plt Count (150-450) k/uL Lymphocytes # (1.0-4.8) k/uL PT 12.2 H (9.0-12.0) sec INR 1.2 H (<1.2) APTT 31.1 H (22.0-30.0) sec Sodium 135 L (137-145) mmol/L BUN 58 H (9-20) mg/dL Creatinine 1.45 H (0.66-1.25) mg/dL Glucose 113 H (74-99) mg/dL Calcium 7.8 L (8.4-10.2) mg/dL AST 110 H (17-59) U/L ALT 57 H (4-49) U/L Lactate Dehydrogenase 1145 H (313-618) U/L C-Reactive Protein 25.8 H (<1.0) mg/dL Albumin 2.5 L (3.5-5.0) g/dL Coronavirus (PCR) Detected A (Not Detectd) 07/18/21 Range/Units 10:14 RBC 2.15 L (4.30-5.90) m/uL Hgb 6.9 L* D (13.0-17.5) gm/dL Hct 21.0 L (39.0-53.0) % RDW 22.3 H (11.5-15.5) % Plt Count 132 L (150-450) k/uL Lymphocytes # 0.3 L (1.0-4.8) k/uL PT (9.0-12.0) sec INR (<1.2) APTT (22.0-30.0) sec Sodium (137-145) mmol/L BUN (9-20) mg/dL Creatinine (0.66-1.25) mg/dL Glucose (74-99) mg/dL Calcium (8.4-10.2) mg/dL AST (17-59) U/L ALT (4-49) U/L Lactate Dehydrogenase (313-618) U/L C-Reactive Protein (<1.0) mg/dL Albumin (3.5-5.0) g/dL Coronavirus (PCR) (Not Detectd)
[2021-07-18] MEDS: SODIUM CHLORIDE 0.9% 1,000 ML IV SCH (13:41)
--- NOTE | 2021-07-18 14:09 | US ---
EXAMINATION TYPE: US venous doppler duplex LE RT DATE OF EXAM: 07/18/2021 1:40 PM COMPARISON: NONE CLINICAL HISTORY: edema. covid SIDE PERFORMED: Right TECHNIQUE: The lower extremity deep venous system is examined utilizing real time linear array sonog gilberto with graded compression, doppler sonography and color-flow sonography. VESSELS IMAGED: Common Femoral Vein Deep Femoral Vein Greater Saphenous Vein * Femoral Vein Popliteal Vein Small Saphenous Vein * Proximal Calf Veins (* superficial vessels) Difficult due to patient laying on right leg. Right Leg: Negative for DVT IMPRESSION: 1. Right lower extremity ultrasound negative for deep venous thrombosis.
--- NOTE | 2021-07-18 15:07 | P.CNPUL ---
History of Present Illness Consult date: 07/18/21 Reason for consult: COPD, pneumonia History of present illness: 81-year-old male patient, MEDICAL problems and comorbidities which include COPD, rheumatoid arthritis and the patient is demented on a combination of methotrexate and steroids on outpatient basis and addition to hypertension and hyperlipidemia and history of atrial fibrillation and previous history of a hemorrhagic stroke. The patient presented to the hospital last April with respiratory failure and the patient was treated accordingly. At that time, the patient was also found to have severe anemia with hemoglobin being as low as 4.6 without any signs of bleeding. Patient was also found to have multilevel compression fractures of the level of T7, T8 and T12 and a TLSO brace was ordered for the patient. The patient was ultimately discharged home. The patient came into the hospital today because of worsening shortness of breath of one-week duration. Note that he was vaccinated for COVID 19. He has received 2 shots without a booster. The patient arrived to the emergency and the patient was a febrile with a temperature 11.2 and he was tachycardic and tachypneic and hypoxic. Currently is on a 15 L nasal cannula in addition to 100% nonrebreather facemask. His chest x-ray showing bilateral pulmonary infiltrates, with diffuse patchy infiltrates consistent with COVID 19 related pneumonia. The patient tested positive for COVID 19. His LDH level was 1145 and the rest of the blood work shows a creatinine of 1.4, BUN of 58, sodium of 135, white cell count of 4.1. The patient is currently ending emergency department and he'll be admitted to the intensive care unit. His hemoglobin today is at 6.9. No signs of any acute bleeding identified. D-dimer is at 4.6. Review of Systems Constitutional: Reports fatigue, Reports fever, Reports lethargy, Reports poor appetite, Reports weakness Eyes: denies as per HPI, denies blurred vision, denies bulging eye, denies decreased vision, denies diplopia, denies discharge, denies dry eye, denies irritation, denies itching, denies pain, denies photophobia, denies loss of peripheral vision, denies loss of vision, denies tunnel vision/blind spots Ears: deny: decreased hearing, ear discharge, earache, tinnitus Ears, nose, mouth and throat: Reports as per HPI Breasts: absent: as per HPI, gynecomastia Cardiovascular: Reports decreased exercise tolerance, Reports dyspnea on exertion Respiratory: Reports cough, Reports dyspnea Gastrointestinal: Reports as per HPI Genitourinary: Reports as per HPI Musculoskeletal: Reports as per HPI, Reports muscle weakness Musculoskeletal: absent: ankle pain, ankle stiffness, ankle swelling Integumentary: Reports as per HPI Neurological: Reports as per HPI Psychiatric: Reports as per HPI, Reports confusion Hematologic/Lymphatic: Reports as per HPI Allergic/Immunologic: Reports as per HPI Past Medical History Past Medical History: Atrial Fibrillation, COPD, GI Bleed (Review), Hyperlipidemia, Hypertension, Rheumatoid Arthritis (RA) Additional Past Medical History / Comment(s): Current patient in the wound center by Dr. Matias-dressing intact. Home Oxygen use at 2-3 Liters via [place] History of Any Multi-Drug Resistant Organisms: None Reported Past Surgical History: Appendectomy, Orthopedic Surgery, Tonsillectomy Additional Past Surgical History / Comment(s): left carpal tunnel, elbow sx. Cataracts Past Anesthesia/Blood Transfusion Reactions: No Reported Reaction Past Psychological History: No Psychological Hx Reported Smoking Status: Former smoker Past Alcohol Use History: Occasional Past Drug Use History: None Reported - Past Family History Father History Unknown: Yes Family Medical History: COPD Additional Family Medical History / Comment(s): Smoker. Asbestos Exposure Medications and Allergies Home Medications Medication Instructions Recorded Confirmed Type Levothyroxine Sodium [Synthroid] 100 mcg PO DAILY 08/27/18 07/18/21 History metHOTREXate sodium [Methotrexate] 20 mg PO CHOW 08/27/18 07/18/21 History Ascorbic Acid [Vitamin C] 500 mg PO DAILY 02/02/19 07/18/21 History Ipratropium-Albuterol Nebulize 3 ml INHALATION RT-QID #120 ml 01/17/20 07/18/21 Rx [Duoneb 0.5 mg-3 mg/3 ml Soln] Fluticasone/Umeclidin/Vilanter 1 puff INHALATION RT-DAILY PRN 03/14/21 07/18/21 History [Trelegy Ellipta 100-62.5-25] Furosemide [Lasix] 20 mg PO DAILY 03/14/21 07/18/21 History Folic Acid 0.8 mg PO DAILY 05/07/21 07/18/21 History Rosuvastatin [Crestor] 10 mg PO DAILY 05/07/21 07/18/21 History Aspirin 81 mg PO DAILY tab 05/10/21 07/18/21 Rx Acetaminophen-Codeine 300-30mg 1 tab PO Q6H PRN 07/07/21 07/18/21 History [Tylenol w/codeine #3] Baclofen [Lioresal] 5 mg PO BID PRN 07/07/21 07/18/21 History Cholecalciferol (Vitamin D3) 75 mcg PO DAILY 07/07/21 07/18/21 History [Vitamin D3 (3000 Iu)] predniSONE 10 mg PO DAILY 07/07/21 07/18/21 History Ibuprofen [Advil] 400 mg PO Q12H PRN 07/18/21 07/18/21 History Allergies Allergy/AdvReac Type Severity Reaction Status Date / Time No Known Allergies Allergy Verified 07/18/21 10:07 Physical Exam Vitals: Vital Signs Temp Pulse Resp BP Pulse Ox 07/18/21 12:49 98 26 H 96/41 95 07/18/21 11:59 101 H 24 82/34 98 07/18/21 11:16 98.9 F 07/18/21 11:00 112 H 47 H 103/54 90 L 07/18/21 10:00 122 H 28 H 134/57 90 L 07/18/21 09:00 124 H 33 H 119/60 91 L 07/18/21 08:53 101.2 F H 124 H 26 H 119/60 92 L Intake and Output 07/17/21 07/18/21 07/18/21 22:59 06:59 14:59 Other: Weight 90.718 kg The patient is currently on 100% nonrebreather facemask in addition to 15 L of oxygen by nasal cannula. His breathing is labored. He has episodic cough. Head exam was generally normal. There was no scleral icterus or corneal arcus. Mucous membranes were moist. HEENT: Head is atraumatic, normocephalic. Pupils equal, round. Sclerae is anicteric. NECK: Supple. No JVD. No lymphadenopathy. No thyromegaly. LUNGS: decreased breaths on bilaterally coarse crackles positive expiratory wheezes. positive accessory muscle usage, positive intercostal retractions. HEART: Irregular rate and rhythm.S1-S2, positive S3, positive JVD. ABDOMEN: Soft. Bowel sounds are present. No masses. No tenderness. EXTREMITIES:edema of both lower extremity worsening of the right than the left side, the right side still cover with dressing had small ulcerated area on the l ateral side of the leg with stage II, 3 ulcerated area with infection on the back of the leg as well for more superficial. Entire leg had more swelling had more irritation discomfort around all the ulcerated site. NEUROLOGICAL: Patient is awake, alert and oriented x3. Cranial nerves 2 through 12 are grossly intact. Results - Laboratory Findings CBC and BMP: 07/18/21 10:14 07/18/21 10:14 ABG WBC 4.1 k/uL (3.8-10.6) 07/18/21 10:14 RBC 2.15 m/uL (4.30-5.90) L 07/18/21 10:14 Hgb 6.9 gm/dL (13.0-17.5) L* D 07/18/21 10:14 Hct 21.0 % (39.0-53.0) L 07/18/21 10:14 MCV 97.6 fL (80.0-100.0) 07/18/21 10:14 MCH 32.2 pg (25.0-35.0) 07/18/21 10:14 MCHC 33.0 g/dL (31.0-37.0) 07/18/21 10:14 RDW 22.3 % (11.5-15.5) H 07/18/21 10:14 Plt Count 132 k/uL (150-450) L 07/18/21 10:14 MPV 8.6 07/18/21 10:14 Neutrophils % 88 % 07/18/21 10:14 Lymphocytes % 8 % 07/18/21 10:14 Monocytes % 4 % 07/18/21 10:14 Eosinophils % 0 % 07/18/21 10:14 Basophils % 0 % 07/18/21 10:14 Neutrophils # 3.6 k/uL (1.3-7.7) 07/18/21 10:14 Lymphocytes # 0.3 k/uL (1.0-4.8) L 07/18/21 10:14 Monocytes # 0.2 k/uL (0-1.0) 07/18/21 10:14 Eosinophils # 0.0 k/uL (0-0.7) 07/18/21 10:14 Basophils # 0.0 k/uL (0-0.2) 07/18/21 10:14 Hypochromasia Slight 07/18/21 10:14 Poikilocytosis Moderate 07/18/21 10:14 Anisocytosis Moderate 07/18/21 10:14 Macrocytosis Moderate 07/18/21 10:14 PT 12.2 sec (9.0-12.0) H 07/18/21 10:14 INR 1.2 (<1.2) H 07/18/21 10:14 APTT 31.1 sec (22.0-30.0) H 07/18/21 10:14 D-Dimer 4.64 mg/L FEU (<0.60) H 07/18/21 10:46 Sodium 135 mmol/L (137-145) L 07/18/21 10:14 Potassium 3.8 mmol/L (3.5-5.1) 07/18/21 10:14 Chloride 99 mmol/L (98-107) 07/18/21 10:14 Carbon Dioxide 28 mmol/L (22-30) 07/18/21 10:14 Anion Gap 8 mmol/L 07/18/21 10:14 BUN 58 mg/dL (9-20) H 07/18/21 10:14 Creatinine 1.45 mg/dL (0.66-1.25) H 07/18/21 10:14 Est GFR (CKD-EPI)AfAm 52 (>60 ml/min/1.73 sqM) 07/18/21 10:14 Est GFR (CKD-EPI)NonAf 45 (>60 ml/min/1.73 sqM) 07/18/21 10:14 Glucose 113 mg/dL (74-99) H 07/18/21 10:14 Plasma Lactic Acid Clement 1.4 mmol/L (0.7-2.0) 07/18/21 10:14 Calcium 7.8 mg/dL (8.4-10.2) L 07/18/21 10:14 Magnesium 1.9 mg/dL (1.6-2.3) 07/18/21 10:14 Total Bilirubin 0.5 mg/dL (0.2-1.3) 07/18/21 10:14 AST 110 U/L (17-59) H 07/18/21 10:14 ALT 57 U/L (4-49) H 07/18/21 10:14 Alkaline Phosphatase 62 U/L (38-126) 07/18/21 10:14 Lactate Dehydrogenase 1145 U/L (313-618) H 07/18/21 10:14 C-Reactive Protein 25.8 mg/dL (<1.0) H 07/18/21 10:14 NT-Pro-B Natriuret Pep 1370 pg/mL 07/18/21 10:14 Total Protein 7.7 g/dL (6.3-8.2) 07/18/21 10:14 Albumin 2.5 g/dL (3.5-5.0) L 07/18/21 10:14 Coronavirus (PCR) Detected (Not Detectd) A 07/18/21 09:06 PT/INR, D-dimer PT 12.2 sec (9.0-12.0) H 07/18/21 10:14 INR 1.2 (<1.2) H 07/18/21 10:14 D-Dimer 4.64 mg/L FEU (<0.60) H 07/18/21 10:46 Abnormal lab findings: Abnormal Labs 07/18/21 07/18/21 07/18/21 09:06 10:14 10:14 RBC Hgb Hct RDW Plt Count Lymphocytes # PT 12.2 H INR 1.2 H APTT 31.1 H D-Dimer Sodium 135 L BUN 58 H Creatinine 1.45 H Glucose 113 H Calcium 7.8 L AST 110 H ALT 57 H Lactate Dehydrogenase 1145 H C-Reactive Protein 25.8 H Albumin 2.5 L Coronavirus (PCR) Detected A 07/18/21 07/18/21 10:14 10:46 RBC 2.15 L Hgb 6.9 L* D Hct 21.0 L RDW 22.3 H Plt Count 132 L Lymphocytes # 0.3 L PT INR APTT D-Dimer 4.64 H Sodium BUN Creatinine Glucose Calcium AST ALT Lactate Dehydrogenase C-Reactive Protein Albumin Coronavirus (PCR) - Diagnostic Findings Chest x-ray: image reviewed Assessment and Plan Plan: 1 acute COVID 19 related pneumonia. The patient has been having worsening shortness of breath since mid June. The patient was seen in my office on 07/04/2021 for worsening dyspnea. Noted the patient is chronically immunosuppressed and the patient has been receiving a combination of methotrexate a total of 10 mg every week in addition to prednisone 10 mg on a daily basis. The patient was developing also bilateral pulmonary interstitial infiltrates and this along with multiple other comorbidities including chronic anemia and COPD he has resulted to significant amount of respiratory distress. The patient presented to the emergency and the patient was also checked positive for COVID 19 infection. Currently the patient has bilateral pulmonary infiltrates with patchy infiltration right more than left. Currently on Decadron. Currently on on the percent nonrebreather facemask in addition to 15 L of oxygen by nasal cannula 2 acute hypoxic respiratory failure secondary to above currently on 100% nonrebreather facemask 3 COPD with a baseline FEV1 of 54% of predicted 4 history of rheumatoid arthritis 5 history of chronic hypoxic respiatory failure and the patient was essentially using oxygen with activity and during sleep prior to this current episode 6 history of chronic immunosuppression 7 history of chronic atrial fibrillation 8 history of chronic anemia currently under investigation 9 acute kidney injury with a creatinine of 1.4 10 history of hemorrhagic stroke approximately a year ago 11 previous hospitalization for a massive drop in hemoglobin down to 4.6 with s igns of iron deficiency 12 history of compression fracture of the T7, T8 spine. Plan Keep the patient 100% nonrebreather facemask along with 15 L of oxygen by nasal cannula Monitor the oxygenation gradually wean down the FiO2 to maintain saturation above 90% Check inflammatory markers and monitor the levels including a pro-calcitonin level Put the patient on Decadron 6 malignant IV every 24 hours The patient's oxygen requirements are quite high and he is not a candidate for Remdesivir. May benefit from Baricitinib although I feel that the patient's symptoms were quite prolonged and he was symptomatic as of mid June. Give the patient a unit of packed RBC transfusion. No signs of any acute bleeding. Current hemoglobin is at 6.9, also there is no need for therapeutic doses of Lovenox as the patient was having issues with anemia and bleeding is obviously a concern especially with a hemoglobin of 6.9. I would suggest giving him Lovenox 40 mg subcu for DVT prophylaxis. IV fluid with normal state rate of 75 mL an hour Hold Lasix for now Hold his methotrexate and oral prednisone for now Monitor hemoglobin and there is no need for any anticoagulation DNR/DNI CODE STATUS. The patient will be transferred to the intensive care unit. Time with Patient: Greater than 30
[2021-07-18] MEDS: ALBUTEROL HFA INHALER INHALATION SCH ×2 (15:56→19:47)
[2021-07-18] MEDS: IPRATROPIUM-ALBUTEROL 3 ML NEB INHALATION SCH ×2 (15:57→18:03)
[2021-07-18] MEDS ORDERED: BARICITINIB 2 MG TABLET PO SCH (16:00)
[2021-07-18] MEDS: SYMBICORT 80-4.5 MCG INHALER INHALATION SCH (19:47)
[2021-07-18 22:01] LABS: Glucose,Whole Blood 212 mg/dL (75-99)
[2021-07-19] MEDS: SODIUM CHLORIDE 0.9% 1,000 ML IV SCH ×2 (03:21→18:21)
[2021-07-19 06:29] LABS: Albumin 2.3 g/dL (3.5-5.0); Calcium 7.9 mg/dL (8.4-10.2); Potassium 3.8 mmol/L (3.5-5.1); Total Bilirubin 0.4 mg/dL (0.2-1.3); Total Protein 7.2 g/dL (6.3-8.2)
[2021-07-19 06:32] LABS: Anisocytosis Moderate; Basophils % (A) 0 %; Eosinophils % (A) 0 %; HCT 23.3 % (39.0-53.0); HGB 7.6 gm/dL (13.0-17.5); Hypochromasia Slight; Lymphocytes # (A) 0.5 k/uL (1.0-4.8); Lymphocytes % (A) 10 %; MCH 31.6 pg (25.0-35.0); MCHC 32.4 g/dL (31.0-37.0); MCV 97.5 fL (80.0-100.0); Macrocytosis Moderate; Mean Platelet Volume 9.2; Monocytes # (A) 0.2 k/uL (0-1.0); Monocytes % (A) 3 %; Neutrophils # (A) 4.5 k/uL (1.3-7.7); Neutrophils % (A) 87 %; Platelet Count 129 k/uL (150-450); Poikilocytosis Marked; RBC 2.39 m/uL (4.30-5.90); RDW 22.1 % (11.5-15.5); WBC 5.2 k/uL (3.8-10.6)
[2021-07-19] MEDS ORDERED: Potassium Replacement Protocol 1 EACH MISC MISCELLANE PRN (06:32)
[2021-07-19] MEDS: LEVOTHYROXINE 100 MCG TAB PO SCH (06:39)
[2021-07-19] MEDS ORDERED: POTASSIUM CHLORIDE ER 20 MEQ TAB.ER PO SCH (07:00)
[2021-07-19 07:40] LABS: Glucose,Whole Blood 179 mg/dL (75-99)
--- NOTE | 2021-07-19 07:46 | XR ---
EXAMINATION TYPE: XR chest 1V DATE OF EXAM: 07/19/2021 CLINICAL HISTORY: Difficulty breathing progress study. TECHNIQUE: Single AP portable upright view of the chest is obtained. COMPARISON: Chest x-ray from one day earlier and older studies. CT chest May 02, 2019 FINDINGS: Chronic emphysematous and pulmonary fibrotic change with persistent bilateral multifocal opacities. C ardiac silhouette size stable and upper limits of normal with atherosclerotic aorta. Osseous structur es are intact. IMPRESSION: Bilateral multifocal opacities consistent with covid-19 infection on background chronic emphysematous and pulmonary fibrotic change. No significant change from one day earlier.
[2021-07-19] MEDS: ALBUTEROL HFA INHALER INHALATION SCH ×4 (08:26→20:16)
[2021-07-19] MEDS: SYMBICORT 80-4.5 MCG INHALER INHALATION SCH ×2 (08:27→20:16)
[2021-07-19] MEDS: TIOTROPIUM 2.5 MCG INHALER INHALATION SCH (08:27)
[2021-07-19] MEDS ORDERED: FUROSEMIDE 20 MG TAB PO SCH (09:00)
[2021-07-19 09:19] LABS: C Reactive Protein 33.1 mg/dL (<1.0)
--- NOTE | 2021-07-19 09:30 | P.PN ---
Subjective Progress Note Date: 07/19/21 81-year-old male patient, MEDICAL problems and comorbidities which include COPD, rheumatoid arthritis and the patient is demented on a combination of methotrexate and steroids on outpatient basis and addition to hypertension and hyperlipidemia and history of atrial fibrillation and previous history of a he morrhagic stroke. The patient presented to the hospital last April with respiratory failure and the patient was treated accordingly. At that time, the patient was also found to have severe anemia with hemoglobin being as low as 4.6 without any signs of bleeding. Patient was also found to have multilevel compression fractures of the level of T7, T8 and T12 and a TLSO brace was ordered for the patient. The patient was ultimately discharged home. The patient came into the hospital today because of worsening shortness of breath of one-week duration. Note that he was vaccinated for COVID 19. He has received 2 shots without a booster. The patient arrived to the emergency and the patient was a febrile with a temperature 11.2 and he was tachycardic and tachypneic and hypoxic. Currently is on a 15 L nasal cannula in addition to 100% nonrebreather facemask. His chest x-ray showing bilateral pulmonary infiltrates, with diffuse patchy infiltrates consistent with COVID 19 related pneumonia. The patient tested positive for COVID 19. His LDH level was 1145 and the rest of the blood work shows a creatinine of 1.4, BUN of 58, sodium of 135, white cell count of 4.1. The patient is currently ending emergency department and he'll be admitted to the intensive care unit. His hemoglobin today is at 6.9. No signs of any acute bleeding identified. D-dimer is at 4.6. On 07/19/2021 patient seen in follow-up in the intensive care unit, she remains on high flow oxygen with 15 L per high flow nasal cannula and 100% nonrebreather mask, and his pulse ox is 87-88%, he is breathing comfortably, clinically she looks and feels better compared to yesterday's exam and self report. He is awake and alert, oriented 3, he sitting up in bed, does not appear to be in distress. Physical exam reveals coarse bibasilar crackles at bilateral bases, patient does cough, no phlegm production, no complaints of chest pain, however his pro calcitonin level was elevated at 1.42 raising possibility of underlying bacterial infection even in view of his elevated BUN and creatinine. The rest of blood work has been reviewed, showing white blood cell count of 5.2, hemoglobin today 7.6 and patient was transfused with 1 unit of packed red blood cells yesterday, platelet count is 129, abdomen is soft, no nausea or vomiting, no hematemesis, no black tarry stools, no obvious signs of bleeding, hemo dynamically stable, he is in sinus mechanism tachycardic with a rate of 100, d- dimer is relatively stable at 4.31, electrolytes are within normal limits, BUN is 56 creatinine is slightly improved and is down to 1.34., His ferritin level on admission was 865, AST is relatively stable at 114, ALT is 57, alkaline phosphatase is 68, within normal limits, LDH is 1145 and this was done on admission and CRP is 25.8, proBNP was 1370. No lower extremity swelling noted. Today's chest x-ray shows bilateral multifocal opacities consistent with COVID- 19 infection and background chronic symptoms with this and pulmonary fibrotic changes. Blood cultures have been sent, one blood cultures is showing gram- negative bacilli, fungal culture is pending. Patient is on 0.9 normal saline at a rate of 75 ML per hour. His urine output is 30-60 ML per hour. His Doppler of right lower extremity was negative for DVT. Objective - Vital Signs Vital signs: Vital Signs Temp 98.7 F 07/19/21 08:00 Pulse 86 07/19/21 09:00 Resp 27 H 07/19/21 09:00 BP 107/46 07/19/21 09:00 Pulse Ox 87 L 07/19/21 09:09 Intake & Output 07/18/21 07/19/21 07/19/21 18:59 06:59 18:59 Intake Total 995 75 Output Total 455 40 Balance 540 35 Weight 90.718 kg 84.6 kg Intake: IV 375 75 Sodium Chloride 0.9% 1, 375 75 000 ml @ 75 mls/hr IV . [id number] VAISHNAVI Rx#:[id number] Blood Product 620 Rc As-1 Unit 310 [id number] Output: Urine 455 40 Other: Voiding Method Indwelling Catheter # Bowel Movements 1 - Exam GENERAL EXAM: Alert, pleasant, 81-year-old white male, tinnitus per high flow nasal cannula and her percent nonrebreather mask, with pulse ox of 87-88%, resting in the ICU, awake and alert, oriented 3, mildly dyspneic at rest, no acute distress was noted HEAD: Normocephalic/atraumatic. EYES: Normal reaction of pupils, equal size. Conjunctiva pink, sclera white. NOSE: Clear with pink turbinates. THROAT: No erythema or exudates. NECK: No masses, no JVD, no thyroid enlargement, no adenopathy. CHEST: No chest wall deformity. Symmetrical expansion. LUNGS: Equal air entry with coarse basilar rales CVS: Regular rate and rhythm, normal S1 and S2, no gallops, no murmurs, no rubs ABDOMEN: Soft, nontender. No hepatosplenomegaly, normal bowel sounds, no guarding or rigidity. EXTREMITIES: No clubbing, no edema, no cyanosis, 2+ pulses and upper and lower extremities. Right lower extremity is covered with the compression stocking, patient has healed wounds on his right avelar that are closed, and there is no drainage. MUSCULOSKELETAL: Muscle strength and tone normal. SPINE: No scoliosis or deformity SKIN: No rashes CENTRAL NERVOUS SYSTEM: Alert and oriented -3. No focal deficits, tone is normal in all 4 extremities. PSYCHIATRIC: Alert and oriented -3. Appropriate affect. Intact judgment and insight. - Labs CBC & Chem 7: 07/19/21 05:24 07/19/21 05:24 Labs: Abnormal Lab Results - Last 24 Hours (Table) 07/18/21 07/18/21 07/18/21 Range/Units 09:06 10:14 10:14 RBC (4.30-5.90) m/uL Hgb (13.0-17.5) gm/dL Hct (39.0-53.0) % RDW (11.5-15.5) % Plt Count (150-450) k/uL Lymphocytes # (1.0-4.8) k/uL PT 12.2 H (9.0-12.0) sec INR 1.2 H (<1.2) APTT 31.1 H (22.0-30.0) sec D-Dimer (<0.60) mg/L FEU Sodium 135 L (137-145) mmol/L BUN 58 H (9-20) mg/dL Creatinine 1.45 H (0.66-1.25) mg/dL Glucose 113 H (74-99) mg/dL POC Glucose (mg/dL) (75-99) mg/dL Calcium 7.8 L (8.4-10.2) mg/dL Ferritin 865.0 H (22.0-322.0) ng/mL AST 110 H (17-59) U/L ALT 57 H (4-49) U/L Lactate Dehydrogenase 1145 H (313-618) U/L C-Reactive Protein 25.8 H (<1.0) mg/dL Albumin 2.5 L (3.5-5.0) g/dL Procalcitonin (0.02-0.09) ng/mL Coronavirus (PCR) Detected A (Not Detectd) Crossmatch 07/18/21 07/18/21 07/18/21 Range/Units 10:14 10:14 10:46 RBC 2.15 L (4.30-5.90) m/uL Hgb 6.9 L* D (13.0-17.5) gm/dL Hct 21.0 L (39.0-53.0) % RDW 22.3 H (11.5-15.5) % Plt Count 132 L (150-450) k/uL Lymphocytes # 0.3 L (1.0-4.8) k/uL PT (9.0-12.0) sec INR (<1.2) APTT (22.0-30.0) sec D-Dimer 4.64 H (<0.60) mg/L FEU Sodium (137-145) mmol/L BUN (9-20) mg/dL Creatinine (0.66-1.25) mg/dL Glucose (74-99) mg/dL POC Glucose (mg/dL) (75-99) mg/dL Calcium (8.4-10.2) mg/dL Ferritin (22.0-322.0) ng/mL AST (17-59) U/L ALT (4-49) U/L Lactate Dehydrogenase (313-618) U/L C-Reactive Protein (<1.0) mg/dL Albumin (3.5-5.0) g/dL Procalcitonin 1.42 H (0.02-0.09) ng/mL Coronavirus (PCR) (Not Detectd) Crossmatch 07/18/21 07/18/21 07/19/21 Range/Units 21:24 21:59 05:24 RBC (4.30-5.90) m/uL Hgb (13.0-17.5) gm/dL Hct (39.0-53.0) % RDW (11.5-15.5) % Plt Count (150-450) k/uL Lymphocytes # (1.0-4.8) k/uL PT (9.0-12.0) sec INR (<1.2) APTT (22.0-30.0) sec D-Dimer 4.31 H (<0.60) mg/L FEU Sodium (137-145) mmol/L BUN (9-20) mg/dL Creatinine (0.66-1.25) mg/dL Glucose (74-99) mg/dL POC Glucose (mg/dL) 212 H (75-99) mg/dL Calcium (8.4-10.2) mg/dL Ferritin (22.0-322.0) ng/mL AST (17-59) U/L ALT (4-49) U/L Lactate Dehydrogenase (313-618) U/L C-Reactive Protein (<1.0) mg/dL Albumin (3.5-5.0) g/dL Procalcitonin (0.02-0.09) ng/mL Coronavirus (PCR) (Not Detectd) Crossmatch See Detail 07/19/21 07/19/21 07/19/21 Range/Units 05:24 05:24 05:24 RBC 2.39 L (4.30-5.90) m/uL Hgb 7.6 L (13.0-17.5) gm/dL Hct 23.3 L (39.0-53.0) % RDW 22.1 H (11.5-15.5) % Plt Count 129 L (150-450) k/uL Lymphocytes # 0.5 L (1.0-4.8) k/uL PT (9.0-12.0) sec INR (<1.2) APTT (22.0-30.0) sec D-Dimer (<0.60) mg/L FEU Sodium (137-145) mmol/L BUN 56 H (9-20) mg/dL Creatinine 1.34 H (0.66-1.25) mg/dL Glucose 169 H (74-99) mg/dL POC Glucose (mg/dL) (75-99) mg/dL Calcium 7.9 L (8.4-10.2) mg/dL Ferritin (22.0-322.0) ng/mL AST 114 H (17-59) U/L ALT 57 H (4-49) U/L Lactate Dehydrogenase (313-618) U/L C-Reactive Protein 33.1 H (<1.0) mg/dL Albumin 2.3 L (3.5-5.0) g/dL Procalcitonin (0.02-0.09) ng/mL Coronavirus (PCR) (Not Detectd) Crossmatch 07/19/21 Range/Units 07:39 RBC (4.30-5.90) m/uL Hgb (13.0-17.5) gm/dL Hct (39.0-53.0) % RDW (11.5-15.5) % Plt Count (150-450) k/uL Lymphocytes # (1.0-4.8) k/uL PT (9.0-12.0) sec INR (<1.2) APTT (22.0-30.0) sec D-Dimer (<0.60) mg/L FEU Sodium (137-145) mmol/L BUN (9-20) mg/dL Creatinine (0.66-1.25) mg/dL Glucose (74-99) mg/dL POC Glucose (mg/dL) 179 H (75-99) mg/dL Calcium (8.4-10.2) mg/dL Ferritin (22.0-322.0) ng/mL AST (17-59) U/L ALT (4-49) U/L Lactate Dehydrogenase (313-618) U/L C-Reactive Protein (<1.0) mg/dL Albumin (3.5-5.0) g/dL Procalcitonin (0.02-0.09) ng/mL Coronavirus (PCR) (Not Detectd) Crossmatch Microbiology - Last 24 Hours (Table) 07/18/21 09:12 Blood Culture Gram Stain - Preliminary Blood 07/18/21 09:12 Blood Culture - Final Blood Assessment and Plan Plan: Assessment: #1. Acute COVID 19 related pneumonia. The patient has been having worsening shortness of breath since mid June. The patient was seen in my office on 07/04/2021 for worsening dyspnea. Noted the patient is chronically immunosuppressed and the patient has been receiving a combination of methotrexate a total of 10 mg every week in addition to prednisone 10 mg on a daily basis. The patient was developing also bilateral pulmonary interstitial infiltrates and this along with multiple other comorbidities including chronic anemia and COPD he has resulted to significant amount of respiratory distress. The patient presented to the emergency and the patient was also checked positive for COVID 19 infection. Currently the patient has bilateral pulmonary infiltrates with patchy infiltration right more than left. Currently on Decadron. Currently on on the percent nonrebreather facemask in addition to 15 L of oxygen by nasal cannula, started on Baricitinib on 07/18/2021 which was stopped today on 07/19/2021 for possibility of underlying bacterial infection in view of elevated pro-calcitonin level of 1.42 #2. Acute hypoxic respiratory failure secondary to above currently on 100% nonrebreather facemask #3. COPD with a baseline FEV1 of 54% of predicted #4. History of rheumatoid arthritis #5. History of chronic hypoxic respiatory failure and the patient was essentially using oxygen with activity and during sleep prior to this current episode #6. History of chronic immunosuppression #7. History of chronic atrial fibrillation #8. History of chronic anemia currently under investigation #9. Acute kidney injury with a creatinine of 1.4 #10. Hstory of hemorrhagic stroke approximately a year ago #11. Previous hospitalization for a massive drop in hemoglobin down to 4.6 with signs of iron deficiency #12. History of compression fracture of the T7, T8 spine. #13. Elevated pro-calcitonin level of 1.42, rule out possibility of underlying bacterial infection #14. Gram-negative bacteremia, blood culture showed gram-negative bacilli, final culture is pending, will be covered with cefepime Plan Current medical treatment Pro calcitonin level came back elevated at 1.42, and blood culture showed gram- negative bacilli and final culture is pending Stop Baricitinib Send blood cultures, urinalysis and urine culture, sputum culture will be also sent start cefepime continue Decadron, and Lovenox 40 mg daily follow up inflammatory markers and d-dimer Doppler ultrasound of the left extremity Continue supportive treatment Continue IV fluids at 75 ML per hour CODE STATUS is DO NOT RESUSCITATE We'll continue supportive treatment and monitor for response Overall prognosis is guarded I performed a history & physical examination of the patient and discussed their management with my nurse practitioner, Destiny Christiansen. I reviewed the nurse practitioner's note and agree with the documented findings and plan of care. Lung sounds are positive for diffuse coarse crackles at the lora lower lobes throughout the lung mi. The findings and the impression was discussed with the patient. I attest to the documentation by the nurse practitioner. Time with Patient: Greater than 30
[2021-07-19] MEDS ORDERED: CEFEPIME 1 GM in SODIUM CHLORIDE 0.9% 50 ML IVPB SCH (09:45)
[2021-07-19] MEDS: ASPIRIN 81 MG PO SCH (09:52)
[2021-07-19] MEDS: ASCORBIC ACID 500 MG TAB PO SCH (09:52)
[2021-07-19] MEDS: CHOLECALCIFEROL 25 MCG (1000 IU) TABLET PO SCH (09:53)
[2021-07-19] MEDS: ATORVASTATIN 10 MG TAB PO SCH (09:53)
[2021-07-19] MEDS: DEXAMETHASONE SOD PHOSPHATE 10 MG/ML 1 ML VIAL IVP SCH (09:53)
[2021-07-19] MEDS: ENOXAPARIN 40 MG/0.4 ML SYRINGE SQ SCH (09:56)
[2021-07-19] MEDS: PANTOPRAZOLE 40 MG/10 ML VIAL IVP SCH (09:56)
[2021-07-19] MEDS: ZINC SULFATE 220 MG CAP PO SCH (09:56)
[2021-07-19] MEDS: FOLIC ACID 1 MG TAB PO SCH (09:56)
--- NOTE | 2021-07-19 10:56 | US ---
EXAMINATION TYPE: US venous doppler duplex LE LT DATE OF EXAM: 07/19/2021 10:29 AM COMPARISON: NONE CLINICAL HISTORY: elevated d-dimer. ICU Covid pt, no swelling, pain. No hx of DVT. SIDE PERFORMED: Left TECHNIQUE: The lower extremity deep venous system is examined utilizing real time linear array sonog gilberto with graded compression, doppler sonography and color-flow sonography. VESSELS IMAGED: Common Femoral Vein Deep Femoral Vein Greater Saphenous Vein * Femoral Vein Popliteal Vein Small Saphenous Vein * Proximal Calf Veins (* superficial vessels) Left Leg: Negative for DVT Grayscale, color doppler, spectral doppler imaging performed of the deep veins of the left lower extr emity. There is normal flow, compressibility, vascular waveforms. IMPRESSION: No ultrasound evidence for acute DVT in the left lower extremity.
[2021-07-19] MEDS ORDERED: VANCOMYCIN IV PER PHARMACY 1 EACH MISC MISCELLANE PRN (11:23)
[2021-07-19 11:43] LABS: Glucose,Whole Blood 171 mg/dL (75-99)
[2021-07-19] MEDS: INSULIN ASPART (NovoLOG) 100 UNIT/ML VIAL SQ SCH ×3 (11:51→22:53)
[2021-07-19] MEDS ORDERED: VANCOMYCIN 1,500 MG in SODIUM CHLORIDE 0.9% 250 ML IVPB SCH (12:00)
--- NOTE | 2021-07-19 15:27 | P.PN ---
Subjective Progress Note Date: 07/19/21 HISTORY OF PRESENT ILLNESS 81-year-old male one of my office patient of known for over 20 years with history of COPD, hypertension, hyperlipidemia, rheumatoid arthritis on methotre xate and steroids, hypothyroidism and paroxysmal atrial fibrillation who had also history of hemorrhagic stroke this last year. Patient was hospitalized last May 07 for acute respiratory failure worsening dyspnea and shortness of breath. He should have recent hospitalization 06/1811/ for acute severe anemia presenting with hemoglobin of 4.6 but no signs of bleeding. Patient also was found to have compression fractures T7, T8, T12 and TLSO brace was ordered by orthopedics with plan for follow-up outpatient. Patient was discharged home after 2 units of packed RBCs with hemoglobin of 8.7. Patient was seen by GI with no plan for endoscopy. Patient now presents with complaints of shortness of breath that started 1 week ago today. Patient is vaccinated with maternal but he does not recall the month that was completed. Patient is a poor historian. He does have cough with green sputum production. He was hypoxic when EMS arrived and presented to the emergency center with temperature 101.2, heart rate 124, respiratory rate 26, blood pressure 119/60, pulse ox 92% on patient is currently on nonrebreather and nasal cannula. EKG sinus tachycardia. WBC 4.1, hemoglobin 6.9, platelet count 132. INR 1.2. Sodium 135. BUN 58 and creatinine 1.45. Glucose 113. Lactic acid 1.4. Magnesium 1.9. AST 110, ALT 57, alkaline phosphatase 62, LDH 1145. C-reactive protein 25.8. ProBNP 1370. Albumin 2.5. Coronavirus PCR detected. Chest x-ray revealed diffuse patchy infiltrates can be compatible with atypical pneumonia. Findings are worsened over the interval. Patient has been seen in the emergency center, we are adding consult for pulmonary medicine, starting first dose of Remdesivir, dexamethasone, Lovenox at therapeutic dose, d-dimer ordered and ultrasound of the right lower extremity to rule out DVT, vitamin supplements started. 07/19: Patient is seen today in the intensive care unit. He is currently on nonrebreather and high flow nasal cannula with pulse ox of 87%. He has been afebrile, heart rate in the 80s and 90s, blood pressure 113/52. Repeat blood work reveals hemoglobin 7.6, platelet count 129. BUN 56 and creatinine 1.34. Blood sugars are running between 171 and 212. AST 114, ALT 57. LDH 1360. C- reactive protein 33.1. D-dimer 4.3. Blood culture 2 is gram-positive cocci and vancomycin started, pharmacy to dose. Patient has been seen by pulmonary medicine and Remdesivir was discontinued. Ultrasound of the bilateral lower extremities negative for DVT. Chest x-ray reveals bilateral multifocal opacities consistent with COVID 19 inf ection a background of chronic emphysematous and pulmonary fibrotic change. REVIEW OF SYSTEMS Constitutional: Noted fever, no chills, no night sweats. No weight change. R eported weakness, Reported fatigue Reported lethargy. No daytime sleepiness. EENT: No headache. No blurred vision or double vision, no loss of vision. No loss of Hearing, no ringing in the ears, no dizziness. No nasal drainage or congestion. No epistaxis. No sore throat. Lungs: positive shortness of breath Reported cough Reported wheezes with worsening dyspnea with minimum exertion. Cardiovascular: No chest pain, positive lower extremity edema. positive palpitations. positive paroxysmal nocturnal dyspnea. positive orthopnea. No lightheadedness or dizziness. No syncopal episodes. Abdominal: No abdominal pain. No nausea, vomiting. No diarrhea. No constipation. No bloody or tarry stools.. No loss of appetite. Genitourinary: No dysuria, increased frequency, urgency. No urinary retention. Musculoskeletal: No myalgias. No muscle weakness, no gait dysfunction, no frequent falls. No back pain. No neck pain. Integumentary: right lower extremity ulcerations have healed. Neurologic: No aphasia. No facial droop. No change in mentation. No head injury. No headache. No paralysis. No paresthesia. Psychiatric: No depression. No anxiety. No mood swings. Endocrine: No abnormal blood sugars. No weight change. No excessive sweating or thirst. PHYSICAL EXAMINATION Gen: This is a 81-year-old male resting on the ER stretcher, in moderate respiratory distress with nonrebreather and nasal cannula oxygen therapy intact. HEENT: Head is atraumatic, normocephalic. Pupils equal, round. Sclerae is anicteric. NECK: Supple. No JVD. No lymphadenopathy. No thyromegaly. LUNGS: decreased breaths on bilaterally coarse crackles positive expiratory wheezes. positive accessory muscle usage, positive intercostal retractions. HEART: Irregular rate and rhythm.S1-S2, positive S3, positive JVD. ABDOMEN: Soft. Bowel sounds are present. No masses. No tenderness. Gomez catheter draining clear rubio urine. EXTREMITIES: No edema. Dorsalis pedis +2 bilaterally. NEUROLOGICAL: Patient is awake, alert and oriented x3. Cranial nerves 2 through 12 are grossly intact. ASSESSMENT AND PLAN 1. Acute hypoxic respiratory failure secondary to COVID-19 pneumonia. Continue oxygen therapy, first dose of Remdesivir ordered and discontinued by pulmonary medicine, continue dexamethasone 6 mg IV twice daily, Lovenox at therapeutic dose, d-dimer ordered and ultrasound of the right lower extremity to rule out DVT, vitamin supplements started. Continue Ventolin inhaler 2 puffs every 6 hours and as needed, Symbicort 2 puffs twice daily. 2. Sepsis secondary to Covid 19 pneumonia. Continue as in #1. 3. Severe anemia with recent hospitalization, presented with hemoglobin of 6.9. Transfuse 1 unit of packed RBCs and recheck CBC tomorrow. Patient has been seen by GI on last visit with no plan at that time for endoscopy and no sign of bleeding. Patient started on Protonix 40 mg IV push daily. 4. Acute kidney injury. Continue IV fluids to 75 mL per hour due to history of heart failure. Recheck renal function and electrolytes. 5. Thrombocytopenia most likely secondary to sepsis. Continue to monitor. 6. Severe back pain secondary to compression fractures T7, T8, T12. Patient has TLSO brace which may be brought from home. Continue baclofen 5 mg twice daily as needed. 7. COPD without exacerbation. 8. Chronic diastolic heart failure. Hold Lasix. 9. Hypothyroidism. Continue levothyroxine 100 g daily. 10. Hyperlipidemia. Continue Lipitor 10 mg daily. 11. Rheumatoid arthritis. Hold methotrexate and prednisone. 12. Paroxysmal atrial fibrillation not on anticoagulation. 13. History of hemorrhagic stroke, stable. 14. DVT prophylaxis. Lovenox subcu. CODE STATUS: No code Impression and plan of care have been directed as dictated by the signing physician. Delia Tejada nurse practitioner acting as scribe for signing physician. Objective - Vital Signs Vital signs: Vital Signs Temp 98.7 F 07/19/21 08:00 Pulse 86 07/19/21 09:00 Resp 27 H 07/19/21 09:00 BP 107/46 07/19/21 09:00 Pulse Ox 87 L 07/19/21 09:09 Intake & Output 07/18/21 07/19/21 07/19/21 18:59 06:59 18:59 Intake Total 995 75 Output Total 455 40 Balance 540 35 Weight 90.718 kg 84.6 kg Intake: IV 375 75 Sodium Chloride 0.9% 1, 375 75 000 ml @ 75 mls/hr IV . [id number] [facility] Rx#:[id number] Blood Product 620 Rc As-1 Unit 310 [id number] Output: Urine 455 40 Other: Voiding Method Indwelling Catheter # Bowel Movements 1 - Labs CBC & Chem 7: 07/19/21 05:24 07/19/21 05:24 Labs: Abnormal Lab Results - Last 24 Hours (Table) 07/18/21 07/18/21 07/18/21 Range/Units 10:14 10:14 10:14 RBC (4.30-5.90) m/uL Hgb (13.0-17.5) gm/dL Hct (39.0-53.0) % RDW (11.5-15.5) % Plt Count (150-450) k/uL Lymphocytes # (1.0-4.8) k/uL PT 12.2 H (9.0-12.0) sec INR 1.2 H (<1.2) APTT 31.1 H (22.0-30.0) sec D-Dimer (<0.60) mg/L FEU Sodium 135 L (137-145) mmol/L BUN 58 H (9-20) mg/dL Creatinine 1.45 H (0.66-1.25) mg/dL Glucose 113 H (74-99) mg/dL POC Glucose (mg/dL) (75-99) mg/dL Calcium 7.8 L (8.4-10.2) mg/dL Ferritin 865.0 H (22.0-322.0) ng/mL AST 110 H (17-59) U/L ALT 57 H (4-49) U/L Lactate Dehydrogenase 1145 H (313-618) U/L C-Reactive Protein 25.8 H (<1.0) mg/dL Albumin 2.5 L (3.5-5.0) g/dL Procalcitonin 1.42 H (0.02-0.09) ng/mL Crossmatch 07/18/21 07/18/21 07/18/21 Range/Units 10:46 21:24 21:59 RBC (4.30-5.90) m/uL Hgb (13.0-17.5) gm/dL Hct (39.0-53.0) % RDW (11.5-15.5) % Plt Count (150-450) k/uL Lymphocytes # (1.0-4.8) k/uL PT (9.0-12.0) sec INR (<1.2) APTT (22.0-30.0) sec D-Dimer 4.64 H (<0.60) mg/L FEU Sodium (137-145) mmol/L BUN (9-20) mg/dL Creatinine (0.66-1.25) mg/dL Glucose (74-99) mg/dL POC Glucose (mg/dL) 212 H (75-99) mg/dL Calcium (8.4-10.2) mg/dL Ferritin (22.0-322.0) ng/mL AST (17-59) U/L ALT (4-49) U/L Lactate Dehydrogenase (313-618) U/L C-Reactive Protein (<1.0) mg/dL Albumin (3.5-5.0) g/dL Procalcitonin (0.02-0.09) ng/mL Crossmatch See Detail 07/19/21 07/19/21 07/19/21 Range/Units 05:24 05:24 05:24 RBC 2.39 L (4.30-5.90) m/uL Hgb 7.6 L (13.0-17.5) gm/dL Hct 23.3 L (39.0-53.0) % RDW 22.1 H (11.5-15.5) % Plt Count 129 L (150-450) k/uL Lymphocytes # 0.5 L (1.0-4.8) k/uL PT (9.0-12.0) sec INR (<1.2) APTT (22.0-30.0) sec D-Dimer 4.31 H (<0.60) mg/L FEU Sodium (137-145) mmol/L BUN (9-20) mg/dL Creatinine (0.66-1.25) mg/dL Glucose (74-99) mg/dL POC Glucose (mg/dL) (75-99) mg/dL Calcium (8.4-10.2) mg/dL Ferritin (22.0-322.0) ng/mL AST (17-59) U/L ALT (4-49) U/L Lactate Dehydrogenase 1360 H (313-618) U/L C-Reactive Protein 33.1 H (<1.0) mg/dL Albumin (3.5-5.0) g/dL Procalcitonin (0.02-0.09) ng/mL Crossmatch 07/19/21 07/19/21 Range/Units 05:24 07:39 RBC (4.30-5.90) m/uL Hgb (13.0-17.5) gm/dL Hct (39.0-53.0) % RDW (11.5-15.5) % Plt Count (150-450) k/uL Lymphocytes # (1.0-4.8) k/uL PT (9.0-12.0) sec INR (<1.2) APTT (22.0-30.0) sec D-Dimer (<0.60) mg/L FEU Sodium (137-145) mmol/L BUN 56 H (9-20) mg/dL Creatinine 1.34 H (0.66-1.25) mg/dL Glucose 169 H (74-99) mg/dL POC Glucose (mg/dL) 179 H (75-99) mg/dL Calcium 7.9 L (8.4-10.2) mg/dL Ferritin (22.0-322.0) ng/mL AST 114 H (17-59) U/L ALT 57 H (4-49) U/L Lactate Dehydrogenase (313-618) U/L C-Reactive Protein (<1.0) mg/dL Albumin 2.3 L (3.5-5.0) g/dL Procalcitonin (0.02-0.09) ng/mL Crossmatch Microbiology - Last 24 Hours (Table) 07/18/21 09:12 Blood Culture Gram Stain - Preliminary Blood 07/18/21 09:12 Blood Culture - Final Blood
[2021-07-19 18:28] LABS: Glucose,Whole Blood 194 mg/dL (75-99)
[2021-07-19 21:53] LABS: Appearance,Urine Cloudy (Clear); Bacteria,Urine Rare /hpf; Bilirubin,Urine Negative (Negative); Blood,Urine Small (Negative); Cellular Casts,Urine 1 /lpf (0); Color,Urine Yellow; Glucose,Urine (UA) Negative (Negative); Granular Casts,Urine 3 /lpf (0); Hyaline Casts,Urine 3 /lpf (0-2); Ketones,Urine Negative (Negative); Leukocyte Esterase,Urine Negative (Negative); Mucus,Urine Rare /hpf; Nitrite,Urine Negative (Negative); PH, Urine 5.5 (5.0-8.0); Protein,Urine 1+ (Negative); RBC,Urine 6 /hpf (0-5); Specific Gravity,Urine 1.022 (1.001-1.035); Urobilinogen,Urine <2.0 mg/dL (<2.0); WBC,Urine 4 /hpf (0-5)
[2021-07-19 22:52] LABS: Glucose,Whole Blood 131 mg/dL (75-99)
[2021-07-19] MEDS: PIPERACILLIN-TAZOBACTAM 3.375 GM in SODIUM CHLORIDE 0.9% 100 ML IVPB SCH (22:53)
[2021-07-20] MEDS: PIPERACILLIN-TAZOBACTAM 3.375 GM in SODIUM CHLORIDE 0.9% 100 ML IVPB SCH ×2 (04:17→15:14)
[2021-07-20] MEDS: SODIUM CHLORIDE 0.9% 1,000 ML IV SCH (04:17)
[2021-07-20 04:19] LABS: Anisocytosis Moderate; Basophils % (A) 0 %; Eosinophils % (A) 0 %; HCT 22.6 % (39.0-53.0); HGB 7.1 gm/dL (13.0-17.5); Hypochromasia Marked; Lymphocytes # (A) 0.2 k/uL (1.0-4.8); Lymphocytes % (A) 4 %; MCH 30.8 pg (25.0-35.0); MCHC 31.4 g/dL (31.0-37.0); Macrocytosis Moderate; Mean Platelet Volume 9.1; Monocytes # (A) 0.4 k/uL (0-1.0); Monocytes % (A) 10 %; Neutrophils # (A) 3.7 k/uL (1.3-7.7); Neutrophils % (A) 85 %; Platelet Count 168 k/uL (150-450); Poikilocytosis Marked; RDW 21.8 % (11.5-15.5); WBC 4.4 k/uL (3.8-10.6)
[2021-07-20 04:22] VITALS: TEMP 97.2
[2021-07-20 04:28] LABS: Albumin 2.4 g/dL (3.5-5.0); Calcium 8.1 mg/dL (8.4-10.2); Potassium 4.5 mmol/L (3.5-5.1); Total Bilirubin 0.5 mg/dL (0.2-1.3); Total Protein 7.4 g/dL (6.3-8.2)
[2021-07-20] MEDS ORDERED: DEXMEDETOMIDINE/0.9% NACL(PMX) 400 MCG in EMPTY BAG 1 BAG IV SCH (05:15)
[2021-07-20] MEDS: LEVOTHYROXINE 100 MCG TAB PO SCH (05:49)
[2021-07-20 06:42] LABS: Glucose,Whole Blood 194 mg/dL (75-99)
[2021-07-20] MEDS: INSULIN ASPART (NovoLOG) 100 UNIT/ML VIAL SQ SCH ×2 (06:48→15:14)
--- NOTE | 2021-07-20 08:02 | XR ---
EXAMINATION TYPE: XR chest 1V portable DATE OF EXAM: 07/20/2021 HISTORY: Shortness of breath. COMPARISON: 07/19/2021 TECHNIQUE: Single view of the chest is submitted. FINDINGS: Demonstrated are scattered senescent parenchymal change. Coarse infiltrates are seen bilaterally and appear to be unchanged. The heart is stable. Hilar and mediastinal structures are within normal limits. Degenerative changes are seen of the dorsal spine. IMPRESSION: 1. Coarse infiltrates are seen bilaterally and appear to be unchanged.
[2021-07-20] MEDS: ALBUTEROL HFA INHALER INHALATION SCH ×2 (08:23→12:27)
[2021-07-20] MEDS: SYMBICORT 80-4.5 MCG INHALER INHALATION SCH (08:23)
[2021-07-20] MEDS: TIOTROPIUM 2.5 MCG INHALER INHALATION SCH (08:24)
--- NOTE | 2021-07-20 08:37 | P.PN ---
Subjective Progress Note Date: 07/20/21 81-year-old male patient, MEDICAL problems and comorbidities which include COPD, rheumatoid arthritis and the patient is demented on a combination of methotrexate and steroids on outpatient basis and addition to hypertension and hyperlipidemia and history of atrial fibrillation and previous history of a h emorrhagic stroke. The patient presented to the hospital last April with respiratory failure and the patient was treated accordingly. At that time, the patient was also found to have severe anemia with hemoglobin being as low as 4.6 without any signs of bleeding. Patient was also found to have multilevel compression fractures of the level of T7, T8 and T12 and a TLSO brace was ordered for the patient. The patient was ultimately discharged home. The patient came into the hospital today because of worsening shortness of breath of one-week duration. Note that he was vaccinated for COVID 19. He has received 2 shots without a booster. The patient arrived to the emergency and the patient was a febrile with a temperature 11.2 and he was tachycardic and tachypneic and hypoxic. Currently is on a 15 L nasal cannula in addition to 100% nonrebreather facemask. His chest x-ray showing bilateral pulmonary infiltrates, with diffuse patchy infiltrates consistent with COVID 19 related pneumonia. The patient tested positive for COVID 19. His LDH level was 1145 and the rest of the blood work shows a creatinine of 1.4, BUN of 58, sodium of 135, white cell count of 4.1. The patient is currently ending emergency department and he'll be admitted to the intensive care unit. His hemoglobin today is at 6.9. No signs of any acute bleeding identified. D-dimer is at 4.6. On 07/19/2021 patient seen in follow-up in the intensive care unit, she remains on high flow oxygen with 15 L per high flow nasal cannula and 100% nonrebreather mask, and his pulse ox is 87-88%, he is breathing comfortably, clinically she looks and feels better compared to yesterday's exam and self report. He is awake and alert, oriented 3, he sitting up in bed, does not appear to be in distress. Physical exam reveals coarse bibasilar crackles at bilateral bases, patient does cough, no phlegm production, no complaints of chest pain, however his pro calcitonin level was elevated at 1.42 raising possibility of underlying bacterial infection even in view of his elevated BUN and creatinine. The rest of blood work has been reviewed, showing white blood cell count of 5.2, hemoglobin today 7.6 and patient was transfused with 1 unit of packed red blood cells yesterday, platelet count is 129, abdomen is soft, no nausea or vomiting, no hematemesis, no black tarry stools, no obvious signs of bleeding, hem odynamically stable, he is in sinus mechanism tachycardic with a rate of 100, d- dimer is relatively stable at 4.31, electrolytes are within normal limits, BUN is 56 creatinine is slightly improved and is down to 1.34., His ferritin level on admission was 865, AST is relatively stable at 114, ALT is 57, alkaline phosphatase is 68, within normal limits, LDH is 1145 and this was done on admission and CRP is 25.8, proBNP was 1370. No lower extremity swelling noted. Today's chest x-ray shows bilateral multifocal opacities consistent with COVID- 19 infection and background chronic symptoms with this and pulmonary fibrotic changes. Blood cultures have been sent, one blood cultures is showing gram- negative bacilli, fungal culture is pending. Patient is on 0.9 normal saline at a rate of 75 ML per hour. His urine output is 30-60 ML per hour. His Doppler of right lower extremity was negative for DVT. 07/20/2021, the patient's condition decompensated significantly. Note that the patient was quite hypoxic due to a combination of COVID 19 related pneumonia and the superinfection with pseudomonas aeruginosa as the patient had a positive blood culture with Pseudomonas. He was on high flow oxygen with 15 L in addition to 100% on a beta facemasks. Despite the suction supplementation, the patient. Gradually progressively became progressively more hypoxic. Overnight, he was getting quite restless and agitated and he was pulling off his nonrebreather mask. At that point, he was also becoming more hypoxic. I started the patient Precedex and subsequent I was able to put him on a BiPAP for respiratory support. This morning, the patient is on a BiPAP at a pressure of 12/6 cm of water with an FiO2 of 100%. The pulse ox after showing some limited improvement, gradually dropped and currently is in the low 80s. He is struggling with his breathing. He is using excessive muscle breathing. At times he gets restless and agitated and he tries to reach out to his mask and followed off. we will also has covert is at the bedside for now. The patient is on Precedex which is running at 0.5 mcg/kg per minute. Hemodynamically stable. His antibiotic coverage is with IV Zosyn regarding his Pseudomonas septicemia. There is also another blood culture that showing staph epidermidis. He is also on Decadron 6 mg IV every 24 hours. He is on anticoagulation with Lovenox 40 mg subcu daily. On his blood work from today, the patient has a white cell count of 4.4 with a hemoglobin of 7.1, platelet is at 168, his creatinine is at 1.25 with a BUN of 62, sodium is 144. His LDH level from yesterday was 1360 and the CRP level was 33. Blood culture as stated earlier was positive for pseudomonas aeruginosa. The patient is on no pressors for now. He is extremely lethargic. At times agitated. For the most part is having labored breathing even on the BiPAP and the family is requesting end-of-life care. The patient has expressed wishes not to get intubated to his and to me on previous encounters. The chest x-ray from today showing diffuse bilateral pulmonary infiltrates and there is worsening consolidation in the right upper lobe and in the right lower lobe. No evidence of any pneumothorax. Objective - Vital Signs Vital signs: Vital Signs Temp 97.2 F L 07/20/21 04:00 Pulse 92 07/20/21 07:00 Resp 43 H 07/20/21 07:00 BP 122/52 07/20/21 07:00 Pulse Ox 70 L 07/20/21 07:00 Intake & Output 07/19/21 07/20/21 07/20/21 18:59 06:59 18:59 Intake Total 1035.0 537.715 25 Output Total 485 365 25 Balance 550.0 172.715 0 Weight 84.3 kg Intake: IV 975.0 525 25 Cefepime 1 gm In Sodium 50.0 Chloride 0.9% 50 ml @ 12. 5 mls/hr IVPB Q12HR [facility] Rx#:[id number] Piperacillin-Tazobactam 3 200 .375 gm In Sodium Chloride 0.9% 100 ml @ 25 mls/hr IVPB Q8H [facility] Rx#: [id number] Sodium Chloride 0.9% 1, 675 325 25 000 ml @ 75 mls/hr IV . [id number] [facility] Rx#:[id number] Vancomycin 1,500 mg In 250 Sodium Chloride 0.9% 250 ml @ 125 mls/hr IVPB Q24HR [facility] Rx#:[id number] Intake, IV Titration 12.715 Amount Dexmedetomidine/0.9% NaCl 12.715 (Pmx) 400 mcg In Empty Bag 1 bag @ 0.2 MCG/KG/HR 4.215 mls/hr IV .[id number] [facility] Rx#:[id number] Oral 60 Output: Urine 485 365 25 Other: Voiding Method Indwelling Catheter Indwelling Catheter - Exam Gen: This is a 81-year-old male , patient is having labored breathing, at times restless and agitated, sedated with Precedex, currently on a BiPAP at a pressure of 12/6 cm of water with an FiO2 of 100%. Family is at the bedside. He is quite lethargic and at times agitated. There is obvious changes in his mentation over the past 24 hours. He was quite agitated and for that reason he was placed on Precedex and he was able to wear the BiPAP mask for some time. HEENT: Head is atraumatic, normocephalic. Pupils equal, round. Sclerae is anicteric. NECK: Supple. No JVD. No lymphadenopathy. No thyromegaly. LUNGS: decreased breaths on bilaterally coarse crackles positive expiratory wheezes. positive accessory muscle usage, positive intercostal retractions. HEART: Irregular rate and rhythm.S1-S2, positive S3, positive JVD. ABDOMEN: Soft. Bowel sounds are present. No masses. No tenderness. Gomez catheter draining clear rubio urine. EXTREMITIES: No edema. Dorsalis pedis +2 bilaterally. NEUROLOGICAL: Lethargic, on Precedex, no focal neurological deficits.. Cranial nerves 2 through 12 are grossly intact. - Labs CBC & Chem 7: 07/20/21 03:59 07/20/21 03:59 Labs: Abnormal Lab Results - Last 24 Hours (Table) 07/19/21 07/19/21 07/19/21 Range/Units 05:24 11:42 18:26 RBC (4.30-5.90) m/uL Hgb (13.0-17.5) gm/dL Hct (39.0-53.0) % RDW (11.5-15.5) % Lymphocytes # (1.0-4.8) k/uL Chloride (98-107) mmol/L BUN (9-20) mg/dL Glucose (74-99) mg/dL POC Glucose (mg/dL) 171 H 194 H (75-99) mg/dL Calcium (8.4-10.2) mg/dL AST (17-59) U/L ALT (4-49) U/L Lactate Dehydrogenase 1360 H (313-618) U/L C-Reactive Protein 33.1 H (<1.0) mg/dL Albumin (3.5-5.0) g/dL Urine Protein (Negative) Urine Blood (Negative) Urine RBC (0-5) /hpf Urine Bacteria (None) /hpf Hyaline Casts (0-2) /lpf Urine Mucus (None) /hpf 07/19/21 07/19/21 07/20/21 Range/Units 20:00 22:50 03:59 RBC 2.30 L (4.30-5.90) m/uL Hgb 7.1 L (13.0-17.5) gm/dL Hct 22.6 L (39.0-53.0) % RDW 21.8 H (11.5-15.5) % Lymphocytes # 0.2 L (1.0-4.8) k/uL Chloride (98-107) mmol/L BUN (9-20) mg/dL Glucose (74-99) mg/dL POC Glucose (mg/dL) 131 H (75-99) mg/dL Calcium (8.4-10.2) mg/dL AST (17-59) U/L ALT (4-49) U/L Lactate Dehydrogenase (313-618) U/L C-Reactive Protein (<1.0) mg/dL Albumin (3.5-5.0) g/dL Urine Protein 1+ H (Negative) Urine Blood Small H (Negative) Urine RBC 6 H (0-5) /hpf Urine Bacteria Rare H (None) /hpf Hyaline Casts 3 H (0-2) /lpf Urine Mucus Rare H (None) /hpf 07/20/21 07/20/21 Range/Units 03:59 06:40 RBC (4.30-5.90) m/uL Hgb (13.0-17.5) gm/dL Hct (39.0-53.0) % RDW (11.5-15.5) % Lymphocytes # (1.0-4.8) k/uL Chloride 110 H (98-107) mmol/L BUN 62 H (9-20) mg/dL Glucose 142 H (74-99) mg/dL POC Glucose (mg/dL) 194 H (75-99) mg/dL Calcium 8.1 L (8.4-10.2) mg/dL AST 91 H (17-59) U/L ALT 50 H (4-49) U/L Lactate Dehydrogenase (313-618) U/L C-Reactive Protein (<1.0) mg/dL Albumin 2.4 L (3.5-5.0) g/dL Urine Protein (Negative) Urine Blood (Negative) Urine RBC (0-5) /hpf Urine Bacteria (None) /hpf Hyaline Casts (0-2) /lpf Urine Mucus (None) /hpf Microbiology - Last 24 Hours (Table) 07/18/21 09:10 Blood Culture Gram Stain - Preliminary Blood Blood Culture - Preliminary Staphylococcus epidermidis 07/18/21 09:12 Blood Culture Gram Stain - Preliminary Blood Blood Culture - Preliminary Pseudomonas aeruginosa 07/18/21 09:10 Blood Culture - Final Blood 07/18/21 09:12 Blood Culture - Final Blood Assessment and Plan Plan: 1 acute COVID 19 related pneumonia. The patient has been having worsening shortness of breath since mid June. The patient was seen in my office on 07/04/2021 for worsening dyspnea. Noted the patient is chronically immunosuppressed and the patient has been receiving a combination of methotrexate a total of 10 mg every week in addition to prednisone 10 mg on a daily basis. The patient was developing also bilateral pulmonary interstitial infiltrates and this along with multiple other comorbidities including chronic anemia and COPD he has resulted to significant amount of respiratory distress. The patient presented to the emergency and the patient was also checked positive for COVID 19 infection. Currently the patient has bilateral pulmonary infiltrates with patchy infiltration right more than left. He clinically, the patient was also found to have sepsis with pseudomonas aeruginosa. As such, the patient has acute respiratory failure secondary to COVID 19 related pneumonia with a superinfection with pseudomonas aeruginosa with possible bacteremia. He is currently on IV Zosyn. He is currently on Decadron. He is on BiPAP for respiratory support. Oxygenation gradually got worse and the patient was placed on BiPAP overnight and had to be placed on Precedex to maintain synchrony and control her agitation while the patient is on a BiPAP. Currently at the pressure of 12/6 and the patient is an FiO2 of 100%. Pulse ox remains low. Chest x-ray was noted. Family is requesting end-of-life care. Is a DNR/DNI CODE STATUS. 2 acute hypoxic respiratory failure secondary to above currently on BiPAP for respiratory support as stated above 3 COPD with a baseline FEV1 of 54% of predicted 4 history of rheumatoid arthritis, maintained on a combination of prednisone and methotrexate on outpatient basis 5 history of chronic hypoxic respiatory failure and the patient was essentially using oxygen with activity and during sleep prior to this current episode 6 history of chronic immunosuppression 7 history of chronic atrial fibrillation 8 history of chronic anemia currently under investigation 9 acute kidney injury with a creatinine of 1.4 10 history of hemorrhagic stroke approximately a year ago 11 previous hospitalization for a massive drop in hemoglobin down to 4.6 with signs of iron deficiency 12 history of compression fracture of the T7, T8 spine. 13 pseudomonas aeruginosa sepsis, likely originating from an underlying pneumonia. Plan I had a discussion with the at the bedside. The also has COVID 19. She was able to come in and check on her today. Following our discussion, we noticed that the patient's condition is declining. Short of intubation mechanical ventilation, he will not survive this episode. Based on that, and based on his wishes of the INR DO NOT INTUBATE, we made collective the decision to proceed with end-of-life care and the patient will be started on mo rphine drip and following that and once adequate sedation was achieved, will be taken off the BiPAP and he was placed on 100% nonrebreather facemask. We'll continue with end-of-life care treatment this patient. He will likely pass away within next few hours as the patient's overall rest or status is extremely compromised and he has sepsis and multisystem organ failure. I assess this patient's family's Tong[place] altered his satisfaction. was agreeable at the bedside. DNR/DNI CODE STATUS. Time with Patient: Greater than 30
[2021-07-20] MEDS ORDERED: SCOPOLAMINE 1.5MG/72HR PATCH TRANSDERM SCH (09:00)
[2021-07-20] MEDS ORDERED: MORPHINE SULFATE (100 MG/2 ML) 100 MG in SODIUM CHLORIDE 0.9% 100 ML IV SCH (09:00)
[2021-07-20] MEDS: MORPHINE SULFATE 2 MG/ML SYRINGE IV PRN ×2 (09:15→11:37)
[2021-07-20] MEDS ORDERED: MORPHINE SULFATE 4 MG/ML SYRINGE IM STA (11:00)
[2021-07-20] MEDS: ASCORBIC ACID 500 MG TAB PO SCH (15:11)
[2021-07-20] MEDS: ASPIRIN 81 MG PO SCH (15:11)
[2021-07-20] MEDS: CHOLECALCIFEROL 25 MCG (1000 IU) TABLET PO SCH (15:12)
[2021-07-20] MEDS: ATORVASTATIN 10 MG TAB PO SCH (15:12)
[2021-07-20] MEDS: DEXAMETHASONE SOD PHOSPHATE 10 MG/ML 1 ML VIAL IVP SCH (15:12)
[2021-07-20] MEDS: FOLIC ACID 1 MG TAB PO SCH (15:13)
[2021-07-20] MEDS: PANTOPRAZOLE 40 MG/10 ML VIAL IVP SCH (15:13)
[2021-07-20] MEDS: ENOXAPARIN 40 MG/0.4 ML SYRINGE SQ SCH (15:13)
[2021-07-20] MEDS: ZINC SULFATE 220 MG CAP PO SCH (15:14)
[2021-07-20 16:14] VITALS: BP 87/45; PULSE 96; RESP 22
--- NOTE | 2021-07-23 14:44 | P.DS ---
Providers Date of admission: 07/18/21 11:59 Expected date of discharge: 07/20/21 Attending physician: Lissette Fleming Consults: 07/18/21 11:47 Consult Physician Routine Consulting Provider: Earlene Voss Consult Reason/Comments: COVID Do you want consulting provider notified?: Yes Primary care physician: [facility] Course: HISTORY OF PRESENT ILLNESS 81-year-old male one of my office patient of known for over 20 years with history of COPD, hypertension, hyperlipidemia, rheumatoid arthritis on methotrexate and steroids, hypothyroidism and paroxysmal atrial fibrillation who had also history of hemorrhagic stroke this last year. Patient was hospitalized last May 07 for acute respiratory failure worsening dyspnea and shortness of breath. He should have recent hospitalization 06/1811/ for acute severe anemia presenting with hemoglobin of 4.6 but no signs of bleeding. Patient also was found to have compression fractures T7, T8, T12 and TLSO brace was ordered by orthopedics with plan for follow-up outpatient. Patient was discharged home after 2 units of packed RBCs with hemoglobin of 8.7. Patient was seen by GI with no plan for endoscopy. Patient now presents with complaints of shortness of breath that started 1 week ago today. Patient is vaccinated with maternal but he does not recall the month that was completed. Patient is a poor historian. He does have cough with green sputum production. He was hypoxic when EMS arrived and presented to the emergency center with temperature 101.2, heart rate 124, respiratory rate 26, blood pressure 119/60, pulse ox 92% on patient is currently on nonrebreather and nasal cannula. EKG sinus tachycardia. WBC 4.1, hemoglobin 6.9, platelet count 132. INR 1.2. Sodium 135. BUN 58 and creatinine 1.45. Glucose 113. Lactic acid 1.4. Magnesium 1.9. AST 110, ALT 57, alkaline phosphatase 62, LDH 1145. C-reactive protein 25.8. ProBNP 1370. Albumin 2.5. Coronavirus PCR detected. Chest x-ray revealed diffuse patchy infiltrates can be compatible with atypical pneumonia. Findings are worsened over the interval. Patient has been seen in the emergency center, we are adding consult for pulmonary medicine, starting first dose of Remdesivir, dexamethasone, Lovenox at therapeutic dose, d-dimer ordered and ultrasound of the right lower extremity to rule out DVT, vitamin supplements started. 07/19: Patient is seen today in the intensive care unit. He is currently on nonrebreather and high flow nasal cannula with pulse ox of 87%. He has been afebrile, heart rate in the 80s and 90s, blood pressure 113/52. Repeat blood work reveals hemoglobin 7.6, platelet count 129. BUN 56 and creatinine 1.34. Blood sugars are running between 171 and 212. AST 114, ALT 57. LDH 1360. C- reactive protein 33.1. D-dimer 4.3. Blood culture 2 is gram-positive cocci and vancomycin started, pharmacy to dose. Patient has been seen by pulmonary medicine and Remdesivir was discontinued. Ultrasound of the bilateral lower extremities negative for DVT. Chest x-ray reveals bilateral multifocal opacities consistent with COVID 19 infection a background of chronic emphysematous and pulmonary fibrotic change. 07/20: Patient remains in the intensive care unit but pulse ox has been.dipping into the 70s and mostly in the 80s. His is at bedside and has made him comfort care only. Patient on 07/20. Please see nursing documentation for details. ASSESSMENT AND PLAN 1. Acute hypoxic respiratory failure secondary to COVID-19 pneumonia. 2. Sepsis secondary to Covid 19 pneumonia. 3. Severe anemia with recent hospitalization, presented with hemoglobin of 6.9. Status post transfusion 1 unit of packed RBCs 4. Acute kidney injury. 5. Thrombocytopenia most likely secondary to sepsis. 6. Severe back pain secondary to compression fractures T7, T8, T12. 7. COPD without exacerbation. 8. Chronic diastolic heart failure. 9. Hypothyroidism. 10. Hyperlipidemia. 11. Rheumatoid arthritis. 12. Paroxysmal atrial fibrillation. 13. History of hemorrhagic stroke, stable. Impression and plan of care have been directed as dictated by the signing physician. Delia Tejada nurse practitioner acting as scribe for signing physician. Patient Condition at Discharge: Undetermined Plan - Discharge Summary Discharge Rx Participant: Yes New Discharge Prescriptions: No Action metHOTREXate sodium [Methotrexate] 20 mg PO CHOW Levothyroxine Sodium [Synthroid] 100 mcg PO DAILY Ascorbic Acid [Vitamin C] 500 mg PO DAILY Ipratropium-Albuterol Nebulize [Duoneb 0.5 mg-3 mg/3 ml Soln] 3 ml INHALATION RT-QID #120 ml Fluticasone/Umeclidin/Vilanter [Trelegy Ellipta 100-62.5-25] 1 puff INHALATION RT-DAILY PRN PRN Reason: Shortness Of Breath Furosemide [Lasix] 20 mg PO DAILY Folic Acid 0.8 mg PO DAILY predniSONE 10 mg PO DAILY Baclofen [Lioresal] 5 mg PO BID PRN PRN Reason: Muscle Spasm Acetaminophen-Codeine 300-30mg [Tylenol w/codeine #3] 1 tab PO Q6H PRN PRN Reason: Pain Rosuvastatin [Crestor] 10 mg PO DAILY Aspirin 81 mg PO DAILY tab Cholecalciferol (Vitamin D3) [Vitamin D3 (3000 Iu)] 75 mcg PO DAILY Ibuprofen [Advil] 400 mg PO Q12H PRN PRN Reason: Pain Discharge Medication List Levothyroxine Sodium [Synthroid] 100 mcg PO DAILY 08/27/18 [History] metHOTREXate sodium [Methotrexate] 20 mg PO CHOW 08/27/18 [History] Ascorbic Acid [Vitamin C] 500 mg PO DAILY 02/02/19 [History] Ipratropium-Albuterol Nebulize [Duoneb 0.5 mg-3 mg/3 ml Soln] 3 ml INHALATION RT-QID #120 ml 01/17/20 [Rx] Fluticasone/Umeclidin/Vilanter [Trelegy Ellipta 100-62.5-25] 1 puff INHALATION RT-DAILY PRN 03/14/21 [History] Furosemide [Lasix] 20 mg PO DAILY 03/14/21 [History] Folic Acid 0.8 mg PO DAILY 05/07/21 [History] Rosuvastatin [Crestor] 10 mg PO DAILY 05/07/21 [History] Aspirin 81 mg PO DAILY tab 05/10/21 [Rx] Acetaminophen-Codeine 300-30mg [Tylenol w/codeine #3] 1 tab PO Q6H PRN 07/07/21 [History] Baclofen [Lioresal] 5 mg PO BID PRN 07/07/21 [History] Cholecalciferol (Vitamin D3) [Vitamin D3 (3000 Iu)] 75 mcg PO DAILY 07/07/21 [History] predniSONE 10 mg PO DAILY 07/07/21 [History] Ibuprofen [Advil] 400 mg PO Q12H PRN 07/18/21 [History] Follow up Appointment(s)/Referral(s): Lexa Mccormack MD [Primary Care Provider] - 1-2 days Discharge Disposition: - Preliminary Cause of Preliminary Cause of : Acute hypoxic respiratory failure secondary to COVID-19 pneumonia.
== END 2021-07-20 08:29 | disposition expired | DRG 871 ==
LOC: EC 08:45 → 2SICU 11:59
PROVIDERS: ADMIT Family Medicine; ATTEND Family Medicine
PROC: XW0DXM6 Introduction of Baricitinib into Mouth and Pharynx, External Approach, New Technology Group 6 (ICD-10-PCS; principal; 2021-07-18)
PROC: 30233N1 Transfusion of Nonautologous Red Blood Cells into Peripheral Vein, Percutaneous Approach (ICD-10-PCS; 2021-07-18)
PROC: XW033E5 Introduction of Remdesivir Anti-infective into Peripheral Vein, Percutaneous Approach, New Technology Group 5 (ICD-10-PCS; 2021-07-18)
PROC: 05HY33Z Insertion of Infusion Device into Upper Vein, Percutaneous Approach (ICD-10-PCS; 2021-07-20)
PROC: 5A09357 Assistance with Respiratory Ventilation, Less than 24 Consecutive Hours, Continuous Positive Airway Pressure (ICD-10-PCS; 2021-07-20)
DX: A41.89 Other specified sepsis (principal); U07.1 COVID-19; J12.82 Pneumonia due to coronavirus disease 2019; J96.01 Acute respiratory failure with hypoxia; J44.0 Chronic obstructive pulmonary disease with (acute) lower respiratory infection; D84.9 Immunodeficiency, unspecified; N17.9 Acute kidney failure, unspecified; I48.20 Chronic atrial fibrillation, unspecified; M48.54XA Collapsed vertebra, not elsewhere classified, thoracic region, initial encounter for fracture; I50.32 Chronic diastolic (congestive) heart failure; A41.52 Sepsis due to Pseudomonas; D69.59 Other secondary thrombocytopenia; F03.90 Unspecified dementia, unspecified severity, without behavioral disturbance, psychotic disturbance, mood disturbance, and anxiety; L89.892 Pressure ulcer of other site, stage 2; Z66 Do not resuscitate; I11.0 Hypertensive heart disease with heart failure; I48.0 Paroxysmal atrial fibrillation; N62 Hypertrophy of breast; E78.5 Hyperlipidemia, unspecified; Z51.5 Encounter for palliative care; E03.9 Hypothyroidism, unspecified; M06.9 Rheumatoid arthritis, unspecified; D64.9 Anemia, unspecified; Z87.891 Personal history of nicotine dependence; Z86.73 Personal history of transient ischemic attack (TIA), and cerebral infarction without residual deficits; Z82.5 Family history of asthma and other chronic lower respiratory diseases; Z79.899 Other long term (current) drug therapy; Z79.890 Hormone replacement therapy; Z79.82 Long term (current) use of aspirin; M54.9 Dorsalgia, unspecified
CPT/HCPCS: 36410; 36415; 71045; 76937; 80053; 81001; 82728; 83036; 83605; 83615; 83735; 83880; 84145; 85025; 85379; 85610; 85730; 86140; 86850; 86900; 86901; 86920; 87040; 87077; 87186; 87635; 93005; 94640; 94660; 96361; 96372; 96374; 96375; 99291